=== PATIENT | female | born 1960 | race African-American/Black ===

== ENCOUNTER 2020-03-15 14:02 | Outpatient (REF) | payer OTHER, SELFPAY ==
--- NOTE | 2020-03-17 | PFT_ITS ---
INDICATION: Followup shortness of breath. SPIROMETRY: The FEV1 to FVC 89% with an FEV1 of 2.43 L, which is 76% of predicted, and FVC of 2.74 L which is 66% predicted. No significant response to bronchodilators noted. Maximum voluntary ventilation 103% predicted. LUNG VOLUMES: Total lung capacity 73% of predicted with an expiratory reserve volume of 48% of predicted due to an elevated BMI. DIFFUSION CAPACITY: DLCO 58% of predicted. COMPARISONS: PFTs from 2018. INTERPRETATION: No obstructive ventilatory defect. No significant response to bronchodilators noted. Normal maximum voluntary ventilation. However, the patient does have a mild restrictive ventilatory defect, to some degree maybe due to her elevated BMI, although interstitial lung conditions cannot be ruled out. The patient also has a moderate diffusion impairment. To some extent, it does correct when correcting for the alveolar volume. When compared to pulmonary function studies in 2018, there is a trend increase in the FVC, a trend increase in the FEV1, no significant change in the total lung capacity, and a significant decrease in the diffusion capacity. Clinical correlation is warranted. MD KRYSTIN Bradley/[facility]Tej / [id number]
== END 2020-03-15 14:03 | disposition home or self-care (01) ==
LOC: HO.RESP 14:02
PROVIDERS: Visit Provider Internal Medicine
DX: Z20.828 Contact with and (suspected) exposure to other viral communicable diseases (principal); Z86.19 Personal history of other infectious and parasitic diseases; K59.00 Constipation, unspecified; E66.01 Morbid (severe) obesity due to excess calories
CPT/HCPCS: 94060; 94727; 94729

== ENCOUNTER → 2020-04-03 08:16 | Outpatient (BNVA) | payer OTHER, SELFPAY | PROVIDERS: PCP Physician Assistant; Referring Provider Physician Assistant; Visit Provider Surgery | DX: Z76.89 Persons encountering health services in other specified circumstances (principal) ==

== ENCOUNTER → 2020-04-22 08:58 | Outpatient (BNVA) | payer OTHER, SELFPAY | PROVIDERS: PCP Physician Assistant; Visit Provider Surgery | DX: Z76.89 Persons encountering health services in other specified circumstances (principal) ==

== ENCOUNTER → 2020-05-15 09:19 | Outpatient (BNVA) | payer OTHER, SELFPAY | PROVIDERS: PCP Physician Assistant; Visit Provider Surgery | DX: Z76.89 Persons encountering health services in other specified circumstances (principal) ==

== ENCOUNTER → 2020-06-17 08:45 | Outpatient (BNVA) | payer OTHER, SELFPAY | PROVIDERS: PCP Physician Assistant; Visit Provider Surgery | DX: Z76.89 Persons encountering health services in other specified circumstances (principal) ==

== ENCOUNTER 2020-07-01 15:06 | Outpatient (REF) | payer OTHER, SELFPAY ==
[2020-07-01 16:42] LABS: MANUAL DIFF FLAG NO
[2020-07-01 16:50] LABS: Basophils Percent Auto 0.7 % (0-2); Eosinophils Absolute Auto 0.2 X10*3/uL (0.0-0.4); Eosinophils Percent Auto 4.2 % (0-4); Hematocrit 39.2 % (37-47); Hemoglobin 13.4 g/dl (12.0-16.0); Imm Gran Abs Auto 0.02 X10*3/uL (0.00-0.03); Imm Gran Pct Auto 0.4 % (0.0-0.4); Lymphocytes Absolute Auto 2.1 X10*3/uL (1.2-4.9); Lymphocytes Percent Auto 37.5 % (20-40); Mean Corpuscular HGB Conc 34.2 g/dl (31.0-35.0); Mean Corpuscular Hemoglobin 27.4 pg (27.0-33.0); Mean Corpuscular Volume 80.2 fL (80-98); Mean Platelet Volume 9.9 fL (9.4-12.3); Monocytes Absolute Auto 0.3 X10*3/uL (0.1-1.2); Monocytes Percent Auto 4.8 % (2-11); Neutrophils Percent Auto 52.4 % (45-73); Platelet Count 323 X10*3/uL (160-400); Red Blood Count 4.89 X10*6/uL (4.20-5.50); Red Cell Distribution Width 12.9 % (11.0-16.0); White Blood Count 5.7 X10*3/uL (4.8-10.8)
[2020-07-01 17:18] LABS: Anion Gap 13 (12-20); Blood Urea Nitrogen 17 mg/dL (9-16); Calcium 9.1 mg/dL (8.4-10.2); Carbon Dioxide 25 mmol/L (22-29); Chloride 105 mmol/L (96-108); Estimated Glomerular Filt Rate > 60; Glucose Random 91 mg/dL (60-115); Sodium 139 mmol/L (135-145)
[2020-07-01 17:38] LABS: D Dimer 225 NG/ML
[2020-07-01 17:42] LABS: SARS COV2 IgG Positive (Negative)
[2020-07-01 18:14] LABS: Erythrocyte Sedimentation Rate 17 MM/HR (0-20)
[2020-07-02 10:02] LABS: Immunoglobulin E 313 kU/L (<OR=114)
== END 2020-07-01 15:07 | disposition home or self-care (01) ==
LOC: HO.LAB 15:06
PROVIDERS: PCP Internal Medicine; Visit Provider Hospitalist
DX: R07.9 Chest pain, unspecified (principal); J45.41 Moderate persistent asthma with (acute) exacerbation; K44.9 Diaphragmatic hernia without obstruction or gangrene; Z20.822 Contact with and (suspected) exposure to COVID-19
CPT/HCPCS: 36415; 80048; 82785; 85025; 85379; 85652; 86003; 86769

== ENCOUNTER 2020-07-08 16:23 | Outpatient (REF) | payer OTHER, SELFPAY ==
[2020-07-08 18:09] LABS: Alanine Aminotransferase 9 U/L (0-31); Albumin Level 4.3 g/dL (3.5-5.0); Alkaline Phosphatase 76 U/L (39-117); Aspartate Amino Transferase 13 U/L (5-31); Bilirubin Direct 0.3 mg/dL (0.0-0.5); Bilirubin Total 0.8 mg/dL (0.0-1.0); C Reactive Protein 0.16 mg/dL (< or = 0.50); Rheumatoid Factor < 15.0 IU/mL (<15.0); Total Protein 7.5 g/dL (6.5-8.0)
[2020-07-08 18:31] LABS: Vitamin D 25-OH Total 20.3 ng/mL (>30)
[2020-07-08 18:34] LABS: Vitamin B12 314 pg/mL (200-900)
[2020-07-10 13:33] LABS: Anti Nuclear Antibody Screen NEGATIVE (NEGATIVE)
== END 2020-07-08 16:24 | disposition home or self-care (01) ==
LOC: HO.LAB 16:23
PROVIDERS: PCP Internal Medicine; Visit Provider Internal Medicine
DX: M25.50 Pain in unspecified joint (principal); I10 Essential (primary) hypertension; K21.9 Gastro-esophageal reflux disease without esophagitis; Z86.16 Personal history of COVID-19; Z87.01 Personal history of pneumonia (recurrent)
CPT/HCPCS: 36415; 80076; 82306; 82607; 86038; 86039; 86140; 86431

== ENCOUNTER → 2020-08-14 08:08 | Outpatient (BNVA) | payer OTHER, SELFPAY | PROVIDERS: PCP Internal Medicine; Visit Provider Surgery ==

== ENCOUNTER → 2020-08-14 13:15 | Outpatient (BNVA) | payer OTHER, SELFPAY | PROVIDERS: PCP Internal Medicine; Visit Provider Physician Assistant | DX: S63.616A Unspecified sprain of right little finger, initial encounter (principal); W50.2XXA Accidental twist by another person, initial encounter | CPT/HCPCS: 73140; 99203 ==

== ENCOUNTER → 2020-08-15 14:18 | Outpatient (BNVA) | payer OTHER, SELFPAY | PROVIDERS: PCP Internal Medicine; Visit Provider Hospitalist | DX: R07.9 Chest pain, unspecified (principal) ==

== ENCOUNTER → 2020-09-06 08:14 | Outpatient (BNVA) | payer OTHER, SELFPAY | PROVIDERS: PCP Internal Medicine; Visit Provider Surgery ==

== ENCOUNTER → 2020-09-20 07:32 | Outpatient (BNVA) | payer OTHER, SELFPAY | PROVIDERS: PCP Internal Medicine; Visit Provider Surgery ==

== ENCOUNTER 2020-09-26 06:30 | Inpatient (IN) | payer OTHER, SELFPAY ==
[2020-09-20 08:57] VITALS: BP 154/84; PULSE 82; RESP 20; BMI 33.5
--- NOTE | 2020-09-20 09:27 | P.CONAN_ITS ---
Documented by User: Estefany Beltran 09/24/20 14:23 HPI - Anesthesia Eval Consult details Narrative: 59yo F for Gastric Bypass Revision of Sleeve Gastrectomy PMFSH Active Problems Active Problems: All Active Problems (Updated 09/20/20 @ 09:16 by Elma Conde) Constipation (Acute) BMI 34.0-34.9,adult (Acute) BMI 33.0-33.9,adult (Acute) BMI 33.0-33.9,adult (Acute) GER[place]IA on CPAP (Acute) Post-COVID syndrome (Acute) Hiatal hernia (Acute) Asthma (Acute) Chest pain (Acute) Chest pain (Acute) Hypertension (Acute) Obesity (Acute) Diaphragmatic hernia (Acute) GERD (gastroesophageal reflux disease) (Acute) Morbid obesity (Acute) Past Medical History Medical History Admission for breast reconstruction following mastectomy Arthritis Asthma Diabetes Diaphragmatic hernia GERD (gastroesophageal reflux disease) History of COVID-19 History of MRSA infection Hx of breast cancer Hx of cardiac murmur Hypertension Morbid obesity GER[place]IA on CPAP Pneumonia Post-COVID syndrome Sickle cell trait Family History Family History Father DM (diabetes mellitus) Stroke Mother DM (diabetes mellitus) Brother No problems noted. Sister No problems noted. Son No problems noted. Family history of problems with anesthesia: No Surgical History Surgical History H/O colonoscopy History of arthroscopic knee surgery History of esophagogastroduodenoscopy (EGD) History of sleeve gastrectomy Hx laparoscopic cholecystectomy Hx of hysterectomy Obesity S/P bilateral mastectomy History of Problems with Anesthesia: No Social History Social History Are you a primary attending ambulatory care to a significant other at home: No Do you presently have visiting nurse or other home services: No Alcohol intake: never Smoking Status: Former smoker Smoked in Last 30 Days: No Smoking Quit Date: 1990 Use of substances other than those prescribed or required for medical reasons: No Have you been hit, kicked, punched, or otherwise hurt by someone within the past year? If so, by whom?: No Advance Directives Information Provided: No Recently lost weight without trying: No Narrative Narrative: No recent illness. >4 mets with exercise. No CP/SOB. Meds Allergies Allergy/AdvReac Type Severity Reaction Status Date / Time cat dander Allergy Severe Loss Voice Verified 09/26/20 06:44 environmental Allergy Severe Sneezing Verified 09/26/20 06:44 Home Medications Medication Instructions Recorded Confirmed Last Taken Type cyanocobalamin (vitamin B-12) 1,000 mcg PO DAILY 04/03/20 09/20/20 Unknown History 1,000 mcg tablet vitamin A 10,000 unit capsule 1 cap PO DAILY 04/03/20 09/20/20 Unknown History omeprazole 20 mg capsule,delayed 20 mg PO DAILY 04/22/20 09/20/20 Unknown History release gabapentin 100 mg capsule 100 mg PO BEDTIME PRN 08/15/20 09/20/20 Unknown History albuterol sulfate 1 puff INHALATION Q4H PRN 09/20/20 09/20/20 Unknown History Exam Exam Date and Time: September 20, [id number] Height,Weight and Vital Signs: Height 5 ft 10 in Weight 106 kg Last Vital Signs Pulse 82 09/20/20 08:57 Resp 20 09/20/20 08:57 BP 154/84 H 09/20/20 08:57 Pertinent Lab Results Pertinent Lab Results: Lab Results 09/20/20 09/20/20 09/20/20 Range/Units 10:05 10:05 10:05 WBC 4.4 L (4.8-10.8) X10*3/uL RBC 5.12 (4.20-5.50) X10*6/uL Hgb 13.9 (12.0-16.0) g/dl Hct 41.2 (37-47) % MCV 80.5 (80-98) fL MCH 27.1 (27.0-33.0) pg MCHC 33.7 (31.0-35.0) g/dl RDW 13.2 (11.0-16.0) % Plt Count 327 (160-400) X10*3/uL MPV 10.0 (9.4-12.3) fL Immature Gran % (Auto) 0.2 (0.0-0.4) % Neut % (Auto) 69.7 (45-73) % Lymph % (Auto) 19.1 L (20-40) % [place] % (Auto) 7.1 (2-11) % Eos % (Auto) 3.4 (0-4) % Baso % (Auto) 0.5 (0-2) % Lymph # (Auto) 0.8 L (1.2-4.9) X10*3/uL [place] # (Auto) 0.3 (0.1-1.2) X10*3/uL Eos # (Auto) 0.2 (0.0-0.4) X10*3/uL Baso # (Auto) 0.0 (0.0-0.2) X10*3/uL Abs Immat Gran (auto) 0.01 (0.00-0.03) X10*3/uL Absolute Neuts (auto) 3.1 (2.0-8.3) X10*3/uL Absolute Nucleated RBC 0.000 (0.0-0.012) X10*3/uL Nucleated RBC % (auto) 0.0 (0.0-0.2) /100WBC PT 12.8 (10.8-13.0) SEC INR 1.1 (0.9-1.1) APTT 42.5 H (24.1-38.0) SEC Sodium 140 (135-145) mmol/L Potassium 3.5 (3.3-5.1) mmol/L Chloride 106 (96-108) mmol/L Carbon Dioxide 25 (22-29) mmol/L Anion Gap 13 (12-20) BUN 11 (9-16) mg/dL Creatinine 0.80 (0.5-1.4) mg/dL Estim Creat Clear Calc 99.8 Estimated GFR > 60 Random Glucose 92 (60-115) mg/dL Estimat Average Glucose mg/dL Hemoglobin A1c % % Total Insulin uIU/mL Calcium 9.3 (8.4-10.2) mg/dL Total Bilirubin 0.8 (0.0-1.0) mg/dL AST 15 (5-31) U/L ALT 11 (0-31) U/L Alkaline Phosphatase 86 (39-117) U/L C-Reactive Protein 0.52 H (< or = 0.50) mg/dL Total Protein 7.8 (6.5-8.0) g/dL Albumin 4.6 (3.5-5.0) g/dL Triglycerides 64 mg/dL Cholesterol 178 mg/dL LDL Cholesterol, Calc 106 mg/dl HDL Cholesterol 60 mg/dL TSH 0.33 (0.32-4.0) uIU/mL Blood Type Antibody Screen 09/20/20 09/20/20 09/20/20 Range/Units 10:05 10:05 10:05 WBC (4.8-10.8) X10*3/uL RBC (4.20-5.50) X10*6/uL Hgb (12.0-16.0) g/dl Hct (37-47) % MCV (80-98) fL MCH (27.0-33.0) pg MCHC (31.0-35.0) g/dl RDW (11.0-16.0) % Plt Count (160-400) X10*3/uL MPV (9.4-12.3) fL Immature Gran % (Auto) (0.0-0.4) % Neut % (Auto) (45-73) % Lymph % (Auto) (20-40) % [place] % (Auto) (2-11) % Eos % (Auto) (0-4) % Baso % (Auto) (0-2) % Lymph # (Auto) (1.2-4.9) X10*3/uL [place] # (Auto) (0.1-1.2) X10*3/uL Eos # (Auto) (0.0-0.4) X10*3/uL Baso # (Auto) (0.0-0.2) X10*3/uL Abs Immat Gran (auto) (0.00-0.03) X10*3/uL Absolute Neuts (auto) (2.0-8.3) X10*3/uL Absolute Nucleated RBC (0.0-0.012) X10*3/uL Nucleated RBC % (auto) (0.0-0.2) /100WBC PT (10.8-13.0) SEC INR (0.9-1.1) APTT (24.1-38.0) SEC Sodium (135-145) mmol/L Potassium (3.3-5.1) mmol/L Chloride (96-108) mmol/L Carbon Dioxide (22-29) mmol/L Anion Gap (12-20) BUN (9-16) mg/dL Creatinine (0.5-1.4) mg/dL Estim Creat Clear Calc Estimated GFR Random Glucose (60-115) mg/dL Estimat Average Glucose 103 mg/dL Hemoglobin A1c % 5.2 % Total Insulin 5.5 uIU/mL Calcium (8.4-10.2) mg/dL Total Bilirubin (0.0-1.0) mg/dL AST (5-31) U/L ALT (0-31) U/L Alkaline Phosphatase (39-117) U/L C-Reactive Protein (< or = 0.50) mg/dL Total Protein (6.5-8.0) g/dL Albumin (3.5-5.0) g/dL Triglycerides mg/dL Cholesterol mg/dL LDL Cholesterol, Calc mg/dl HDL Cholesterol mg/dL TSH (0.32-4.0) uIU/mL Blood Type O Positive Antibody Screen NEGATIVE Narrative Narrative: EKG 02/2020 NSR @ 74 Echo 01/2020 Normal LV systolic function with grade 1 DD Normal cardiac valve doppler Normal RV systolic pressure No pericardial effusion PFT 04/2020 INTERPRETATION: No obstructive ventilatory defect. No significant response to bronchodilators noted. Normal maximum voluntary ventilation. However, the patient does have a mild restrictive ventilatory defect, to some degree maybe due to her elevated BMI, although interstitial lung conditions cannot be ruled out. The patient also has a moderate diffusion impairment. To some extent, it does correct when correcting for the alveolar volume. When compared to pulmonary function studies in 2018, there is a trend increase in the FVC, a trend increase in the FEV1, no significant change in the total lung capacity, and a significant decrease in the diffusion capacity. Clinical correlation is warranted. Airway Mallampati Class: II TM Dist: >3cm Neck ROM: Full Denture: Lower Heart: RRR Lungs: CTAB Assessment and Plan Assessment Anesthesia Assessment: Anesthesia Plan Discussed and PAT Visit Documented by User: Kelton Arenas 09/26/20 09:38 PMFSH Past Medical History Medical History Admission for breast reconstruction following mastectomy Arthritis Asthma Diabetes Diaphragmatic hernia GERD (gastroesophageal reflux disease) History of COVID-19 History of MRSA infection Hx of breast cancer Hx of cardiac murmur Hypertension Morbid obesity [place]ER[place] on CPAP Pneumonia Post-COVID syndrome Sickle cell trait Family History Family History Father DM (diabetes mellitus) Stroke Mother DM (diabetes mellitus) Brother No problems noted. Sister No problems noted. Son No problems noted. Surgical History Surgical History H/O colonoscopy History of arthroscopic knee surgery History of esophagogastroduodenoscopy (EGD) History of sleeve gastrectomy Hx laparoscopic cholecystectomy Hx of hysterectomy Obesity S/P bilateral mastectomy Social History Social History Are you a primary attending ambulatory care to a significant other at home: No Do you presently have visiting nurse or other home services: No Alcohol intake: never Smoking Status: Former smoker Smoked in Last 30 Days: No Smoking Quit Date: 1990 Use of substances other than those prescribed or required for medical reasons: No Have you been hit, kicked, punched, or otherwise hurt by someone within the past year? If so, by whom?: No Advance Directives Information Provided: No Recently lost weight without trying: No Meds Allergies Allergy/AdvReac Type Severity Reaction Status Date / Time cat dander Allergy Severe Loss Voice Verified 09/26/20 06:44 environmental Allergy Severe Sneezing Verified 09/26/20 06:44 Home Medications Medication Instructions Recorded Confirmed Last Taken Type cyanocobalamin (vitamin B-12) 1,000 mcg PO DAILY 04/03/20 09/20/20 Unknown History 1,000 mcg tablet vitamin A 10,000 unit capsule 1 cap PO DAILY 04/03/20 09/20/20 Unknown History omeprazole 20 mg capsule,delayed 20 mg PO DAILY 04/22/20 09/20/20 Unknown History release gabapentin 100 mg capsule 100 mg PO BEDTIME PRN 08/15/20 09/20/20 Unknown History albuterol sulfate 1 puff INHALATION Q4H PRN 09/20/20 09/20/20 Unknown History Exam Airway Mallampati Class: II TM Dist: >3cm Neck ROM: Full Heart: [id number] Lungs: cta b/l Assessment and Plan Assessment Anesthesia Assessment: Anesthesia Plan Discussed, PAT Visit and Chart Reviewed Final Anesthetic Review NPO: Yes ASA Class: III Final Preanesthetic Review: No Changes in Pt Med Stat, Consent Obtained/Reviewed and Anes Risks/Benef Reviewed Patient Risk: Intermediate Procedure Risk: Low Assessment/Block/Sedation in SS: Assess/Block/Sedation-SS Anesthetic Plan Anesthetic Plan: GA and Agree w/ Assess. and Plan Disposition: Standard PACU
[2020-09-20 10:22] LABS: MANUAL DIFF FLAG NO
[2020-09-20 10:30] LABS: Basophils Percent Auto 0.5 % (0-2); Eosinophils Absolute Auto 0.2 X10*3/uL (0.0-0.4); Eosinophils Percent Auto 3.4 % (0-4); Hematocrit 41.2 % (37-47); Hemoglobin 13.9 g/dl (12.0-16.0); Imm Gran Abs Auto 0.01 X10*3/uL (0.00-0.03); Imm Gran Pct Auto 0.2 % (0.0-0.4); Lymphocytes Absolute Auto 0.8 X10*3/uL (1.2-4.9); Lymphocytes Percent Auto 19.1 % (20-40); Mean Corpuscular HGB Conc 33.7 g/dl (31.0-35.0); Mean Corpuscular Hemoglobin 27.1 pg (27.0-33.0); Mean Corpuscular Volume 80.5 fL (80-98); Monocytes Absolute Auto 0.3 X10*3/uL (0.1-1.2); Monocytes Percent Auto 7.1 % (2-11); Neutrophils Absolute Auto 3.1 X10*3/uL (2.0-8.3); Neutrophils Percent Auto 69.7 % (45-73); Platelet Count 327 X10*3/uL (160-400); Red Blood Count 5.12 X10*6/uL (4.20-5.50); Red Cell Distribution Width 13.2 % (11.0-16.0); White Blood Count 4.4 X10*3/uL (4.8-10.8)
[2020-09-20 10:31] LABS: INTERNATIONAL NORM RATIO 1.1 (0.9-1.1); Prothrombin Time 12.8 SEC (10.8-13.0)
[2020-09-20 10:48] LABS: Partial Thromboplastin Time 42.5 SEC (24.1-38.0)
[2020-09-20 10:53] LABS: Estimated Average Glucose 103 mg/dL; Hemoglobin A1c % 5.2 %
[2020-09-20 10:54] LABS: Alanine Aminotransferase 11 U/L (0-31); Albumin Level 4.6 g/dL (3.5-5.0); Alkaline Phosphatase 86 U/L (39-117); Anion Gap 13 (12-20); Aspartate Amino Transferase 15 U/L (5-31); Bilirubin Total 0.8 mg/dL (0.0-1.0); Blood Urea Nitrogen 11 mg/dL (9-16); C Reactive Protein 0.52 mg/dL (< or = 0.50); Calcium 9.3 mg/dL (8.4-10.2); Carbon Dioxide 25 mmol/L (22-29); Chloride 106 mmol/L (96-108); Cholesterol 178 mg/dL; Creatinine Clr Calc Pharmacy 99.8; Estimated Glomerular Filt Rate > 60; Glucose Random 92 mg/dL (60-115); HDL Cholesterol 60 mg/dL; LDL Cholesterol Calculated 106 mg/dl; Potassium 3.5 mmol/L (3.3-5.1); Sodium 140 mmol/L (135-145); Total Protein 7.8 g/dL (6.5-8.0); Triglycerides 64 mg/dL
[2020-09-20 11:14] LABS: TSH reflex Free T4 0.33 uIU/mL (0.32-4.0)
[2020-09-21 05:51] LABS: Insulin Level Total 5.5 uIU/mL
[2020-09-26] VITALS (10 sets, daily range): BP systolic 124–168; BP diastolic 68–96; PULSE 63–81; RESP 14–20; TEMP 36.1–36.6; O2SAT 98–100
--- NOTE | ~2020-09-26 | FL_ITS ---
EXAMINATION: FL UPPER GI SERIES WITH SMALL BOWEL CLINICAL INFORMATION: Postoperative day 1, status post gastric bypass surgery. COMPARISON: None TECHNIQUE: 50/50 diluted Gastrografin was administered orally in the upright view under fluoroscopy. FINDINGS: Following oral administration of diluted Gastrografin, there is normal propagation of the bolus from the oral cavity through the pharynx and esophagus into a small stomach with spontaneous emptying into the duodenum. There is contrast visualized in proximal small bowel loops. FLUOROSCOPY TIME: 0.4 minutes DOSE AREA PRODUCT: 16.306 uGy-m2 (microgray-meter squared) FL/FL upper GI small bowel IMPRESSION: Widely patent gastroesophageal junction and gastroduodenal anastomosis following gastric bypass surgery. No extraluminal contrast extravasation seen. Contrast opacified proximal small bowel loops appears unremarkable.
[2020-09-26 06:55] LABS: COVID-19 Test Negative (Negative)
[2020-09-26] MEDS: Lactated Ringers 1,000 ML 100 ML IVCONT (07:15)
[2020-09-26 07:54] LABS: Glucose, Whole Blood 75 mg/dL (60-115)
--- NOTE | 2020-09-26 12:20 | P.HPSUR_ITS ---
Pre-Procedural Eval Section A The patient is an INPATIENT: Yes The History & Physical has been completed within 30 days and I have reviewed it.: Yes Section B Chief Complaint: gastric bypass revision of lsg Details of Present Illness: obesity Relevant Family History (Specify if Yes): No Relevant Social History: None Present Medications: see Short Stay Collaborative assessment Medical History: No relevant PMH History of Previous Operations: Relevant previous surgery/procedure and date(s) (sleeve gastrectomy) Allergies: Allergies Allergy/AdvReac Type Severity Reaction Status Date / Time cat dander Allergy Severe Loss Voice Verified 09/26/20 06:44 environmental Allergy Severe Sneezing Verified 09/26/20 06:44 Review of Systems Sugical H&P ROS: Negative: Constitution, Cardiovascular, Respiratory, Neurological, Psychiatric, Hem-Onc, Allergic/Immunologic, Gastrointestinal, Genitourinary, Musculoskeletal, Integumentary, Endocrine and Eyes/Ears/Nose/Throat Exam Surgical H&P Exam: Normal: HEENT, Normal: Heart, Normal: Lungs, Normal: Ex tremities, Normal: Abdomen, Normal: Skin and Normal: Neurological Plan Diagnosis/Plan: Unchanged I have reviewed the history and physical and performed a pertinent physical examination on my patient. No changes have occurred unless specified.
--- NOTE | 2020-09-26 12:32 | PM.OP ---
Brief Operative Note Date of Service: 09/26/20 Pre-op diagnosis: Severe obesity and comorbidities Post-op diagnosis: same (diaphragmatic hernia and abdominal adhesions) Procedure: PROCEDURE: Upper endoscopy, laparoscopic repair of incarcerated diaphragmatic hernia, laparoscopic lysis of adhesions and laparoscopic Cassi-en-Y gastric bypass with a Cassi limb of 150 cm INDICATIONS: This is a 59 year-old female with a BMI of 38.2 kg/m2 and associated comorbid conditions as described previously. After appropriate workup was performed, the patient was electively scheduled for laparoscopic, possibly open, gastric bypass. The risks and complications of the procedure were discussed with the patient in advance, particularly the possibility of ; pulmonary embolism; anastomotic leak; bleeding; bowel obstruction; cardiac, pulmonary, or renal complications; as well as long-term problems such as insufficient weight loss, vitamin deficiency, anastomotic strictures, or ulcers. The patient understood all the risks, and was in agreement to proceed with surgery. DESCRIPTION OF PROCEDURE: After informed consent was obtained from the patient, the patient was given preoperative antibiotics, and was transferred to the operating room. After successful induction of general anesthesia, a Kumar catheter and pneumatic compressive devices were placed on both lower extremities. An upper endoscopy was performed next. The oropharynx and esophagus appeared to be within normal limits. There was a diaphragmatic hernia present of moderate size consistent with the findings of the preoperative upper GI. The stomach was entered. Then after all fluid and air were suctioned and the stomach was fully decompressed, the scope was withdrawn and secured in the mid esophagus. The patient was then prepped and draped in the usual sterile manner, and abdominal access was established at the right upper quadrant with the Naila technique. A 12 mm blunt port was inserted, and the abdomen was insufflated with CO2 to a pressure of 15 mmHg. Under direct visualization, additional ports were placed, specifically a 5 and a 12 mm Versi-Step port, to the left and right of the umbilicus, two 5 mm ports to the left upper quadrant, and a 5 mm Versi-Step port to the right upper quadrant. All incisions and fascial defects were premptively infiltrated with 1% lidocaine. There were adhesions in the abdomen from previous sleeve gastrectomy involving the omentum and the anterior abdominal wall. Those were lysed completely with the ultrasonic device (Thysabelerbeyunier, Olympus). Following that, the patient was placed in a steep reverse Trendelenburg position. An additional 5 mm port was placed to the right flank for the Mediflex retractor that was used to retract the left lobe of the liver. I began dissecting allong the lateral aspect of the previous sleeve gastrectomy using the Thunderbeat device. All adhesions were lysed and the sleeve was freed. This line of dissection was followed all the way to the angle of His. Adhesiolysis took approximately 60 min to complete. The pars flaccida was opened with the ultrasonic device and the lesser sac was entered. The angle of His was opened with the ultrasonic device the fundus of the stomach from any diaphragmatic and splenic attachments. There was an obvious significant-sized hiatal hernia. Dissection was difficult due to the previous sleeve gastrectomy and fibrotic tissue in the area. I continued dissecting along the hiatus toward the left ashley and the angle of His. We fully mobilized the fat pad that was incarcerated in the hernia. We then continued by dissecting even further into the posterior retro-esophageal space all the way to the angle of His. I continued to mobilize the esophagus into the mediastinum circumferentially. Both vagal nerves were seen and preserved. At that point, we were able to have at least 3 to 5 cm of esophagus into the abdomen. After I completely mobilized the esophagus from both the left and right ashley and I had a good mobilization of the esophagus, I closed the hernia defect with three interrupted #0 Surgidac sutures using the Endo Stitch device, two of which were placed posterior and one anterior to the esophagus. The lesser omentum was divided with an Endo J LUIS-45 articulating verma load using the AEON stapler but with Covidien staple loads. I opened the angle of His with the ultrasonic device, the fundus of the stomach from any diaphragmatic or splenic attachments. After a window was established there, the stomach was divided transversely with an Endo J LUIS-45 articulating purple load. Every effort was made that the gastric pouch had a tubular and not spherical shape by limiting the vertical division of the stomach with the first staple load at the lesser curvature. A second articulating Endo J LUIS-60 purple load was fired next towards the angle of His. The staple line of the gastric remnant was then reinforced with a running 2-0 Surgidac suture using the Endo Stitch device. The retrogastric space was dissected after the first two staple loads were fired. The retrogastric space was opened in the avascular plane medially to the splenic artery and laterally to the left ashley all the way to the angle of His. The gastric pouch was completed with two additional Endo J LUIS- 45 and 60 articulating purple loads. The remaining staple line of the gastric remnant was also reinforced with a running 2-0 Surgidac suture using the Endo Stitch device. The staple line of the gastric pouch was reinforced with Hemoclips. We then opened the gastrocolic ligament between the transverse colon and the greater curvature of the stomach with the ultrasonic device to enter the lesser sac and facilitate delivery of the Cassi limb through the lesser sac at a later step of the procedure. The patient was then placed in supine position, and after I retracted the transverse colon and the omentum cephalad, we identified the ligament of Treitz. I counted 50 cm from the ligament of Treitz, and the small bowel and the mesentery were divided with an Endo J LUIS-60 white load. Using the ultrasonic device, we opened the peritoneum at the root of the mesentery further to gain extra mobility. I then developed the mesocolic window slightly to the left and superior to the ligament of Treitz using the ultrasonic device. The apex of the Cassi limb was identified. Following that, we grasped the apex of the Cassi limb with an articulating bowel grasper, and after I made sure there was no twisting of the mesentery, it was delivered in a retrocolic, retrogastric fashion through the mesocolic window which we had previously made. Following that, I noted there was no tension between the gastric pouch and the Cassi limb. Enterotomies were made at the apex of the pouch and the Cassi limb, and the gastro-jejunostomy was made with an Endo J LUIS-45 osei load measured to be 4.5 cm in diameter. The enterotomy was closed using the Endo Stitch device in one layer of running 2-0 Polysorb suture in a [place] fashion starting from each corner of the enterotomy and tying the two ends together in the center of the enterotomy. The Cassi limb was clamped with a bowel clamp approximately 15 cm from the gastro-jejunostomy, and a leak test was performed by submerging the anastomosis in saline and insufflating air off the scope into the pouch. The hiatal hernia repair was intact, and there was no narrowing of the GE junction. There was no air leak during the test. There was no significant ischemia of the mucosa of the gastric pouch or Cassi limb. There was no bleeding from the suture or staple lines of the anastomosis, as well as the staple line of the gastric pouch which was clearly seen in its entirety. In addition, the anastomosis was patent, and we easily advanced the scope into the proximal Cassi limb. With the scope pulled back at the esophagus, we reinforced the anastomosis circumferentially with multiple interrupted 2-0 Polysorb sutures in a Lembert type fashion using the Endo Stitch device. At that point, I pulled the endoscope back to the esophagus while we were decompressing the Cassi limb and gastric pouch from any remaining air. At that point, the patient was placed in supine position, and after I reduced the Cassi limb back into the abdomen, I counted 150 cm from the gastro-jejunostomy. An enterotomy was made there with the ultrasonic device. After a similar enterotomy was made at the apex of the bilio-pancreatic limb, the jejuno-jejunostomy was made with an Endo J LUIS-60 white load. The enterotomy was closed with another Endo J LUIS-60 white load after appropriate alignment with four interrupted 2-0 Surgidac sutures. Two anti-obstruction sutures were placed next between the staple line of the bilio-pancreatic limb and the mesentery of the Cassi limb distal from the anastomosis to prevent kinking of the anastomosis. I then closed the small bowel mesenteric defect in a running fashion using a running 2-0 Surgidac suture using the Endo Stitch device. I checked the anastomosis at the end. The jejuno-jejunostomy was patent. The Cassi limb was not narrowed. The staple lines were intact, viable, without evidence of any ischemia, bleeding, or any open areas, and the entire anastomosis was sitting nicely without tension, narrowing, or kinking. I then closed the Alvarez's defect with two interrupted 2-0 Surgidac suture in a U-type fashion and then the mesocolic defect with four interrupted 2-0 Sofsilk sutures in a U-type fashion. The Cassi limb was clamped 20 cm inferior to the mesocolic window and another endoscopy was performed. We could easily pass the gastroscope through the gastro-jejunostomy and mesocolic window without any narrowing, kinking, or evidence of bleeding or ischemia. At that point the gastroscope was withdrawn from the patient?s mouth while we were decompressing the bowel and the stomach from any remaining air. I ran back the Cassi limb from the mesocolic window to the jejuno-jejunostomy which appeared to be normal without any twisting or kinking. All blood clots were suctioned. I carefully positioned the transverse colon epiploic appendages to the root of the small bowel mesentery to prevent any adhesions between them and the anastomosis that could lead to an internal hernia. I then placed the patient back in a steep reverse Trendelenburg position. I looked into the lesser sac to see how the Cassi limb was situating and it was situating well. There was no bleeding from the staple lines of the remnant, angle of His, and gastric pouch, as well as from the mesentery of the Cassi limb. At this point I placed a 10 mm HERLINDA drain underneath the gastro-jejunostomy and we secured the skin level with an #0 Sofsilk suture. The Mediflex retractor was removed, and the undersurface of the liver was inspected and there was no bleeding. The patient was placed in supine position. I closed the fascial defect of periumbilical two 12 mm port site laparoscopically with the EndoClose suture passer device using #1 Polysorb suture and the Naila port with a figure of eight #1 Polysorb suture. Then 100 cc 0.25 % Marcaine and 10 mg of Dexamethasone plain were used to infiltrate both fascial closures as well as all skin incisions. At this point, the abdomen was deflated, all ports were removed under direct vision, and no bleeding was noted from any of the port sites. The skin incisions were irrigated with saline and were closed with 4-0 absorbable monofilament sutures. Steri-Strips and OpSites were used to cover all incisions. The patient was extubated and was transferred in stable condition to the recovery room for further care. I was present and performed all salomon parts of the procedure. Deonte Pepe was the nursing assistants teacher. There were no residents to assist with this case. Jluis Thompson MD, PhD, FACS Surgeon: Nathaniel Thompson MD Anesthesia: GETA, local and other (TAP block) [employer] Driver: Maia Pepe Estimated blood loss (mL): 10 IV fluids (mL): 3,000 Urine output (mL): 150 Pathology: other (small bowel) Condition: stable Disposition: PACU
[2020-09-26] MEDS: Famotidine/PF 20 MG/2 ML VIAL IVPUSH ×2 (12:45→20:51)
--- NOTE | 2020-09-26 12:45 | PM.PNGS ---
Subjective Subjective Date of Service: 09/27/20 Interval history: Patient had mild incisional pain but was able to ambulate and use the incentive spiromteter. Physical Exam Vital Signs: Vital Signs: Last Vital Signs Temp 96.9 F 09/26/20 12:30 Pulse 72 09/26/20 12:39 Resp 14 09/26/20 12:39 BP 163/96 H 09/26/20 12:39 Pulse Ox 99 09/26/20 12:39 Body Mass Index 33.5 GI: Inspection: Yes normal to inspection, Yes incision (dry, clean and intact) and Yes other (HERLINDA with serosanguinous fluid) Extrem: Right lower extremity: normal to inspection (no cald tenderness) Left lower extremity: normal to inspection (no calf tenderness) Progress Note: A&P Assessment and plan (1) Obesity: Status: Acute (2) BMI 32.0-32.9,adult: Status: Acute (3) GERMANIA on CPAP: Status: Acute (4) Hiatal hernia: Status: Acute (5) Asthma: Problem details: pt states never diagnosed w/asthma, however has allergy induced wheezing-has prn inhaler Status: Acute (6) Hypertension: Status: Acute (7) Diaphragmatic hernia: Status: Acute (8) GERD (gastroesophageal reflux disease): Status: Acute (9) Steatosis, liver: Status: Acute (10) S/P gastric bypass: Status: Acute Assessment and Plan: 59 year old Female was admitted 09/26/2020 with morbid obesity and comorbidities. Problem 1: s/p laparoscopic gastric bypass, repair of incarcerated diaphragmatic hernia and lysis of adhesions Status: Doing well Plan: Check am labs and UGI, If OK, will begin phase 1 bariatric diet. UGI is normal. D/C Kumar and begin phase 1 (11) Status post repair of paraesophageal diaphragmatic hernia: Status: Acute (12) Intra-abdominal adhesions: Status: Acute Fall Risk Details Current Medications: Current Medications Generic Name Dose Route Start Last Admin Trade Name Freq PRN Reason Stop Dose Admin Acetaminophen 650 mg 09/26/20 09:38 Acetaminophen 325 Mg Tablet PO ONCE PRN Pain, Mild (Pain Scale 1-3) Albuterol Sulfate 2.5 mg 09/26/20 06:20 Albuterol Sulfate (0.083%) 2.5 Mg/3 Ml Vial.Neb INHALE ONCE PRN Shortness of Breath/Wheezing Famotidine 20 mg 09/26/20 12:45 Famotidine/Pf 20 Mg/2 Ml Vial IVPUSH BID CHARLEY Fentanyl 50 mcg 09/26/20 09:38 Fentanyl Citrate/Pf 100 Mcg/2 Ml Vial IVPUSH Q5M PRN Pain, Moderate (Pain Scale 4-6 Hydromorphone HCl 0.5 mg 09/26/20 09:38 Hydromorphone Hcl 0.5 Mg/0.5 Ml Syringe IVPUSH Q5M PRN Pain, Severe (Pain Scale 7-10) Lactated Ringer's 1,000 mls @ 100 mls/hr 09/26/20 06:30 09/26/20 07:15 Lr IVCONT 100 mls/hr .Q10H CHARLEY Administration Promethazine HCl 12.5 mg/ 50.5 mls @ 202 mls/hr 09/26/20 09:38 Sodium Chloride IV ONCE PRN Nausea and Vomiting Ondansetron HCl 4 mg 09/26/20 09:38 Ondansetron Hcl 4 Mg/2 Ml Vial IVPUSH ONCE PRN Nausea and Vomiting Oxycodone HCl 10 mg 09/26/20 09:38 Oxycodone Hcl Immed Release 5 Mg Tablet PO ONCE PRN Pain, Mild (Pain Scale 1-3) Time Spent With Patient Time: Total time spent is greater than 50% in coordination of care (as documented) at patient's floor/unit and/or counseling patient: Time with patient: less than 15 minutes
--- NOTE | 2020-09-26 13:02 | P.DS_ITS ---
DS: Providers Provider Date of Service: 09/27/20 Date of admission: 09/26/20 06:30 Primary care physician: Jorge Enriquez MD DS: Diagnosis Discharge Diagnosis (1) Obesity: Status: Acute (2) BMI 32.0-32.9,adult: Status: Acute (3) GERMANIA on CPAP: Status: Acute (4) Hiatal hernia: Status: Acute (5) Asthma: Status: Acute Problem details: pt states never diagnosed w/asthma, however has allergy induced wheezing-has prn inhaler (6) Hypertension: Status: Acute (7) Diaphragmatic hernia: Status: Acute (8) GERD (gastroesophageal reflux disease): Status: Acute (9) Steatosis, liver: Status: Acute (10) S/P gastric bypass: Status: Acute (11) Status post repair of paraesophageal diaphragmatic hernia: Status: Acute (12) Intra-abdominal adhesions: Status: Acute DS: Medications Discharge Medications Home Medications: Home Medications Medication Instructions Recorded Confirmed cyanocobalamin (vitamin B-12) 1,000 mcg PO DAILY 04/03/20 09/20/20 1,000 mcg tablet vitamin A 10,000 unit capsule 1 cap PO DAILY 04/03/20 09/20/20 omeprazole 20 mg capsule,delayed 20 mg PO DAILY 04/22/20 09/20/20 release gabapentin 100 mg capsule 100 mg PO BEDTIME PRN 08/15/20 09/20/20 albuterol sulfate 1 puff INHALATION Q4H PRN 09/20/20 09/20/20 Previous Rx's Medication Instructions Recorded lisinopril 10 1 tab PO DAILY #90 tab 04/15/20 mg-hydrochlorothiazide 12.5 mg tablet docusate sodium 100 mg capsule 100 mg PO DAILY #30 cap 06/19/20 beclomethasone dipropionate 80 1 inh INHALATION BID 30 Days #10.6 07/01/20 mcg/actuation HFA breath activated g aerosol montelukast 10 mg tablet 10 mg PO BEDTIME 30 Days #30 tab 07/01/20 vitamin A 10,000 unit capsule 1 cap PO DAILY #90 cap 08/20/20 ondansetron HCl 4 mg tablet 4 mg PO Q12H #20 tab 09/20/20 pantoprazole 40 mg tablet,delayed 40 mg PO DAILY #30 tab 09/20/20 release polyethylene glycol 3350 17 gram 17 g PO DAILY #14 ea 09/20/20 oral powder packet sucralfate 100 mg/mL oral 10 ml PO BID #400 ml 09/20/20 suspension DS: Summary Time Spent with Patient Time attestation: ADMITTING DIAGNOSIS: Refractory obesity after sleeve gastrectomy. Paraesophagela hernia, HTN, asthma DISCHARGE DIAGNOSIS: Past surgical history: Laparoscopic sleeve gastrectomy 2013, lap tiff, hysterectomy, bilateral mastopexy PROCEDURE: Nxtitbgy-qpyfua-ebonclmdxtg and laparoscopic conversion of sleeve gastrectomy to Cassi-en-Y gastric bypass, paraesophageal hernia repair DISCHARGE SUMMARY: HISTORY OF PRESENT ILLNESS: The patient is a 59 year-old woman with a BMI of 35.0 kg/m2 and associated co-morbidities as described previously. The patient had extensive preoperative work-up, lost 25.6 lbs preoperatively and was electively scheduled for laparoscopic, possible open conversion of LSG to gastric bypass. Risks and complications of the surgery were discussed with the patient in advance, particularly the possibility of , pulmonary embolism, anastomotic leak, bleeding, bowel injury, GERD, cardiac, renal or pulmonary complications. The patient understood all the risks and was in agreement with the surgical plan. HOSPITAL COURSE: The patient underwent uneventful laparoscopic conversion of sleeve gastrectomy to Cassi-en-Y gastric bypass and repair of paraesophageal hernia on the day of admission. Postoperatively, the patient was transferred to the surgical floor on a monitored bed and hemoglobin during the first 8 hours remained stable at mg/dl. The patient was on IV Acetaminophen and dilaudid for pain control. On postoperative day one, the patient was feeling well without nausea, vomiting, fevers, or tachycardia. The patient had some mild incisional pain. The abdomen was soft. UGI showed no leak or obstruction. The patient was started on 1 ounce of water or ice every half hour. The Kumar was discontinued. During the first day, the patient did fairly well, having some incisional pain, but able to ambulate adequately and to tolerate liquids well. Since the patient is doing well, we decided that the patient was ready to be discharged. The patient was given instructions to follow-up with me next week and to call my office for any fever over 101, persistent abdominal pain, nausea, vomiting, change in the color of the HERLINDA fluid, symptoms of DVT such as calf tenderness, or leg swelling, or pulmonary embolism such as chest pain or shortness of breath. The patient was also instructed to drink 40-60 ounces of liquids per day using the 1-ounce cups. The patient was given prescription for Tylenol for pain, Zofran prn for nausea, pantoprazole and carafate. The patient was encouraged to ambulate and use the incentive spirometry. The patient was allowed to shower, but no baths, and encouraged to stay active at home. All of these instructions were given to the patient personally. All questions were answered and the patient understood all instructions. The instructions were given to the patient in print as well. Total time spent providing and/or coordinating discharge services: 15 Discharge coordination time: Less than 30 minutes Physical Exam Vital Signs: Vital Signs: Last Vital Signs Temp 96.9 F 09/26/20 12:30 Pulse 73 09/26/20 12:45 Resp 15 09/26/20 12:45 BP 156/92 H 09/26/20 12:45 Pulse Ox 99 09/26/20 12:45 Body Mass Index 33.5 DS: Data Data Completed and Pending Pending studies at discharge: Pending at discharge 09/26/20 10:35 Surgical [PTH] Routine Labs on day of discharge: Laboratory Results - last 24 hr 09/26/20 09/26/20 06:27 07:21 POC Glucose 75 COVID-19 (STEVEN) Negative COVID-19 Clin Com See Note Discharge Plan Discharge Anticipated Discharge Date/Time: 09/27/20 12:57 Patient Disposition: Home, Self-Care Discharge Diagnosis: S/p paraesophagela hernia repair and conversion of LSG to GBP Referrals: Jorge Enriquez MD [Primary Care Provider] - 1 Week Discharge Medications: Continued lisinopril-hydrochlorothiazide 10-12.5 mg tablet 1 tab PO DAILY Qty: 90 RF: 1 docusate sodium 100 mg capsule 100 mg PO DAILY Qty: 30 RF: 2 albuterol sulfate 90 mcg/actuation HFA aerosol inhaler 1 puff inhalation Q4H PRN (Reason: Shortness Of Breath) RF: 0 Qvar RediHaler 80 mcg/actuation HFA aerosol breath activated 1 inh inhalation BID 30 Days Qty: 10.6 RF: 10 montelukast [Singulair] 10 mg tablet 10 mg PO BEDTIME 30 Days Qty: 30 RF: 11 gabapentin 100 mg capsule 100 mg PO BEDTIME PRN (Reason: pain) RF: 0 pantoprazole 40 mg tablet,delayed release (DR/EC) 40 mg PO DAILY Qty: 30 RF: 2 sucralfate 100 mg/mL suspension 10 ml PO BID Qty: 400 RF: 2 ondansetron HCl [Zofran] 4 mg tablet 4 mg PO Q12H Qty: 20 RF: 0 Discontinued vitamin A 10,000 unit capsule 1 cap PO DAILY Qty: 90 RF: 2 vitamin A 10,000 unit capsule 1 cap PO DAILY RF: 0 cyanocobalamin (vitamin B-12) 1,000 mcg tablet 1,000 mcg PO DAILY RF: 0 omeprazole 20 mg capsule,delayed release(DR/EC) 20 mg PO DAILY RF: 0 polyethylene glycol 3350 [Miralax] 17 gram powder in packet 17 g PO DAILY Qty: 14 RF: 0 Discharge Orders: Discharge Order (Routine); Ordered 09/27/20 Ordered By: Nathaniel Thompson Diet: other Activity on Discharge: No heavy lifting Stand Alone Forms: Patient Portal Discharge page Activity Restrictions/Additional Instructions: No tub baths, sex or returning to work until discussed at first post op appointment. No exercise, alcohol, tobacco or illegal drug use. Continue to use incentive spirometer hourly while awake. Walk in home for 5- 10 minutes every 2 hours during the first week. Empty drain bulb twice daily and record amounts, call if increasing amounts or i f cloudy or milky fluid. Continue phase 1 diet today and start phase 2 diet tomorrow morning. Follow all instructions in the bariatric handbook and call with any questions. Care Plan Goals: weight loss Health Concerns: obesity Plan of Treatment: see discharge instructions Assessment: POD # 1, stable doing well.
[2020-09-26 14:23] LABS: Anion Gap 20 (12-20); Blood Urea Nitrogen 13 mg/dL (9-16); Calcium 8.5 mg/dL (8.4-10.2); Carbon Dioxide 19 mmol/L (22-29); Chloride 104 mmol/L (96-108); Creatinine Clr Calc Pharmacy 105.1; Estimated Glomerular Filt Rate > 60; Glucose Random 108 mg/dL (60-115); Potassium 4.2 mmol/L (3.3-5.1); Sodium 139 mmol/L (135-145)
[2020-09-26] MEDS: Lactated Ringers 1,000 ML 150 ML IVCONT ×2 (14:45→22:31)
[2020-09-26] MEDS: ceFAZolin Sodium/Dextrose,Iso 2 GM/50 ML PIGGYBACK IV (16:07)
[2020-09-26 16:35] LABS: Hematocrit 39.6 % (37-47); Hemoglobin 13.9 g/dl (12.0-16.0)
[2020-09-26] MEDS: Fluticasone Propionate 100 MCG BLST.W.DEV 1 PUFF INHALE (19:28)
[2020-09-26] MEDS: 0.9 % Sodium Chloride Flush 3 ML SYRINGE IVFLUSH (20:51)
[2020-09-26] MEDS: ondansetron HCL 4 MG/2 ML VIAL IVPUSH (22:30)
[2020-09-27 03:40] VITALS: BP 156/88; PULSE 67; RESP 16; TEMP 36.8; O2SAT 98
[2020-09-27] MEDS: Lactated Ringers 1,000 ML 150 ML IVCONT ×2 (04:26→12:37)
[2020-09-27] MEDS: HYDROmorphone HCl 0.5 MG/0.5 ML SYRINGE 0.25 MG IVPUSH (04:32)
[2020-09-27 05:03] LABS: MANUAL DIFF FLAG NO
[2020-09-27 05:11] LABS: Basophils Percent Auto 0.2 % (0-2); Hematocrit 35.5 % (37-47); Hemoglobin 12.3 g/dl (12.0-16.0); Imm Gran Abs Auto 0.03 X10*3/uL (0.00-0.03); Imm Gran Pct Auto 0.4 % (0.0-0.4); Lymphocytes Absolute Auto 1.3 X10*3/uL (1.2-4.9); Lymphocytes Percent Auto 15.2 % (20-40); Mean Corpuscular HGB Conc 34.6 g/dl (31.0-35.0); Mean Corpuscular Hemoglobin 27.8 pg (27.0-33.0); Mean Corpuscular Volume 80.3 fL (80-98); Mean Platelet Volume 10.3 fL (9.4-12.3); Monocytes Absolute Auto 0.6 X10*3/uL (0.1-1.2); Monocytes Percent Auto 7.2 % (2-11); Neutrophils Absolute Auto 6.4 X10*3/uL (2.0-8.3); Platelet Count 273 X10*3/uL (160-400); Red Blood Count 4.42 X10*6/uL (4.20-5.50); White Blood Count 8.3 X10*3/uL (4.8-10.8)
[2020-09-27 05:24] LABS: Anion Gap 18 (12-20); Blood Urea Nitrogen 12 mg/dL (9-16); Calcium 8.2 mg/dL (8.4-10.2); Carbon Dioxide 17 mmol/L (22-29); Chloride 108 mmol/L (96-108); Creatinine Clr Calc Pharmacy 103.6; Estimated Glomerular Filt Rate > 60; Glucose Random 99 mg/dL (60-115); Potassium 3.9 mmol/L (3.3-5.1); Sodium 139 mmol/L (135-145)
[2020-09-27] MEDS: ondansetron HCL 4 MG/2 ML VIAL IVPUSH (06:30)
[2020-09-27 07:52] VITALS: PULSE 67; O2SAT 94
[2020-09-27] MEDS: Fluticasone Propionate 100 MCG BLST.W.DEV 1 PUFF INHALE (07:52)
[2020-09-27 08:00] VITALS: BP 126/79; PULSE 75; RESP 16; TEMP 36.4; O2SAT 99
[2020-09-27] MEDS: Famotidine/PF 20 MG/2 ML VIAL IVPUSH (08:13)
--- NOTE | 2020-09-27 09:39 | MHC.CM.PN ---
PATIENT IS FULLY INDEPENDENT WITH HER ADLS. NO DME OR [facility] SERVICES, AND DOES NOT ANTICIPATE THE NEED FOR ANY. PLAN IS FOR DC TODAY. SHE HAS TRANSPORT HOME.
[2020-09-27 12:00] VITALS: BP 150/82; PULSE 63; RESP 17; TEMP 36.1; O2SAT 99
== END 2020-09-27 14:45 | disposition home or self-care (01) | DRG 403 ==
LOC: HO.SSSA 13:02 → HO.S3 13:05
PROVIDERS: Physician Assistant; Admitting Provider Surgery; PCP Internal Medicine; Visit Provider Surgery
PROC: 0DQ64ZZ Repair Stomach, Percutaneous Endoscopic Approach (ICD-10-PCS; CPT 43771; principal; 2020-09-26 07:30)
DX: E66.01 Morbid (severe) obesity due to excess calories (principal); K44.0 Diaphragmatic hernia with obstruction, without gangrene; G47.33 Obstructive sleep apnea (adult) (pediatric); K21.9 Gastro-esophageal reflux disease without esophagitis; K76.0 Fatty (change of) liver, not elsewhere classified; K66.0 Peritoneal adhesions (postprocedural) (postinfection); Z20.822 Contact with and (suspected) exposure to COVID-19; Z68.38 Body mass index [BMI] 38.0-38.9, adult; Z79.899 Other long term (current) drug therapy
CPT/HCPCS: 36415; 74240; 74248; 80048; 80053; 80061; 82947; 83036; 83525; 84443; 85014; 85018; 85025; 85610; 85730; 86140; 86850; 86900; 87635; 88307; 99024; C1758; J0131; J0690; J1100; J1170; J2250; J2370; J2405; J3010

== ENCOUNTER → 2020-10-02 07:53 | Outpatient (BNVA) | payer OTHER, SELFPAY | PROVIDERS: PCP Internal Medicine; Visit Provider Surgery ==

== ENCOUNTER 2020-10-30 16:04 | Outpatient (REF) | payer OTHER, SELFPAY ==
[2020-10-30 17:00] LABS: Alanine Aminotransferase 13 U/L (0-31); Albumin Level 4.3 g/dL (3.5-5.0); Alkaline Phosphatase 73 U/L (39-117); Aspartate Amino Transferase 15 U/L (5-31); Blood Urea Nitrogen 11 mg/dL (9-16); Calcium 9.7 mg/dL (8.4-10.2); Cholesterol 174 mg/dL; Estimated Glomerular Filt Rate > 60; Glucose Random 97 mg/dL (60-115); Total Protein 7.4 g/dL (6.5-8.0)
[2020-10-30 17:15] LABS: Anion Gap 15 (12-20); Carbon Dioxide 28 mmol/L (22-29); Chloride 103 mmol/L (96-108); Potassium 2.8 mmol/L (3.3-5.1); Sodium 143 mmol/L (135-145)
[2020-10-30 17:16] LABS: Free T4 (Free Thyroxine) 1.15 ng/dL (0.71-1.85); Thyroid Stimulating Hormone 0.74 uIU/mL (0.32-4.0); Vitamin D 25-OH Total 20.2 ng/mL (>30)
[2020-10-30 17:26] LABS: Vitamin B12 383 pg/mL (200-900)
== END 2020-10-30 16:05 | disposition home or self-care (01) ==
LOC: HO.LAB 16:04
PROVIDERS: PCP Internal Medicine; Visit Provider Internal Medicine
DX: R53.83 Other fatigue (principal); I10 Essential (primary) hypertension
CPT/HCPCS: 36415; 80053; 82306; 82465; 82607; 84439; 84443

== ENCOUNTER → 2020-11-01 07:58 | Outpatient (BNVA) | payer OTHER, SELFPAY | PROVIDERS: PCP Physician Assistant; Visit Provider Surgery ==

== ENCOUNTER 2020-11-08 14:59 | Outpatient (REF) | payer OTHER, SELFPAY ==
[2020-11-08 16:07] LABS: Anion Gap 18 (12-20); Blood Urea Nitrogen 12 mg/dL (9-16); Calcium 9.6 mg/dL (8.4-10.2); Carbon Dioxide 26 mmol/L (22-29); Chloride 101 mmol/L (96-108); Estimated Glomerular Filt Rate > 60; Glucose Random 86 mg/dL (60-115); Potassium 2.8 mmol/L (3.3-5.1); Sodium 142 mmol/L (135-145)
== END 2020-11-08 15:00 | disposition home or self-care (01) ==
LOC: HO.LAB 14:59
PROVIDERS: PCP Internal Medicine; Visit Provider Internal Medicine
DX: Z13.89 Encounter for screening for other disorder (principal)
CPT/HCPCS: 36415; 80048

== ENCOUNTER → 2020-12-19 14:41 | Outpatient (BNVA) | payer OTHER, SELFPAY | PROVIDERS: PCP Internal Medicine; Visit Provider Hospitalist | DX: R07.9 Chest pain, unspecified (principal) ==

== ENCOUNTER 2021-02-13 23:24 | Emergency (ER) | payer OTHER, SELFPAY ==
[2021-02-13 23:33] VITALS: BP 153/85; PULSE 60; RESP 18; TEMP 35.9; O2SAT 100; BMI 28.5
--- NOTE | 2021-02-14 00:30 | ED_ITS ---
HPI - Abdominal Pain General Chief Complaint: Abdominal Pain Stated Complaint: abd pain Time Seen by Provider: 02/14/21 00:30 Source: patient Mode of arrival: ambulatory Limitations: no limitations History of Present Illness HPI narrative: 60-year-old female came in for evaluation of an abdominal pain. Abdominal pressure/fullness in the upper abdomen, started this morning, now is improving, was about 2 to 3/10, worsening when she lay flat, nothing improving, was associated with dry heaving but no vomiting, normal bowel movement. Able to pass gas. Patient status post sleeve gastrectomy done by Dr. Thompson 5 months ago. Related Data Home Medications Medication Instructions Recorded Confirmed gabapentin 100 mg capsule 100 mg PO BEDTIME PRN 08/15/20 12/19/20 albuterol sulfate 90 mcg/actuation 1 puff INHALATION Q4H PRN 09/20/20 12/19/20 aerosol inhaler Previous Rx's Medication Instructions Recorded beclomethasone dipropionate 80 1 inh INHALATION BID 30 Days #10.6 07/01/20 mcg/actuation HFA breath activated g aerosol (Qvar RediHaler) montelukast 10 mg tablet 10 mg PO BEDTIME 30 Days #30 tab 07/01/20 (Singulair) ondansetron HCl 4 mg tablet 4 mg PO Q12H #20 tab 09/20/20 (Zofran) pantoprazole 40 mg tablet,delayed 40 mg PO DAILY #30 tab 09/20/20 release sucralfate 100 mg/mL oral 10 ml PO BID #400 ml 09/20/20 suspension docusate sodium 100 mg capsule 100 mg PO DAILY #30 cap 09/30/20 hydrochlorothiazide 25 mg tablet 25 mg PO DAILY #30 tab 10/03/20 lisinopril 10 1 tab PO DAILY #90 tab 10/22/20 mg-hydrochlorothiazide 12.5 mg tablet omeprazole 20 mg capsule,delayed 20 mg PO QAM #90 cap 10/31/20 release cholecalciferol (vitamin D3) 25 25 mcg PO DAILY 90 Days #90 cap 02/05/21 mcg (1,000 unit) capsule cholecalciferol (vitamin D3) 25 25 mcg PO DAILY #90 cap 02/05/21 mcg (1,000 unit) capsule (Vitamin D3) Allergies Allergy/AdvReac Type Severity Reaction Status Date / Time cat dander Allergy Severe Loss Voice Verified 12/19/20 15:02 environmental Allergy Severe Sneezing Verified 12/19/20 15:02 Review of Systems Review of Systems All other systems are reviewed and are negative Constitutional: Reports as per HPI and Reports no additional constitutional complaints Eyes: Reports as per HPI and Reports no additional eye complaints Reports system reviewed and no additional complaints, except as documented Cardiovascular: Reports as per HPI and Reports no additional cardiovascular complaints Respiratory: Reports as per HPI and Reports no additional respiratory complaints Gastrointestinal: Reports as per HPI and Reports no additional gastrointestinal complaints Genitourinary: Reports no additional female genitourinary complaints Musculoskeletal: Reports no additional musculoskeletal complaints Skin/Breast: Reports system reviewed and no additional complaints, except as docu Psychiatric: Reports no additional psychiatric complaints Endocrine: Reports no additional endocrine complaints Hematologic/Lymphatic: Reports no additional hematologic/lymphatic complaints Allergic/Immunologic: Reports no additional allergic/immunologic complaints Reports system reviewed and no additional complaints, except as documented and Reports Abnormal speech present Physical Exam Vital Signs: Vital Signs: Last Vital Signs Temp 96.7 F L 02/13/21 23:33 Pulse 60 02/13/21 23:33 Resp 18 02/13/21 23:33 BP 153/85 H 02/13/21 23:33 Pulse Ox 100 02/13/21 23:33 Body Mass Index 28.5 Vital signs have been reviewed as appeared to be correct. Blood pressure elevated. Heart rate normal. Respiration rate normal. Temperature normal. Oxygen saturation normal. Appearance: Alert. Oriented X3. No acute distress. Head: Normal external exam. Normocephalic. Atraumatic. No Holland signs noted. No raccoon eyes noted Eyes: PERRLA. EOMI. Conjunctiva and sclera normal. Eyelids normal. ENT: TM's Normal. Pharynx normal. Uvula midline. Moist mucous membranes. No trismus noted. No drooling noted. No muffled voice noted. Neck: Normal inspection. Neck supple. FROM. No adenopathy. Thyroid Normal. No meningeal signs. No neck mass noted. CVS: Normal heart rate and rhythm. Heart sound normal. No murmurs noted. Pulses normal throughout. Respiratory: No respiratory distress. Painless inspiration. Breath sounds normal. No wheezes/rales/rhonchi noted. Chest nontender. No accessory muscle usage noted or decreased air movement noted. Abdomen: Soft, mild epigastric tenderness with no rebound tenderness or guarding. Bowel sounds normal in all 4 quadrants. No distention noted. No organomegaly noted. No visible injury noted. Back: No CVA tenderness. Full range of motion noted. Skin: Skin warm and dry. Normal skin color. Normal skin turgor. No adriano hes/lesions/lacerations noted. Extremities: No lower extremity edema. Extremities exhibit normal range of motion. Extremities nontender. Neuro: Oriented X 3. Cranial nerve exam: II-XII are grossly intact No motor deficit. No sensory deficit. Reflexes normal. Course Course Course Narrative: 60 years old female status post sleeve gastrectomy 4 months ago came in with upper abdominal pain that is improving now, patient had unremarkable labs, serial abdominal exam reveal improvement of abdominal tenderness and pain. [facility] for bariatric surgery service has been contacted to follow-up with the patient as an outpatient. Patient also having hypokalemia that was replaced today by p.o. potassium. MDM - Abdominal Pain Lab Data Attestation: I reviewed the patient's lab results. Result diagrams: 02/14/21 00:42 02/14/21 00:42 Labs: Lab Results 02/14/21 02/14/21 02/14/21 Range/Units 00:42 00:42 00:42 WBC 5.3 (4.8-10.8) X10*3/uL RBC 4.21 (4.20-5.50) X10*6/uL Hgb 11.8 L (12.0-16.0) g/dl Hct 34.4 L (37-47) % MCV 81.7 (80-98) fL MCH 28.0 (27.0-33.0) pg MCHC 34.3 (31.0-35.0) g/dl RDW 13.2 (11.0-16.0) % Plt Count 314 (160-400) X10*3/uL MPV 9.8 (9.4-12.3) fL Immature Gran % (Auto) 0.2 (0.0-0.4) % Neut % (Auto) 50.2 (45-73) % Lymph % (Auto) 36.7 (20-40) % [place] % (Auto) 6.6 (2-11) % Eos % (Auto) 5.5 H (0-4) % Baso % (Auto) 0.8 (0-2) % Lymph # (Auto) 1.9 (1.2-4.9) X10*3/uL [place] # (Auto) 0.4 (0.1-1.2) X10*3/uL Eos # (Auto) 0.3 (0.0-0.4) X10*3/uL Baso # (Auto) 0.0 (0.0-0.2) X10*3/uL Abs Immat Gran (auto) 0.01 (0.00-0.03) X10*3/uL Absolute Neuts (auto) 2.7 (2.0-8.3) X10*3/uL Absolute Nucleated RBC 0.000 (0.0-0.012) X10*3/uL Nucleated RBC % (auto) 0.0 (0.0-0.2) /100WBC Hold Purple Top SEE NOTE Sodium 139 (135-145) mmol/L Potassium 3.1 L (3.3-5.1) mmol/L Chloride 105 (96-108) mmol/L Carbon Dioxide 25 (22-29) mmol/L Anion Gap 12 (12-20) BUN 9 (9-16) mg/dL Creatinine 0.72 (0.5-1.4) mg/dL Estim Creat Clear Calc 101.2 Estimated GFR > 60 Random Glucose 106 (60-115) mg/dL Calcium 9.2 (8.4-10.2) mg/dL Total Bilirubin 0.7 (0.0-1.0) mg/dL Direct Bilirubin 0.3 (0.0-0.5) mg/dL AST 12 (5-31) U/L ALT 8 (0-31) U/L Alkaline Phosphatase 86 (39-117) U/L Total Protein 6.4 L (6.5-8.0) g/dL Albumin 3.8 (3.5-5.0) g/dL Lipase 10 (8-78) U/L Urine Color Urine Appearance Urine pH (5.0-8.0) Ur Specific [place] (1.005-1.025) Urine Protein (NEG-TRACE) MG/DL Urine Glucose (UA) (NEG) MG/DL Urine Ketones (NEG) MG/DL Urine Blood (NEG) Urine Nitrite (NEG) Ur Leukocyte Esterase (NEG) Urine RBC (0) /HPF Urine WBC (0-4) /HPF Ur Squamous Epith Cells /LPF Urine Bacteria /LPF Urine Mucus /LPF 02/14/21 Range/Units 01:42 WBC (4.8-10.8) X10*3/uL RBC (4.20-5.50) X10*6/uL Hgb (12.0-16.0) g/dl Hct (37-47) % MCV (80-98) fL MCH (27.0-33.0) pg MCHC (31.0-35.0) g/dl RDW (11.0-16.0) % Plt Count (160-400) X10*3/uL MPV (9.4-12.3) fL Immature Gran % (Auto) (0.0-0.4) % Neut % (Auto) (45-73) % Lymph % (Auto) (20-40) % [place] % (Auto) (2-11) % Eos % (Auto) (0-4) % Baso % (Auto) (0-2) % Lymph # (Auto) (1.2-4.9) X10*3/uL [place] # (Auto) (0.1-1.2) X10*3/uL Eos # (Auto) (0.0-0.4) X10*3/uL Baso # (Auto) (0.0-0.2) X10*3/uL Abs Immat Gran (auto) (0.00-0.03) X10*3/uL Absolute Neuts (auto) (2.0-8.3) X10*3/uL Absolute Nucleated RBC (0.0-0.012) X10*3/uL Nucleated RBC % (auto) (0.0-0.2) /100WBC Hold Purple Top Sodium (135-145) mmol/L Potassium (3.3-5.1) mmol/L Chloride (96-108) mmol/L Carbon Dioxide (22-29) mmol/L Anion Gap (12-20) BUN (9-16) mg/dL Creatinine (0.5-1.4) mg/dL Estim Creat Clear Calc Estimated GFR Random Glucose (60-115) mg/dL Calcium (8.4-10.2) mg/dL Total Bilirubin (0.0-1.0) mg/dL Direct Bilirubin (0.0-0.5) mg/dL AST (5-31) U/L ALT (0-31) U/L Alkaline Phosphatase (39-117) U/L Total Protein (6.5-8.0) g/dL Albumin (3.5-5.0) g/dL Lipase (8-78) U/L Urine Color YELLOW Urine Appearance CLEAR Urine pH 6.0 (5.0-8.0) Ur Specific [place] 1.020 (1.005-1.025) Urine Protein NEG (NEG-TRACE) MG/DL Urine Glucose (UA) NEG (NEG) MG/DL Urine Ketones NEG (NEG) MG/DL Urine Blood TRACE (NEG) Urine Nitrite NEG (NEG) Ur Leukocyte Esterase NEG (NEG) Urine RBC 1-4 (0) /HPF Urine WBC 1-4 (0-4) /HPF Ur Squamous Epith Cells 1+ /LPF Urine Bacteria 1+ /LPF Urine Mucus 1+ /LPF Discharge Plan Discharge Clinical Impression: Abdominal pain, Hypokalemia Patient Disposition: Home, Self-Care Instructions: Abdominal Pain (ED), Hypokalemia (ED) Prescriptions: No Action docusate sodium 100 mg capsule 100 mg PO DAILY Qty: 30 RF: 2 hydrochlorothiazide 25 mg tablet 25 mg PO DAILY Qty: 30 RF: 2 lisinopril-hydrochlorothiazide 10-12.5 mg tablet 1 tab PO DAILY Qty: 90 RF: 2 omeprazole 20 mg capsule,delayed release(DR/EC) 20 mg PO QAM Qty: 90 RF: 1 cholecalciferol (vitamin D3) 25 mcg (1,000 unit) capsule 25 mcg PO DAILY 90 Days Qty: 90 RF: 2 cholecalciferol (vitamin D3) [Vitamin D3] 25 mcg (1,000 unit) capsule 25 mcg PO DAILY Qty: 90 RF: 3 albuterol sulfate 90 mcg/actuation HFA aerosol inhaler 1 puff inhalation Q4H PRN (Reason: Shortness Of Breath) RF: 0 Qvar RediHaler 80 mcg/actuation HFA aerosol breath activated 1 inh inhalation BID 30 Days Qty: 10.6 RF: 10 montelukast [Singulair] 10 mg tablet 10 mg PO BEDTIME 30 Days Qty: 30 RF: 11 gabapentin 100 mg capsule 100 mg PO BEDTIME PRN (Reason: pain) RF: 0 pantoprazole 40 mg tablet,delayed release (DR/EC) 40 mg PO DAILY Qty: 30 RF: 2 sucralfate 100 mg/mL suspension 10 ml PO BID Qty: 400 RF: 2 ondansetron HCl [Zofran] 4 mg tablet 4 mg PO Q12H Qty: 20 RF: 0 Referrals: Jorge Enriquez MD [Primary Care Provider] - 2 days Nathaniel Thompson MD [Physician] - 2 days [facility] Past Medical History Medical History Admission for breast reconstruction following mastectomy Arthritis Asthma BMI 32.0-32.9,adult BMI 33.0-33.9,adult BMI 33.0-33.9,adult Chest pain Chest pain Constipation Diabetes Diaphragmatic hernia GERD (gastroesophageal reflux disease) History of COVID-19 History of MRSA infection Hx of breast cancer Hx of cardiac murmur Hypertension Morbid obesity [place] on CPAP Pneumonia Post-COVID syndrome Sickle cell trait Steatosis, liver Surgical History H/O colonoscopy History of arthroscopic knee surgery History of esophagogastroduodenoscopy (EGD) History of sleeve gastrectomy Hx laparoscopic cholecystectomy Hx of hysterectomy Obesity S/P bilateral mastectomy Family History Family History Father DM (diabetes mellitus) Stroke Mother DM (diabetes mellitus) Brother No problems noted. Sister No problems noted. Son No problems noted. Social History Social History Are you a primary pediatric care coordinator to a significant other at home: No Do you presently have visiting nurse or other home services: No Alcohol intake: never Patient Tobacco Use Status: Never used Tobacco Advance Directives: No Advance Directives Information Provided: Yes Patient : No service: No Current occupational status: employed
[2021-02-14 00:48] LABS: Basophils Percent Auto 0.8 % (0-2); Eosinophils Absolute Auto 0.3 X10*3/uL (0.0-0.4); Eosinophils Percent Auto 5.5 % (0-4); Hematocrit 34.4 % (37-47); Hemoglobin 11.8 g/dl (12.0-16.0); Imm Gran Abs Auto 0.01 X10*3/uL (0.00-0.03); Imm Gran Pct Auto 0.2 % (0.0-0.4); Lymphocytes Absolute Auto 1.9 X10*3/uL (1.2-4.9); Lymphocytes Percent Auto 36.7 % (20-40); MANUAL DIFF FLAG NO; Mean Corpuscular HGB Conc 34.3 g/dl (31.0-35.0); Mean Corpuscular Volume 81.7 fL (80-98); Mean Platelet Volume 9.8 fL (9.4-12.3); Monocytes Absolute Auto 0.4 X10*3/uL (0.1-1.2); Monocytes Percent Auto 6.6 % (2-11); Neutrophils Absolute Auto 2.7 X10*3/uL (2.0-8.3); Neutrophils Percent Auto 50.2 % (45-73); Platelet Count 314 X10*3/uL (160-400); Red Blood Count 4.21 X10*6/uL (4.20-5.50); Red Cell Distribution Width 13.2 % (11.0-16.0); White Blood Count 5.3 X10*3/uL (4.8-10.8)
[2021-02-14 01:10] LABS: Alanine Aminotransferase 8 U/L (0-31); Albumin Level 3.8 g/dL (3.5-5.0); Alkaline Phosphatase 86 U/L (39-117); Anion Gap 12 (12-20); Aspartate Amino Transferase 12 U/L (5-31); Bilirubin Direct 0.3 mg/dL (0.0-0.5); Bilirubin Total 0.7 mg/dL (0.0-1.0); Blood Urea Nitrogen 9 mg/dL (9-16); Calcium 9.2 mg/dL (8.4-10.2); Carbon Dioxide 25 mmol/L (22-29); Chloride 105 mmol/L (96-108); Creatinine Clr Calc Pharmacy 101.2; Estimated Glomerular Filt Rate > 60; Glucose Random 106 mg/dL (60-115); Lipase 10 U/L (8-78); Potassium 3.1 mmol/L (3.3-5.1); Sodium 139 mmol/L (135-145); Total Protein 6.4 g/dL (6.5-8.0)
[2021-02-14 01:50] LABS: Glucose Urine UA NEG (NEG); Leukocyte Esterase Urine NEG (NEG); Nitrite Urine NEG (NEG); UACC Culture Trigger NO; Urine Blood TRACE (NEG); Urine Ketones NEG (NEG); Urine Protein NEG (NEG-TRACE)
[2021-02-14 01:51] LABS: Appearance Urine CLEAR; Color Urine YELLOW
[2021-02-14 02:01] LABS: Bacteria Urine 1+ /LPF; Mucus Urine 1+ /LPF; Squamous Epithelial Cell Urine 1+ /LPF
[2021-02-14] MEDS: Potassium Chloride Packet 20 MEQ PACKET 40 MEQ PO (02:44)
== END 2021-02-14 02:48 | disposition home or self-care (01) ==
PROVIDERS: Emergency Provider Emergency Medicine; PCP Internal Medicine
DX: R10.9 Unspecified abdominal pain (principal); Z98.84 Bariatric surgery status; Z79.899 Other long term (current) drug therapy
CPT/HCPCS: 36415; 80053; 81001; 82248; 83690; 85025; 99283

== ENCOUNTER → 2021-07-21 12:29 | Outpatient (BNVA) | payer OTHER, SELFPAY | PROVIDERS: PCP Internal Medicine; Visit Provider Physician Assistant Medical | DX: Z13.89 Encounter for screening for other disorder (principal) | CPT/HCPCS: 73110; 73564; 99203 ==

== ENCOUNTER → 2021-08-12 11:10 | Outpatient (BNVA) | payer OTHER, SELFPAY | PROVIDERS: PCP Internal Medicine; Visit Provider Physician Assistant Medical | DX: Z13.89 Encounter for screening for other disorder (principal) | CPT/HCPCS: 99213 ==

== ENCOUNTER → 2021-08-14 14:52 | Outpatient (REF) | payer OTHER, SELFPAY ==
--- NOTE | ~2021-08-14 | XR_ITS ---
EXAMINATION: XR chest 2V CLINICAL INFORMATION: Reason for Exam R00.2 - Palpitations COMPARISON: February 16, 2020 TECHNIQUE: XR chest 2V Lungs and Sandy: Both lungs are clear. Pleura: Normal. Costophrenic angles are sharp. No pneumothorax. Heart: The heart is normal in size. Mediastinum: The mediastinum is within normal limits.. Bones: Skeletal structures included are normal for patient's age. XR/XR chest 2V IMPRESSION: No radiographic evidence of acute cardiopulmonary disease.
--- NOTE | 2021-08-14 15:19 | ECG_ITS ---
Test Reason : J44.9 Blood Pressure : / mmHG Vent. Rate : 066 BPM Atrial Rate : 066 BPM P-R Int : 140 ms QRS Dur : 076 ms QT Int : 396 ms P-R-T Axes : 054 021 019 degrees QTc Int : 415 ms Sinus rhythm with frequent Premature ventricular complexes Otherwise normal ECG When compared with ECG of 16-FEB-2020 08:38, Premature ventricular complexes are now Present Referred By: Mike Foster Electronically Signed By:Pro Garrison
== END ==
LOC: HO.CARD 14:52
PROVIDERS: PCP Internal Medicine; Visit Provider Hospitalist
DX: R07.9 Chest pain, unspecified (principal); R00.2 Palpitations; G47.33 Obstructive sleep apnea (adult) (pediatric); B94.8 Sequelae of other specified infectious and parasitic diseases; J45.41 Moderate persistent asthma with (acute) exacerbation; J44.9 Chronic obstructive pulmonary disease, unspecified
CPT/HCPCS: 71046; 93005

== ENCOUNTER 2021-08-28 14:30 | Outpatient (RCR) | payer OTHER, SELFPAY ==
--- NOTE | 2021-08-20 15:16 | MHC.OT.OEV ---
[address] [phone] F: [phone] Occupational Therapy Evaluation Diagnosis: Right wrist sprain after FOOSH injury Date of Onset: 07/21/21 Attending Provider: Lashonda Carmichael PA-C Prescribed Treatment: Eval and Tx History of Current Condition: Was on a home visit for phlebotomy and slipped and fell on the ice landing on all fours. She was seen in the work connection that day for imaging, 07/21/21 x-ray (-) for acute changes Significant Medical History: Significant medical history. 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 Driving: Difficulty steering the wheel, predominantly using left hand to drive. Pain Assessment Pain Score: 0 Pain Scale Used: Pain Location and Description: Radial wrist, right web-space Resting Pain 0/10 Aggravated Pain 7/10 Aggravating Factors: washing dishes, pinching and pushing, turning the steering wheel, opening jars Alleviating Factors: Ibuprofen for pain management Pt has not trialed heat or ice Skin and Soft Tissue Assessment Skin and Soft Tissue: Swelling Nerve assessment Ulnar Nerve: WNL Median Nerve: WNL Radial Nerve: WNL Sensory Assessment Light Touch: WFL Comments: Tingling over the radial wrist into volar forearm [place] 3.61 right palm and dorsal hand, 2.83 left hand Edema Assessment Upper Extremity: Right Impaired Comments: Wrist crease R 16.7 cm L 16.7 cm MCP circ R 21.0 cm L 20.6 cm Special Tests Comments: (-) Phalen's Test for CTS (-) Finklestein's for De Quervain's (-) Ballotment test for DRUJ instability (-) Piano Butts Test for DRUJ instability (-) Grind test at basal joint Assymptomatic carpal clicking w/ scaphoid shift test AROM(PROM) Strength Cervical Cervical Flexion: Cervical Extension: Cervical Lateral Flexion: Cervical Rotation: Comments: WFL Shoulder Flexion: Extension: Abduction: Internal Rotation: External Rotation: Comments: WFL Flexion: Extension: Abduction: Internal Rotation: External Rotation: Comments: Elbow Flexion: Extension: Pronation: Supination: Comments: WFL, slight discomfort w/ full pronation right ulnar wrist Flexion: Extension: Pronation: Supination: Comments: Wrist Flexion: R 62 L 68 Extension: R 62 L 70 Ulnar Deviation: Radial Deviation: Comments: WFL Flexion: Extension: Ulnar Deviation: Radial Deviation: Comments: Thumb Thumb CMC Flexion: Thumb MCP Flexion: Thumb IP Flexion: Radial Abduction: Palmar Abduction: Wayne (Kapandji 0-10): Comments: WFL Digits Index MCP: PIP: DIP: Long MCP: PIP: DIP: Ring MCP: PIP: DIP: Small MCP: PIP: DIP: Comments: R D4 limited active flexion due to old laceration injury Gross Grasp: R 50lb L 56lb Lateral Pinch: R 11lb L 11lb Two-Point Pinch: R 5lb L 6lb Three-Jaw Jonatan: R 10lb L 10lb Comments: Some discomfort in right thumb and webpsace w/ pinches Patient Education Primary Language: Bulgarian Burn Table Operator Required: No Current Knowledge: Understands information with skills for self-management Teaching Method: Demonstration Handouts Verbal Education Needs Identified on Evaluation: ADL's Disease Information Exercise Safety How did patient/family demonstrate learning? Patient demonstrates Patient verbalizes Barriers to Learning: None Readiness for Learning: Accepting Who was educated? Patient Comments: Plan of Care Assessment: 60 yo female referred to OT services for right wrist sprain from a FOOSH. Pt reports slipping outside of her car and landing on all fours. 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 Currently, pt reports difficulty with washing dishes, pinching and pushing, turning the steering wheel, and opening jars. 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 Pt reports 7/10 right wrist pain when aggravated, and little to no pain at rest. Pt UE AROM WFL, gross grasp slightly decreased and pt reports intermittent tingling over right radial wrist and thumb. She has some pain completing lateral pinch and gross grasp. Pt to cont OT services for pain management with activity in order to promote best ability to function. STG Duration: 2 weeks Short Term Goals: Ind with HEP Ind with heat/ice modality for home pain management Pt to report pain with activity < 4/10 LTG Duration: 4 weeks Penitentiary Goals: Pt to report ease with washing dishes Pt to report ease with turning the steering wheel Pt to report pain with activity < 2/10 QuickDASH <35 Frequency and Duration: The patient will be seen 2/wk for 4 weeks Treatment Plan: Therapeutic Exercise Therapeutic Activity Home Exercise Program Splinting Patient Education Edema Control ADL Training Ultrasound Paraffin Fluidotherapy MHP Cold Packs Joint Mobilization Soft Tissue Mobilization Kinesiotaping Orthosis PRN Electronically Signed By: Christine Thompson OT/s Reviewed/agree with student documentation: Yes Therapist: Adilene Stone, OTR/L CHT Please sign and return to therapist, Thank you for your referral.
--- NOTE | 2021-09-03 15:00 | MHC.OT.DC ---
[address] [phone] F: [phone] Occupational Therapy Discharge Note Provider: Lashonda Carmichael PA-C Diagnosis: Right wrist sprain after FOOSH injury Date of Evaluation: 08/20/21 Date of Discharge: 09/03/21 Treatments to Date: 2 No Shows to Date: 3 Discharge Status: Visit Non-compliance Discharge Summary: Hui was seen for right wrist sprain after a FOOSH injury while on the job. She reports being pain free at rest and has sharp, sudden pain (7-9/10) with gripping/ pulling tasks. She denies pain or radial wrist discomfort with isometric strengthening exercises. Pt has been educated on HEP. She will be d/c'd from OT services at this time due to visit non-compliance and [facility] policy. Electronically Signed By: Christine Thompson OT/s Reviewed/agree with student documentation: Yes Therapist: Adilene Stone OTR/L, CHT Please Sign and return to therapist, thank you for your referral.
== END 2021-09-03 15:01 | disposition home or self-care (01) ==
LOC: HO.OT 14:30
PROVIDERS: PCP Internal Medicine; Visit Provider Physician Assistant Medical
DX: S63.501D Unspecified sprain of right wrist, subsequent encounter (principal); W19.XXXD Unspecified fall, subsequent encounter
CPT/HCPCS: 97110; 97165

== ENCOUNTER 2021-09-04 15:29 | Outpatient (REF) | payer OTHER, SELFPAY ==
[2021-09-04 15:43] LABS: MANUAL DIFF FLAG NO
[2021-09-04 16:20] LABS: Basophils Percent Auto 0.7 % (0-2); Eosinophils Absolute Auto 0.3 X10*3/uL (0.0-0.4); Eosinophils Percent Auto 5.2 % (0-4); Hematocrit 37.1 % (37.0-47.0); Imm Gran Abs Auto 0.02 X10*3/uL (0.00-0.03); Imm Gran Pct Auto 0.4 % (0.0-0.4); Lymphocytes Absolute Auto 2.1 X10*3/uL (1.2-4.9); Lymphocytes Percent Auto 38.7 % (20-40); Mean Corpuscular HGB Conc 32.3 g/dl (31.0-35.0); Mean Corpuscular Hemoglobin 27.1 pg (27.0-33.0); Mean Corpuscular Volume 83.9 fL (80.0-98.0); Mean Platelet Volume 10.1 fL (9.4-12.3); Monocytes Absolute Auto 0.4 X10*3/uL (0.1-1.2); Monocytes Percent Auto 6.9 % (2-11); Neutrophils Absolute Auto 2.7 x10*3/uL (2.0-8.3); Neutrophils Percent Auto 48.1 % (45-73); Platelet Count 333 X10*3/uL (160-400); Red Blood Count 4.42 X10*6/uL (4.20-5.50); Red Cell Distribution Width 13.2 % (11.0-16.0); White Blood Count 5.5 X10*3/uL (4.8-10.8)
[2021-09-04 16:35] LABS: Alanine Aminotransferase 14 U/L (0-31); Alkaline Phosphatase 120 U/L (39-117); Anion Gap 12 (12-20); Aspartate Amino Transferase 16 U/L (5-31); Bilirubin Total 0.8 mg/dL (0.0-1.0); Blood Urea Nitrogen 9 mg/dL (9-16); C Reactive Protein 0.04 mg/dL (< or = 0.50); Calcium 9.3 mg/dL (8.4-10.2); Carbon Dioxide 25 mmol/L (22-29); Chloride 105 mmol/L (96-108); Cholesterol 164 mg/dL; Estimated Glomerular Filt Rate > 60; Glucose Random 84 mg/dL (60-115); Potassium 3.4 mmol/L (3.3-5.1); Sodium 139 mmol/L (135-145); Total Protein 7.2 g/dL (6.5-8.0)
[2021-09-04 16:56] LABS: Free T4 (Free Thyroxine) 0.98 ng/dL (0.71-1.85); Insulin 3 uU/mL (2-29); Thyroid Stimulating Hormone 1.05 uIU/mL (0.32-4.0); Vitamin D 25-OH Total 12.6 ng/mL (>30)
[2021-09-04 17:00] LABS: Vitamin B12 182 pg/mL (200-900)
[2021-09-04 17:07] LABS: Erythrocyte Sedimentation Rate 22 MM/HR (0-20)
== END 2021-09-04 15:30 | disposition home or self-care (01) ==
LOC: HO.LAB 15:29
PROVIDERS: PCP Internal Medicine; Visit Provider Internal Medicine
DX: E55.9 Vitamin D deficiency, unspecified (principal); I10 Essential (primary) hypertension; J45.909 Unspecified asthma, uncomplicated; M25.50 Pain in unspecified joint; E16.2 Hypoglycemia, unspecified
CPT/HCPCS: 36415; 80053; 82306; 82465; 82607; 83525; 84439; 84443; 85025; 85652; 86140

== ENCOUNTER → 2021-09-24 14:46 | Outpatient (REF) | payer OTHER, SELFPAY | LOC: HO.SL 14:46 | PROVIDERS: PCP Internal Medicine; Visit Provider Hospitalist | DX: G47.33 Obstructive sleep apnea (adult) (pediatric) (principal); R06.83 Snoring | CPT/HCPCS: 95806 ==

== ENCOUNTER → 2021-09-25 15:04 | Outpatient (BNVA) | payer OTHER, SELFPAY | PROVIDERS: PCP Internal Medicine; Visit Provider Physician Assistant Medical | DX: Z13.89 Encounter for screening for other disorder (principal) | CPT/HCPCS: 99213 ==

== ENCOUNTER → 2021-10-16 14:57 | Outpatient (BNVA) | payer OTHER, SELFPAY | PROVIDERS: PCP Internal Medicine; Visit Provider Physician Assistant Medical | DX: Z13.89 Encounter for screening for other disorder (principal) | CPT/HCPCS: 99213 ==

== ENCOUNTER 2021-10-23 14:51 | Outpatient (REF) | payer OTHER, SELFPAY ==
--- NOTE | 2021-10-23 16:33 | PFT_ITS ---
Forced vital capacity 104, FEV1 114%, FEF 25-75 167%, MVV 99%, all these values are normal. Post-bronchodilator therapy, there is no change. Total lung capacity 91% and residual volume 84%, normal. Diffusion capacity 63%, slightly decreased. CONCLUSION: Normal pulmonary function test except for slight decrease in diffusion capacity. For that, clinical correlation is recommended. Compared to the pulmonary function test on March 15, 2020, there is no significant change except for slightly more decrease in diffusion capacity. MD GWEN Ortega/MODL / [id number]
== END 2021-10-23 14:52 | disposition home or self-care (01) ==
LOC: HO.RESP 14:51
PROVIDERS: PCP Internal Medicine; Visit Provider Hospitalist
DX: J45.41 Moderate persistent asthma with (acute) exacerbation (principal); Z79.899 Other long term (current) drug therapy
CPT/HCPCS: 94060; 94727; 94729

== ENCOUNTER → 2021-10-30 08:19 | Outpatient (BNVA) | payer OTHER, SELFPAY | PROVIDERS: PCP Internal Medicine; Visit Provider Physician Assistant Medical | DX: Z13.89 Encounter for screening for other disorder (principal) | CPT/HCPCS: 99213 ==

== ENCOUNTER 2021-11-20 14:30 | Outpatient (RCR) | payer OTHER, SELFPAY ==
--- NOTE | 2021-10-09 15:47 | MHC.OT.OEV ---
[address] [phone] F: [phone] Occupational Therapy Evaluation Diagnosis: B/L WRIST PAIN Date of Onset: 07/21/21 Date of Surgery: Attending Provider: Lashonda Carmichael Prescribed Treatment: EVAL AND TREAT MD Follow Up Appointment: History of Current Condition: Pt FELL ON SNOW COVERED GROUND ONTO B/L WRISTS AND KNEES WHILE MAKING A HOME VISIT/ WORKING. FELT R WRIST PAIN IMMEDIATELY AND P/W NEW ONSET OF L WRIST PAIN WITHIN THE LAST WEEK. XRAY (-) FRACTURE. PREVIOUSLY SEEN IN OT FOR TWO SESSIONS, DISCHARGED DUE TO NON-COMPLIANCE/ ATTENDANCE POLICY. 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 OCCASIONAL PAIN WITH WORK RELATED TASKS Sleep: DIFFICULT TO FIND COMFORT POSITION TO SLEEP WITH Driving: PAIN WITH GRIPPING STEERING WHEEL Pain Assessment Pain Score: 0-6/10 Pain Scale Used: Numeric (0 - 10) Pain Location and Description: R WRIST 0/10 AT REST, 5-6/10 WITH USE L WRIST 1-2/10 AT REST, 2/10 WITH USE SHARP PAIN R WRIST ACHY L WRIST Aggravating Factors: LIFTING HEAVY ITEMS Alleviating Factors: RESTING, TAKING TYLENOL, IBUPROFEN; HAS USED HEAT WITH GOOD RESULTS Skin and Soft Tissue Assessment Skin and Soft Tissue: Atrophy Swelling Comments: MILD ATROPHY IN R THENAR EMINENCE, MILD EDEMA TO 1DI OF R HAND Sensory Assessment Temperature: Light Touch: Proprioception: Vibration: Comments: CONT TO ASSESS WITH F/U SESSIONS DUE TO TIME CONSTRAINT Edema Assessment Upper Extremity: Right Impaired Lower Extremity: Comments: CIRCUMFERENCE OF R WRIST, DISTAL TO US: RIGHT 16.4 CM, LEFT 15.8 CM Dexterity Assessment Dexterity: WFL Comments: CONT TO ASSESS IF WARRANTED AT F/U SESSIONS Special Tests Comments: (+) DILLON L, (-) DILLON R; (-) GRIND TEST R AROM(PROM) Strength Wrist Flexion: R 65, L 60 Extension: R 72, L 70 Ulnar Deviation: Radial Deviation: Comments: Flexion: Extension: Ulnar Deviation: Radial Deviation: Comments: Thumb Thumb CMC Flexion: Thumb MCP Flexion: Thumb IP Flexion: R 60, L 64 Radial Abduction: Palmar Abduction: Coyle (Kapandji 0-10): R 10/10, L 10/10 Comments: PAIN WITH OPPOSITION L HAND PAIN WITH IP FLEXION R THUMB Digits Index MCP: PIP: DIP: Long MCP: PIP: DIP: Ring MCP: PIP: DIP: Small MCP: PIP: DIP: Comments: Gross Grasp: R 65, L 65 Lateral Pinch: R 14, L 12 Two-Point Pinch: R 8, L 8 Three-Jaw Jonatan: R 12, L 11 Comments: MILD PAIN REPORTED WITH PINCHING L > R Patient Education Primary Language: Cambodian Bandoleer Packer Required: No Current Knowledge: Understands information with skills for self-management Teaching Method: Demonstration Handouts Verbal Education Needs Identified on Evaluation: ADL's Disease Information Equipment Use Exercise Pain Safety How did patient/family demonstrate learning? Patient demonstrates Patient verbalizes Barriers to Learning: None Readiness for Learning: Accepting Who was educated? Patient Comments: 10 MINUTES LATE FOR EVALUATION Plan of Care Assessment: MS THOMAS RETURNS TO OT FOR R WRIST SPRAIN THAT OCCURED ABOUT 3 MONTHS AGO AND L WRIST PAIN FOR ABOUT 1 WEEK. A (+) DILLON WAS ELICITED ON HER L WRIST. SHE STATES THAT HER R WRIST HAS HAD SL IMPROVEMENT OVER THE LAST FEW MONTHS YET CONTINUES TO EXPERIENCE SUDDEN, SHARP PAIN WITH CERTAIN WRIST MOVEMENTS, PINCHING AND WITH DAILY ACTIVITIES. MODERATE PAIN WAS REPORTED IN HER RIGHT WRIST/THUMB AND LOW PAIN IN HER LEFT WRIST/THUMB. 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 A 41% LIMITATION WAS REPORTED PER THE QUICK DASH ASSESSMENT. ONGOING SKILLED OT IS WARRANTED TO ADDRESS PT EDUCATION, JOINT PROTECTION/ ACTIVITY MODIFICATION, WORK CONDITIONING, ORTHOSIS NEEDS AND PAIN MANAGEMENT. STG Duration: 2 WEEKS Short Term Goals: IND HEP IND JOINT PROTECTION/ ACTIVITY MODIFICATION WITH ADLs AND IADLs IND USE OF HEAT, INCLUDING HOME PARAFFIN UNIT IND ORTHOSIS USE LTG Duration: 4 WEEKS Ecclesiastical Worker Goals: DEMO PROPER PINCHING AND GRIPPING TECH B/L'LY DURING ADLs AND IADLs QUICK DASH <30% REPORT <2/10 PAIN B/L'LY WITH LIFTING >10 POUNDS WITH PROPER BODY TECHNIQUES Frequency and Duration: The patient will be seen 3X/WEEK FOR 4 WEEKS Treatment Plan: Therapeutic Exercise Therapeutic Activity Home Exercise Program Splinting Neuro Re-ed Patient Education Desensitization/Sensory Re-ed Edema Control ADL Training Ultrasound NMES Iontophoresis Paraffin Fluidotherapy MHP Cold Packs Joint Mobilization Soft Tissue Mobilization Kinesiotaping Other (see comments) Electronically Signed By: BUBBA VIVAR/Tej Reviewed/agree with student documentation: N/A Therapist: Please sign and return to therapist, Thank you for your referral.
== END 2022-01-08 16:36 | disposition home or self-care (01) ==
LOC: HO.OT 14:30
PROVIDERS: Visit Provider Physician Assistant Medical
DX: M25.532 Pain in left wrist (principal); S63.501D Unspecified sprain of right wrist, subsequent encounter
CPT/HCPCS: 29130; 97033; 97110; 97166; 97760

== ENCOUNTER → 2021-11-24 14:51 | Outpatient (BNVA) | payer OTHER, SELFPAY | PROVIDERS: PCP Internal Medicine; Visit Provider Physician Assistant Medical | DX: Z13.89 Encounter for screening for other disorder (principal) | CPT/HCPCS: 99213 ==

== ENCOUNTER 2021-12-05 07:24 | Outpatient (REF) | payer OTHER, SELFPAY | END 2021-12-05 07:25 | disposition home or self-care (01) | LOC: HO.HOSX 07:24 | PROVIDERS: Visit Provider Physician Assistant | DX: Z13.89 Encounter for screening for other disorder (principal) ==

== ENCOUNTER 2022-01-13 13:29 | Outpatient (REF) | payer OTHER, SELFPAY ==
[2022-01-13 14:55] LABS: Appearance Urine CLEAR; Color Urine YELLOW; Glucose Urine UA NEG (NEG); Leukocyte Esterase Urine NEG (NEG); Nitrite Urine NEG (NEG); Specific Gravity - Urine 1.015 (1.005-1.025); UACC Culture Trigger NO; Urine Blood 1+ (NEG); Urine Ketones NEG (NEG); Urine Protein NEG (NEG-TRACE)
[2022-01-13 15:19] LABS: Bacteria Urine TRACE /LPF; WBC Urine 0 /HPF (0-4)
== END 2022-01-13 13:30 | disposition home or self-care (01) ==
LOC: HO.LDS 13:29
PROVIDERS: Visit Provider Internal Medicine
DX: R31.9 Hematuria, unspecified (principal)
CPT/HCPCS: 81001; 87086

== ENCOUNTER 2022-01-16 07:24 | Outpatient (REF) | payer OTHER, SELFPAY ==
--- NOTE | ~2022-01-16 | XR_ITS ---
EXAMINATION: XR WRIST, RIGHT CLINICAL INFORMATION: Pain. COMPARISON: Radiographs dated 07/21/2021. TECHNIQUE: PA, lateral, and oblique views of the right wrist. FINDINGS: There is mild bony demineralization. There is an ulnar minus variance. There is osteoarthritic change of the radiounar joint. The proximal and distal carpal rows are intact. There is mild osteoarthritic change of the first metacarpophalangeal joint. There are periarticular calcifications of the interphalangeal joint of the thumb. No fracture or dislocation is seen. There is no abnormal bony erosive change. The soft tissue planes are unremarkable, without foreign body. XR/XR wrist RT min 3V IMPRESSION: 1. No fracture or dislocation is seen. 2. There is mild osteoarthritic change of the first carpometacarpal and interphalangeal joints. 3. There is osteoarthritic change of the radiounar joint. EXAMINATION: XR WRIST, LEFT CLINICAL INFORMATION: Pain. COMPARISON: Radiographs dated 07/24/2010. TECHNIQUE: PA, lateral, and oblique views of the left wrist. FINDINGS: There is mild bony demineralization. There is an ulnar minus variance. The proximal and distal carpal rows are intact. There is marked osteoarthritic change of the first carpometacarpal joint. No fracture or dislocation is seen. No bone erosion is seen. The soft tissue planes are unremarkable, foreign body. IMPRESSION: 1. No fracture or dislocation is seen. 2. There is marked osteoarthritic change of the left first carpometacarpal joint.
--- NOTE | ~2022-01-16 | XR_ITS ---
EXAMINATION: XR WRIST, RIGHT CLINICAL INFORMATION: Pain. COMPARISON: Radiographs dated 07/21/2021. TECHNIQUE: PA, lateral, and oblique views of the right wrist. FINDINGS: There is mild bony demineralization. There is an ulnar minus variance. There is osteoarthritic change of the radiounar joint. The proximal and distal carpal rows are intact. There is mild osteoarthritic change of the first metacarpophalangeal joint. There are periarticular calcifications of the interphalangeal joint of the thumb. No fracture or dislocation is seen. There is no abnormal bony erosive change. The soft tissue planes are unremarkable, without foreign body. XR/XR wrist LT min 3V IMPRESSION: 1. No fracture or dislocation is seen. 2. There is mild osteoarthritic change of the first carpometacarpal and interphalangeal joints. 3. There is osteoarthritic change of the radiounar joint. EXAMINATION: XR WRIST, LEFT CLINICAL INFORMATION: Pain. COMPARISON: Radiographs dated 07/24/2010. TECHNIQUE: PA, lateral, and oblique views of the left wrist. FINDINGS: There is mild bony demineralization. There is an ulnar minus variance. The proximal and distal carpal rows are intact. There is marked osteoarthritic change of the first carpometacarpal joint. No fracture or dislocation is seen. No bone erosion is seen. The soft tissue planes are unremarkable, foreign body. IMPRESSION: 1. No fracture or dislocation is seen. 2. There is marked osteoarthritic change of the left first carpometacarpal joint.
== END 2022-01-16 07:25 | disposition home or self-care (01) ==
LOC: HO.HOSX 07:24
PROVIDERS: Visit Provider Physician Assistant
DX: M25.532 Pain in left wrist (principal); M25.531 Pain in right wrist; G56.03 Carpal tunnel syndrome, bilateral upper limbs
CPT/HCPCS: 73110; 99202

== ENCOUNTER 2022-02-24 09:03 | Outpatient (REF) | payer OTHER, SELFPAY | END 2022-02-24 09:04 | disposition home or self-care (01) | LOC: HO.HOSX 09:03 | PROVIDERS: Visit Provider Orthopaedic Surgery | DX: Z13.89 Encounter for screening for other disorder (principal) ==

== ENCOUNTER 2022-03-03 15:05 | Outpatient (REF) | payer OTHER, SELFPAY ==
[2022-03-03 15:41] LABS: MANUAL DIFF FLAG NO
[2022-03-03 16:20] LABS: Appearance Urine Clear; Color Urine Yellow; Glucose Urine UA Negative (Negative); Leukocyte Esterase Urine Trace (Negative); Nitrite Urine Negative (Negative); PH 7.5 (5.0-9.0); UMIC TRIGGER UA YES; Urine Blood Negative (Negative); Urine Ketones Negative (Negative); Urine Protein Negative (Neg-Trace)
[2022-03-03 16:22] LABS: Basophils Absolute Auto 0.1 X10*3/uL (0.0-0.2); Basophils Percent Auto 0.7 % (0-2); Eosinophils Absolute Auto 0.4 X10*3/uL (0.0-0.4); Hematocrit 34.6 % (37.0-47.0); Hemoglobin 11.3 g/dl (12.0-16.0); Imm Gran Abs Auto 0.05 X10*3/uL (0.00-0.03); Imm Gran Pct Auto 0.7 % (0.0-0.4); Lymphocytes Absolute Auto 2.1 X10*3/uL (1.2-4.9); Lymphocytes Percent Auto 28.5 % (20-40); Mean Corpuscular HGB Conc 32.7 g/dl (31.0-35.0); Mean Corpuscular Hemoglobin 25.9 pg (27.0-33.0); Mean Corpuscular Volume 79.2 fL (80.0-98.0); Mean Platelet Volume 9.9 fL (9.4-12.3); Monocytes Absolute Auto 0.4 X10*3/uL (0.1-1.2); Monocytes Percent Auto 5.7 % (2-11); Neutrophils Absolute Auto 4.3 x10*3/uL (2.0-8.3); Neutrophils Percent Auto 58.4 % (45-73); Platelet Count 477 X10*3/uL (160-400); Red Blood Count 4.37 X10*6/uL (4.20-5.50); Red Cell Distribution Width 13.2 % (11.0-16.0); White Blood Count 7.3 X10*3/uL (4.8-10.8)
[2022-03-03 16:23] LABS: Bacteria Urine None Seen (None Seen); Hyaline Casts Urine 0-2 /LPF (0-2); WBC Urine 0-5 /HPF (0-5)
[2022-03-03 16:34] LABS: Estimated Average Glucose 105 mg/dL; Hemoglobin A1c % 5.3 %
[2022-03-03 16:46] LABS: Alanine Aminotransferase 9 U/L (0-31); Albumin Level 4.2 g/dL (3.5-5.0); Alkaline Phosphatase 133 U/L (39-117); Anion Gap 16 (12-20); Aspartate Amino Transferase 13 U/L (5-31); Bilirubin Total 0.4 mg/dL (0.0-1.0); Blood Urea Nitrogen 9 mg/dL (9-16); C Reactive Protein 2.99 mg/dL (< or = 0.50); Calcium 9.1 mg/dL (8.4-10.2); Carbon Dioxide 26 mmol/L (22-29); Chloride 103 mmol/L (96-108); Estimated Glomerular Filt Rate > 60; Glucose Random 84 mg/dL (60-115); Potassium 3.7 mmol/L (3.3-5.1); Sodium 141 mmol/L (135-145); Total Protein 7.7 g/dL (6.5-8.0)
[2022-03-03 16:50] LABS: Lipase 13 U/L (8-78)
[2022-03-03 18:26] LABS: Vitamin D 25-OH Total 15.8 ng/mL (>30)
[2022-03-03 21:48] LABS: Vitamin B12 182 pg/mL (200-900)
== END 2022-03-03 15:06 | disposition home or self-care (01) ==
LOC: HO.LAB 15:05
PROVIDERS: PCP Internal Medicine; Visit Provider Internal Medicine
DX: E55.9 Vitamin D deficiency, unspecified (principal); E53.8 Deficiency of other specified B group vitamins; R10.9 Unspecified abdominal pain; I10 Essential (primary) hypertension; R73.03 Prediabetes
CPT/HCPCS: 36415; 80053; 81001; 82306; 82607; 83036; 83690; 85025; 86140

== ENCOUNTER → 2022-04-01 09:53 | Outpatient (REF) | payer OTHER, SELFPAY ==
--- NOTE | 2022-04-01 09:57 | CA_ITS ---
Acquisition Time: 2022-04-01 10:13:58 Total Exercise Time: 00:05:17 Test Indications: abn ekg, cp, sob Medications: see chart Protocol: ORTIZ Max HR: 142 BPM 89% of Pred: 159 BPM Max BP: 254/088 mmHG Max Work Load: 7.0 METS Exercise stress test with exercise 5 min 17 sec of Ortiz protocol, achieving 90% MPHR 7 METs, with request to stop due to fatigue and mild to moderate sob, no chest discomfort, with frequent isolated PACs, atrial cuplets, triplets and one 4 beat atrial run, rare PVC, with hypertensive response to exercise with max BP 206/110, without EKG changes meeting criteria for ischemia. In recovery her sob and BP improved to 154/88. Test reviewed with Dr Garrison Note: BP on arrival to stress lab was 190/100, after 20 min of rest BP improved to 144/82 and test was started. Referred By: Angel Lee Overread By: APOLINAR ESPINO
== END ==
LOC: HO.CARD 09:53
PROVIDERS: PCP Internal Medicine; Visit Provider Internal Medicine Cardiovascular Disease
DX: I49.3 Ventricular premature depolarization (principal); R06.02 Shortness of breath
CPT/HCPCS: 93017

== ENCOUNTER → 2022-04-07 09:56 | Outpatient (REF) | payer OTHER, SELFPAY ==
--- NOTE | 2022-04-07 10:00 | HM_ITS ---
Conclusion: 1. Patient was monitored for total period of 3 days and 1 hour 2. Baseline was normal sinus rhythm with average heart rate of 71 beats per minute 3. No significant pauses or bradycardia noted 4. Occasional ectopy noted 5. 5 short episodes of SVT with longest episode of 4 beats at 173 beats per minute 6. Patient reported 1 event correlated with sinus rhythm MTDD
--- NOTE | 2022-04-07 11:04 | CA_ITS ---
Transthoracic Echocardiogram Patient (Last, First, Middle): Elma Nuñez, Gender: Female Date of : 1960 Age: 61 Procedure Date: 04/07/2022 Procedure Type: Transthoracic Echocardiogram Location: OP Height: 177.8 cm Weight: 95.26 kg BSA: 2.13 m2 Heart Rate: 60 bpm BP: 138 / 84 mmHg Surgical Rn: KRYSTIAN Referring MD: Angel Lee MD Production Team Advisor: Angel Lee MD Symptoms: R06.02 - Shortness of breath Study Quality: Technically Difficult/Breast Implant/Contrast ECG Rhythm: Sinus Conclusions: - 1. Normal LV systolic function and normal diastolic filling pattern 2. Mild mitral annular calcification with normal cardiac valvular Doppler 3. Normal RV systolic pressure 4. No gross pericardial effusion Findings Procedure Information Contrast agent, definity, is being given per protocol without apparent complications. Left Ventricle Normal left ventricular size, thickness, and systolic function. The visually estimated ejection fraction is between 65-70%. Spectral Doppler is indicative of a normal filling pattern. Right Ventricle Normal right ventricular cavity size and systolic function. Atria The left atrium is normal in size. Interatrial shunt cannot be excluded. The right atrium was not well visualized. Aortic Valve The aortic valve was not well visualized. There is no aortic valve stenosis. There is no aortic valve regurgitation. Mitral Valve There is mild anterior and posterior mitral leaflet thickening. There is mild mitral annular calcification. There is trace mitral valve regurgitation. There is no mitral valve stenosis. Pulmonic Valve The pulmonic valve was not well visualized. Tricuspid Valve Likely normal tricuspid valve structure and function. There is trace tricuspid valve regurgitation. The right ventricular systolic pressure is normal. The right ventricular systolic pressure is 24 mmHg. Normal right atrial pressure. There is no evidence of pulmonary hypertension. Great Vessels All visible segments of the aorta are normal in size. The pulmonary artery was not well visualized. Venous The inferior vena cava is normal in size and collapses greater than 50% with inspiration. Pericardium/Pleural There is no evidence of pericardial effusion. Prior Study Comparison No significant change compared to prior study dated: 01/30/2020. Measurements 2D Linear Measurements IVSd: 1.40 0.6-0.9/0.6-1.0 cm LVIDd: 4.07 3.9-5.3/4.2-5.9 cm LVIDd Index: 1.91 2.4-3.2/2.2-3.1 cm/m2 LVIDs: 2.40 2.0-3.6 cm LVPWd: 1.13 0.7-1.1 cm LA Diam: 3.80 2.7-3.8/3.0-4.0 cm LAIDs Index: 1.78 1.5-2.3 cm/m2 LV Mass: 228.88 67-162/88-224 g LV Mass Index: 107.46 43-95/49-115 g/m2 LVOT Diam: 2.00 3.0+(-)1.3 cm 2D Systolic Function EF 4C: 71.30 >55% EF 2C: 74.30 >55% EF BiP: 72.20 >55% Mitral Valve MV Pk E: 0.88 MV PK A: 0.65 MV Decel Time: 196.00 E/A: 1.40 E'Lateral: 10.10 E'Medial: 7.83 E/E' Med: 11.20 E/E' Lat: 8.70 PHT: 57.00 MVA PHT: 3.86 Decel [place]'S: 4.48 Aortic Valve AoV Pk Rich: 1.34 AoV Mn Rich: 1.01 AoV VTI: 0.32 AoV Pk Grad: 7.00 Aov Mn Grad: 4.00 ESTEBAN Cont.VTI: 2.09 LVOT LVOT Pk Rich: 1.00 LVOT Mn Rich: 0.65 LVOT VTI: 0.21 LVOT Pk Grad: 4.00 LVOT Mn Grad: 2.00 LVOT Diam: 2.00 LVOT Area: 3.14 Diastolic Function MV Pk E: 0.88 MV Pk A: 0.65 E/A: 1.40 E'Medial: 7.83 E/E' Med: 11.20 E' Laterial: 10.10 E/E' Lat: 8.70 Right Ventricle TAPSE (mm): 28.00 TVS' Rich: 9.57 Tricuspid Valve TR Pk Rich: 2.27 TR Pk Grad: 21.00 RA Press: 3.00 RVSP: 24.00 Great Vessels Aorta Sinus of Valsalva: 2.80 2.0-3.5 cm Ao Asc: 3.00 2.1-3.4 cm Pulmonary Veins Pulm Vein S/D 1.20 Pulmonary Valve PV Pk Rich: 0.75 Peak PV Grad: 2.00 Updated in Other Vendor System with Status of Final Angel Lee MD electronically signed on 04/08/2022 9:18:21 AM with status of Final
== END ==
LOC: HO.CARD 09:56
PROVIDERS: PCP Internal Medicine; Visit Provider Internal Medicine Cardiovascular Disease
DX: I49.3 Ventricular premature depolarization (principal); R06.02 Shortness of breath; I10 Essential (primary) hypertension
CPT/HCPCS: 93242; 93306; 99212; J1100; Q9957

== ENCOUNTER 2022-04-08 08:27 | Outpatient (REF) | payer OTHER, SELFPAY ==
--- NOTE | ~2022-04-08 | FL_ITS ---
EXAMINATION: XR GI SERIES CLINICAL INFORMATION: Abdominal pain. History of gastric bypass COMPARISON: Upper GI series 09/27/2020 TECHNIQUE: Fluoroscopic spot images were obtained in upright and supine position as the patient swallowed thick and thin barium. FINDINGS: The patient initiated swallowing normally. Normal esophageal peristalsis. No fixed esophageal mucosal abnormality to suggest a stricture or mass. Small anterior impression at the gastroesophageal junction consistent with a partial B ring. No significant luminal narrowing or delay of contrast passage. Trace if any hiatal hernia present. There is a small gastric remnant. There are adjacent surgical clips in keeping with a revision of the prior gastric sleeve to a Cassi-en-Y gastric bypass. There is prompt runoff via the gastrojejunostomy into normal-appearing small bowel. FLUOROSCOPY TIME: 2.3 minutes DOSE AREA PRODUCT: 21.871 Gy-cm2 (verma-centimeter squared) FL/FL upper GI series IMPRESSION: Normal-appearing esophagus. Similar appearance of a small gastric pouch. Prompt passage of contrast across the gastroesophageal junction and emptying of the gastric pouch via a patent gastrojejunostomy.
== END 2022-04-08 08:28 | disposition home or self-care (01) ==
LOC: HO.XRAY 08:27
PROVIDERS: PCP Internal Medicine; Visit Provider Internal Medicine
DX: R10.9 Unspecified abdominal pain (principal)
CPT/HCPCS: 74240

== ENCOUNTER 2022-07-16 06:09 | Outpatient (REF) | payer OTHER, SELFPAY ==
[2022-07-16 08:16] LABS: Blood Urea Nitrogen 10 mg/dL (9-16); Estimated Glomerular Filt Rate > 60
== END 2022-07-16 06:10 | disposition home or self-care (01) ==
LOC: HO.HSHHMC 06:09
PROVIDERS: Visit Provider Plastic Surgery
DX: Z85.3 Personal history of malignant neoplasm of breast (principal)
CPT/HCPCS: 36415; 82565; 84520

== ENCOUNTER 2022-08-12 07:16 | Outpatient (REF) | payer OTHER, SELFPAY ==
[2022-08-12 10:43] LABS: Blood Urea Nitrogen 13 mg/dL (9-16); Estimated Glomerular Filt Rate > 60
== END 2022-08-12 07:17 | disposition home or self-care (01) ==
LOC: HO.HSHHMC 07:16
PROVIDERS: Visit Provider Plastic Surgery
DX: Z01.812 Encounter for preprocedural laboratory examination (principal); Z85.3 Personal history of malignant neoplasm of breast
CPT/HCPCS: 36415; 82565; 84520

== ENCOUNTER 2022-09-14 12:44 | Outpatient (REF) | payer OTHER, SELFPAY ==
[2022-09-14 14:05] LABS: MANUAL DIFF FLAG NO
[2022-09-14 14:21] LABS: Basophils Absolute Auto 0.1 X10*3/uL (0.0-0.2); Basophils Percent Auto 1.4 % (0-2); Eosinophils Absolute Auto 0.1 X10*3/uL (0.0-0.4); Eosinophils Percent Auto 2.2 % (0-4); Hematocrit 36.3 % (37.0-47.0); Hemoglobin 11.8 g/dl (12.0-16.0); Imm Gran Abs Auto 0.01 X10*3/uL (0.00-0.03); Imm Gran Pct Auto 0.2 % (0.0-0.4); Lymphocytes Absolute Auto 1.9 X10*3/uL (1.2-4.9); Lymphocytes Percent Auto 39.4 % (20-40); Mean Corpuscular HGB Conc 32.5 g/dl (31.0-35.0); Mean Corpuscular Hemoglobin 24.6 pg (27.0-33.0); Mean Corpuscular Volume 75.6 fL (80.0-98.0); Mean Platelet Volume 10.3 fL (9.4-12.3); Monocytes Absolute Auto 0.3 X10*3/uL (0.1-1.2); Monocytes Percent Auto 5.1 % (2-11); Neutrophils Absolute Auto 2.5 x10*3/uL (2.0-8.3); Neutrophils Percent Auto 51.7 % (45-73); Platelet Count 395 X10*3/uL (160-400); Red Cell Distribution Width 14.1 % (11.0-16.0); White Blood Count 4.9 X10*3/uL (4.8-10.8)
[2022-09-14 14:46] LABS: Estimated Average Glucose 114 mg/dL; Hemoglobin A1c % 5.6 %
[2022-09-14 14:58] LABS: Alanine Aminotransferase 8 U/L (0-31); Albumin Level 4.2 g/dL (3.5-5.0); Alkaline Phosphatase 137 U/L (39-117); Anion Gap 14 (12-20); Aspartate Amino Transferase 15 U/L (5-31); Bilirubin Total 0.9 mg/dL (0.0-1.0); Blood Urea Nitrogen 11 mg/dL (9-16); Calcium 9.3 mg/dL (8.4-10.2); Carbon Dioxide 24 mmol/L (22-29); Chloride 107 mmol/L (96-108); Estimated Glomerular Filt Rate > 60; Glucose Random 82 mg/dL (60-115); Potassium 3.8 mmol/L (3.3-5.1); Sodium 141 mmol/L (135-145); Total Protein 7.4 g/dL (6.5-8.0)
[2022-09-14 15:09] LABS: Vitamin B12 1033 pg/mL (200-900); Vitamin D 25-OH Total 16.6 ng/mL (>30)
== END 2022-09-14 12:45 | disposition home or self-care (01) ==
LOC: HO.10HDL 12:44
PROVIDERS: Visit Provider Internal Medicine
DX: J45.909 Unspecified asthma, uncomplicated (principal); R53.83 Other fatigue; K21.9 Gastro-esophageal reflux disease without esophagitis; R73.03 Prediabetes; E55.9 Vitamin D deficiency, unspecified; E53.8 Deficiency of other specified B group vitamins
CPT/HCPCS: 36415; 80053; 82306; 82607; 83036; 85025

== ENCOUNTER → 2022-11-17 15:30 | Outpatient (BNVA) | payer OTHER, SELFPAY | PROVIDERS: PCP Internal Medicine; Visit Provider Hospitalist ==

== ENCOUNTER → 2022-11-24 15:09 | Outpatient (BNVA) | payer OTHER, SELFPAY | PROVIDERS: PCP Internal Medicine; Visit Provider Nurse Practitioner Family | DX: R00.2 Palpitations (principal) | CPT/HCPCS: 93005 ==

== ENCOUNTER → 2022-12-17 13:07 | Outpatient (REF) | payer OTHER, SELFPAY | LOC: HO.SL 13:07 | PROVIDERS: Visit Provider Hospitalist | DX: G47.33 Obstructive sleep apnea (adult) (pediatric) (principal) | CPT/HCPCS: 95806 ==

== ENCOUNTER → 2022-12-17 13:14 | Outpatient (BNV) | payer OTHER, SELFPAY | PROVIDERS: Visit Provider Internal Medicine | DX: R06.83 Snoring (principal) | CPT/HCPCS: 95806 ==

== ENCOUNTER 2022-12-28 13:42 | Outpatient (REF) | payer OTHER, SELFPAY ==
--- NOTE | ~2022-12-28 | US_ITS ---
EXAMINATION: US VENOUS ULTRASOUND WITH DOPPLER LOWER EXTREMITY, LEFT CLINICAL INFORMATION: Left calf pain. COMPARISON: None available. TECHNIQUE: Ultrasound of the deep veins is performed from the hip to the calf with compression sonography and color and pulse Doppler assessment. Spectral analysis with color-flow imaging is performed. FINDINGS: There is normal venous compression and respiratory variation and augmented flow. The visualized common femoral vein, superficial femoral vein, profunda femoral vein, popliteal vein, and the trifurcation region shows no evidence of deep venous thrombosis. If the patient's symptoms persist, followup ultrasound in 5 days 7 days might be of value to exclude proximal propagation from a non-visualized calf vein. Incidental note is made of left inguinal lymph node measuring 1.3 x 0.4 x 1.1 cm. US/US venous duplex LE LT IMPRESSION: No DVT demonstrated in the left lower extremity.
== END 2022-12-28 13:43 | disposition home or self-care (01) ==
LOC: HO.US 13:42
PROVIDERS: Visit Provider Internal Medicine
DX: M79.662 Pain in left lower leg (principal)
CPT/HCPCS: 93971

== ENCOUNTER 2023-01-09 15:11 | Outpatient (REF) | payer OTHER, SELFPAY ==
--- NOTE | ~2023-01-09 | MR_ITS ---
EXAMINATION: MR KNEE WITHOUT CONTRAST, LEFT CLINICAL INFORMATION: Pain and swelling left knee history of twisting injury. Patient reports 2 prior surgeries. COMPARISON: X-ray the left knee July 2021. MRI of the left knee May 2011( limited as only coronal T2-weighted sequence available). TECHNIQUE: MRI of the knee without contrast was performed using routine sequences on a high-field scanner. FINDINGS: MENISCI: Medial Meniscus: There is a vertical signal with fluid extending through a meniscal gap in the posterior horn measuring up to 4 mm extending from the femoral to the tibial articular surface most likely reflecting meniscal tear rather than postsurgical result. Remaining portions of the meniscus intact. Lateral Meniscus: Intact LIGAMENTS: Cruciate: There is mucoid degeneration of the anterior cruciate ligament. Posterior cruciate ligament intact. Collateral: Intact. EXTENSOR MECHANISM: Intact. ARTICULAR CARTILAGE/BONE: Patellofemoral Compartment: There is cartilage heterogeneity and cartilage thinning with subchondral cystic change throughout central sulcus of the medial trochlea with some associated subchondral cystic change and edema. Patellar cartilage intact. Overall eweo-bu-zboedlzd patellofemoral arthrosis. Medial Compartment: There are marginal osteophytes. There are scattered areas of cartilage heterogeneity and subchondral cystic change more prominent on the tibial side of the joint than on the femoral side. Overall diro-dr-ggcklbuk arthrosis with degenerative changes progressed compared with the MRI in 2011 and probably unchanged compared with the recent x-ray allowing for differences in imaging modality Lateral Compartment: Normal. JOINT FLUID AND BURSAE: Normal. MR/MR knee LT wo con IMPRESSION: 1. Tear of the posterior horn of the medial meniscus. Postsurgical result but thought to be less likely given the morphology of the abnormality. 2. Mucoid degeneration of the anterior cruciate ligament. 3. Czcq-[id number]-[id number] arthrosis of the patellofemoral compartment and medial compartment.
== END 2023-01-09 15:12 | disposition home or self-care (01) ==
LOC: HO.MRI 15:11
PROVIDERS: PCP Internal Medicine; Visit Provider Internal Medicine
DX: M25.562 Pain in left knee (principal)
CPT/HCPCS: 73721

== ENCOUNTER 2023-02-11 08:36 | Outpatient (AMB) | payer OTHER, SELFPAY ==
--- NOTE | 2023-02-11 08:39 | A.OFFVIS_ITS ---
Intake Intake Visit Reasons: New Prob - Left Knee Pain - MRI done @[facility] Intake Note: Elma is a 62 year old female who presents today for a new problem visit with complaints of Left Knee pain. Patient reports that she has been having pain since 2010, after slipping and falling on black ice. After this injury she underwent two arthroscopic surgeries with [facility]. Reports history of injections which were not helpful. She has continued pain since these surgeries but about 2 months ago while walking to her car she felt a sharp pain in the left knee. PCP ordered MRI which has been done at [facility]. Allergies cat dander Allergy (Severe, Verified 11/24/22 15:33) Loss Voice environmental allergies Allergy (Severe, Verified 11/24/22 15:33) Sneezing HPI New Prob - Left Knee Pain - MRI done @[facility] HPI Details Elma is a 62 year old woman who presents with complaints of chronic left knee pain. She is here for an MRI review. 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 She reports pain in her left knee since fall in 2010. She says she felt a sharp pain in her knee while walking ~2 months ago, which was different from her usual pain. She has a hx of steroid injections, which she says were not helpful, and two knee performed at [facility], which she says did not alleviate her pain. She complains of pain with daily activity, and says she has not been without pain since her surgeries. She says she had severe pain in 09/2022 which woke her up at night. She walks using a cane, and has used one intermittently since her surgeries. She says she always feels some discomfort with any walking, and her knee gives way on her occasionally. She reports multiple falls in the past. She wants to be active and return to dancing, but this is too difficult for her given her knee. [facility] Medical History Abnormal EKG Arthritis Asthma Constipation Deflation of breast implant GERD (gastroesophageal reflux disease) History of breast cancer (~2008) History of COVID-19 (~09/2019) History of diabetes mellitus History of MRSA infection Hx of cardiac murmur Hypertension GERMANIA (obstructive sleep apnea) Palpitations Pneumonia (~2019) Post-COVID syndrome (~2019) Sickle cell trait Steatosis, liver Surgical History History of bilateral mastectomy (~2008) History of colonoscopy (~2016) History of esophagogastroduodenoscopy (EGD) (~2017) History of hysterectomy (~2003) History of laparoscopic cholecystectomy (~2002) History of left knee surgery (~2010) History of Cassi-en-Y gastric bypass (~2020) History of sleeve gastrectomy (~2010) Family History Father DM (diabetes mellitus) Stroke Mother DM (diabetes mellitus) Brother No problems noted. Sister No problems noted. Son No problems noted. 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 Review of Systems Const All systems reviewed & are unremarkable except as noted in HPI and below Physical Exam Const General: no acute distress, alert and awake Orientation/consciousness: patient oriented x3 HEENT Head: Yes normocephalic and Yes atraumatic Eyes EOM: EOMs intact bilaterally Resp Effort & Inspection: normal respiratory effort and able to speak in complete sentences Cardio Jugular venous distension: no JVD Skin General skin exam: turgor normal Rashes: no rashes Neuro General: patient oriented x3 Extrem Other: Left Knee: Medial & lateral joint line discomfort - Jim's Trace effusion Mild gait antalgia Psych Appearance: grossly normal Affect: normal affect Attitude: cooperative Results Reviewed Results Reviewed: I personally reviewed relevant MR images 1. Tear of the posterior horn of the medial meniscus. Postsurgical result but thought to be less likely given the morphology of the abnormality. 2. Mucoid degeneration of the anterior cruciate ligament. 3. moderate-severe arthrosis of the medial compartment. Assessment & Plan Assessment & Plan (1) Osteoarthritis of left knee: Code(s): M17.12 - Unilateral primary osteoarthritis, left knee Plan: This is a 62 year old woman with severe left knee OA, primarily of the medial compartment. She has a small MMT present and a hx of two prior knee performed at [facility], after a fall in 2010. She complains of chronic pain since her surgery, worse with activity, and ambulates with a cane. She feels discomfort & pain with ambulation and says her knee has given way causing her to fall multiple times. She feels limited in her ADLs and that her QOL is diminished. She has a hx of steroid injections prior to her surgery without relief. I discussed her shelly gnosis and treatment options. I think she would ultimately benefit from a TKA in the future, but she would like to take time to consider this option, and she declined injections at this time. I recommend she continue activity as tolerated, she can follow up prn. Plan Scribed for Jack Cross MD by Tavares Abarca, medical office asst, on 02/11/23 at 9:00 AM, EST. Coding Level of Care Code New Pt Level 4 (92292) Diagnoses Osteoarthritis of left knee M17.12
== END 2023-02-11 09:22 | disposition home or self-care (01) ==
PROVIDERS: PCP Internal Medicine; Visit Provider Orthopaedic Surgery
DX: M17.12 Unilateral primary osteoarthritis, left knee (principal)
CPT/HCPCS: 99213

== ENCOUNTER → 2023-02-11 08:36 | Outpatient (BNVA) | payer OTHER, SELFPAY | PROVIDERS: PCP Internal Medicine; Visit Provider Orthopaedic Surgery ==

== ENCOUNTER 2023-05-25 12:47 | Outpatient (AMB) | payer OTHER, SELFPAY ==
--- NOTE | 2023-05-25 12:51 | A.OFFVIS_ITS ---
Intake VS Expanded 05/25/23 13:00 BP 187/104 H Blood Pressure Location Rt brachial Blood Pressure Position Sitting Pulse 90 Pulse Source Pulse Oximeter Temp 97.1 F Temperature Source Tympanic Pulse Oximetry 96 Oxygen Delivery Method Room Air Height 5 ft 10 in Weight 198 lb 12.8 oz BMI 28.5 Body Fat % 39.5 Body Fat Mass 78.4 Fat Free Mass 120.2 Visceral Fat Rating 10.0 Body Water % 42.8 Body Water Mass 85.0 Muscle Mass/Score 114.0 Basal Metabolic Rate/Score 1,640 Intake Visit Reasons: (OV) GBP 09/26/20 *Stomach Pains* Allergies cat dander Allergy (Severe, Verified 05/25/23 12:54) Loss Voice environmental allergies Allergy (Severe, Verified 05/25/23 12:54) Sneezing Medication List - Last Reconciled 05/25/23 by CONNIE Ledbetter albuterol sulfate 90 mcg/actuation 1 puff inhalation Q4H PRN beclomethasone dipropionate 80 mcg/actuation (Qvar RediHaler) 1 inh inhalation BID 30 days cholecalciferol (vitamin D3) 25 mcg PO DAILY 90 days cyanocobalamin (vitamin B-12) 1,000 mcg IM QWEEK lisinopril-hydrochlorothiazide 20-12.5 mg 1 tab PO DAILY omeprazole 20 mg PO QAM HPI HPI Comments History of Present Illness Details This?is a?62?yo female who is s/p LSG conversion to RYGB 09/26/2020. Presents for 2 year 8 month post op visit. Has not been seen since 5 weeks postop. Weight at last visit on 11/01/2020 was 208 pounds with a BMI of 29.8, weight today is 198.8 pounds, representing a 9.2 pound weight loss with a BMI today of 28.5.? Pt reports yesterday morning, before eating, had an episode of clear vomiting with some mid abdominal pain and then some dry heaving. No fevers, no sick contacts. No nausea currently, no vomiting today. Did take some ibuprofen when this happened, but does not normally take ibuprofen. Not currently having any p ain. Has a headache, but no dizziness or lightheadedness. Nonsmoker, rare EtOH. Present meal plan includes: no protein shakes or supplements does not hungry, has to remind herself to eat, thinks her protein intake is low Did the patient ever have any of these conditions and are they resolved or still being treated? GERD: omeprazole GERMANIA:? lost CPAP machine DM:? resolved? HTN:? lisinopril/HCTZ Hyperlipidemia:? none Post op complications:? none PFSH Medical History Abnormal EKG Arthritis Asthma Constipation Deflation of breast implant GERD (gastroesophageal reflux disease) History of breast cancer (~2008) History of COVID-19 (~09/2019) History of diabetes mellitus History of MRSA infection Hx of cardiac murmur Hypertension GERMANIA (obstructive sleep apnea) Palpitations Pneumonia (~2019) Post-COVID syndrome (~2019) Sickle cell trait Steatosis, liver Surgical History History of left knee surgery (~2010) History of Cassi-en-Y gastric bypass (~2020) History of bilateral mastectomy (~2008) History of colonoscopy (~2016) History of hysterectomy (~2003) History of laparoscopic cholecystectomy (~2002) History of esophagogastroduodenoscopy (EGD) (~2017) History of sleeve gastrectomy (~2010) Family History Father DM (diabetes mellitus) Stroke Mother DM (diabetes mellitus) Brother No problems noted. Sister No problems noted. Son No problems noted. 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 Physical Exam Const General: cooperative, comfortable and no acute distress Orientation/consciousness: patient oriented x3 GI Other: soft, mild mid abdominal tenderness without guarding or rebound, nondistended, incisions well healed, no hernia, no masses Neuro General: patient oriented x3 Assessment & Plan Assessment & Plan (1) S/P gastric bypass: Onset Date: ~2020 Comment: (s/p sleeve in 2010 and Cassi-en-Y bypass in 2020) Code(s): Z98.84 - Bariatric surgery status (2) Overweight: Code(s): E66.3 - Overweight Plan At this time pt does not have an acute abdomen or any other signs of concerning intraabdominal pathology. Possible viral illness causing nausea. Low suspicion for ulcer or obstruction. Gave pt new plan of 3 shakes per day for now. Advised drinking all shakes over 2 hours. Breakfast- 2 scoops Celebrate 4:1 in 8oz UAM Lunch- same shake Dinner- Celebrate rebuild shake in 8oz UAM Due to pt's complaints of incomplete emptying and sometimes going up to a week between bowel movements will refer to GI. Labs ordered. RTC 1 month but I encouraged pt to reach out sooner if her symptoms change/worsen. Patient is overweight and is not considered stable at this time. I spent a total of 30 minutes reviewing/updating records, examining the patient and counseling the patient on weight management as detailed above. Orders: Orders Hemoglobin A1c Today Z98.84 - Bariatric surgery status Lipid Panel Today Z98.84 - Bariatric surgery status IRON PROFILE Today Z98.84 - Bariatric surgery status Zinc Today Z98.84 - Bariatric surgery status Vitamin B1 Today Z98.84 - Bariatric surgery status Vitamin A Today Z98.84 - Bariatric surgery status TSH reflex Free T4 Today Z98.84 - Bariatric surgery status Vitamin D 25-OH Total Today Z98.84 - Bariatric surgery status Insulin Today Z98.84 - Bariatric surgery status Complete Blood Count Auto Diff Today Z98.84 - Bariatric surgery status Comprehensive Met. Panel Today Z98.84 - Bariatric surgery status Vitamin B12 and Folate Today Z98.84 - Bariatric surgery status C Reactive Protein Today Z98.84 - Bariatric surgery status Ferritin Today Z98.84 - Bariatric surgery status Referrals Gastroenterology Referral K59.01 - Slow transit constipation Coding Level of Care Code Est Pt Level 4 (45887) Diagnoses S/P gastric bypass Z98.84 Overweight E66.3
[2023-05-25 13:00] VITALS: BP 187/104; PULSE 90; TEMP 36.2; O2SAT 96; BMI 28.5
== END 2023-05-25 13:29 | disposition home or self-care (01) ==
LOC: HO.HBS 12:47
PROVIDERS: PCP Internal Medicine; Visit Provider Physician Assistant Surgical
DX: E66.3 Overweight (principal); Z68.28 Body mass index [BMI] 28.0-28.9, adult; Z90.3 Acquired absence of stomach [part of]; Z98.84 Bariatric surgery status
CPT/HCPCS: 99214

== ENCOUNTER 2023-05-25 12:47 | Outpatient (REF) | payer OTHER, SELFPAY ==
[2023-05-25 13:44] LABS: MANUAL DIFF FLAG NO
[2023-05-25 14:04] LABS: Basophils Absolute Auto 0.1 X10*3/uL (0.0-0.2); Basophils Percent Auto 0.7 % (0-2); Eosinophils Absolute Auto 0.2 X10*3/uL (0.0-0.4); Eosinophils Percent Auto 2.5 % (0-4); Hematocrit 35.7 % (37.0-47.0); Hemoglobin 11.3 g/dl (12.0-16.0); Imm Gran Abs Auto 0.02 X10*3/uL (0.00-0.03); Imm Gran Pct Auto 0.2 % (0.0-0.4); Lymphocytes Absolute Auto 1.9 X10*3/uL (1.2-4.9); Lymphocytes Percent Auto 23.9 % (20-40); Mean Corpuscular HGB Conc 31.7 g/dl (31.0-35.0); Mean Corpuscular Hemoglobin 22.9 pg (27.0-33.0); Mean Corpuscular Volume 72.4 fL (80.0-98.0); Mean Platelet Volume 9.3 fL (9.4-12.3); Monocytes Absolute Auto 0.5 X10*3/uL (0.1-1.2); Monocytes Percent Auto 6.4 % (2-11); Neutrophils Absolute Auto 5.4 x10*3/uL (2.0-8.3); Neutrophils Percent Auto 66.3 % (45-73); Platelet Count 441 X10*3/uL (160-400); Red Blood Count 4.93 X10*6/uL (4.20-5.50); Red Cell Distribution Width 15.4 % (11.0-16.0); White Blood Count 8.1 X10*3/uL (4.8-10.8)
[2023-05-25 14:09] LABS: Estimated Average Glucose 114 mg/dL; Hemoglobin A1c % 5.6 % (<6.0)
[2023-05-25 15:01] LABS: Alanine Aminotransferase 7 U/L (0-31); Albumin Level 4.4 g/dL (3.5-5.0); Alkaline Phosphatase 132 U/L (39-117); Anion Gap 16 (12-20); Aspartate Amino Transferase 16 U/L (5-31); Bilirubin Total 0.7 mg/dL (0.0-1.0); Blood Urea Nitrogen 14 mg/dL (9-16); C Reactive Protein 0.57 mg/dL (< or = 0.50); Calcium 9.9 mg/dL (8.4-10.2); Carbon Dioxide 23 mmol/L (22-29); Chloride 108 mmol/L (96-108); Cholesterol 174 mg/dL (<200); Estimated Glomerular Filt Rate 39; Ferritin 14 ng/mL (10-250); Glucose Random 100 mg/dL (60-115); HDL Cholesterol 66 mg/dL (>40); Insulin 3 uU/mL (2-29); Iron 83 mcg/dL (30-160); LDL Cholesterol Calculated 93 mg/dL (<100); Percent Iron Saturation 20 % (15-50); Potassium 3.4 mmol/L (3.3-5.1); Sodium 144 mmol/L (135-145); TSH reflex Free T4 0.51 uIU/mL (0.32-4.0); Total Iron Binding Capacity 413 mcg/dL (228-428); Total Protein 8.5 g/dL (6.5-8.0); Triglycerides 77 mg/dL (<150); Unsaturated Iron Binding 330 ug/dL; Vitamin D 25-OH Total 23.8 ng/mL (>30)
[2023-05-25 15:12] LABS: Folate 4.8 ng/mL (> or = 4.0); Vitamin B12 352 pg/mL (200-900)
[2023-05-27 16:43] LABS: Zinc 66 mcg/dL (60-130)
[2023-05-29 10:47] LABS: Vitamin A 28 mcg/dL (38-98)
[2023-05-30 11:43] LABS: Vitamin B1 <6 nmol/L (8-30)
== END 2023-05-25 12:48 | disposition home or self-care (01) ==
LOC: HO.LAB 12:47
PROVIDERS: PCP Internal Medicine; Visit Provider Physician Assistant Surgical
DX: E66.3 Overweight (principal); K59.01 Slow transit constipation; Z98.84 Bariatric surgery status
CPT/HCPCS: 36415; 80053; 80061; 82306; 82607; 82728; 82746; 83036; 83525; 83540; 84425; 84443; 84590; 84630; 85025; 86140

== ENCOUNTER 2023-05-26 12:50 | Outpatient (REF) | payer OTHER, SELFPAY ==
[2023-05-27 13:06] LABS: Appearance Urine Clear; Color Urine Yellow; Glucose Urine UA Negative (Negative); Leukocyte Esterase Urine Trace (Negative); Nitrite Urine Negative (Negative); Specific Gravity - Urine 1.015 (1.005-1.025); UMIC TRIGGER UACC YES; Urine Blood Moderate (2+) (Negative); Urine Ketones Negative (Negative); Urine Protein Trace mg/dL (Neg-Trace)
[2023-05-27 13:45] LABS: Bacteria Urine None Seen (None Seen); Calcium Oxalate Crystals Urine Present; Hyaline Casts Urine 0-2 /LPF (0-2); Squamous Epithelial Cell Urine 0-2 /HPF (0-2); UACC Culture Trigger YES
== END 2023-05-26 12:51 | disposition home or self-care (01) ==
LOC: HO.LNP 12:50
PROVIDERS: Visit Provider Internal Medicine
DX: R30.0 Dysuria (principal)
CPT/HCPCS: 81001; 81003; 87086

== ENCOUNTER 2023-05-28 15:44 | Outpatient (REF) | payer OTHER, SELFPAY ==
--- NOTE | ~2023-05-28 | XR_ITS ---
EXAMINATION: XR ABDOMEN COMPLETE CLINICAL INDICATION: Abdominal pain. COMPARISON: None available. TECHNIQUE: 3 supine and 2 AP upright views of the abdomen. FINDINGS: Surgical clips scattered over the lower chest and throughout the abdomen. Degenerative changes in the bilateral hips. Nonobstructive bowel gas pattern. Moderate amount of stool in the colon. Surgical sutures project over the left upper quadrant. Rounded pelvic calcifications are likely vascular. XR/XR abdomen min 2V IMPRESSION: Nonobstructive bowel gas pattern. Moderate amount of stool in the colon.
[2023-05-28 21:16] LABS: Anion Gap 19 (12-20); Blood Urea Nitrogen 18 mg/dL (9-16); Calcium 10.1 mg/dL (8.4-10.2); Carbon Dioxide 23 mmol/L (22-29); Chloride 105 mmol/L (96-108); Estimated Glomerular Filt Rate 44; Glucose Random 61 mg/dL (60-115); Potassium 3.6 mmol/L (3.3-5.1); Sodium 143 mmol/L (135-145)
== END 2023-05-28 15:45 | disposition home or self-care (01) ==
LOC: HO.XRAY 15:44
PROVIDERS: PCP Internal Medicine; Visit Provider Internal Medicine
DX: R10.9 Unspecified abdominal pain (principal); R11.2 Nausea with vomiting, unspecified
CPT/HCPCS: 36415; 74019; 80048

== ENCOUNTER 2023-05-28 16:37 | Emergency (ER) | payer OTHER, SELFPAY ==
--- NOTE | ~2023-05-28 | CT_ITS ---
EXAMINATION: CT ABDOMEN AND PELVIS WITH CONTRAST CLINICAL INFORMATION: History of gastric bypass. Nausea. Pain. COMPARISON: Previous CT of the abdomen and pelvis January 2020 and CTA of the abdomen and pelvis August 2022 TECHNIQUE: Multidetector volumetric images were obtained from the superior aspect of the liver through the pubic symphysis following administration 85 mL of Omnipaque 350 intravenous contrast. Sagittal and coronal reformatted images were obtained on the technologist's workstation. Oral contrast: Yes This CT examination was performed using dose optimization techniques as appropriate, variously including the following: *Automated exposure control *Adjustment of mA and/or kV according to patient size (this includes techniques or standardized protocols for targeted exams where dose is matched to indication/reason for exam; i.e. extremities or head) *Use of iterative reconstruction technique DLP: 693 mGy-cm FINDINGS: LUNG BASES: The visualized lung bases are unremarkable. LIVER, GALLBLADDER, AND BILIARY TREE: The liver is normal in size, shape, and attenuation. The gallbladder has been removed. There is mild intra and extrahepatic biliary duct dilatation. This is probably normal postcholecystectomy. PANCREAS: Unremarkable. SPLEEN: Unremarkable. ADRENAL GLANDS: Unremarkable. KIDNEYS AND URETERS: There is mild right hydronephrosis and ureteral dilatation down to the bladder. There is a 3 mm stone in the right UVJ region-bladder. There is fat stranding surrounding the right ureter. There is a delayed nephrogram seen on the right. There are small left renal cysts. BLADDER: Unremarkable. GASTROINTESTINAL TRACT: Postsurgical changes from gastric bypass. There is wall thickening of the proximal stomach and proximal efferent loop. There is stranding of the surrounding fat in this region. There is a small amount of extraluminal air in this region adjacent to the surgical staple line questionable for leak or contained perforation. No extravasated oral contrast or free air air is seen. Surgical staple line goes above the diaphragm questionable for small esophageal hernia. Mild diverticulosis of the colon. No evidence of diverticulitis. Appendix not seen. ABDOMINAL WALL: Postsurgical changes. LYMPH NODES: Normal. VASCULAR: Unremarkable. PELVIC VISCERA: Uterus appears to have been removed. No pelvic mass. OSSEOUS STRUCTURES: There are multiple small sclerotic bone lesions. These are similar to previous CTA August 2022. There are degenerative changes of the thoracic spine and at L4-L5. CT/CT abdomen pelvis w IV con IMPRESSION: Mild right hydronephrosis and ureteral dilatation down to the bladder from a 3 mm stone in the right UVJ-bladder. There is fat stranding surrounding the right ureter. There is a delayed right nephrogram. There is wall thickening of the proximal stomach and proximal efferent loop and stranding of the surrounding fat. There is a small amount of extraluminal air adjacent to the surgical staple line questionable for leak or contained perforation. No extravasated oral contrast or free air is seen. Diverticulosis of the colon. No evidence of diverticulitis. Fleischner guidelines were followed. Findings were communicated to Zain Wills by telephone on 05/28/2023 at 8:03 PM
--- NOTE | 2023-05-28 16:52 | ED_ITS ---
HPI - General Adult General Chief complaint: Abdominal Pain Stated complaint: small bowel extraction pr dr westfall Time Seen by Provider: 05/28/23 16:52 Source: patient Limitations: no limitations History of Present Illness HPI narrative: 6-year-old female who has a history of hypertension, status post gastric sleeve with revision of Cassi-en-Y gastric bypass, 09/26/20, presents to the emergency department from her PCP after a 5 day history of decreased p.o. intake and nausea. The patient states symptoms began rather abruptly on May 24. She began to have waves of nausea but no vomiting. She has also had intermittent, crampy episodes of diffuse abdominal pain. She denies any eructations. She is passing some gas and some stool. She has been having difficulty tolerating liquids. She was able to tolerate some weight loss shakes. She had also tried Colace. She had a history of small-bowel obstructions in the past. Currently she does report diffuse mid abdominal pain. She reports seeing her PCP today who did a plain abdominal x-ray and was concerned about the air-fluid levels the patient was sent to the emergency department for further evaluation. Related Data Home Medications Medication Instructions Recorded Confirmed albuterol sulfate 90 mcg/actuation 1 puff inhalation Q4H PRN 09/20/20 05/25/23 aerosol inhaler Shortness Of Breath cyanocobalamin (vitamin B-12) 1,000 mcg IM QWEEK 04/07/22 05/25/23 1,000 mcg/mL injection solution Previous Rx's Medication Instructions Recorded beclomethasone dipropionate 80 1 inh inhalation BID 30 days #10.6 07/01/20 mcg/actuation HFA breath activated grams aerosol (Qvar RediHaler) omeprazole 20 mg capsule,delayed 20 mg PO QAM #90 caps 10/31/20 release cholecalciferol (vitamin D3) 25 25 mcg PO DAILY 90 days #90 caps 02/05/21 mcg (1,000 unit) capsule lisinopril 20 1 tab PO DAILY #90 tabs 02/08/23 mg-hydrochlorothiazide 12.5 mg tablet ondansetron 4 mg disintegrating 4 mg PO Q8H PRN nausea and 05/28/23 tablet vomiting #12 tabs tamsulosin 0.4 mg capsule (Flomax) 0.4 mg PO DAILY #14 caps 05/28/23 Allergies Allergy/AdvReac Type Severity Reaction Status Date / Time cat dander Allergy Severe Loss Voice Verified 05/25/23 12:54 environmental allergies Allergy Severe Sneezing Verified 05/25/23 12:54 Review of Systems 2 Constitutional: Constitutional: Denies chills, Denies fever(s) and Denies headache(s) Eyes: Eyes: Denies change in vision and Denies other (No redness.) ENT: Denies headache(s), Denies nasal congestion, Denies nasal discharge, Denies neck pain and Denies sore throat Cardiovascular: Cardiovascular: Denies chest pain, Denies palpitations, Denies dyspnea, Denies dyspnea on exertion and Denies orthopnea Respiratory: Respiratory: Denies cough, Denies dyspnea and Denies dyspnea on exertion Gastrointestinal: Gastrointestinal: Reports abdominal pain, Denies melena, Denies hematochezia, Denies diarrhea, Reports nausea and Denies vomiting Genitourinary: Genitourinary: Denies dysuria and Denies urinary urgency Musculoskeletal: Musculoskeletal: Denies back pain, Denies muscle weakness, Denies neck pain and Denies numbness Integumentary/Breasts: Skin/Breast: Denies rash Neurologic: Denies headache(s), Denies focal weakness and Denies numbness Psychiatric: Psychiatric: Denies depression Endocrine: Endocrine: Denies palpitations PMFSH Past Medical History Attestation statement: The following information was validated with the patient. Medical History Deflation of breast implant Abnormal EKG History of breast cancer (~2008) History of diabetes mellitus GERMANIA (obstructive sleep apnea) Palpitations Steatosis, liver History of MRSA infection Arthritis Sickle cell trait History of COVID-19 (~09/2019) Hx of cardiac murmur Post-COVID syndrome (~2019) Pneumonia (~2019) Asthma Hypertension GERD (gastroesophageal reflux disease) Constipation Surgical History History of left knee surgery (~2010) History of Cassi-en-Y gastric bypass (~2020) History of bilateral mastectomy (~2008) History of colonoscopy (~2016) History of hysterectomy (~2003) History of laparoscopic cholecystectomy (~2002) History of esophagogastroduodenoscopy (EGD) (~2017) History of sleeve gastrectomy (~2010) Family History Family History Father DM (diabetes mellitus) Stroke Mother DM (diabetes mellitus) Brother No problems noted. Sister No problems noted. Son No problems noted. 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 Exam ED Vital Signs: Vital Signs - 24 hr 05/28/23 16:55 05/28/23 19:48 Temperature 98 F 98.2 F Pulse Rate 82 64 Respiratory Rate 16 17 Blood Pressure 150/93 H 152/78 H Pulse Oximetry 100 98 Oxygen Delivery Method Room Air Room Air BMI result Body Mass Index 33.3 Const Other: Well-appearing and nontoxic, pleasant General: alert, awake and Physically active Orientation/consciousness: patient oriented x3 Resp Effort & Inspection: normal respiratory effort Auscultation: clear to auscultation bilaterally Cardio Rate: regular rate Rhythm: regular rhythm GI Other: Hyperactive bowel sounds in the mid abdomen. Decreased on the flanks bilaterally. Abdomen is soft without any peritoneal signs. Mild diffuse tenderness in the mid to upper abdomen. No CVAT. No guarding or rebound. Neuro General: patient oriented x3 Course Course Course Narrative: 8:03 pm received a telephone call from [facility]. The patient's bypass appears abnormal with wall thickening and possible small perforation that has been a walled-off. Discussed with Dr. Inman. Reevaluation(s) Reevaluation #1: Spoke with CONNIE Cesar from bariatric surgery. We official report. Add lactic acid. Time: 20:15 Reevaluation #2: Lactic acid returned and is normal. The patient reports good improvement after IV Toradol. She is not currently having any nausea. Imaging reviewed by the bariatric surgery team. Concern for inflammation of the stomach however low suspicion for perforation, especially since the patient does not have any leukocytosis and normal lactic acid, hemodynamically stable and reassuring abdominal exam. Given that the patient has a known kidney stone which appears to be working its way into the bladder, suspect this could be etiology for the patient's pain as well. This was also reviewed with the patient, who also confirms history of kidney stones. Patient able to pass urine. Urinalysis is without any nitrites or bacteria present. Hold on any urine culture before treating. Will start Flomax. Patient also provided with urology referral since she does not have one. Zofran for nausea. Confirmed with bariatric surgery that the patient will follow up this week for further evaluation of CT findings. Patient expresses understanding of all discharge instructions and has no further questions at this time Time: 22:25 Medications Administered Discontinued Medications Generic Name Dose Route Start Last Admin Trade Name Freq PRN Reason Stop Dose Admin Acetaminophen 650 mg 05/28/23 18:31 05/28/23 18:40 Acetaminophen 325 Mg Tablet PO 05/28/23 18:32 Not Given ONCE ONE Sodium Chloride 1,000 mls @ 999 mls/hr 05/28/23 17:15 05/28/23 19:00 Ns IV 05/28/23 18:15 Infused .Q1H1M CHARLEY Infusion Iohexol 85 ml 05/28/23 18:22 05/28/23 18:25 Iohexol 350 Mg/Ml 100 Ml Infus..Btl IV 05/28/23 18:23 85 ml ONCE ONE Administration Ketorolac Tromethamine 15 mg 05/28/23 18:36 05/28/23 18:41 Ketorolac Tromethamine 15 Mg/Ml Vial IVPUSH 05/28/23 18:37 15 mg ONCE ONE Administration Medical Decision Making Medical Decision Making [facility] Narrative: 6-year-old female history of Cassi-en-Y gastric bypass with a 5 day history of abdominal pain and decreased p.o. intake. Concern for possible bowel obstruction. Possible perforation, colitis. Check labs, IV fluids and CT. Differential Diagnosis Differential Diagnoses: The differential diagnosis associated with the presentation includes Bowel obstruction Constipation Intussusception Perforation Admission/Observation Consideration of admission/observation: Escalation of care including admission/observation considered Consideration for possible admission given the patient's symptoms. Consult Healthcare Provider Management of the patient was discussed with: Asian Studies Professor Bariatric surgery team Lab Data [facility] Lab Attestation statement: I reviewed the patient's lab results. 05/28/23 17:35 05/28/23 17:35 Labs: Lab Results 05/28/23 05/28/23 Range/Units 17:35 20:50 WBC 7.1 (4.8-10.8) X10*3/uL RBC 4.31 (4.20-5.50) X10*6/uL Hgb 10.3 L (12.0-16.0) g/dl Hct 31.5 L (37.0-47.0) % MCV 73.1 L (80.0-98.0) fL MCH 23.9 L (27.0-33.0) pg MCHC 32.7 (31.0-35.0) g/dl RDW 15.5 (11.0-16.0) % Plt Count 380 (160-400) X10*3/uL MPV 9.5 (9.4-12.3) fL Immature Gran % (Auto) 0.3 (0.0-0.4) % Neut % (Auto) 71.6 (45-73) % Lymph % (Auto) 19.4 L (20-40) % [place] % (Auto) 5.7 (2-11) % Eos % (Auto) 2.1 (0-4) % Baso % (Auto) 0.9 (0-2) % Lymph # (Auto) 1.4 (1.2-4.9) X10*3/uL [place] # (Auto) 0.4 (0.1-1.2) X10*3/uL Eos # (Auto) 0.2 (0.0-0.4) X10*3/uL Baso # (Auto) 0.1 (0.0-0.2) X10*3/uL Abs Immat Gran (auto) 0.02 (0.00-0.03) X10*3/uL Absolute Neuts (auto) 5.1 (2.0-8.3) x10*3/uL Absolute Nucleated RBC 0.000 (0.0-0.012) X10*3/uL Nucleated RBC % (auto) 0.0 (0.0-0.2) /100WBC Sodium 140 (135-145) mmol/L Potassium 3.8 (3.3-5.1) mmol/L Chloride 106 (96-108) mmol/L Carbon Dioxide 26 (22-29) mmol/L Anion Gap 12 (12-20) BUN 20 H (9-16) mg/dL Creatinine 1.35 (0.5-1.4) mg/dL Estim Creat Clear Calc 48.0 Estimated GFR 40 Random Glucose 96 (60-115) mg/dL Lactic Acid 0.7 (0.5-2.0) mmol/L Calcium 9.7 (8.4-10.2) mg/dL Total Bilirubin 0.4 (0.0-1.0) mg/dL AST 16 (5-31) U/L ALT 7 (0-31) U/L Alkaline Phosphatase 115 (39-117) U/L Total Protein 7.9 (6.5-8.0) g/dL Albumin 4.1 (3.5-5.0) g/dL Lipase 6 L (8-78) U/L Radiology Impression Discussion of test interpretation with radiology: I discussed test interpretation with the radiologist and I have reviewed the radiologist's reading. Radiologist Impression: [place] [id number] CT Scan Report Signed Patient: Elma Nuñez MR#: [id number] : 1960 Acct:[id number] Age/Sex: 62 / F ADM Date: 05/28/23 Loc: .ED Attending Dr: Ordering Physician: Zain Wills Date of Service: 05/28/23 Procedure(s): CT abdomen pelvis w IV con Accession Number(s): [id number] cc: Jorge Westfall MD; Zain Wills~ EXAMINATION: CT ABDOMEN AND PELVIS WITH CONTRAST CLINICAL INFORMATION: History of gastric bypass. Nausea. Pain. COMPARISON: Previous CT of the abdomen and pelvis January 2020 and CTA of the abdomen and pelvis August 2022 TECHNIQUE: Multidetector volumetric images were obtained from the superior aspect of the liver through the pubic symphysis following administration 85 mL of Omnipaque 350 intravenous contrast. Sagittal and coronal reformatted images were obtained on the technologist's workstation. Oral contrast: Yes This CT examination was performed using dose optimization techniques as appropriate, variously including the following: *Automated exposure control *Adjustment of mA and/or kV according to patient size (this includes techniques or standardized protocols for targeted exams where dose is matched to indication/reason for exam; i.e. extremities or head) *Use of iterative reconstruction technique DLP: 693 mGy-cm FINDINGS: LUNG BASES: The visualized lung bases are unremarkable. LIVER, GALLBLADDER, AND BILIARY TREE: The liver is normal in size, shape, and attenuation. The gallbladder has been removed. There is mild intra and extrahepatic biliary duct dilatation. This is probably normal postcholecystectomy. PANCREAS: Unremarkable. SPLEEN: Unremarkable. ADRENAL GLANDS: Unremarkable. KIDNEYS AND URETERS: There is mild right hydronephrosis and ureteral dilatation down to the bladder. There is a 3 mm stone in the right UVJ region-bladder. There is fat stranding surrounding the right ureter. There is a delayed nephrogram seen on the right. There are small left renal cysts. BLADDER: Unremarkable. GASTROINTESTINAL TRACT: Postsurgical changes from gastric bypass. There is wall thickening of the proximal stomach and proximal efferent loop. There is stranding of the surrounding fat in this region. There is a small amount of extraluminal air in this region adjacent to the surgical staple line questionable for leak or contained perforation. No extravasated oral contrast or free air air is seen. Surgical staple line goes above the diaphragm questionable for small esophageal hernia. Mild diverticulosis of the colon. No evidence of diverticulitis. Appendix not seen. ABDOMINAL WALL: Postsurgical changes. LYMPH NODES: Normal. VASCULAR: Unremarkable. PELVIC VISCERA: Uterus appears to have been removed. No pelvic mass. OSSEOUS STRUCTURES: There are multiple small sclerotic bone lesions. These are similar to previous CTA August 2022. There are degenerative changes of the thoracic spine and at L4-L5. CT/CT abdomen pelvis w IV con IMPRESSION: Mild right hydronephrosis and ureteral dilatation down to the bladder from a 3 mm stone in the right UVJ-bladder. There is fat stranding surrounding the right ureter. There is a delayed right nephrogram. There is wall thickening of the proximal stomach and proximal efferent loop and stranding of the surrounding fat. There is a small amount of extraluminal air adjacent to the surgical staple line questionable for leak or contained perforation. No extravasated oral contrast or free air is seen. Diverticulosis of the colon. No evidence of diverticulitis. Fleischner guidelines were followed. Findings were communicated to Zain Wills by telephone on 05/28/2023 at 8:03 PM Independent Historian Clinical information obtained from an independent historian. History obtained from or confirmed by: Parent External Record Review External record reviewed: Inpatient record Prescription Management I considered prescription management with: Pain Medication Discharge Plan Discharge Clinical Impression: Ureterolithiasis Abdominal pain Qualifiers: Abdominal location: generalized Qualified Code(s): R10.84 - Generalized abdominal pain Patient Disposition: Home, Self-Care Instructions: Abdominal Pain (ED), Ureteral Stones (ED) Additional Instructions: Clear liquids. Continue your shakes as directed by the bariatric team. Zofran as directed for nausea. You have a 3 mm stone on the right side that is working its way into the bladder. Flomax as directed. Strain all urine. Follow up with Urology referral, Dr. Chung. Follow-up with Dr. Thompson, bariatric surgery Follow-up with your primary care provider. Call this week to schedule a follow- up appointment. Return to the emergency department if you have any worsening of symptoms, or any concerns. Get well soon! Prescriptions: New ondansetron 4 mg tablet,disintegrating 4 mg PO Q8H PRN (Reason: nausea and vomiting) Qty: 12 0RF tamsulosin [Flomax] 0.4 mg capsule 0.4 mg PO DAILY Qty: 14 0RF No Action omeprazole 20 mg capsule,delayed release(DR/EC) 20 mg PO QAM Qty: 90 1RF cholecalciferol (vitamin D3) 25 mcg (1,000 unit) capsule 25 mcg PO DAILY 90 Days Qty: 90 2RF lisinopril-hydrochlorothiazide 20-12.5 mg tablet 1 tab PO DAILY Qty: 90 3RF albuterol sulfate 90 mcg/actuation HFA aerosol inhaler 1 puff inhalation Q4H PRN (Reason: Shortness Of Breath) Qvar RediHaler 80 mcg/actuation HFA aerosol breath activated 1 inh inhalation BID 30 Days Qty: 10.6 10RF cyanocobalamin (vitamin B-12) 1,000 mcg/mL solution 1,000 mcg IM QWEEK Referrals: Enrico Chung MD [Physician] - (Kidney stone) Nathaniel Thompson MD [Physician] - 3 days Stand Alone Forms: Work/School Release
[2023-05-28 16:55] VITALS: BP 150/93; PULSE 82; RESP 16; TEMP 36.6; O2SAT 100; BMI 33.3
[2023-05-28] MEDS: 0.9 % Sodium Chloride 1,000 ML 999 ML IV (17:37)
[2023-05-28 17:38] LABS: MANUAL DIFF FLAG NO
[2023-05-28 17:43] LABS: Basophils Absolute Auto 0.1 X10*3/uL (0.0-0.2); Basophils Percent Auto 0.9 % (0-2); Eosinophils Absolute Auto 0.2 X10*3/uL (0.0-0.4); Eosinophils Percent Auto 2.1 % (0-4); Hematocrit 31.5 % (37.0-47.0); Hemoglobin 10.3 g/dl (12.0-16.0); Imm Gran Abs Auto 0.02 X10*3/uL (0.00-0.03); Imm Gran Pct Auto 0.3 % (0.0-0.4); Lymphocytes Absolute Auto 1.4 X10*3/uL (1.2-4.9); Lymphocytes Percent Auto 19.4 % (20-40); Mean Corpuscular HGB Conc 32.7 g/dl (31.0-35.0); Mean Corpuscular Hemoglobin 23.9 pg (27.0-33.0); Mean Corpuscular Volume 73.1 fL (80.0-98.0); Mean Platelet Volume 9.5 fL (9.4-12.3); Monocytes Absolute Auto 0.4 X10*3/uL (0.1-1.2); Monocytes Percent Auto 5.7 % (2-11); Neutrophils Absolute Auto 5.1 x10*3/uL (2.0-8.3); Neutrophils Percent Auto 71.6 % (45-73); Platelet Count 380 X10*3/uL (160-400); Red Blood Count 4.31 X10*6/uL (4.20-5.50); Red Cell Distribution Width 15.5 % (11.0-16.0); White Blood Count 7.1 X10*3/uL (4.8-10.8)
[2023-05-28 17:55] LABS: Alanine Aminotransferase 7 U/L (0-31); Albumin Level 4.1 g/dL (3.5-5.0); Alkaline Phosphatase 115 U/L (39-117); Anion Gap 12 (12-20); Aspartate Amino Transferase 16 U/L (5-31); Bilirubin Total 0.4 mg/dL (0.0-1.0); Blood Urea Nitrogen 20 mg/dL (9-16); Calcium 9.7 mg/dL (8.4-10.2); Carbon Dioxide 26 mmol/L (22-29); Chloride 106 mmol/L (96-108); Estimated Glomerular Filt Rate 40; Glucose Random 96 mg/dL (60-115); Lipase 6 U/L (8-78); Potassium 3.8 mmol/L (3.3-5.1); Sodium 140 mmol/L (135-145); Total Protein 7.9 g/dL (6.5-8.0)
[2023-05-28] MEDS: iohexoL 350 MG/ML 100 ML INFUS..BTL 85 ML IV (18:25)
[2023-05-28] MEDS: Ketorolac Tromethamine 15 MG/ML VIAL IVPUSH (18:41)
--- NOTE | 2023-05-28 19:28 | PC.NURSE ---
This RN took over pt assignment at 1900 Pt ca&ox4, no signs of distress. Pt resting comfortably in bed watching tv. Pt denies pain at this time. Plan of care ongoing.
[2023-05-28 19:48] VITALS: BP 152/78; PULSE 64; RESP 17; TEMP 36.8; O2SAT 98
[2023-05-28 21:06] LABS: Lactic Acid 0.7 mmol/L (0.5-2.0)
== END 2023-05-28 22:59 | disposition home or self-care (01) ==
PROVIDERS: Physician Assistant; Emergency Provider Emergency Medicine; PCP Internal Medicine
DX: N20.1 Calculus of ureter (principal); R10.84 Generalized abdominal pain; R11.2 Nausea with vomiting, unspecified; Z79.899 Other long term (current) drug therapy
CPT/HCPCS: 36415; 74177; 80053; 83605; 83690; 85025; 96361; 96374; 99284; 99285; J1885; Q9967

== ENCOUNTER 2023-05-31 13:57 | Outpatient (AMB) | payer OTHER, SELFPAY ==
[2023-05-31 14:12] VITALS: BP 120/82; PULSE 69; BMI 34.3
--- NOTE | 2023-05-31 14:12 | A.OFFVIS_ITS ---
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 Allergies cat dander Allergy (Severe, Verified 05/31/23 14:14) Loss Voice environmental allergies Allergy (Severe, Verified 05/31/23 14:14) Sneezing Medication List - Last Reconciled 05/31/23 by Elke Menon, METAL SPRAY OPERATOR-C albuterol sulfate 90 mcg/actuation 1 puff inhalation Q4H PRN beclomethasone dipropionate 80 mcg/actuation (Qvar RediHaler) 1 inh inhalation BID 30 days cholecalciferol (vitamin D3) 25 mcg PO DAILY 90 days cyanocobalamin (vitamin B-12) 1,000 mcg IM QWEEK lisinopril-hydrochlorothiazide 20-12.5 mg 1 tab PO DAILY omeprazole 20 mg PO QAM HPI f/u HPI Details Elma is a 62-year-old female with past medical history of hypertension, obstructive sleep apnea, obesity, palpitations, PACs who presents for follow-up. Today she reports she has been feeling generally well. She is not bothered as much by heart palpitations. She has had no presyncope, syncope, falls. She denies concerning chest discomfort at rest or with activity, no shortness of breath, PND, orthopnea or edema. She does report high stress at work. Taking meds as directed. [facility] Medical History Deflation of breast implant Abnormal EKG History of breast cancer (~2008) History of diabetes mellitus GERMANIA (obstructive sleep apnea) Palpitations Steatosis, liver History of MRSA infection Arthritis Sickle cell trait History of COVID-19 (~09/2019) Hx of cardiac murmur Post-COVID syndrome (~2019) Pneumonia (~2019) Asthma Hypertension GERD (gastroesophageal reflux disease) Constipation Surgical History History of left knee surgery (~2010) History of Cassi-en-Y gastric bypass (~2020) History of bilateral mastectomy (~2008) History of colonoscopy (~2016) History of hysterectomy (~2003) History of laparoscopic cholecystectomy (~2002) History of esophagogastroduodenoscopy (EGD) (~2017) History of sleeve gastrectomy (~2010) Family History Father DM (diabetes mellitus) Stroke Mother DM (diabetes mellitus) Brother No problems noted. Sister No problems noted. Son No problems noted. 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 Review of Systems ENT Denies dizziness Card Details: brief palpitations at times Denies chest pain, Denies chest pain at rest, Denies chest pain with activity, Denies rapid heart rate, Denies pedal edema, Denies edema, Denies leg edema, Denies lightheadedness, Denies palpitations, Denies dyspnea, Denies dyspnea on exertion and Denies orthopnea Resp Denies cough, Denies dyspnea and Denies dyspnea on exertion GI Denies hematochezia and Denies change in stool character Musc Denies abnormal gait, Denies limited range of motion, Denies muscle cramps, Denies muscle weakness, Denies numbness, Denies radiating pain into limb, Denies stiffness and Denies tingling Neuro Denies abnormal gait, Denies dizziness, Denies numbness and Denies tingling Endo Denies palpitations Physical Exam Vital Signs: Last Vital Signs Pulse 69 05/31/23 14:12 BP 120/82 05/31/23 14:12 BMI result Body Mass Index 34.3 Const General: cooperative, healthy appearing, comfortable and no acute distress Orientation/consciousness: patient oriented x3 Resp Effort & Inspection: normal respiratory effort Auscultation: clear to auscultation bilaterally, no crackles, no rales, no rhonchi and no wheezes Cardio Jugular venous distension: no JVD Rate: regular rate Rhythm: regular rhythm Heart sounds: S1 normal heart sound present, S2 normal heart sound present, no murmurs and no rubs Neuro General: patient oriented x3 Extrem General: Yes normal to inspection, No no pedal edema and No calf tenderness Psych Appearance: grossly normal Mental Status: mental status grossly normal Speech and movement: Normal speech and movement present Assessment & Plan Assessment & Plan (1) Palpitations: Comment: with ectopy on EKG Code(s): R00.2 - Palpitations Plan: Reports of brief heart palpitations. Prior EKG had shown PVC. Echocardiogram done 04/07/2022 showed normal LV, EF 65-70%, normal RV and normal valves. Holter monitor done 04/07/2022 for 3 days showed sinus rhythm with average heart rate 71, 5 short bursts of SVT, longest 4 beats. An exercise stress test was done on 04/01/2022 with exercise just over 5 minutes with shortness of breath, atrial ectopy noted, no ischemic changes. On last visit she reported ongoing intermittent heart palpitations. It was suspected she may have ongoing issues with PACs or short runs of SVT. Conservative measures reviewed. Today she reports she is less bothered by her PVCs. She feels palpitations lasting a few seconds. No sustained rapid or irregular rates. Further discussed avoidance of stimulants, maintain good hydration, rest and exercise as tolerated. No indication for med management at this time. Cardiology follow-up as needed. (2) PAC (premature atrial contraction): Code(s): I49.1 - Atrial premature depolarization Plan: As above (3) GERMANIA (obstructive sleep apnea): Comment: (mild GERMANIA in general but moderate to severe when supine - using cpap. Repeat sleep study WNL Code(s): G47.33 - Obstructive sleep apnea (adult) (pediatric) Plan: History of obstructive sleep apnea, compliant with CPAP mask. Plan Time spent with chart review, documentation, interview assessment Coding Level of Care Code Est Pt Level 3 (35416) Diagnoses Palpitations R00.2 PAC (premature atrial contraction) I49.1 GERMANIA (obstructive sleep apnea) G47.33 Time Spent (min) 24
== END 2023-05-31 14:39 | disposition home or self-care (01) ==
PROVIDERS: PCP Internal Medicine; Visit Provider Nurse Practitioner Family
DX: R00.2 Palpitations (principal); I49.1 Atrial premature depolarization; G47.33 Obstructive sleep apnea (adult) (pediatric)
CPT/HCPCS: 99213

== ENCOUNTER → 2023-05-31 13:57 | Outpatient (BNVA) | payer OTHER, SELFPAY | PROVIDERS: PCP Internal Medicine; Visit Provider Nurse Practitioner Family ==

== ENCOUNTER 2023-06-02 06:42 | Day surgery (SDC) | payer OTHER, SELFPAY ==
--- NOTE | 2023-06-01 09:26 | HO.ANESPROP2 ---
Documented by User: Estefany Beltran NP 06/01/23 09:30 HPI - Anesthesia Eval Consult details Narrative: 62yo F for Upper Endoscopy Follows [facility] cardiology for palps. Last office visit 05/2023, stable. [facility] Active Problems Active Problems: All Active Problems (Updated 05/29/23 @ 00:02 by Background Daemon) Osteoarthritis of left knee (Acute) PAC (premature atrial contraction) (Acute) Bilateral hand numbness (Acute) De Quervain's tenosynovitis, right (Acute) PVCs (premature ventricular contractions) (Acute) Bilateral carpal tunnel syndrome (Acute) Post-COVID syndrome (Acute ~2019) Abnormal EKG (Acute) S/P gastric bypass (Acute ~2020) Overweight (Acute) GERMANIA (obstructive sleep apnea) (Acute) Asthma (Acute) Hypertension (Acute) Palpitations (Acute) Steatosis, liver (Acute) GERD (gastroesophageal reflux disease) (Acute) Past Medical History Medical History Deflation of breast implant Abnormal EKG History of breast cancer (~2008) History of diabetes mellitus GERMANIA (obstructive sleep apnea) Palpitations Steatosis, liver History of MRSA infection Arthritis Sickle cell trait History of COVID-19 (~09/2019) Hx of cardiac murmur Post-COVID syndrome (~2019) Pneumonia (~2019) Asthma Hypertension GERD (gastroesophageal reflux disease) Constipation Family History Family History Father DM (diabetes mellitus) Stroke Mother DM (diabetes mellitus) Brother No problems noted. Sister No problems noted. Son No problems noted. Family history of problems with anesthesia: No Surgical History Surgical History History of left knee surgery (~2010) History of Cassi-en-Y gastric bypass (~2020) History of bilateral mastectomy (~2008) History of colonoscopy (~2016) History of hysterectomy (~2003) History of laparoscopic cholecystectomy (~2002) History of esophagogastroduodenoscopy (EGD) (~2017) History of sleeve gastrectomy (~2010) History of Problems with Anesthesia: No Social History Social History Household Members: None Housing: House Are you a primary animal caretaker supervisor to a significant other at home: No Do you presently have visiting nurse or other home services: No Alcohol intake: never Patient Tobacco Use Status: Former Tobacco user Quit Date: 1979 Tobacco use type: Cigarette Smoked in Last 30 Days: No Use of substances other than those prescribed or required for medical reasons: No Are you DNR?: No Advance Directives: No Advance Directives Information Provided: Yes service: No Current occupational status: employed 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 Allergies Allergy/AdvReac Type Severity Reaction Status Date / Time cat dander Allergy Severe Loss Voice Verified 05/31/23 14:14 environmental allergies Allergy Severe Sneezing Verified 05/31/23 14:14 Home Medications Medication Instructions Recorded Confirmed Last Taken Type albuterol sulfate 90 mcg/actuation 1 puff inhalation Q4H PRN 09/20/20 05/31/23 Unknown History aerosol inhaler Shortness Of Breath cyanocobalamin (vitamin B-12) 1,000 mcg IM QWEEK 04/07/22 05/31/23 Unknown History 1,000 mcg/mL injection solution Exam Pertinent Lab Results Pertinent Lab Results: Laboratory Tests 05/28/23 17:35 WBC 7.1 Hgb 10.3 L Hct 31.5 L Plt Count 380 Sodium 140 Potassium 3.8 Chloride 106 Carbon Dioxide 26 BUN 20 H Creatinine 1.35 Narrative Narrative: Prior EKG had shown PVC. Echocardiogram done 04/07/2022 showed normal LV, EF 65-70%, normal RV and normal valves. Holter monitor done 04/07/2022 for 3 days showed sinus rhythm with average heart rate 71, 5 short bursts of SVT, longest 4 beats. An exercise stress test was done on 04/01/2022 with exercise just over 5 minutes with shortness of breath, atrial ectopy noted, no ischemic changes. Assessment and Plan Assessment Anesthesia Assessment: Chart Reviewed Final Anesthetic Review Family History of Problems with Anesthesia: No History of Problems with Anesthesia: No Documented by User: Luz Marina Alcantara MD 06/02/23 07:37 PMFSH Past Medical History Medical History Deflation of breast implant Abnormal EKG History of breast cancer (~2008) History of diabetes mellitus GERMANIA (obstructive sleep apnea) Palpitations Steatosis, liver History of MRSA infection Arthritis Sickle cell trait History of COVID-19 (~09/2019) Hx of cardiac murmur Post-COVID syndrome (~2019) Pneumonia (~2019) Asthma Hypertension GERD (gastroesophageal reflux disease) Constipation Family History Family History Father DM (diabetes mellitus) Stroke Mother DM (diabetes mellitus) Brother No problems noted. Sister No problems noted. Son No problems noted. Surgical History Surgical History History of left knee surgery (~2010) History of Cassi-en-Y gastric bypass (~2020) History of bilateral mastectomy (~2008) History of colonoscopy (~2016) History of hysterectomy (~2003) History of laparoscopic cholecystectomy (~2002) History of esophagogastroduodenoscopy (EGD) (~2017) History of sleeve gastrectomy (~2010) Social History Social History Household Members: None Housing: House Are you a primary animal caretaker supervisor to a significant other at home: No Do you presently have visiting nurse or other home services: No Alcohol intake: never Patient Tobacco Use Status: Former Tobacco user Quit Date: 1979 Tobacco use type: Cigarette Smoked in Last 30 Days: No Use of substances other than those prescribed or required for medical reasons: No Are you DNR?: No Advance Directives: No Advance Directives Information Provided: Yes service: No Current occupational status: employed 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 Allergies Allergy/AdvReac Type Severity Reaction Status Date / Time cat dander Allergy Severe Loss Voice Verified 05/31/23 14:14 environmental allergies Allergy Severe Sneezing Verified 12/18/23 14:14 Home Medications Medication Instructions Recorded Confirmed Last Taken Type albuterol sulfate 90 mcg/actuation 1 puff inhalation Q4H PRN 09/20/20 05/31/23 Unknown History aerosol inhaler Shortness Of Breath cyanocobalamin (vitamin B-12) 1,000 mcg IM QWEEK 04/07/22 05/31/23 Unknown History 1,000 mcg/mL injection solution Exam Airway Mallampati Class: II TM Dist: >3cm Neck ROM: Full Heart: rrr Assessment and Plan Final Anesthetic Review ASA Class: III Final Preanesthetic Review: No Changes in Pt Med Stat, Meds/Allgs Chart Reviewed, Consent Obtained/Reviewed and Anes Risks/Benef Reviewed Patient Risk: Intermediate Procedure Risk: Low Anesthetic Plan Anesthetic Plan: MAC: Disposition: Standard PACU
[2023-06-02 07:14] VITALS: BP 169/94; PULSE 64; RESP 16; TEMP 36.3; O2SAT 100; BMI 29.8
[2023-06-02 07:22] LABS: Glucose, Whole Blood 105 mg/dL (60-115)
[2023-06-02] MEDS: Lactated Ringers 1,000 ML 100 ML IVCONT (07:47)
--- NOTE | 2023-06-02 08:12 | MHC.SHP ---
Pre-Procedural Eval Section A Date of Service: 06/02/23 The patient is an INPATIENT: No The History & Physical has been completed within 30 days and I have reviewed it.: No Section B Chief Complaint: Bariatric surgery status Details of Present Illness: abdominal pain Relevant Family History (Specify if Yes): No Relevant Social History: None Present Medications: None Medical History: No relevant PMH History of Previous Operations: Relevant previous surgery/procedure and date(s) (lap gastric bypass revision) Allergies: Allergies Allergy/AdvReac Type Severity Reaction Status Date / Time cat dander Allergy Severe Loss Voice Verified 05/31/23 14:14 environmental allergies Allergy Severe Sneezing Verified 05/31/23 14:14 Review of Systems Sugical H&P ROS: Negative: Constitution, Cardiovascular, Respiratory, Neurological, Psychiatric, Hem-Onc, Allergic/Immunologic, Genitourinary, Musculoskeletal, Integumentary, Endocrine and Eyes/Ears/Nose/Throat and Yes, Specify: Gastrointestinal (epigastric pain) Exam Surgical H&P Exam: Normal: HEENT, Normal: Heart, Normal: Lungs, Normal: Extremities, Normal: Skin and Normal: Neurological and Significant Findings: Abdomen (epigastric tenderness) Plan Diagnosis/Plan: Unchanged (EGD to assess the patient's symptoms and rule out an anastomotic ulcer) I have reviewed the history and physical and performed a pertinent physical examination on my patient. No changes have occurred unless specified. Time Spent With Patient Time: Total time managing care of this patient today ____ minutes.
[2023-06-02 08:36] VITALS: BP 129/72; PULSE 56; RESP 18; TEMP 36.2; O2SAT 100
--- NOTE | 2023-06-02 08:40 | PM.OP ---
Brief Operative Note Date of Service: 06/02/23 Pre-op diagnosis: Epigastric pain, s/p gastric bypass revision Post-op diagnosis: same (Large anastomotic ulcer) Procedure: PROCEDURE DATE: ?06/02/2023 PREOPERATIVE DIAGNOSIS: GERD, s/p gastric bypass POSTOPERATIVE DIAGNOSIS: ?Same as above. 1) large anastomotic ulcer PROCEDURE: [id number] with biopsies Surgeon: ?Jluis Thompson M.D.. Ph.D. Television Station Manager: ?None ? Anesthesia: IV sedation Estimated blood loss: ?Minimal FINDINGS AND PROCEDURE: ? OPERATIVE INDICATIONS: ?The patient is a 62 year old female known to me who underwent a laparoscopic revision of sleeve gastrectomy to gastric bypass elsewhere. The patient has been complaining of epigastric pain for a while.? Based on this information I recommended an upper endoscopy to evaluate the patient's symptoms.? Risks and complications of the surgery were discussed with the patient in advance particularly the possibility of perforation or bleeding that may require surgical intervention. The patient understood the risks and was in agreement with the plan. ? PROCEDURE: After informed consent was obtained by the patient, the patient was ?transferred to the Operating Room and was placed in the supine position.? After successful induction of IV sedation, a mouth block was placed and the patient was placed in the left lateral decubitus position. An upper endoscopy was performed next, the oropharynx and esophagus appeared within the normal limits. There was no hiatal hernia.? The z-line was smooth. The small pouch was entered, appeared to be of normal size. There was no gastritis and the gastrojejunostomy was patent but with a mild stricture. A biopsy was obtained from the gastric pouch. No significant bleeding was noted from any of the biopsy sites. There was a large and deep anastomotic ulcer just distal from the GJ anastomosis.? At that point the scope was advanced into the proximal small intestine (proximal Cassi limb) which appeared to be normal as well. The Cassi limb and the pouch were decompressed and the scope was withdrawn from the patient's mouth. The patient was awaken and was transferred in stable condition to the Recovery Room for further care. I was present and performed all steps of the procedure. There were no residents to assist with this case. Jluis Thompson M.D., Ph.D. Surgeon: Nathaniel Thompson MD Anesthesia: MAC Was an Television Station Manager used for this Procedure?: No Estimated blood loss (mL): 0 IV fluids (mL): 400 Urine output (mL): 0 Pathology: other (gastric pouch x1) Condition: stable Disposition: PACU
[2023-06-02 09:00] VITALS: BP 139/81; PULSE 72; RESP 18; TEMP 36.2; O2SAT 99
== END 2023-06-02 09:25 | disposition home or self-care (01) ==
PROVIDERS: PCP Internal Medicine; Visit Provider Surgery
PROC: 0DJ08ZZ Inspection of Upper Intestinal Tract, Via Natural or Artificial Opening Endoscopic (ICD-10-PCS; CPT 43235; principal; 2023-06-02 08:20)
DX: K91.89 Other postprocedural complications and disorders of digestive system (principal); K28.9 Gastrojejunal ulcer, unspecified as acute or chronic, without hemorrhage or perforation; Z98.84 Bariatric surgery status; K76.0 Fatty (change of) liver, not elsewhere classified; K21.9 Gastro-esophageal reflux disease without esophagitis; K59.00 Constipation, unspecified; I10 Essential (primary) hypertension; R00.2 Palpitations; J45.909 Unspecified asthma, uncomplicated; D57.3 Sickle-cell trait; G47.33 Obstructive sleep apnea (adult) (pediatric); Z85.3 Personal history of malignant neoplasm of breast; Z90.13 Acquired absence of bilateral breasts and nipples; Z79.51 Long term (current) use of inhaled steroids; Z79.899 Other long term (current) drug therapy; Z90.49 Acquired absence of other specified parts of digestive tract; Z86.14 Personal history of Methicillin resistant Staphylococcus aureus infection; Z86.16 Personal history of COVID-19; Z87.01 Personal history of pneumonia (recurrent); Z87.891 Personal history of nicotine dependence
CPT/HCPCS: 43239; 82947; 88305; 88342; J2704

== ENCOUNTER → 2023-06-02 06:42 | Outpatient (BNV) | payer OTHER, SELFPAY | PROVIDERS: PCP Internal Medicine; Visit Provider Surgery | DX: K21.9 Gastro-esophageal reflux disease without esophagitis (principal); K28.9 Gastrojejunal ulcer, unspecified as acute or chronic, without hemorrhage or perforation | CPT/HCPCS: 43239 ==

== ENCOUNTER 2023-06-18 12:51 | Outpatient (AMB) | payer OTHER, SELFPAY ==
--- NOTE | 2023-06-18 10:51 | MHC.OFFVISWM ---
Intake Intake Visit Reasons: TV GBP 09/26/20 Allergies cat dander Allergy (Severe, Verified 05/31/23 14:14) Loss Voice environmental allergies Allergy (Severe, Verified 05/31/23 14:14) Sneezing HPI HPI Comments History of Present Illness Details Pt is s/p GBP in 2017 and was diagnosed with deep anastomotic ulcer by EGD on 06/02/23. Since then she has been using pantoprazole bid, carafate liquid qid, and liquid meal plan only of 3 shakes per day. She continues to improve and is scheduled for repeat EGD on 07/01/23. No further pain, having three 4:1 shakes and 1 Rebuild shakes per day, and no other food. [facility] Medical History Deflation of breast implant Abnormal EKG History of breast cancer (~2008) History of diabetes mellitus GERMANIA (obstructive sleep apnea) Palpitations Steatosis, liver History of MRSA infection Arthritis Sickle cell trait History of COVID-19 (~09/2019) Hx of cardiac murmur Post-COVID syndrome (~2019) Pneumonia (~2019) Asthma Hypertension GERD (gastroesophageal reflux disease) Constipation Surgical History History of left knee surgery (~2010) History of Cassi-en-Y gastric bypass (~2020) History of bilateral mastectomy (~2008) History of colonoscopy (~2016) History of hysterectomy (~2003) History of laparoscopic cholecystectomy (~2002) History of esophagogastroduodenoscopy (EGD) (~2017) History of sleeve gastrectomy (~2010) Family History Father DM (diabetes mellitus) Stroke Mother DM (diabetes mellitus) Brother No problems noted. Sister No problems noted. Son No problems noted. 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 She misunderstood the directions for the shakes and will now change to Two 4:1 shakes and Two Rebuild shakes per day. repeat EGD on 07/01 and TV appt with me on 07/02 to review results. Patient is not considered stable at this time. I spent 15 minutes in total speaking with the patient via video conference counseling , reviewing records and charting in patients chart. . (2) S/P gastric bypass: Onset Date: ~2020 Comment: (s/p sleeve in 2010 and Cassi-en-Y bypass in 2020) Code(s): Z98.84 - Bariatric surgery status Plan: see above Telehealth Telehealth Location of provider rendering services: practice address Location of patient: address on file Patient Identification confirmed using: Name, : Yes Telehealth method: voice only Patient verbally consented to treatment: Yes Patient verbally consented to billing insurance company: Yes Patient informed of any privacy concerns related to visit: Yes Coding Level of Care Code Tele [facility] Pt Level 3 (29197) Diagnoses Gastric ulcer K25.9 S/P gastric bypass Z98.84
== END 2023-06-18 12:55 | disposition home or self-care (01) ==
LOC: HO.HBS 12:51
PROVIDERS: PCP Internal Medicine; Visit Provider Physician Assistant
DX: K25.9 Gastric ulcer, unspecified as acute or chronic, without hemorrhage or perforation (principal); Z98.84 Bariatric surgery status
CPT/HCPCS: 99442

== ENCOUNTER → 2023-06-18 12:51 | Outpatient (BNVA) | payer OTHER, SELFPAY | PROVIDERS: PCP Internal Medicine; Visit Provider Physician Assistant | DX: K25.9 Gastric ulcer, unspecified as acute or chronic, without hemorrhage or perforation (principal); Z98.84 Bariatric surgery status ==

== ENCOUNTER 2023-06-23 14:23 | Outpatient (AMB) | payer OTHER, SELFPAY ==
--- NOTE | 2023-06-23 14:25 | MHC.OFFVIS ---
Intake Vital Signs 06/23/23 14:26 Height 5 ft 10 in Weight 200 lb BMI 28.7 BP 156/76 H Blood Pressure Location Lt brachial Position Sitting Pulse 70 Intake Visit Reasons: Slow transit constipation Intake Note: New consult for Constipation. Patient cc: Constipation and diarrhea, abdominal pin with bloating on and off, deniesa ny other GI issues. [employer] Officer Required: No Accompanied by: Self / Same As Patient Allergies cat dander Allergy (Severe, Verified 06/23/23 14:25) Loss Voice environmental allergies Allergy (Severe, Verified 06/23/23 14:25) Sneezing Medication List - Last Reconciled 06/23/23 by Dagmar Haley PA-C albuterol sulfate 90 mcg/actuation 1 puff inhalation Q4H PRN beclomethasone dipropionate 80 mcg/actuation (Qvar RediHaler) 1 inh inhalation BID 30 days cholecalciferol (vitamin D3) 50 mcg PO DAILY cyanocobalamin (vitamin B-12) 1,000 mcg IM QWEEK iron,carbonyl-vitamin C 65 mg iron- 125 mg (Vitron-C) 1 tab PO BEDTIME lisinopril-hydrochlorothiazide 20-12.5 mg 1 tab PO DAILY pantoprazole 40 mg PO BID sucralfate (Carafate) 10 mL PO QIDACHS thiamine HCl (vitamin B1) 100 mg PO DAILY vitamin A palmitate 10,000 units PO DAILY HPI HPI Comments History of Present Illness Details 62-year-old female referred with chronic constipation- many years-has tried many [id number] preparation Smooth move tea, benefiber, citrucel, mag citrate- she does not take anything every day-she waits until she is constipated to take anything Sleeve @ [facility]- plateaued was not losing weight joint [place] [facility] [place] Then revision- by Dr. Valdez- bypass-2020- 05/15/23-Recent EGD - Dr. Valdez- having repeat 07/01/22- following clear liquid diet Colonoscopy 2016- Dr. Cervantes- diverticulosis-no polyps She otherwise has no GI or general complaints [facility] Medical History Deflation of breast implant Abnormal EKG History of breast cancer (~2008) History of diabetes mellitus GERMANIA (obstructive sleep apnea) Palpitations Steatosis, liver History of MRSA infection Arthritis Sickle cell trait History of COVID-19 (~09/2019) Hx of cardiac murmur Post-COVID syndrome (~2019) Pneumonia (~2019) Asthma Hypertension GERD (gastroesophageal reflux disease) Constipation Surgical History History of left knee surgery (~2010) History of Cassi-en-Y gastric bypass (~2020) History of bilateral mastectomy (~2008) History of colonoscopy (~2016) History of hysterectomy (~2003) History of laparoscopic cholecystectomy (~2002) History of esophagogastroduodenoscopy (EGD) (~2017) History of sleeve gastrectomy (~2010) Family History Father DM (diabetes mellitus) Stroke Mother DM (diabetes mellitus) Brother No problems noted. Sister No problems noted. Son No problems noted. 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 Review of Systems Const All systems reviewed & are unremarkable except as noted in HPI and below Card Denies chest pain and Denies dyspnea Resp Denies dyspnea GI Denies abdominal pain, Denies hematochezia, Reports constipation and Reports heartburn (Daily PPI) Physical Exam Vital Signs: Last Vital Signs Pulse 70 06/23/23 14:26 BP 156/76 H 06/23/23 14:26 BMI result Body Mass Index 28.7 Const General: cooperative, healthy appearing and comfortable Eyes Sclerae: sclerae normal Resp Effort & Inspection: normal respiratory effort and able to speak in complete sentences Auscultation: clear to auscultation bilaterally, no rales, no rhonchi and no wheezes Cardio Rate: regular rate Rhythm: regular rhythm Heart sounds: S1 normal heart sound present and S2 normal heart sound present GI Palpation (GI): Soft to palpation and nontender Auscultation: bowels sounds not normal Skin General skin exam: no rashes or lesions noted Extrem General: Yes full ROM Psych Appearance: grossly normal and well kempt Mental Status: mental status grossly normal Speech and movement: Normal speech and movement present and Clear speech present Affect: normal affect Attitude: cooperative Thought process: Normal thought process present Thought content: Normal thought content present Insight: Good insight present (Psych) Judgement: Good judgement present (Psych) Results Reviewed Results Reviewed: Pt is s/p GBP in 2017 and was diagnosed with deep anastomotic ulcer by EGD on 06/02/23. Since then she has been using pantoprazole bid, carafate liquid qid, and liquid meal plan only of 3 shakes per day. She continues to improve and is scheduled for repeat EGD on 07/01/23. Assessment & Plan Assessment & Plan (1) Gastric ulcer: Code(s): K25.9 - Gastric ulcer, unspecified as acute or chronic, without hemorrhage or perforation Plan: Continue to follow-up with Dr. Thompson (2) GERD (gastroesophageal reflux disease): Code(s): K21.9 - Gastro-esophageal reflux disease without esophagitis Plan: Continue PPI (3) Chronic constipation: Comment: Following weight management diet protocol She may take Colace as q.h.s. Stay well hydrated Code(s): K59.09 - Other constipation Plan: Colace q.h.s. Fiber as allowed weight management protocol diet Medications: New docusate sodium (Colace) 200 mg (2 x 100 mg) PO BEDTIME 60 caps 5RF Patient Instructions: A very pleasant 62-year-old female chronic constipation s/p gastric bypass following with weight management currently She continue to her plan and please however recommend Colace daily Be consistent with bowel regimen She re-evaluate after EGD next week-and diet is increased. Encouraged to call with questions or concerns Appreciate the opportunity assist in the care this pleasant patient Last colonoscopy 2016-will follow-up colonoscopy when appropriate however want to be sure she is able to have an adequate prep Coding Level of Care Code New Pt Level 3 (85928) Diagnoses Gastric ulcer K25.9 GERD (gastroesophageal reflux disease) K21.9 Chronic constipation K59.09 Time Spent (min) 30
[2023-06-23 14:26] VITALS: BP 156/76; PULSE 70; BMI 28.7
== END 2023-06-23 15:54 | disposition home or self-care (01) ==
PROVIDERS: PCP Internal Medicine; Visit Provider Physician Assistant
DX: K25.9 Gastric ulcer, unspecified as acute or chronic, without hemorrhage or perforation (principal); K21.9 Gastro-esophageal reflux disease without esophagitis; K59.09 Other constipation
CPT/HCPCS: 99203

== ENCOUNTER → 2023-06-23 14:23 | Outpatient (BNVA) | payer OTHER, SELFPAY | PROVIDERS: PCP Internal Medicine; Visit Provider Physician Assistant ==

== ENCOUNTER 2023-07-01 13:22 | Day surgery (SDC) | payer OTHER, SELFPAY ==
--- NOTE | 2023-06-26 00:08 | MHC.SHP ---
Pre-Procedural Eval Section A Date of Service: 06/26/23 The patient is an INPATIENT: No The History & Physical has been completed within 30 days and I have reviewed it.: Yes Section B Chief Complaint: Bariatric surgery status Details of Present Illness: anastomotic ulcer Relevant Family History (Specify if Yes): No Relevant Social History: None Present Medications: None Medical History: No relevant PMH History of Previous Operations: Relevant previous surgery/procedure and date(s) (laparoscopic gastric bypass revision) Allergies: Allergies Allergy/AdvReac Type Severity Reaction Status Date / Time cat dander Allergy Severe Loss Voice Verified 06/23/23 14:25 environmental allergies Allergy Severe Sneezing Verified 06/23/23 14:25 Review of Systems Sugical H&P ROS: Negative: Constitution, Cardiovascular, Respiratory, Neurological, Psychiatric, Hem-Onc, Allergic/Immunologic, Gastrointestinal, Genitourinary, Musculoskeletal, Integumentary, Endocrine and Eyes/Ears/Nose/Throat Exam Surgical H&P Exam: Normal: HEENT, Normal: Heart, Normal: Lungs, Normal: Extremities, Normal: Abdomen, Normal: Skin and Normal: Neurological Plan Diagnosis/Plan: Unchanged (EGD to assess for anastomotic ulcer. Risks for perforation and bleeding were discussed with patient. She is in agreement with the plan) I have reviewed the history and physical and performed a pertinent physical examination on my patient. No changes have occurred unless specified. Time Spent With Patient Time: Total time managing care of this patient today ____ minutes.
--- NOTE | 2023-06-29 14:02 | P.CONAN_ITS ---
Documented by User: Estefany Beltran NP 06/29/23 14:05 HPI - Anesthesia Eval Consult details Narrative: 62yo F for Upper Endoscopy [facility] Active Problems Active Problems: All Active Problems (Updated 06/23/23 @ 15:09 by Dagmar Haley PA-C) Chronic constipation (Acute) Gastric ulcer (Acute) Osteoarthritis of left knee (Acute) PAC (premature atrial contraction) (Acute) Bilateral hand numbness (Acute) De Quervain's tenosynovitis, right (Acute) PVCs (premature ventricular contractions) (Acute) Bilateral carpal tunnel syndrome (Acute) Post-COVID syndrome (Acute ~2019) Abnormal EKG (Acute) S/P gastric bypass (Acute ~2020) Overweight (Acute) GERMANIA (obstructive sleep apnea) (Acute) Asthma (Acute) Hypertension (Acute) Palpitations (Acute) Steatosis, liver (Acute) GERD (gastroesophageal reflux disease) (Acute) Past Medical History Medical History Deflation of breast implant Abnormal EKG History of breast cancer (~2008) History of diabetes mellitus GERMANIA (obstructive sleep apnea) Palpitations Steatosis, liver History of MRSA infection Arthritis Sickle cell trait History of COVID-19 (~09/2019) Hx of cardiac murmur Post-COVID syndrome (~2019) Pneumonia (~2019) Asthma Hypertension GERD (gastroesophageal reflux disease) Constipation Family History Family History Father DM (diabetes mellitus) Stroke Mother DM (diabetes mellitus) Brother No problems noted. Sister No problems noted. Son No problems noted. Family history of problems with anesthesia: No Surgical History Surgical History History of left knee surgery (~2010) History of Cassi-en-Y gastric bypass (~2020) History of bilateral mastectomy (~2008) History of colonoscopy (~2016) History of hysterectomy (~2003) History of laparoscopic cholecystectomy (~2002) History of esophagogastroduodenoscopy (EGD) (~2017) History of sleeve gastrectomy (~2010) History of Problems with Anesthesia: No Social History Social History Household Members: None Housing: House Are you a primary physician primary care sports medicine to a significant other at home: No Do you presently have visiting nurse or other home services: No Alcohol intake: never Patient Tobacco Use Status: Former Tobacco user Quit Date: 1979 Tobacco use type: Cigarette Are you DNR?: No Advance Directives: No Advance Directives Information Provided: Yes Nutrition Risks: No Nutritional Risk service: No Current occupational status: employed 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 Allergies Allergy/AdvReac Type Severity Reaction Status Date / Time cat dander Allergy Severe Loss Voice Verified 07/01/23 14:26 environmental allergies Allergy Severe Sneezing Verified 07/01/23 14:26 Home Medications Medication Instructions Recorded Confirmed Last Taken Type albuterol sulfate 90 mcg/actuation 1 puff inhalation Q4H PRN 09/20/20 07/01/23 Unknown History aerosol inhaler Shortness Of Breath cyanocobalamin (vitamin B-12) 1,000 mcg IM QWEEK 04/07/22 07/01/23 Unknown History 1,000 mcg/mL injection solution Exam Pertinent Lab Results Pertinent Lab Results: Laboratory Tests 05/28/23 17:35 WBC 7.1 Hgb 10.3 L Hct 31.5 L Plt Count 380 Sodium 140 Potassium 3.8 Chloride 106 Carbon Dioxide 26 BUN 20 H Creatinine 1.35 Assessment and Plan Assessment Anesthesia Assessment: Chart Reviewed Final Anesthetic Review Family History of Problems with Anesthesia: No History of Problems with Anesthesia: No Documented by User: Luz Marina Alcantara MD 07/01/23 15:27 [facility] Past Medical History Medical History Deflation of breast implant Abnormal EKG History of breast cancer (~2008) History of diabetes mellitus GERMANIA (obstructive sleep apnea) Palpitations Steatosis, liver History of MRSA infection Arthritis Sickle cell trait History of COVID-19 (~09/2019) Hx of cardiac murmur Post-COVID syndrome (~2019) Pneumonia (~2019) Asthma Hypertension GERD (gastroesophageal reflux disease) Constipation Family History Family History Father DM (diabetes mellitus) Stroke Mother DM (diabetes mellitus) Brother No problems noted. Sister No problems noted. Son No problems noted. Surgical History Surgical History History of left knee surgery (~2010) History of Cassi-en-Y gastric bypass (~2020) History of bilateral mastectomy (~2008) History of colonoscopy (~2016) History of hysterectomy (~2003) History of laparoscopic cholecystectomy (~2002) History of esophagogastroduodenoscopy (EGD) (~2017) History of sleeve gastrectomy (~2010) Social History Social History Household Members: None Housing: House Are you a primary physician primary care sports medicine to a significant other at home: No Do you presently have visiting nurse or other home services: No Alcohol intake: never Patient Tobacco Use Status: Former Tobacco user Quit Date: 1979 Tobacco use type: Cigarette Are you DNR?: No Advance Directives: No Advance Directives Information Provided: Yes Nutrition Risks: No Nutritional Risk service: No Current occupational status: employed 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 Allergies Allergy/AdvReac Type Severity Reaction Status Date / Time cat dander Allergy Severe Loss Voice Verified 07/01/23 14:26 environmental allergies Allergy Severe Sneezing Verified 07/01/23 14:26 Home Medications Medication Instructions Recorded Confirmed Last Taken Type albuterol sulfate 90 mcg/actuation 1 puff inhalation Q4H PRN 09/20/20 07/01/23 Unknown History aerosol inhaler Shortness Of Breath cyanocobalamin (vitamin B-12) 1,000 mcg IM QWEEK 04/07/22 07/01/23 Unknown History 1,000 mcg/mL injection solution Exam Airway Mallampati Class: II TM Dist: >3cm Neck ROM: Full Heart: rrr Lungs: cta Assessment and Plan Assessment Anesthesia Assessment: Anesthesia Plan Discussed Final Anesthetic Review NPO: Yes ASA Class: III Final Preanesthetic Review: No Changes in Pt Med Stat, Meds/Allgs Chart Reviewed, Consent Obtained/Reviewed and Anes Risks/Benef Reviewed Patient Risk: Intermediate Procedure Risk: Low Anesthetic Plan Anesthetic Plan: MAC: Disposition: Standard PACU
[2023-06-29 14:56] VITALS: BMI 34.3
[2023-07-01] MEDS: Lactated Ringers 1,000 ML 80 ML IVCONT (13:45)
[2023-07-01 13:46] VITALS: BP 137/76; PULSE 60; RESP 18; TEMP 36.7; O2SAT 99; BMI 34.1
--- NOTE | 2023-07-01 15:17 | P.BOP_ITS ---
Brief Operative Note Date of Service: 07/01/23 Pre-op diagnosis: Anastomotic ulcer Post-op diagnosis: same (healed anastomotic ulcer) Procedure: PROCEDURE DATE: ?07/01/2023 PREOPERATIVE DIAGNOSIS: Anastomotic ulcer, s/p gastric bypass POSTOPERATIVE DIAGNOSIS: ?1) Healed anastomotic ulcer, 2) mild anastomotic ulcer PROCEDURE: [id number]-[id number] with biopsies Surgeon: ?Jluis Thompson M.D.. Ph.D. Warehouse Logistics Coordinator: ?None ? Anesthesia: IV sedation Estimated blood loss: ?Minimal FINDINGS AND PROCEDURE: ? OPERATIVE INDICATIONS: ?The patient is a 62 year old female known to me who underwent a laparoscopic revision of sleeve gastrectomy to gastric bypass elsewhere. The patient has been complaining of epigastric pain for a while.?An endoscopy was performed in May that revealed a deep anastomotic ulcer. The patient was placed on a liquid protein diet and Pantroprazole and Sucralfate. She returns for a follow up endoscopy to assess the status of the ulcer. Based on this information I recommended an upper endoscopy to evaluate the patient's symptoms.? Risks and complications of the surgery were discussed with the patient in advance particularly the possibility of perforation or bleeding that may require surgical intervention. The patient understood the risks and was in agreement with the plan. ? PROCEDURE: After informed consent was obtained by the patient, the patient was ?transferred to the Operating Room and was placed in the supine position.? After successful induction of IV sedation, a mouth block was placed and the patient was placed in the left lateral decubitus position. An upper endoscopy was performed next, the oropharynx and esophagus appeared within the normal limits. There was no hiatal hernia.? The z-line was smooth. The small pouch was entered, appeared to be of normal size. There was no gastritis and the gastrojejunostomy was patent but with a mild stricture. The previously seen large and deep anastomotic ulcer just distal from the GJ anastomosis has healed.? At that point the scope was advanced into the proximal small intestine (proximal Cassi limb) which appeared to be normal as well. The Cassi limb and the pouch were decompressed and the scope was withdrawn from the patient's mouth. The patient was awaken and was transferred in stable condition to the Recovery Room for further care. I was present and performed all steps of the procedure. There were no residents to assist with this case. Jluis Thompson M.D., Ph.D. Surgeon: Nathaniel Thompson MD Anesthesia: MAC Was an Warehouse Logistics Coordinator used for this Procedure?: No Estimated blood loss (mL): 0 IV fluids (mL): 400 Urine output (mL): 0 (No Kumar to record output) Pathology: none sent Condition: stable Disposition: PACU
[2023-07-01 16:05] VITALS: BP 122/60; PULSE 65; RESP 14; TEMP 36.4; O2SAT 97
[2023-07-01 16:20] VITALS: BP 153/81; PULSE 63; RESP 16; TEMP 36.7; O2SAT 98
== END 2023-07-01 16:31 | disposition home or self-care (01) ==
PROVIDERS: PCP Internal Medicine; Visit Provider Surgery
PROC: 0DJ08ZZ Inspection of Upper Intestinal Tract, Via Natural or Artificial Opening Endoscopic (ICD-10-PCS; CPT 43235; principal; 2023-07-01 15:20)
DX: K28.9 Gastrojejunal ulcer, unspecified as acute or chronic, without hemorrhage or perforation (principal); Z98.84 Bariatric surgery status; Z90.3 Acquired absence of stomach [part of]; K21.9 Gastro-esophageal reflux disease without esophagitis; E66.9 Obesity, unspecified; Z68.34 Body mass index [BMI] 34.0-34.9, adult; G47.33 Obstructive sleep apnea (adult) (pediatric); Z99.89 Dependence on other enabling machines and devices; J45.909 Unspecified asthma, uncomplicated; I10 Essential (primary) hypertension; D57.3 Sickle-cell trait; I49.1 Atrial premature depolarization; R00.2 Palpitations; Z85.3 Personal history of malignant neoplasm of breast; Z79.899 Other long term (current) drug therapy; Z98.890 Other specified postprocedural states; Z87.891 Personal history of nicotine dependence
CPT/HCPCS: 43239; J2704; J3010

== ENCOUNTER → 2023-07-01 13:22 | Outpatient (BNV) | payer OTHER, SELFPAY | PROVIDERS: PCP Internal Medicine; Visit Provider Surgery | DX: K28.9 Gastrojejunal ulcer, unspecified as acute or chronic, without hemorrhage or perforation (principal); Z90.3 Acquired absence of stomach [part of]; Z98.84 Bariatric surgery status | CPT/HCPCS: 43239 ==

== ENCOUNTER 2023-07-02 13:00 | Outpatient (AMB) | payer OTHER, SELFPAY ==
--- NOTE | 2023-07-02 13:09 | A.OFFVIS_ITS ---
Intake VS Expanded 07/02/23 13:13 Height 5 ft 5 in Weight 198 lb BMI 32.9 Intake Visit Reasons: TV GBP 09/26/20 Allergies cat dander Allergy (Severe, Verified 07/01/23 14:26) Loss Voice environmental allergies Allergy (Severe, Verified 07/01/23 14:26) Sneezing HPI HPI Comments History of Present Illness Details Pt diagnosed with deep anastamotic ulcer after GBP and was placed on high protein liquid diet, pantoprazole and carafate. She had repeat EGD done yesterday by Dr Hunter with the following results: An upper endoscopy was performed next, the oropharynx and esophagus appeared within the normal limits. There was no hiatal hernia.? The z-line was smooth. The small pouch was entered, appeared to be of normal size. There was no gastritis and the gastrojejunostomy was patent but with a mild stricture. The previously seen large and deep anastomotic ulcer just distal from the GJ anastomosis has healed.? At that point the scope was advanced into the proximal small intestine (proximal Cassi limb) which appeared to be normal as well. The Cassi limb and the pouch were decompressed and the scope was withdrawn from the patient's mouth. Patient has been having 2 Rebuild shakes and 2 Celebrate 4:1 shakes per day. Wakes up at 4 am, bed at 8 pm - 12 [place]. 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 No pain or reflux presetnly. Would like to loose more weight. [facility] Medical History Deflation of breast implant Abnormal EKG History of breast cancer (~2008) History of diabetes mellitus GERMANIA (obstructive sleep apnea) Palpitations Steatosis, liver History of MRSA infection Arthritis Sickle cell trait History of COVID-19 (~09/2019) Hx of cardiac murmur Post-COVID syndrome (~2019) Pneumonia (~2019) Asthma Hypertension GERD (gastroesophageal reflux disease) Constipation Surgical History History of left knee surgery (~2010) History of Cassi-en-Y gastric bypass (~2020) History of bilateral mastectomy (~2008) History of colonoscopy (~2016) History of hysterectomy (~2003) History of laparoscopic cholecystectomy (~2002) History of esophagogastroduodenoscopy (EGD) (~2017) History of sleeve gastrectomy (~2010) Family History Father DM (diabetes mellitus) Stroke Mother DM (diabetes mellitus) Brother No problems noted. Sister No problems noted. Son No problems noted. 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 6am - Celebrate 4:1 shake 10 am - Celebrate 4:1 shake 2pm - Rebuild shake 6pm - dinner - 8 forks of protein and 8 forks vegetable Days works second job 7am - shake 12pm - shake 5 pm - dinner 10 pm - shake Exercise - states she never did. Has pilates machine and glider at home. Glider 4d/ week - 300 calories, start with [address] on Pilates 3d/ week - beginner class Continue pantoprazole, stop carafate Follow up with me in 6 weeks, encouraged patient to text me if any symptoms of pain, dysphagia or reflux return. I spent 20 minutes in total speaking with the patient via telephone conference counseling , reviewing records and charting in patients chart. . Telehealth Telehealth Location of provider rendering services: practice address Location of patient: address on file Patient Identification confirmed using: Name, : Yes Telehealth method: voice only Patient verbally consented to treatment: Yes Patient verbally consented to billing insurance company: Yes Patient informed of any privacy concerns related to visit: Yes Coding Level of Care Code Tele Est Pt Level 3 (64607) Diagnoses S/P gastric bypass Z98.84
[2023-07-02 13:13] VITALS: BMI 32.9
== END 2023-07-02 13:28 | disposition home or self-care (01) ==
LOC: HO.HBS 13:27
PROVIDERS: PCP Internal Medicine; Visit Provider Physician Assistant
DX: E66.09 Other obesity due to excess calories (principal); Z68.32 Body mass index [BMI] 32.0-32.9, adult; Z98.84 Bariatric surgery status
CPT/HCPCS: 99442

== ENCOUNTER → 2023-07-02 13:00 | Outpatient (BNVA) | payer OTHER, SELFPAY | PROVIDERS: PCP Internal Medicine; Visit Provider Physician Assistant | DX: Z98.84 Bariatric surgery status (principal); K59.01 Slow transit constipation ==

== ENCOUNTER 2023-08-12 13:38 | Outpatient (AMB) | payer OTHER, SELFPAY ==
--- NOTE | 2023-08-12 12:12 | MHC.OFFVISWM ---
Intake VS Expanded 08/12/23 13:11 Height 5 ft 5 in Weight 197 lb BMI 32.8 Intake Visit Reasons: TV GBP 09/26/20 Allergies cat dander Allergy (Severe, Verified 07/01/23 14:26) Loss Voice environmental allergies Allergy (Severe, Verified 07/01/23 14:26) Sneezing Medication List - Last Reconciled 08/12/23 by Maia Pepe PA-C albuterol sulfate 90 mcg/actuation 1 puff inhalation Q4H PRN beclomethasone dipropionate 80 mcg/actuation (Qvar RediHaler) 1 inh inhalation BID 30 days cholecalciferol (vitamin D3) 50 mcg PO DAILY cyanocobalamin (vitamin B-12) 1,000 mcg IM QWEEK docusate sodium (Colace) 200 mg (2 x 100 mg) PO BEDTIME iron,carbonyl-vitamin C 65 mg iron- 125 mg (Vitron-C) 1 tab PO BEDTIME lisinopril-hydrochlorothiazide 20-12.5 mg 1 tab PO DAILY pantoprazole 40 mg PO BID sucralfate (Carafate) 10 mL PO QIDACHS thiamine HCl (vitamin B1) 100 mg PO DAILY vitamin A palmitate 10,000 units PO DAILY HPI HPI Comments History of Present Illness Details 62 yo woman who is now almost 3 years s/p GBP, had anastomotic ulcer diagnosed by EGD on 06/02/23, she was treated with liquid diet, pantoprazole and carafate and EGD on 07/01/23 revealed completely healed ulcer. 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 She was interested in further weight loss and was placed on the following routines: 6am - Celebrate 4:1 shake 10 am - Celebrate 4:1 shake 2pm - Rebuild shake 6pm - dinner - 8 forks of protein and 8 forks vegetable She states that food was bothering her so she changed her plan 8am - 1pm - Rebuild shake 6 pm - 7pm 4:1 2 scoops-with 8 oz 9 pm- 8 forks of protein and vegetable -->stopped this week and added 4:1 2 scoops. Days works second job 7am - shake 12pm - shake 5 pm - dinner 10 pm - shake Exercise - none, never started [facility] Medical History Deflation of breast implant Abnormal EKG History of breast cancer (~2008) History of diabetes mellitus GERMANIA (obstructive sleep apnea) Palpitations Steatosis, liver History of MRSA infection Arthritis Sickle cell trait History of COVID-19 (~09/2019) Hx of cardiac murmur Post-COVID syndrome (~2019) Pneumonia (~2019) Asthma Hypertension GERD (gastroesophageal reflux disease) Constipation Surgical History History of left knee surgery (~2010) History of Cassi-en-Y gastric bypass (~2020) History of bilateral mastectomy (~2008) History of colonoscopy (~2016) History of hysterectomy (~2003) History of laparoscopic cholecystectomy (~2002) History of esophagogastroduodenoscopy (EGD) (~2017) History of sleeve gastrectomy (~2010) Family History Father DM (diabetes mellitus) Stroke Mother DM (diabetes mellitus) Brother No problems noted. Sister No problems noted. Son No problems noted. 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 I am concerned about the potential for ulcer reformation again. We discussed that she MUST have TWO 4:1 shakes per day and one Rebuild shake per day for adequate nutrition. She will continue the pantoprazole and sucralfate liquid and follow up in 3 weeks. I encouraged her again to notify our office if she has any abd discomfort or dysphagia. I will ask Abiel Weldon RN to follow up with her next week. Appt with me in 3 weeks. I reviewed with her again the necessity for exercise if she wants to lose weight and maintain. it. Patient is still obese and is not considered stable at this time. I spent 25minutes in total speaking with the patient via video conference counseling , reviewing records and charting in patients chart. . (2) Obesity: Code(s): E66.9 - Obesity, unspecified Plan see above Telehealth Telehealth Location of provider rendering services: practice address Location of patient: address on file Patient Identification confirmed using: Name, : Yes Telehealth method: voice only (patient could not connect to video for this appointment) Patient verbally consented to treatment: Yes Patient verbally consented to billing insurance company: Yes Patient informed of any privacy concerns related to visit: Yes Coding Level of Care Code Est Pt Level 4 (71556) Diagnoses S/P gastric bypass Z98.84 Obesity E66.9
[2023-08-12 13:11] VITALS: BMI 32.8
== END 2023-08-12 13:42 | disposition home or self-care (01) ==
LOC: HO.HBS 13:39
PROVIDERS: PCP Internal Medicine; Visit Provider Physician Assistant
DX: E66.9 Obesity, unspecified (principal); Z68.32 Body mass index [BMI] 32.0-32.9, adult; Z98.84 Bariatric surgery status
CPT/HCPCS: 99443

== ENCOUNTER → 2023-08-12 13:38 | Outpatient (BNVA) | payer OTHER, SELFPAY | PROVIDERS: PCP Internal Medicine; Visit Provider Physician Assistant | DX: Z98.84 Bariatric surgery status (principal); K59.01 Slow transit constipation; E66.9 Obesity, unspecified ==

== ENCOUNTER 2023-08-12 13:56 | Outpatient (AMB) | payer OTHER, SELFPAY ==
--- NOTE | 2023-08-12 13:58 | A.OFFVIS_ITS ---
Intake Intake Visit Reasons: OV - Left Knee OA Intake Note: Elma is a 62 year old female who presents today for a follow up of her left knee osteoarthritis. Patient reports that the knee continues to be painful. Pain is felt all the time and occasionally gives out on her. She took a fall with the recent snow fall. History of left knee done in 2012 by price. Allergies cat dander Allergy (Severe, Verified 08/12/23 13:58) Loss Voice environmental allergies Allergy (Severe, Verified 08/12/23 13:58) Sneezing HPI OV - Left Knee OA HPI Details Elma is a 62 year old woman who preturns to discuss her left knee OA pain. 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 She complains of pain with daily activity, and says she has not been without pain since her surgeries. She says she now has pain constantly, with no relieving factors. She walks using a cane, and has used one intermittently since her surgeries. She says she always feels some discomfort with any walking, and her knee gives way on her occasionally. She reports multiple falls in the past, including recently in the snow. She reports pain in her left knee since fall in 2010. She has a hx of steroid injections, which she says were not helpful, and two knee performed at [facility], which she says did not alleviate her pain. [facility] Medical History Deflation of breast implant Abnormal EKG History of breast cancer (~2008) History of diabetes mellitus GERMANIA (obstructive sleep apnea) Palpitations Steatosis, liver History of MRSA infection Arthritis Sickle cell trait History of COVID-19 (~09/2019) Hx of cardiac murmur Post-COVID syndrome (~2019) Pneumonia (~2019) Asthma Hypertension GERD (gastroesophageal reflux disease) Constipation Surgical History History of left knee surgery (~2010) History of Cassi-en-Y gastric bypass (~2020) History of bilateral mastectomy (~2008) History of colonoscopy (~2016) History of hysterectomy (~2003) History of laparoscopic cholecystectomy (~2002) History of esophagogastroduodenoscopy (EGD) (~2017) History of sleeve gastrectomy (~2010) Family History Father DM (diabetes mellitus) Stroke Mother DM (diabetes mellitus) Brother No problems noted. Sister No problems noted. Son No problems noted. 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 Resp Other: No audible wheezing Effort & Inspection: normal respiratory effort and able to speak in complete sentences Cardio Other: Radial pulse palpable with no rythmic abnormalities Jugular venous distension: no JVD Back/Spine/Pelvis Cervical Spine: normal cervical lordosis Skin General skin exam: turgor normal Rashes: no rashes Neuro General: patient oriented x3 Extrem Other: mild medial compartment ttp with neg Steinmen's and no effusion Psych Appearance: grossly normal Mental Status: mental status grossly normal Speech and movement: Normal speech and movement present Affect: normal affect Attitude: cooperative Results Reviewed Results Reviewed: I personally reviewed the MR images. MRI from 01/03: PRESSION: 1. Tear of the posterior horn of the medial meniscus. Postsurgical result but thought to be less likely given the morphology of the abnormality. 2. Mucoid degeneration of the anterior cruciate ligament. 3. [id number] arthrosis of the patellofemoral compartment and medial compartment. Assessment & Plan Assessment & Plan (1) Osteoarthritis of left knee: Code(s): M17.12 - Unilateral primary osteoarthritis, left knee Plan: Left knee OA with associated degenerative tearing in setting of prior surgeries with minimal symptoms. If pain worsens can return to see me but no intervention warranted at this time. Plan Prepared for Jack Cross MD by Tavares Abarca, pesticide use medical coordinator, on 08/12/23 at 2:08 PM, EST. Coding Level of Care Code Est Pt Level 3 (92972) Diagnoses Osteoarthritis of left knee M17.12
== END 2023-08-12 14:46 | disposition home or self-care (01) ==
PROVIDERS: PCP Internal Medicine; Visit Provider Orthopaedic Surgery
DX: M17.12 Unilateral primary osteoarthritis, left knee (principal)
CPT/HCPCS: 99213

== ENCOUNTER → 2023-10-01 11:13 | Outpatient (AMB) | payer OTHER, SELFPAY ==
--- NOTE | 2023-10-01 11:30 | AM.OFFWIN_ITS ---
Intake Vital Signs 10/01/23 11:33 Height 5 ft 5 in BP 126/74 Blood Pressure Location Lt brachial Position Sitting Pulse 86 Temp 97.7 F Temp Source Temporal Artery Scan Intake Visit Reasons: congestion Patient Tobacco Use Status: Former Tobacco user Quit Date: 1979 Allergies cat dander Allergy (Severe, Verified 10/01/23 11:31) Loss Voice environmental allergies Allergy (Severe, Verified 10/01/23 11:31) Sneezing Medication List - Last Reconciled 10/01/23 by Umm Cates, [facility]- albuterol sulfate 90 mcg/actuation 1 puff inhalation Q4H PRN beclomethasone dipropionate 80 mcg/actuation (Qvar RediHaler) 1 inh inhalation BID 30 days cholecalciferol (vitamin D3) 50 mcg PO DAILY cyanocobalamin (vitamin B-12) 1,000 mcg IM QWEEK docusate sodium (Colace) 200 mg (2 x 100 mg) PO BEDTIME iron,carbonyl-vitamin C 65 mg iron- 125 mg (Vitron-C) 1 tab PO BEDTIME lisinopril-hydrochlorothiazide 20-12.5 mg 1 tab PO DAILY pantoprazole 40 mg PO BID sucralfate 10 mL PO QID thiamine HCl (vitamin B1) 100 mg PO DAILY vitamin A palmitate 10,000 units PO DAILY HPI HPI Comments History of Present Illness Details Here today with allergy like sx that started on Wednesday Blood sugars low in the 40s around the same time; admits did not eat when this happened Developed swollen glands in neck Since then, she developed nasal congestion, sneezing, runny eyes and nose. Home COVID test negative. Denies fever. Has chronic chill.s Took allergra w/o relief Has sick exposure at work [facility] Medical History Deflation of breast implant Abnormal EKG History of breast cancer (~2008) History of diabetes mellitus GERMANIA (obstructive sleep apnea) Palpitations Steatosis, liver History of MRSA infection Arthritis Sickle cell trait History of COVID-19 (~09/2019) Hx of cardiac murmur Post-COVID syndrome (~2019) Pneumonia (~2019) Asthma Hypertension GERD (gastroesophageal reflux disease) Constipation Surgical History History of left knee surgery (~2010) History of Cassi-en-Y gastric bypass (~2020) History of bilateral mastectomy (~2008) History of colonoscopy (~2016) History of hysterectomy (~2003) History of laparoscopic cholecystectomy (~2002) History of esophagogastroduodenoscopy (EGD) (~2017) History of sleeve gastrectomy (~2010) Family History Father DM (diabetes mellitus) Stroke Mother DM (diabetes mellitus) Brother No problems noted. Sister No problems noted. Son No problems noted. 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 Review of Systems Const All systems reviewed & are unremarkable except as noted in HPI and below Physical Exam Vital Signs: Last Vital Signs Temp 97.7 F 10/01/23 11:33 Pulse 86 10/01/23 11:33 BP 126/74 10/01/23 11:33 Const Other: AWAKE ALERT NAD SCLERA AND CONJUNCTIVA CLEAR BILAT TM INTACT AND CLEAR BILAT NARES WITH MILD CONGESTION, TURBINATES WNL, NO SINUS TENDERNESS W/ PALP MMM, PHARYNX WNL RRR, + MURMUR LS CTAB Assessment & Plan Assessment & Plan (1) Rhinitis: Comment: VIRAL SWAB OBTAINED TODAY AND NEGATIVE LIKELY ALLERGIC CONT ANTIHISTAMINES RTO IF NO IMPROVEMENT OR WORSENING OF SX Code(s): J31.0 - Chronic rhinitis Qualifiers: Rhinitis type: allergic Allergic rhinitis trigger: pollen Allergic rhinitis seasonality: seasonal Qualified Code(s): J30.1 - Allergic rhinitis due to pollen Plan: . Orders: Orders SARS-CoV2/FLU/RSV Today R09.89 - Other specified symptoms and signs involving the circulatory and respiratory systems Patient Instructions: SHE WAS CALLED W RESULTS BY MYSELF AT 1548. Coding Level of Care Code Est Pt Level 4 (92048) Diagnoses Seasonal allergic rhinitis due to pollen J30.1 Rhinitis type: allergic Allergic rhinitis trigger: pollen Allergic rhinitis seasonality: seasonal
[2023-10-01 11:33] VITALS: BP 126/74; PULSE 86; TEMP 36.5
== END ==
PROVIDERS: PCP Internal Medicine; Visit Provider Nurse Practitioner Family
DX: J30.1 Allergic rhinitis due to pollen (principal)
CPT/HCPCS: 99214

== ENCOUNTER 2023-10-01 14:53 | Outpatient (REF) | payer OTHER, SELFPAY ==
[2023-10-01 15:44] LABS: Influenza A PCR NEGATIVE (Negative); Influenza B PCR NEGATIVE (Negative); Resp Syncy Virus RNA Qual PCR NEGATIVE (Negative); SARS COV2 PCR INHOUSE NEGATIVE (Negative)
== END 2023-10-01 14:54 | disposition home or self-care (01) ==
LOC: HO.LNP 14:53
PROVIDERS: Visit Provider Nurse Practitioner Family
DX: R09.89 Other specified symptoms and signs involving the circulatory and respiratory systems (principal); J06.9 Acute upper respiratory infection, unspecified
CPT/HCPCS: 0241U

== ENCOUNTER 2023-11-29 16:32 | Outpatient (REF) | payer OTHER, SELFPAY ==
--- NOTE | ~2023-11-29 | XR_ITS ---
EXAMINATION: XR LUMBOSACRAL SPINE CLINICAL INFORMATION: Low back pain. COMPARISON: 05/28/2023 and 02/08/2015 TECHNIQUE: Three views of the lumbosacral spine. FINDINGS: Multiple surgical clips project over the abdomen and pelvis. There is suture material in the left upper quadrant. There are 5 nonrib-bearing lumbar vertebral bodies. Relative straightening of the lumbar lordosis. 3 mm retrolisthesis of L5 on S1. Vertebral body heights are maintained. Mild intervertebral disc space narrowing at L4-L5 and L5-S1. Sacroiliac joints are intact. XR/XR lumbar spine 2-3V IMPRESSION: Mild degenerative disc disease at L4-L5 and L5-S1.
== END 2023-11-29 16:33 | disposition home or self-care (01) ==
LOC: HO.XRAY 16:32
PROVIDERS: PCP Internal Medicine; Visit Provider Internal Medicine
DX: M21.372 Foot drop, left foot (principal)
CPT/HCPCS: 72100

== ENCOUNTER 2023-12-23 07:19 | Outpatient (REF) | payer OTHER, SELFPAY ==
[2023-12-24 18:14] LABS: Lyme Abs Screen <0.90 index
== END 2023-12-23 07:20 | disposition home or self-care (01) ==
LOC: HO.WFDLDS 07:19
PROVIDERS: Visit Provider Internal Medicine
DX: R53.83 Other fatigue (principal)
CPT/HCPCS: 36415; 86617; 86618

== ENCOUNTER 2024-02-01 16:24 | Outpatient (REF) | payer OTHER, SELFPAY ==
--- NOTE | ~2024-02-01 | XR_ITS ---
EXAMINATION: XR CERVICAL SPINE CLINICAL INFORMATION: Neck pain. COMPARISON: None available. TECHNIQUE: AP, lateral, open-mouth, and bilateral oblique views of the cervical spine. FINDINGS: Straightening of the normal cervical lordosis which may be positional or related to muscular spasm. No acute fracture or subluxation. Normal intra-axial alignment. No loss of vertebral body height. Loss of intervertebral disc height with anterior endplate osteophytes at C3 through C7. Multilevel bilateral facet arthropathy. No concerning lytic or blastic osseous lesion. Unremarkable prevertebral soft tissues. XR/XR cervical spine 5V IMPRESSION: 1. Straightening of the normal cervical lordosis which may be positional or related to muscular spasm. 2. Multilevel degenerative disc disease and bilateral facet arthropathy. Electronically signed by: Frankie August MD 02/21/2024 01:08 PM EDT
== END 2024-02-01 16:25 | disposition home or self-care (01) ==
LOC: HO.XRAY 16:24
PROVIDERS: PCP Internal Medicine; Visit Provider Internal Medicine
DX: M54.2 Cervicalgia (principal)
CPT/HCPCS: 72050

== ENCOUNTER 2024-03-02 08:40 | Day surgery (SDC) | payer OTHER, SELFPAY ==
--- NOTE | 2024-02-29 13:45 | HO.ANESPROP2 ---
Documented by User: Estefany Beltran NP 02/29/24 13:47 HPI - Anesthesia Eval Consult details Narrative: 63yo F for Upper Endoscopy PMFSH Active Problems Active Problems: All Active Problems Rhinitis (Acute) Chronic constipation (Acute) Gastric ulcer (Acute) Osteoarthritis of left knee (Acute) PAC (premature atrial contraction) (Acute) Bilateral hand numbness (Acute) De Quervain's tenosynovitis, right (Acute) PVCs (premature ventricular contractions) (Acute) Bilateral carpal tunnel syndrome (Acute) Post-COVID syndrome (Acute ~2019) Abnormal EKG (Acute) S/P gastric bypass (Acute ~2020) Overweight (Acute) GERMANIA (obstructive sleep apnea) (Acute) Asthma (Acute) Hypertension (Acute) Palpitations (Acute) Steatosis, liver (Acute) GERD (gastroesophageal reflux disease) (Acute) Past Medical History Medical History Deflation of breast implant Abnormal EKG History of breast cancer (~2008) History of diabetes mellitus GERMANIA (obstructive sleep apnea) Palpitations Steatosis, liver History of MRSA infection Arthritis Sickle cell trait History of COVID-19 (~09/2019) Hx of cardiac murmur Post-COVID syndrome (~2019) Pneumonia (~2019) Asthma Hypertension GERD (gastroesophageal reflux disease) Constipation Family History Family History Father DM (diabetes mellitus) Stroke Mother DM (diabetes mellitus) Brother No problems noted. Sister No problems noted. Son No problems noted. Family history of problems with anesthesia: No Surgical History Surgical History History of left knee surgery (~2010) History of Cassi-en-Y gastric bypass (~2020) History of bilateral mastectomy (~2008) History of colonoscopy (~2016) History of hysterectomy (~2003) History of laparoscopic cholecystectomy (~2002) History of esophagogastroduodenoscopy (EGD) (~2017) History of sleeve gastrectomy (~2010) History of Problems with Anesthesia: No Social History Social History Household Members: None Housing: House Are you a primary laboratory animal care veterinarian to a significant other at home: No Do you presently have visiting nurse or other home services: No Alcohol intake: never Patient Tobacco Use Status: Former Tobacco user Tobacco use type: Cigarette Use of substances other than those prescribed or required for medical reasons: No Have you been hit, kicked, punched, or otherwise hurt by someone within the past year? 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 Allergies Allergy/AdvReac Type Severity Reaction Status Date / Time cat dander Allergy Severe Loss Voice Verified 03/02/24 08:59 environmental allergies Allergy Severe Sneezing Verified 03/02/24 08:59 Home Medications ?Medication ?Instructions ?Recorded ?Confirmed ?Last Taken ?Type albuterol sulfate 90 mcg/actuation 1 puff inhalation Q4H PRN 09/20/20 10/01/23 Unknown History aerosol inhaler Shortness Of Breath cyanocobalamin (vitamin B-12) 1,000 mcg IM QWEEK 04/07/22 03/02/24 02/10/24 History 1,000 mcg/mL injection solution Exam Height,Weight and Vital Signs: Height 5 ft 5 in Assessment and Plan Assessment Anesthesia Assessment: Chart Reviewed Final Anesthetic Review Family History of Problems with Anesthesia: No History of Problems with Anesthesia: No Documented by User: Luiza Powers MD 03/02/24 10:52 [facility] Past Medical History Medical History Deflation of breast implant Abnormal EKG History of breast cancer (~2008) History of diabetes mellitus GERMANIA (obstructive sleep apnea) Palpitations Steatosis, liver History of MRSA infection Arthritis Sickle cell trait History of COVID-19 (~09/2019) Hx of cardiac murmur Post-COVID syndrome (~2019) Pneumonia (~2019) Asthma Hypertension GERD (gastroesophageal reflux disease) Constipation Family History Family History Father DM (diabetes mellitus) Stroke Mother DM (diabetes mellitus) Brother No problems noted. Sister No problems noted. Son No problems noted. Surgical History Surgical History History of left knee surgery (~2010) History of Cassi-en-Y gastric bypass (~2020) History of bilateral mastectomy (~2008) History of colonoscopy (~2016) History of hysterectomy (~2003) History of laparoscopic cholecystectomy (~2002) History of esophagogastroduodenoscopy (EGD) (~2017) History of sleeve gastrectomy (~2010) Social History Social History Household Members: None Housing: House Are you a primary laboratory animal care veterinarian to a significant other at home: No Do you presently have visiting nurse or other home services: No Alcohol intake: never Patient Tobacco Use Status: Former Tobacco user Tobacco use type: Cigarette Use of substances other than those prescribed or required for medical reasons: No Have you been hit, kicked, punched, or otherwise hurt by someone within the past year? 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 Allergies Allergy/AdvReac Type Severity Reaction Status Date / Time cat dander Allergy Severe Loss Voice Verified 03/02/24 08:59 environmental allergies Allergy Severe Sneezing Verified 03/02/24 08:59 Home Medications ?Medication ?Instructions ?Recorded ?Confirmed ?Last Taken ?Type albuterol sulfate 90 mcg/actuation 1 puff inhalation Q4H PRN 09/20/20 10/01/23 Unknown History aerosol inhaler Shortness Of Breath cyanocobalamin (vitamin B-12) 1,000 mcg IM QWEEK 04/07/22 03/02/24 02/10/24 History 1,000 mcg/mL injection solution Exam Airway Mallampati Class: II TM Dist: >3cm Neck ROM: Full Loose/Missing/Broken Teeth: No Heart: RRR Lungs: CTA Assessment and Plan Assessment Anesthesia Assessment: Anesthesia Plan Discussed Final Anesthetic Review NPO: Yes ASA Class: II Final Preanesthetic Review: Meds/Allgs Chart Reviewed, Consent Obtained/Reviewed and Anes Risks/Benef Reviewed Patient Risk: Low Procedure Risk: Intermediate Anesthetic Plan Anesthetic Plan: MAC: Disposition: Standard PACU
[2024-03-02 08:51] VITALS: BMI 33.8
[2024-03-02 09:14] VITALS: BP 157/83; PULSE 66; RESP 16; TEMP 36.1; O2SAT 98
[2024-03-02] MEDS: Lactated Ringers 1,000 ML 80 ML IVCONT (09:15)
--- NOTE | 2024-03-02 10:46 | MHC.SHP ---
Pre-Procedural Eval Section A - 24 Hr Update-Section A only Date of Service: 03/02/24 The patient is an INPATIENT: No The patient has been examined within 24 hours of the surgical procedure. The History & Physical has been completed within 30 days and I have reviewed it.: Yes Section B - Complete if H&P > 30 days Chief Complaint: Postgastric surgery syndromes Details of Present Illness: Anastomotic ulcer Relevant Family History (Specify if Yes): No Relevant Social History: None Present Medications: None Medical History: No relevant PMH History of Previous Operations: Relevant previous surgery/procedure and date(s) (lap gastric bypass) Allergies: Allergies Allergy/AdvReac Type Severity Reaction Status Date / Time cat dander Allergy Severe Loss Voice Verified 03/02/24 08:59 environmental allergies Allergy Severe Sneezing Verified 03/02/24 08:59 Review of Systems Sugical H&P ROS: Negative: Constitution, Cardiovascular, Respiratory, Neurological, Psychiatric, Hem-Onc, Allergic/Immunologic, Gastrointestinal, Genitourinary, Musculoskeletal, Integumentary, Endocrine and Eyes/Ears/Nose/Throat Exam Surgical H&P Exam: Normal: HEENT, Normal: Heart, Normal: Lungs, Normal: Extremities, Normal: Abdomen, Normal: Skin and Normal: Neurological Plan Diagnosis/Plan: Unchanged (EGD to assess if there is an anastomotic ulcer. Risks of bleeding and perforation were discussed with the patient in detail and she is in agreement.) I have reviewed the history and physical and performed a pertinent physical examination on my patient. No changes have occurred unless specified. Time Spent With Patient Time: Total time managing care of this patient today ____ minutes.
[2024-03-02 10:48] LABS: Glucose, Whole Blood 92 mg/dL (60-115)
--- NOTE | 2024-03-02 10:57 | P.BOP_ITS ---
Brief Operative Note Date of Service: 03/02/24 Pre-op diagnosis: Anastomotic ulcer Post-op diagnosis: same Procedure: PROCEDURE DATE: ?03/02/2024 PREOPERATIVE DIAGNOSIS: Anastomotic ulcer, s/p gastric bypass POSTOPERATIVE DIAGNOSIS: ?1) Small hiatal hernia PROCEDURE: [id number] with biopsies Surgeon: ?Jluis Thompson M.D.. Ph.D. Clinical Care Manager: ?None ? Anesthesia: IV sedation Estimated blood loss: ?Minimal FINDINGS AND PROCEDURE: ? OPERATIVE INDICATIONS: ?The patient is a 62 year old female known to me who underwent a laparoscopic revision of sleeve gastrectomy to gastric bypass else where. The patient has been complaining of epigastric pain for a while.?An endoscopy was performed in May that revealed a deep anastomotic ulcer. The patient was placed on a liquid protein diet and Pantroprazole and Sucralfate. A subsequent endoscopy showed that the ulcer healed. Since then, she did not continue the Pantoprazole and Sucralfate. She now returns for a follow up endoscopy to assess the status of the ulcer as she has been experiencing abdominal pain. Based on this information I recommended an upper endoscopy to evaluate the patient's symptoms.? Risks and complications of the surgery were discussed with the patient in advance particularly the possibility of perforation or bleeding that may require surgical intervention. The patient understood the risks and was in agreement with the plan. ? PROCEDURE: After informed consent was obtained by the patient, the patient was ?transferred to the Operating Room and was placed in the supine position.? After successful induction of IV sedation, a mouth block was placed and the patient was placed in the left lateral decubitus position. An upper endoscopy was performed next, the oropharynx and esophagus appeared within the normal limits. There was a 2cm hiatal hernia.? The z-line was smooth. The small pouch was entered, appeared to be of normal size. There was no gastritis and the gastrojejunostomy was patent but with a mild stricture. There was no anastomotic ulcer.? At that point the scope was advanced into the proximal small intestine (proximal Cassi limb) which appeared to be normal as well. A biopsy was obtained from the gastric pouch. No significant bleeding was noted. The Cassi limb and the pouch were decompressed and the scope was withdrawn from the patient's mouth. The patient was awaken and was transferred in stable condition to the Recovery Room for further care. I was present and performed all steps of the procedure. There were no residents to assist with this case. Jluis Thompson M.D., Ph.D. Surgeon: Nathaniel Thompson MD Anesthesia: MAC Was an Clinical Care Manager used for this Procedure?: No Estimated blood loss (mL): 0 IV fluids (mL): 400 Urine output (mL): 0 (No Kumar to record output) Pathology: other (Gastric pouch x1) Condition: stable Disposition: PACU
[2024-03-02 11:17] VITALS: BP 117/70; PULSE 55; RESP 18; TEMP 36.4; O2SAT 100
[2024-03-02 11:22] VITALS: BP 120/72; PULSE 65; RESP 16; O2SAT 100
[2024-03-02 11:27] VITALS: BP 123/70; PULSE 62; RESP 16; O2SAT 99
[2024-03-02 11:32] VITALS: BP 140/84; PULSE 65; RESP 15; TEMP 36.4; O2SAT 100
== END 2024-03-02 11:47 | disposition home or self-care (01) ==
PROVIDERS: PCP Internal Medicine; Visit Provider Surgery
PROC: 0DJ08ZZ Inspection of Upper Intestinal Tract, Via Natural or Artificial Opening Endoscopic (ICD-10-PCS; CPT 43235; principal; 2024-03-02 11:00)
DX: K91.1 Postgastric surgery syndromes (principal); Z87.11 Personal history of peptic ulcer disease; Z98.84 Bariatric surgery status; E66.9 Obesity, unspecified; Z68.32 Body mass index [BMI] 32.0-32.9, adult; K21.9 Gastro-esophageal reflux disease without esophagitis; K44.9 Diaphragmatic hernia without obstruction or gangrene; I10 Essential (primary) hypertension; J45.909 Unspecified asthma, uncomplicated; K76.0 Fatty (change of) liver, not elsewhere classified; D57.3 Sickle-cell trait; G47.33 Obstructive sleep apnea (adult) (pediatric); Z79.899 Other long term (current) drug therapy; Z99.89 Dependence on other enabling machines and devices; Z85.3 Personal history of malignant neoplasm of breast; Z86.14 Personal history of Methicillin resistant Staphylococcus aureus infection; Z98.890 Other specified postprocedural states; Z87.891 Personal history of nicotine dependence
CPT/HCPCS: 43239; 82947; 88305; 88313; 88342; J2704

== ENCOUNTER → 2024-03-02 08:40 | Outpatient (BNV) | payer OTHER, SELFPAY | PROVIDERS: PCP Internal Medicine; Visit Provider Surgery | DX: K91.1 Postgastric surgery syndromes (principal); K44.9 Diaphragmatic hernia without obstruction or gangrene | CPT/HCPCS: 43239 ==

== ENCOUNTER 2024-04-05 16:41 | Outpatient (REF) | payer OTHER, SELFPAY ==
--- NOTE | ~2024-04-05 | MR_ITS ---
EXAMINATION: MR CERVICAL SPINE WITHOUT CONTRAST CLINICAL INFORMATION: Neck pain. Left-sided upper extremity weakness and numbness. COMPARISON: None available. TECHNIQUE: MRI of the cervical spine was obtained using routine sequences without contrast. FINDINGS: Craniocervical junction is intact. There is bone marrow STIR signal abnormality involving the left posterior elements of C2-3, specifically, left facet/pars interarticularis and lamina. Marginal osteophyte formation and disc desiccation, C3-4 and C4-5 levels. Grade 1 anterolisthesis C4-5 and to a lesser extent C3-4. Reverse curvature apex C4-5. The cervical spinal cord signal is normal. C2-3: No disc herniation. No compression upon neural elements. C3-4: Broad-based disc osteophyte complex formation abutting the spinal cord. Facet joint hypertrophy. Left neuroforamina narrowing. C4-5: Broad-based disc osteophyte complex formation resulting in ventral deformity of the thecal sac. No cord compression. No cord signal abnormality. No neuroforamina narrowing. C5-6: Broad-based disc osteophyte complex formation resulting in ventral deformity of the spinal cord. No cord signal abnormality. No neural foramina stenosis. C6-7: Broad-based disc osteophyte complex formation. No cord compression. No cord signal abnormality. No neuroforamina narrowing. Bilateral perineural cysts, right greater than the left side. C7-T1: No disc herniation. No cord compression. No cord signal abnormality. No prevertebral compartment hematoma, mass or fluid collection. Flow-void signal within the mean vessels is normal. Codominant vertebral arteries. 9 mm hyperintense T2 lesion in the posterior aspect of the right parotid gland. MR/MR cervical spine wo con IMPRESSION: Multilevel cervical spondylosis C3 C6 more conspicuous at C3-4 resulting in left neural foramen narrowing and grade 1 anterolisthesis C3-4 and C4-5 with bone contusions left posterior elements of C3-4. No cord edema and or myelopathy. Electronically signed by: Tan Toledo MD 04/10/2024 09:02 AM EDT
== END 2024-04-05 16:42 | disposition home or self-care (01) ==
LOC: HO.MRI 16:41
PROVIDERS: PCP Internal Medicine; Visit Provider Internal Medicine
DX: M54.50 Low back pain, unspecified (principal)
CPT/HCPCS: 72141

== ENCOUNTER → 2024-04-05 17:02 | Outpatient (BNV) | payer OTHER, SELFPAY | PROVIDERS: PCP Internal Medicine; Visit Provider Radiology Diagnostic Radiology | DX: M54.2 Cervicalgia (principal); R53.1 Weakness | CPT/HCPCS: 72141 ==

== ENCOUNTER 2024-04-12 13:25 | Outpatient (AMB) | payer OTHER, SELFPAY ==
[2024-04-12 13:29] VITALS: BP 130/72; PULSE 76; O2SAT 98; BMI 30.7
--- NOTE | 2024-04-12 13:29 | A.OFFVIS_ITS ---
Vital Signs 04/12/24 13:29 Height 5 ft 10 in Weight 214 lb BMI 30.7 BP 130/72 Blood Pressure Location Lt brachial Position Sitting Pulse 76 Pulse Source Pulse Oximeter Pulse Oximetry (%) 98 Oxygen Delivery Method Room Air Intake Visit Reasons: H/O covid, pneumonia, some pulm scarring Manager Trade Required: No Elementary School Tutor: Elementary School Tutor offered & declined Accompanied by: Self / Same As Patient Allergies cat dander Allergy (Severe, Verified 04/12/24 13:32) Loss Voice environmental allergies Allergy (Severe, Verified 04/12/24 13:32) Sneezing Medication List - Last Reconciled 04/12/24 by Flavia Neri LPN albuterol sulfate 90 mcg/actuation 1 puff inhalation Q4H PRN cholecalciferol (vitamin D3) 50 mcg PO DAILY cyanocobalamin (vitamin B-12) 1,000 mcg IM QWEEK docusate sodium (Colace) 200 mg (2 x 100 mg) PO BEDTIME pantoprazole 40 mg PO QAM HPI HPI H/O covid, pneumonia, some pulm scarring: Details: Elma is a pleasant 63 year old female, former minimal smoker, quit 40 years ago with underlying asthma, environmental allergies, Sickle cell trait, DMII, h/o breast cancer s/p chemo/mastectomy, HTN, GERMANIA not on CPAP, and GERD. She previously was under the care of Dr. Foster and presents today to reestablish care. She reports increased allergic symptoms occasionally triggering asthma. She was previously prescribed QVAR and albuterol PRN, however has been without for quite some time. She notes intermittent dry cough, wheezing and shortness of breath. She had prior allergy testing which revealed multiple allergens an elevated IgG. She uses [facility] Medical History Deflation of breast implant Abnormal EKG History of breast cancer (~2008) History of diabetes mellitus GERMANIA (obstructive sleep apnea) Palpitations Steatosis, liver History of MRSA infection Arthritis Sickle cell trait History of COVID-19 (~09/2019) Hx of cardiac murmur Post-COVID syndrome (~2019) Pneumonia (~2019) Asthma Hypertension GERD (gastroesophageal reflux disease) Constipation Surgical History History of left knee surgery (~2010) History of Cassi-en-Y gastric bypass (~2020) History of bilateral mastectomy (~2008) History of colonoscopy (~2016) History of hysterectomy (~2003) History of laparoscopic cholecystectomy (~2002) History of esophagogastroduodenoscopy (EGD) (~2017) History of sleeve gastrectomy (~2010) Family History Father DM (diabetes mellitus) Stroke Mother DM (diabetes mellitus) Brother No problems noted. Sister No problems noted. Son No problems noted. 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 Review of Systems Const Denies chills, Denies excessive sweating, Denies fever(s), Denies headache(s) and Denies night sweats Eyes Denies dry eyes and Denies irritation ENT Reports Normal hearing present, Denies headache(s) and Denies sore throat Card Denies chest pain, Denies chest pain at rest, Denies chest pain with activity, Denies claudication, Denies leg edema, Denies orthopnea and Denies paroxysmal nocturnal dyspnea Resp Denies chest congestion, Denies excessive phlegm production, Denies pain on inspiration, Denies pain with cough and Denies stridor Musc Denies myalgias Neuro Reports Normal hearing present and Denies headache(s) Endo Denies excessive sweating Roberto/Lymph Denies lymphadenopathy Physical Exam Vital Signs: Last Vital Signs Pulse 76 04/12/24 13:29 BP 130/72 04/12/24 13:29 Pulse Ox 98 04/12/24 13:29 Oxygen Delivery Method Room Air 04/12/24 13:29 BMI result Body Mass Index 30.7 Const General: cooperative, healthy appearing, comfortable, no acute distress, well developed and alert Orientation/consciousness: patient oriented x3 Limitations: no limitations HEENT Head: Yes normal to inspection, Yes normocephalic and Yes atraumatic Ears: hearing grossly normal bilaterally and external ears normal Eyes General: appearance normal, both eyes and all related structures Eyelids: Yes eyelids normal Sclerae: sclerae normal EOM: EOMs intact bilaterally Neck Neck: Yes normal visual inspection and Yes no lymphadenopathy Lymphatic: no lymphadenopathy noted Chest Chest palpation & inspection: normal inspection of the chest Resp Effort & Inspection: normal respiratory effort, able to speak in complete sentences, no audible wheezes, no cough, no stridor, not tachypneic, no tripod positioning and no use of accessory muscles Auscultation: clear to auscultation bilaterally Cardio Jugular venous distension: no JVD Rate: regular rate Rhythm: regular rhythm Skin Other: warm, dry General skin exam: no rashes or lesions noted Neuro General: patient oriented x3 Cranial nerves: Yes Normal hearing present Cognition (Neuro): normal cognition Gait exam (Neuro): Normal gait present Extrem General: Yes normal to inspection, Yes capillary refill normal, Yes no clubbing, cyanosis or edema and Yes no pedal edema Psych Appearance: grossly normal and well kempt Speech and movement: Normal speech and movement present and Clear speech present Affect: normal affect Attitude: cooperative Thought process: Normal thought process present Thought content: Normal thought content present Insight: Good insight present (Psych) Judgement: Good judgement present (Psych) Assessment & Plan Assessment & Plan (1) Asthma: Code(s): J45.909 - Unspecified asthma, uncomplicated Category: Medical Qualifiers: Asthma severity: moderate Asthma persistence: persistent Asthma complication type: with acute exacerbation Qualified Code(s): J45.41 - Moderate persistent asthma with (acute) exacerbation (2) Environmental allergies: Code(s): Z91.09 - Other allergy status, other than to drugs and biological substances Category: Medical Plan Patient's symptoms are likely related to underlying asthma with allergic component. Will send for updated PFT with levalbuterol as she had adverse reaction to albuterol and RAST. Discussed ways to minimize allergen exposure as well as trialing daily antihistamines. Will restart ICS. Discussed importance of good oral hygiene. Will consider adding Singulair in the future. All questions were answered and patient is in agreement of plan. Will follow-up to review results and response to inhaler or sooner if needed. Orders: Orders Immunoglobulin E Today Z91.09 - Other allergy status, other than to drugs and biological substances PFT pulmonary function test Today J45.41 - Moderate persistent asthma with (acute) exacerbation Resp Allergy Profile Region I Today Z91.09 - Other allergy status, other than to drugs and biological substances Complete Blood Count Auto Diff Today Z91. - Other allergy status, other than to drugs and biological substances Medications: New fluticasone furoate 100 mcg/actuation (Arnuity Ellipta) 1 inh inhalation DAILY 30 ea 6RF Coding Level of Care Code Est Pt Level 4 (38360) Diagnoses Moderate persistent asthma with acute exacerbation J45.41 Asthma severity: moderate Asthma persistence: persistent Asthma complication type: with acute exacerbation Environmental allergies Z91.09
== END 2024-04-12 14:08 | disposition home or self-care (01) ==
LOC: HO.HPSW 13:26
PROVIDERS: PCP Internal Medicine; Referring Provider Internal Medicine; Visit Provider Nurse Practitioner Family
DX: J45.41 Moderate persistent asthma with (acute) exacerbation (principal); Z91.09 Other allergy status, other than to drugs and biological substances
CPT/HCPCS: 99214

== ENCOUNTER → 2024-04-12 13:25 | Outpatient (BNVA) | payer OTHER, SELFPAY | PROVIDERS: PCP Internal Medicine; Referring Provider Internal Medicine; Visit Provider Nurse Practitioner Family ==

== ENCOUNTER 2024-04-12 14:09 | Outpatient (REF) | payer OTHER, SELFPAY ==
[2024-04-12 18:15] LABS: Hemoglobin 8.4 g/dl (12.0-16.0); Imm Gran Abs Auto 0.02 X10*3/uL (0.00-0.03); Imm Gran Pct Auto 0.4 % (0.0-0.4); MANUAL DIFF FLAG SCAN; Mean Platelet Volume 10.4 fL (9.4-12.3); Neutrophils Absolute Auto 3.1 x10*3/uL (2.0-8.3); PLT CLUMP 1; SCAN SMEAR FLAG 1
[2024-04-12 18:17] LABS: Basophils Absolute Auto 0.1 X10*3/uL (0.0-0.2); Basophils Percent Auto 1.6 % (0-2); Eosinophils Absolute Auto 0.3 X10*3/uL (0.0-0.4); Eosinophils Percent Auto 5.4 % (0-4); Hematocrit 27.8 % (37.0-47.0); Lymphocytes Absolute Auto 1.9 X10*3/uL (1.2-4.9); Lymphocytes Percent Auto 33.3 % (20-40); Mean Corpuscular HGB Conc 30.2 g/dl (31.0-35.0); Mean Corpuscular Hemoglobin 19.7 pg (27.0-33.0); Mean Corpuscular Volume 65.3 fL (80.0-98.0); Monocytes Absolute Auto 0.3 X10*3/uL (0.1-1.2); Monocytes Percent Auto 5.3 % (2-11); Red Blood Count 4.26 X10*6/uL (4.20-5.50); Red Cell Distribution Width 18.4 % (11.0-16.0)
[2024-04-12 18:41] LABS: Platelet Count 371 X10*3/uL (160-400); White Blood Count 5.7 X10*3/uL (4.8-10.8)
[2024-04-12 18:42] LABS: SLIDE REVIEW VERIFIED
[2024-04-13 22:53] LABS: Immunoglobulin E 185 kU/L (<OR=114)
[2024-04-20 10:12] LABS: Class Derm. pterony 2; Class Dermatophagoides farinae 3; D001 IgE D pteronyssinus 2.82 (H); D002 - IgE D farinae 5.51 (H); Immunoglobulin E 133 (H)
[2024-04-20 10:13] LABS: Class Alternaria alternata 2; Class Cat Dander 0/1; Class Cockroach 0; Class Dog Dander 0; Class Mouse Urine Protein 0; E001 - IgE Cat Dander 0.10 (H); E005 - IgE Dog Dander <0.10; E072-IgE Mouse Urine <0.10; G006 - IgE Timothy Grass <0.10; I006-IgE Cockroach, German <0.10; M006 - IgE Alternaria alternat 1.44 (H)
[2024-04-20 10:14] LABS: Class Aspergillus fumigatus 0; Class Bermuda Grass 0; Class Birch 0; Class Cladosporium herbarum 0; Class Common Ragweed 0; Class Cottonwood 0; Class Elm 0; Class Maple Box Elder 0; Class Mountain Cedar 0; Class Mugwort 0; Class Oak 0; Class Penicillium crysogenum 0; Class Sycamore 0; Class Timothy Grass 0; Class Walnut Tree 0; Class White Ash 0; Class White Mulberry 0; G002 IgE Bermuda Grass <0.10; M001 IgE Penicillium chrysogen <0.10; M002 - IgE Cladosporium herbar <0.10; M003 - IgE Aspergillus fumigat <0.10; T001 IgE Maple/Box Elder <0.10; T003 IgE Common Silver Birch <0.10; T006 - IgE Cedar, Mountain <0.10; T007 - IgE Oak, White <0.10; T008 IgE Elm, American <0.10; T010 - IgE Walnut <0.10; T011 - IgE Maple Leaf Sycamore <0.10; T014 - IgE Cottonwood <0.10; T015 - IgE Ash, White <0.10; T070 - IgE White Mulberry <0.10; W001 - IgE Ragweed, Short <0.10; W006 - IgE Mugwort <0.10
[2024-04-20 10:15] LABS: Class Rough Pigweed 0; Class Sheep Sorrel 0; W014 IgE Pigweed, Common <0.10; W018 IgE Sheep Sorrel <0.10
== END 2024-04-12 14:10 | disposition home or self-care (01) ==
LOC: HO.WFDLDS 14:09
PROVIDERS: Visit Provider Nurse Practitioner Family
DX: Z91.09 Other allergy status, other than to drugs and biological substances (principal)
CPT/HCPCS: 36415; 82785; 85025; 86003

== ENCOUNTER 2024-04-28 13:36 | Outpatient (REF) | payer OTHER, SELFPAY ==
[2024-04-28 17:59] LABS: Basophils Absolute Auto 0.1 X10*3/uL (0.0-0.2); Basophils Percent Auto 1.1 % (0-2); Eosinophils Absolute Auto 0.2 X10*3/uL (0.0-0.4); Eosinophils Percent Auto 3.4 % (0-4); Hematocrit 27.6 % (37.0-47.0); Hemoglobin 8.4 g/dl (12.0-16.0); Imm Gran Abs Auto 0.01 X10*3/uL (0.00-0.03); Imm Gran Pct Auto 0.2 % (0.0-0.4); Immature Retic Fraction 27.3 % (3.0-15.9); Lymphocytes Absolute Auto 1.8 X10*3/uL (1.2-4.9); Lymphocytes Percent Auto 33.9 % (20-40); Mean Corpuscular HGB Conc 30.4 g/dl (31.0-35.0); Mean Corpuscular Hemoglobin 19.7 pg (27.0-33.0); Mean Platelet Volume 9.5 fL (9.4-12.3); Monocytes Absolute Auto 0.4 X10*3/uL (0.1-1.2); Monocytes Percent Auto 7.6 % (2-11); Neutrophils Absolute Auto 2.8 x10*3/uL (2.0-8.3); Neutrophils Percent Auto 53.8 % (45-73); Platelet Count 449 X10*3/uL (160-400); Red Blood Count 4.27 X10*6/uL (4.20-5.50); Red Cell Distribution Width 18.7 % (11.0-16.0); Retic HGB Equivalent 19.8 pg (30.0-35.0); Reticulocytes Absolute 0.041 X10*6/uL (0.026-0.095); White Blood Count 5.3 X10*3/uL (4.8-10.8)
[2024-04-28 18:02] LABS: Mean Corpuscular Volume 64.6 fL (80.0-98.0)
[2024-04-28 18:16] LABS: Alanine Aminotransferase 15 U/L (0-31); Albumin Level 4.2 g/dL (3.5-5.0); Alkaline Phosphatase 125 U/L (39-117); Anion Gap 10 (12-20); Aspartate Amino Transferase 19 U/L (5-31); Bilirubin Total 0.3 mg/dL (0.0-1.0); Blood Urea Nitrogen 14 mg/dL (9-16); Calcium 9.2 mg/dL (8.4-10.2); Carbon Dioxide 24 mmol/L (22-29); Chloride 110 mmol/L (96-108); Estimated Glomerular Filt Rate > 60; Glucose Random 82 mg/dL (60-115); Iron 14 mcg/dL (30-160); Percent Iron Saturation 3 % (15-50); Potassium 3.7 mmol/L (3.3-5.1); Sodium 140 mmol/L (135-145); Total Iron Binding Capacity 434 mcg/dL (228-428); Total Protein 7.7 g/dL (6.5-8.0); Unsaturated Iron Binding 420 ug/dL
[2024-04-28 18:43] LABS: MANUAL DIFF FLAG SCAN; SLIDE REVIEW VERIFIED
[2024-04-28 18:48] LABS: Vitamin B12 837 pg/mL (200-900)
== END 2024-04-28 13:37 | disposition home or self-care (01) ==
LOC: HO.WFDLDS 13:36
PROVIDERS: Visit Provider Internal Medicine
DX: D64.9 Anemia, unspecified (principal)
CPT/HCPCS: 36415; 80053; 82607; 83540; 85025; 85045

== ENCOUNTER 2024-05-04 12:00 | Outpatient (AMB) | payer OTHER, SELFPAY ==
--- NOTE | 2024-05-04 09:51 | A.OFFVIS_ITS ---
VS Expanded 05/04/24 12:10 Height 5 ft 10 in Weight 203 lb BMI 29.1 Intake Visit Reasons: (OV) GBP 09/26/20 Alumni Coordinator Required: No Allergies cat dander Allergy (Severe, Verified 04/12/24 13:32) Loss Voice environmental allergies Allergy (Severe, Verified 04/12/24 13:32) Sneezing Medication List - Last Reconciled 05/04/24 by CONNIE Thompson albuterol sulfate 90 mcg/actuation 1 puff inhalation Q4H PRN cholecalciferol (vitamin D3) 50 mcg PO DAILY cyanocobalamin (vitamin B-12) 1,000 mcg IM QWEEK docusate sodium (Colace) 200 mg (2 x 100 mg) PO BEDTIME fluticasone furoate 100 mcg/actuation (Arnuity Ellipta) 1 inh inhalation DAILY pantoprazole 40 mg PO QAM HPI Comments Details: 63 yo woman who is now almost 3 years s/p GBP, had anastomotic ulcer diagnosed by EGD on 06/02/23, she was treated with liquid diet, pantoprazole and carafate and EGD on 07/01/23 revealed completely healed ulcer. Repeat EGD in 03/03/2024 showed continued resolution of anastomotic ulcer although a small hiatal hernia was identified. She additionally has been found to have iron-deficiency anemia as evidenced by 2 blood tests in March and then again in April. This was done by her primary care physician.Weight today is 203 pounds with a BMI of 29.1. c/o fatigue over the last year. work 730-4 M-F, second job 11 pm-7 am 3 x per week. States goal is to lose weight and feel stronger. Goal is 175-180 pounds. Meal plan: Celebrate 4 in 1 2 scoops in 8 oz unsweetened almond milk x 2 meal: pre made: chicken, salad, likes irish yogurt drinking 32 oz water daily Exercise plan: nothing. Has pilates, glider at home. [facility]LY [facility] Medical History Deflation of breast implant Abnormal EKG History of breast cancer (~2008) History of diabetes mellitus GERMANIA (obstructive sleep apnea) Palpitations Steatosis, liver History of MRSA infection Arthritis Sickle cell trait History of COVID-19 (~09/2019) Hx of cardiac murmur Post-COVID syndrome (~2019) Pneumonia (~2019) Asthma Hypertension GERD (gastroesophageal reflux disease) Constipation Surgical History History of left knee surgery (~2010) History of Cassi-en-Y gastric bypass (~2020) History of bilateral mastectomy (~2008) History of colonoscopy (~2016) History of hysterectomy (~2003) History of laparoscopic cholecystectomy (~2002) History of esophagogastroduodenoscopy (EGD) (~2017) History of sleeve gastrectomy (~2010) Family History Father DM (diabetes mellitus) Stroke Mother DM (diabetes mellitus) Brother No problems noted. Sister No problems noted. Son No problems noted. 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 Telehealth Telehealth Telehealth Platform: Telephone Location of provider rendering services: practice address Location of patient: other Patient Identification confirmed using: Name, : Yes Telehealth method: voice only Patient verbally consented to treatment: Yes Patient verbally consented to billing insurance company: Yes Patient informed of any privacy concerns related to visit: Yes Minutes spent on Phone/Video with Pt.: 25 Assessment & Plan Assessment & Plan (1) S/P gastric bypass: Onset Date: ~2020 Comment: (s/p sleeve in 2010 and Cassi-en-Y bypass in 2020) Code(s): Z98.84 - Bariatric surgery status Category: Surgical Plan: Discussed the importance of following a meal plan consistently. She does have 2 jobs and we will adjust accordingly One job day Celebrate 4 in 1, 2 scoops per shake, x2 Mauritian yogurt Meal with 4 forks of protein and 4 forks of green leafy vegetables To job days Celebrate 4 in 1, 1 scoop per shake, x4 Mauritian yogurt Meal with 4 forks of protein and 4 forks of green leafy vegetables. Discussed increasing exercise activity. She will at least just start moving more and we will discuss specific exercise at her next visit. (2) Iron deficiency anemia: Code(s): D50.9 - Iron deficiency anemia, unspecified Category: Medical Plan: Discussed options including referral to hematology, iron infusion, oral iron supplement. She wishes to use oral iron supplement. We have prescribed this additionally, she will have ground beef once per week. She will have green leafy vegetables. She will have Colace 2 tablets nightly, encouraged to text with any questions or concerns especially regarding constipation. Medications: New iron,carbonyl-vitamin C 65 mg iron- 125 mg (Vitron-C) swallow whole; do not chew/break/dissolve/open 1 tab PO DAILY 90 days 90 tabs 2RF
[2024-05-04 12:10] VITALS: BMI 29.1
== END 2024-05-04 13:04 | disposition home or self-care (01) ==
LOC: HO.HBS 12:11
PROVIDERS: PCP Internal Medicine; Visit Provider Physician Assistant Surgical
DX: D50.9 Iron deficiency anemia, unspecified (principal); Z98.84 Bariatric surgery status
CPT/HCPCS: 98968

== ENCOUNTER 2024-05-23 12:43 | Outpatient (REF) | payer OTHER, SELFPAY ==
--- NOTE | ~2024-05-23 | XR_ITS ---
EXAMINATION: XR CHEST CLINICAL INFORMATION: R07.81 - Pleurodynia. COMPARISON: August 14, 2021 TECHNIQUE: 2 views of the chest were obtained. FINDINGS: There is no gross pneumothorax. Lung volumes are low. Evaluation of cardiomediastinal silhouette limited due to low lung volumes. Postsurgical changes with mediastinal clips. Surgical clips in the upper abdomen. Moderate degenerative changes in the thoracic spine. No significant pleural effusion. Low lung volumes. Prominence of the central perihilar vasculature and markings. Mild left basilar streaky opacities greater than right. XR/XR chest 2V IMPRESSION: Evaluation is limited due to low lung volumes. Prominence of the central perihilar vasculature and markings. Mild left basilar streaky opacities greater than right. This study was presented today to May 24, 2024 for interpretation. Stat results provided at this time as requested by referring provider. Electronically signed by: Steff Olmos MD 05/24/2024 08:25 AM ROSCOE
== END 2024-05-23 12:44 | disposition home or self-care (01) ==
LOC: HO.XRAY 12:43
PROVIDERS: PCP Internal Medicine; Visit Provider Nurse Practitioner Family
DX: R07.81 Pleurodynia (principal)
CPT/HCPCS: 71046

== ENCOUNTER 2024-05-23 12:43 | Outpatient (AMB) | payer OTHER, SELFPAY ==
[2024-05-23 12:58] VITALS: BP 120/76; PULSE 62; O2SAT 100; BMI 30.5
--- NOTE | 2024-05-23 12:58 | A.OFFVIS_ITS ---
Vital Signs 05/23/24 12:58 Height 5 ft 10 in Weight 212 lb 6 oz BMI 30.5 BP 120/76 Blood Pressure Location Lt brachial Position Sitting Pulse 62 Pulse Source Pulse Oximeter Pulse Oximetry (%) 100 Oxygen Delivery Method Room Air Intake Visit Reasons: H/O covid, pneumonia, some pulm scarring Allergies cat dander Allergy (Severe, Verified 05/23/24 13:04) Loss Voice environmental allergies Allergy (Severe, Verified 05/23/24 13:04) Sneezing HPI HPI H/O covid, pneumonia, some pulm scarring: Details: Elma is a pleasant 63 year old female, former minimal smoker, quit 40 years ago with underlying asthma, environmental allergies, Sickle cell trait, DMII, s/p gastric surgery 2020, h/o breast cancer s/p chemo/mastectomy, HTN, GERMANIA not on CPAP, and GERD. At the last visit, she was restarted on ICS and albuterol MDI however continues dyspnea, patient with IVANIA and started on oral iron supp lements. She also has a consultation with hematology, She denies cough, chest tightness and wheezing. Today she presents to review RAST. She does have PFT scheduled this month will push back until on iron x 3 months. She denies any visits to urgent care or hospitalizations related to respiratory distress. COUNT INCLUDES [facility] Medical History Deflation of breast implant Abnormal EKG History of breast cancer (~2008) History of diabetes mellitus GERMANIA (obstructive sleep apnea) Palpitations Steatosis, liver History of MRSA infection Arthritis Sickle cell trait History of COVID-19 (~09/2019) Hx of cardiac murmur Post-COVID syndrome (~2019) Pneumonia (~2019) Asthma Hypertension GERD (gastroesophageal reflux disease) Constipation Surgical History History of left knee surgery (~2010) History of Cassi-en-Y gastric bypass (~2020) History of bilateral mastectomy (~2008) History of colonoscopy (~2016) History of hysterectomy (~2003) History of laparoscopic cholecystectomy (~2002) History of esophagogastroduodenoscopy (EGD) (~2017) History of sleeve gastrectomy (~2010) Family History Father DM (diabetes mellitus) Stroke Mother DM (diabetes mellitus) Brother No problems noted. Sister No problems noted. Son No problems noted. 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 Review of Systems Const Denies chills, Denies excessive sweating, Denies fever(s), Denies headache(s) and Denies night sweats Eyes Denies dry eyes and Denies irritation ENT Reports Normal hearing present, Denies headache(s) and Denies sore throat Card Denies chest pain, Denies chest pain at rest, Denies chest pain with activity, Denies claudication, Denies leg edema, Denies orthopnea and Denies paroxysmal nocturnal dyspnea Resp Denies chest congestion, Denies excessive phlegm production, Denies pain on inspiration, Denies pain with cough and Denies stridor Musc Denies myalgias Neuro Reports Normal hearing present and Denies headache(s) Endo Denies excessive sweating Roberto/Lymph Denies lymphadenopathy Physical Exam Vital Signs: BMI result Body Mass Index 30.5 Const General: cooperative, healthy appearing, comfortable, no acute distress, well developed and alert Orientation/consciousness: patient oriented x3 Limitations: no limitations HEENT Head: Yes normal to inspection, Yes normocephalic and Yes atraumatic Ears: hearing grossly normal bilaterally and external ears normal Eyes General: appearance normal, both eyes and all related structures Eyelids: Yes eyelids normal Sclerae: sclerae normal EOM: EOMs intact bilaterally Neck Neck: Yes normal visual inspection and Yes no lymphadenopathy Lymphatic: no lymphadenopathy noted Chest Chest palpation & inspection: normal inspection of the chest Resp Effort & Inspection: normal respiratory effort, able to speak in complete sentences, no audible wheezes, no cough, no stridor, not tachypneic, no tripod positioning and no use of accessory muscles Auscultation: clear to auscultation bilaterally Cardio Jugular venous distension: no JVD Rate: regular rate Rhythm: regular rhythm Skin Other: warm, dry General skin exam: no rashes or lesions noted Neuro General: patient oriented x3 Cranial nerves: Yes Normal hearing present Cognition (Neuro): normal cognition Gait exam (Neuro): Normal gait present Extrem General: Yes normal to inspection, Yes capillary refill normal, Yes no clubbing, cyanosis or edema and Yes no pedal edema Psych Appearance: grossly normal and well kempt Speech and movement: Normal speech and movement present and Clear speech present Affect: normal affect Attitude: cooperative Thought process: Normal thought process present Thought content: Normal thought content present Insight: Good insight present (Psych) Judgement: Good judgement present (Psych) Assessment & Plan Assessment & Plan (1) Asthma: Code(s): J45.909 - Unspecified asthma, uncomplicated Category: Medical Qualifiers: Asthma complication type: with acute exacerbation Asthma persistence: persistent Asthma severity: moderate Qualified Code(s): J45.41 - Moderate persistent asthma with (acute) exacerbation (2) Environmental allergies: Code(s): Z91.09 - Other allergy status, other than to drugs and biological substances Category: Medical (3) Pleuritic pain: Code(s): R07.81 - Pleurodynia Category: Medical (4) Iron deficiency anemia: Code(s): D50.9 - Iron deficiency anemia, unspecified Category: Medical Plan RAST + for multiple environmental allergies, IgE 185. She reports persistent allergic rhinitis in addition to asthma, will trial Singulair. Patient on many years ago and tolerated well. Reviewed side effects. Patient also noted ongoing pleuritic discomfort, will send for CXR. Will push back PFT until established on iron supplements x 3 months. All questions were answered and patient is in agreement of plan. Will follow-up in 3 months inhaler or sooner if needed. Orders: Orders XR chest 2V Today R07.81 - Pleurodynia Medications: New montelukast (Singulair) 10 mg PO BEDTIME 30 tabs 3RF Coding Level of Care Code Est Pt Level 4 (94453) Diagnoses Moderate persistent asthma with acute exacerbation J45.41 Asthma complication type: with acute exacerbation Asthma persistence: persistent Asthma severity: moderate Environmental allergies Z91.09 Pleuritic pain R07.81 Iron deficiency anemia D50.9
--- OUTSIDE RECORDS SUMMARY | 2024-05-24 21:14 | XMS_ITS ---
[facility] Name [facility] Organization Unknown History of Medication Use Medication Directions Dispensed Refills Start Date End Date Status cholecalciferol (CHOLECALCIFEROL) 125 MCG (5000 UT) capsule 2 active cyanocobalamin (VITAMIN B-12) 1000 MCG/ML injection INJECT 1 ML INTRAMUSCULARLY ONCE A WEEK 2 active enoxaparin (LOVENOX) 40 MG/0.4ML injection Inject 0.4 mL (40 mg total) under the skin daily. 3 aborted saccharomyces boulardii (FLORASTOR) 250 MG capsule Take 1 capsule (250 mg total) by mouth 2 (two) times a day. 3 aborted silver sulfADIAZINE (SILVADENE) 1 % cream Apply topically 2 (two) times a day. Apply to breast skin and belly button twice daily 3 aborted diazepam (VALIUM) 5 MG tablet Take 1 tablet (5 mg total) by mouth 3 times daily (every 8 hours) as needed for muscle spasms. Do not start before February 10, 2023. 3 aborted diazepam (VALIUM) 5 MG tablet Take 1 tablet (5 mg total) by mouth 3 times daily (every 8 hours) as needed for muscle spasms. Do not start before February 10, 2023. 3 aborted sulfamethoxazole-tri methoprim (BACTRIM DS,SEPTRA DS) 800-160 MG per tablet Take 1 tablet by mouth 2 (two) times a day. 3 aborted cefadroxil (DURICEF) 500 mg capsule Take 1 capsule (500 mg total) by mouth 2 (two) times a day. Do not start before February 10, 2023. 3 aborted OMEprazole (PriLOSEC) 40 MG capsule 2 active acetaminophen (TYLENOL) 325 MG tablet Take 2 tablets (650 mg total) by mouth 4 times daily (every 6 hours) as needed for mild pain, headaches or fever. 3 active traMADol (ULTRAM) 50 MG tablet Take 1 tablet (50 mg total) by mouth 3 times daily (every 8 hours) as needed for severe pain. Do not start before February 10, 2023. 3 aborted Blood Glucose Monitoring Suppl (ONE TOUCH ULTRA 2 DEVICE KIT) w/Device Kit 2 active Paxlovid, 150/100, renal therapy pack Take 2 tablets by mouth 2 (two) times a day. 2 aborted celeCOXIB (CeleBREX) 200 MG capsule Take 1 capsule (200 mg total) by mouth 2 (two) times a day. Do not start before February 10, 2023. 3 aborted lisinopril-hydroCHLO ROthiazide (PRINZIDE,ZESTORETIC ) 20-12.5 MG per tablet Take 1 tablet by mouth daily. 3 active iohexol (OMNIPAQUE) 350 mg/mL injection 80 mL 80 mL, Intravenous, Once in imaging, contrast, Starting on 08/31/22 at 0857, For 1 dose, Radiology Appointment 3 completed lisinopril (PRINIVIL,ZeSTRIL) 10 MG tablet 2 aborted Problems Problem Status Onset Date Problem Type Date of Resoluti on Source Hypertension active ProblemAct [facility] Personal history of malignant neoplasm of breast active 2022-09-28 [facility] Diabetes mellitus active [facility]
== END 2024-05-23 13:21 | disposition home or self-care (01) ==
PROVIDERS: PCP Internal Medicine; Visit Provider Nurse Practitioner Family
DX: J45.41 Moderate persistent asthma with (acute) exacerbation (principal); Z91.09 Other allergy status, other than to drugs and biological substances; R07.81 Pleurodynia; D50.9 Iron deficiency anemia, unspecified
CPT/HCPCS: 99214

== ENCOUNTER → 2024-06-12 12:59 | Outpatient (BNV) | payer OTHER, SELFPAY | PROVIDERS: PCP Internal Medicine; Referring Provider Physician Assistant Surgical; Visit Provider Internal Medicine | DX: D50.9 Iron deficiency anemia, unspecified (principal) | CPT/HCPCS: 99204 ==

== ENCOUNTER 2024-06-29 07:00 | Outpatient (RCR) | payer OTHER, SELFPAY ==
[2024-06-16 10:03] VITALS: BP 138/68; PULSE 67; O2SAT 99
== END 2025-03-08 15:02 | disposition home or self-care (01) ==
LOC: HO.PTWFD 07:00
PROVIDERS: PCP Internal Medicine; Visit Provider Neurological Surgery
DX: M54.2 Cervicalgia (principal)
CPT/HCPCS: 97110; 97140; 97162

== ENCOUNTER → 2024-07-03 09:19 | Outpatient (BNVA) | payer OTHER, SELFPAY | PROVIDERS: PCP Internal Medicine | DX: M54.2 Cervicalgia (principal); M25.562 Pain in left knee; M25.571 Pain in right ankle and joints of right foot; M25.551 Pain in right hip; M25.552 Pain in left hip; Z02.6 Encounter for examination for insurance purposes; Z91.81 History of falling | CPT/HCPCS: 99212 ==

== ENCOUNTER → 2024-07-03 09:19 | Outpatient (AMB) | payer OTHER, SELFPAY ==
--- NOTE | 2024-07-03 09:23 | MHC.OFFWIV ---
Intake Vital Signs 07/03/24 09:27 Height 5 ft 10 in Weight 210 lb BMI 30.1 BP 140/78 H Blood Pressure Location Rt brachial Position Sitting Respiration 13 Pulse 75 Pulse Source Pulse Oximeter Pulse Oximetry (%) 98 Oxygen Delivery Method Room Air Intake Visit Reasons: Fall Intake Note: Patient had a fall cleaning her car out this morning Patient Tobacco Use Status: Former Tobacco user Allergies cat dander Allergy (Severe, Verified 07/03/24 09:30) Loss Voice environmental allergies Allergy (Severe, Verified 07/03/24 09:30) Sneezing Medication List - Last Reconciled 07/03/24 by Umm Cates, DIESEL [employer]UCK 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-BC albuterol sulfate 90 mcg/actuation 1 puff inhalation Q4H PRN cholecalciferol (vitamin D3) 50 mcg PO DAILY cyanocobalamin (vitamin B-12) 1,000 mcg IM QWEEK docusate sodium (Colace) 200 mg (2 x 100 mg) PO BEDTIME fluticasone furoate 100 mcg/actuation (Arnuity Ellipta) 1 inh inhalation DAILY iron,carbonyl-vitamin C 65 mg iron- 125 mg (Vitron-C) 1 tab PO DAILY 90 days montelukast (Singulair) 10 mg PO BEDTIME pantoprazole 40 mg PO QAM Do you need a note to return to daycare/school/sports/work: No HPI HPI Comments History of Present Illness Details The patient is a 63-year-old female presenting with injuries sustained from a mechanical fall earlier today at work. The fall occurred when the patient was attempting to move around her car; she slipped and landed on her buttocks. She reports no loss of consciousness, although she did hit her head. Initially, she required assistance from the car to stand up due to the awkward positioning of her legs. Since the fall, she has experienced pain in her right ankle and left knee. The right ankle pain is localized to the lateral aspect, and there is no recollection of a specific twisting injury during the fall. The left knee pain has been exacerbated by the fall and is noted primarily with walking. The patient has a history of left knee problems, including past torn ligaments - though states no pain until after this fall. Additionally, she reports chronic neck pain for which she is undergoing therapy, although it has worsened following the incident. The patient notes she has taken no medication for these symptoms since the fall occurred this morning. She rates her ankle and knee pain at a 6 out of 10 on a pain scale. Physical Exam General: Awake, alert. No apparent distress Eyes: Sclera and conjunctiva clear bilaterally, PERRLa Neck: FROM, pain over base of scalp w/ palpation No spinal tenderness MSK: No acute deformity of R ankle or L hip. Able to bear wt, favors L knee and R ankle, c/o pain w/ wt bearing. c/o pain w palp of R SI joint and over lateral hips bilat, L knee with chronic OA changes, + crepitus, pain w/ palp over anterior knee, neurovasc intact; R ankle FROM, + pain w/ flexion and extension. Patient was informed and verbally consented to the use of an ambient scribe for clinic note documentation during this visit. Discussion Notes I addressed the likely diagnosis of a mechanical fall with resultant soft tissue injury to the right ankle and potential exacerbation of left knee arthritis. I explained that while an X-ray is not required at this time. I reinforced the importance of following up with orthopedics to evaluate the knee condition further. Risks and benefits regarding the use of topical lidocaine were discussed, and the patient agreed to initiate its use for pain relief. Patient Instructions - Wear supportive boots for ankle support and to reduce pain. - Use the prescribed topical lidocaine patch on painful areas except the face or chest. - Follow up with Orthopedics as referred for left knee evaluation. - Continue with physical therapy sessions for neck pain management. - Only use Tylenol for pain management due to anemia, avoiding NSAIDs like ibuprofen. - Report any significant increase in symptoms or new concerns for re-evaluation. - FU with PCP for any add'l concerns. - Workers comp form completed & returned at the time of the visit. Total time spent caring for the patient today was 45 minutes. This includes time spent before the visit reviewing the chart, time spent during the visit, and time spent after the visit on documentation, reviewing laboratory results, diagnostic imaging, medications, performing a medically necessary evaluation, counseling on diagnoses, care coordination, ordering appropriate tests, ordering appropriate medications, review of tests performed by other providers, reporting test results with the patient, communication with other healthcare providers. FORMERLY [facility], [facility] Medical History Deflation of breast implant Abnormal EKG History of breast cancer (~2008) History of diabetes mellitus GER[place]IA (obstructive sleep apnea) Palpitations Steatosis, liver History of MRSA infection Arthritis Sickle cell trait History of COVID-19 (~09/2019) Hx of cardiac murmur Post-COVID syndrome (~2019) Pneumonia (~2019) Asthma Hypertension GERD (gastroesophageal reflux disease) Constipation Surgical History History of left knee surgery (~2010) History of Cassi-en-Y gastric bypass (~2020) History of bilateral mastectomy (~2008) History of colonoscopy (~2016) History of hysterectomy (~2003) History of laparoscopic cholecystectomy (~2002) History of esophagogastroduodenoscopy (EGD) (~2017) History of sleeve gastrectomy (~2010) Family History Father DM (diabetes mellitus) Stroke Mother DM (diabetes mellitus) Brother No problems noted. Sister No problems noted. Son No problems noted. 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 Gender identity: Female Physical Exam Vital Signs: Last Vital Signs Pulse 75 07/03/24 09:27 Resp 13 07/03/24 09:27 BP 140/78 H 07/03/24 09:27 Pulse Ox 98 07/03/24 09:27 Oxygen Delivery Method Room Air 07/03/24 09:27 BMI result Body Mass Index 30.1 Assessment & Plan Assessment & Plan (1) Fall: Code(s): W19.XXXA - Unspecified fall, initial encounter Qualifiers: Encounter type: initial encounter Qualified Code(s): W19.XXXA - Unspecified fall, initial encounter (2) Left knee pain: Code(s): M25.562 - Pain in left knee Qualifiers: Chronicity: acute Qualified Code(s): M25.562 - Pain in left knee (3) Right ankle pain: Code(s): M25.571 - Pain in right ankle and joints of right foot Qualifiers: Chronicity: acute Qualified Code(s): M25.571 - Pain in right ankle and joints of right foot (4) Neck pain: Code(s): M54.2 - Cervicalgia (5) Bilateral hip pain: Code(s): M25.551 - Pain in right hip; M25.552 - Pain in left hip (6) Encounter related to worker's compensation claim: Code(s): Z02.6 - Encounter for examination for insurance purposes Plan . Orders: Referrals Orthopedics Referral M25.562 - Pain in left knee Medications: New lidocaine 4% (AsperFlex (lidocaine)) 1 patch topical DAILY PRN 60 ea 0RF pain Coding Level of Care Code Est Pt Level 5 (09499) Diagnoses Fall, initial encounter W19.XXXA Encounter type: initial encounter Acute pain of left knee M25.562 Chronicity: acute Acute right ankle pain M25.571 Chronicity: acute Neck pain M54.2 Bilateral hip pain M25.551; M25.552 Encounter related to worker's compensation claim Z02.6
[2024-07-03 09:27] VITALS: BP 140/78; PULSE 75; RESP 13; O2SAT 98; BMI 30.1
--- OUTSIDE RECORDS SUMMARY | 2024-07-03 09:36 | XMS_ITS | Continuity of Care Document ---
Author Organization [facility] Address [address] [place] [address], [address] [place] [address]- Care Team Providers Care Claims Counsel Name Role Phone Fer Nazario DO Primary Care Physician Encounter [facility] R [id number] Date(s): 06/13/24 - 06/20/24 [facility] [address] [place] [address] Drive [address] [place], [place] [address] Attending Physician: Martha Pineda MD Referring Physician: Fer Nazario DO Encounter Type: Office Visit Allergies, Adverse Reactions, Alerts Substance Criticality Severity Reaction Reaction Severity Status Cats Allergic rhinit is due to tree pollens Mold Active Grass Allergic rhinitis Ac tive Mold Allergic rhinitis Ac tive Medications Arnuity Ellipta 100 mcg inhalation powder 0 Refills, Maintenance, 06/13/24 2:16:00 PM EST, Partial fill upon patient request if the prescription is for a schedule II opioid drug. Start Date: 06/13/24 Status: Ordered Repeat number: 1 Ibuprofen Refills 0, Maintenance, 08/18/16 3:39:43 PM EST Start Date: 08/18/16 Status: Ordered Repeat number: 1 Mastectomy Bra See Instructions, # 3 units, Refills 0, Tot. Refills 0, Maintenance, dx: breast cancer, 09/29/16 4:35:19 PM EDT, Compound Start Date: 09/29/16 Status: Ordered Quantity: 3.0 Unit: Units Repeat number: 1 Mastectomy Bra Mastectomy Bra, See Instructions, # 1 units, Refills 0, Tot. Refills 0, Maintenance, Dx: Breast Cancer, 10/26/16 2:11:13 PM EDT, Compound Start Date: 04/08/16 Status: Ordered Quantity: 1.0 Unit: Units Repeat number: 1 Mastectomy prosthesis Mastectomy prosthesis, See Instructions, # 1 units, Refills 0, Tot. Refills 0, Soft Stop, Dx: Breast Cancer, 04/06/16 9:02:49 AM EDT, Compound Start Date: 04/06/16 Status: Ordered Quantity: 1.0 Unit: Units Repeat number: 1 Mastectomy Prosthesis See Instructions, # 3 units, Maintenance, dx: breast cancer, 09/29/16 4:35:30 PM EDT, Compound Start Date: 09/29/16 Status: Ordered Quantity: 3.0 Unit: Units Repeat number: 1 metFORMIN 500 mg oral tablet, extended release 1 tablet = 500 mg, By Mouth, Daily, 0 Refills, Maintenance, 06/09/16 3:19:31 PM EST Start Date: 06/09/16 Status: Ordered Repeat number: 1 montelukast 10 mg oral tablet Refills 0, Maintenance, 06/13/24 2:16:00 PM EST, Partial fill upon patient request if the prescription is for a schedule II opioid drug. Start Date: 06/13/24 Status: Ordered Repeat number: 1 Vitamin D3 = 50,000 International_Units, By Mouth, Every 28 days, 0 Refills, Maintenance, 07/14/13 10:00:34 AM EST Start Date: 07/14/13 Status: Ordered Repeat number: 1 Problem List Condition Confirmation Course Effective Dates Status Health St atus Informant Breast cancer, right breast 1 Confirmed Active Morbid obesity Confirmed Active Obese class I Confirmed Active DM (diabetes mellitus), secondary Confirmed Active Sickle cell trait Confirmed Active Former smoker, stopped smoking many years ago Confirmed Active 1Bilateral simple mastectomy and right axillary node dissection/reconstruction Vital Signs Most recent to oldest [Reference Range]: 1 Height 177.8 cm (06/13/24 2:16 PM) Weight 97 kg (06/13/24 2:16 PM) Body Mass Index [18.5-24.99 kg/m2] 30.68 kg/m2 *>HHI* (06/13/24 2:16 PM) Social History Social History Type Response Smoking Status Never smoker entered on: 08/18/16 Sex Sex Representation Female (finding) Patient Care team information Care Team Personnel Name: Christelle Andrade RN Position: S RN Member Role: Primary Care Nurse Name: Fer Nazario DO Position: Reference Physician Member Role: PCP Address: [address] [place] [address] [address] [place] [address] [place] [address]- Telecom: Name: Lena Bloom RN Position: S RN Member Role: Primary Care Nurse Care Team Related Persons Name: JAVED THOMAS Name: ERA THOMAS Insurance Providers Guarantor name: JEFF Health Plan Information #: 2 Payer: BLUE [employer] ELECT Member Number: [id number] Policy Number: Group Number: [id number] Health Plan Information #: 1 Payer: BLUE BENEFIT BBA PPO Member Number: [id number] Policy Number: Group Number: [id number]
--- OUTSIDE RECORDS SUMMARY | 2024-07-03 09:36 | XMS_ITS | Continuity of Care Document ---
Author Organization [facility] Address [address] [place] [address], [address] [place] [address]- Care Team Providers Care Director Semiconductor Name Role Phone Fer Nazario DO Primary Care Physician Encounter [facility] Date(s): 05/19/24 - 06/18/24 [facility] [address] [place] [address] Drive [address] [place], [place] [address] Encounter Type: Triage Allergies, Adverse Reactions, Alerts Substance Criticality Severity [...] Tot. Refills 0, Maintenance, Dx: Breast Cancer, 04/08/16 2:11:13 PM EDT, Compound Start Date: 04/08/16 [...] simple mastectomy and right axillary node dissection/reconstruction Social History Social History Type Response Smoking Status Never smoker entered on: 08/18/16 Sex Sex Representation Female (finding) Patient Care team information Care Team Personnel Name: Christelle Andrade RN Position: S RN Member Role: Primary Care Nurse Name: Fer Nazario DO Position: Reference Physician Member Role: PCP Address: [address] [place] [address] [place] [address] [facility] [place], [place] [address] Telecom: Name: Lena Bloom RN Position: S RN Member Role: Primary Care Nurse Care Team Related Persons Name: JAVED THOMAS Name: ERA THOMAS Insurance Providers Guarantor name: JEFF Health Plan Information #: 1 Payer: BLUE BENEFIT BBA PPO Member Number: [id number] Policy Number: JEFF Group Number: [id number]
== END ==
PROVIDERS: PCP Internal Medicine; Visit Provider Nurse Practitioner Family
DX: M25.562 Pain in left knee (principal); W19.XXXA Unspecified fall, initial encounter; M25.571 Pain in right ankle and joints of right foot; M54.2 Cervicalgia; M25.551 Pain in right hip; M25.552 Pain in left hip; Z02.6 Encounter for examination for insurance purposes

== ENCOUNTER → 2024-07-10 16:40 | Outpatient (BNV) | payer OTHER, SELFPAY | PROVIDERS: PCP Nurse Practitioner Family; Visit Provider Radiology Diagnostic Radiology | DX: M54.2 Cervicalgia (principal) | CPT/HCPCS: 72052 ==

== ENCOUNTER 2024-07-19 07:47 | Outpatient (REF) | payer OTHER, SELFPAY ==
--- OUTSIDE RECORDS SUMMARY | 2024-07-19 07:49 | XMS_ITS | Encounter Summary ---
Author Organization [facility] Address [address] [place] [address] Care Team Providers Care Account Executive Healthcare Name Role Phone Jorge Enriquez MD Primary Care Provider [phone] Encounter Details Date Type Department Care Team ([facility] st Contact Info) Description 08/31/2022 Scanned Document [facility] [address] [place] [id number] Provider, Generic Social History Tobacco Use Types Packs/Day Years Used Date Smoking Tobacco: Never Smokeless Tobacco: Never Alcohol Use Standard Drinks/Week Comments Never 0 (1 standard drink = 0.6 oz pur e alcohol) Sex and Gender Information Value Date Recorded Sex Assigned at Female 09/28/2022 5:09 AM EDT Gender Identity Female 09/28/2022 5:09 AM EDT Sexual Orientation Heterosexual (straight) 09/28 5:09 AM EDT COVID-19 Exposure Response Date Recorded In the last 10 days, have yo u been in contact with someone who was confirmed or suspected to have Coronavirus/COVID-19? No / Unsure 08/31/2022 7:57 AM EDT documented as of this encounter Plan of Treatment Not on file documented as of this encounter Procedures Procedure Name Priority Date/Time Associated Diagnosis Comments HX OUTSIDE ORDER 08/31/2022 documented in this encounter Results * HX OUTSIDE ORDER (08/31/2022) Narrative 08/31/2022 Ordered by an unspecified provider. Generic Provider HX AMB PROCEDURES documented in this encounter Visit Diagnoses Not on filedocumented in this encounter Care Teams Account Executive Healthcare Relationship Specialty Start Date End Date Joreg Enriquez MD [address] [place] [address] Dr Moura, JORGE L [address] PCP - General 08/31/22 documented as of this encounter
--- OUTSIDE RECORDS SUMMARY | 2024-07-19 07:49 | XMS_ITS | Encounter Summary ---
Author Organization [facility] Address [address] [place] [address] Care Team Providers Care Ice Cream Freezer Helper Name Role Phone Jorge Enriquez MD Primary Care Provider [phone] Encounter Details Date Type Department Care Team ([facility] st Contact Info) Description 09/15/2022 Scanned Document [facility] [address] [place] [address] Rosina Mckinney MD [address] [place] [address] Social History Tobacco Use Types Packs/Day Years Used Date Smoking Tobacco: Never Smokeless Tobacco: Never Alcohol Use Standard Drinks/Week Comments Not Currently 0 (1 standard drink = 0.6 oz [...] suspected to have Coronavirus/COVID-19? No / Unsure 09/07/2022 11:00 AM EDT documented as of this encounter Plan of Treatment Not on file documented as of this encounter Visit Diagnoses Not on filedocumented in this encounter Care Teams Ice Cream Freezer Helper Relationship Specialty Start Date End Date Jorge Enriquez MD [address] [place] [address] Dr Pop Wilson, JORGE L [id number] PCP - General 08/31/22 documented as of this encounter
--- OUTSIDE RECORDS SUMMARY | 2024-07-19 07:49 | XMS_ITS | Encounter Summary ---
Author Organization [facility] Address [address] [place] [address] Care Team Providers Care Unloading Checker Name Role Phone Jorge Enriquez MD Primary Care Provider [phone] Encounter Details Date Type Department Care Team ([facility] st Contact Info) Description 10/30/2022 Scanned Document [facility] Surgery [address] [place] [address] Rosina Mckinney MD [address] [place] [id number] Social History Tobacco Use Types Packs/Day Years Used Date Smoking Tobacco: Never Smokeless Tobacco: Never Alcohol Use Standard Drinks/Week Comments Not Currently 0 (1 standard drink = 0.6 oz pur e alcohol) AUDIT-C Answer Date Recorded Q1: How often do you have a drink containing alcohol? Never 09/28/2022 Q2: How many drinks containi ng alcohol do you have on a typical day when you are drinking? Patient does not drink Q3: How often do you have si x or more drinks on one occasion? Never 09/28/2022 Overall Financial Resource Strain (CARDIA) Answe r Date Recorded How hard is it for you to pa y for the very basics like food, housing, medical care, and heating? Not hard at all 09/29/2022 Hunger Vital Sign Answer Date Recorded Within the past 12 months, y ou worried that your food would run out before you got the money to buy more. Never true 09/30/19 23 Within the past 12 months, t he food you bought just didn't last and you didn't have money to get more. Never true 09/29/2022 PRAPARE - Transportation Answer Date Re corded In the past 12 months, has l ack of transportation kept you from medical appointments or from getting medications? No 09/12 In the past 12 months, has l ack of transportation kept you from meetings, work, or from getting things needed for daily living? No 09/29/2022 Housing Stability Vital Sign Answer Dilan e Recorded In the last 12 months, was t here a time when you were not able to pay the mortgage or rent on time? No 09/29/2022 In the last 12 months, how many places have you lived? 1 09/29/2022 In the last 12 months, was t here a time when you did not have a steady place to sleep or slept in a long-term (including now)? No 09/29/2022 Sex and Gender Information Value Date Recorded Sex Assigned at Female 09/28/2022 5:09 AM EDT Gender Identity Female 09/28/2022 5:09 AM EDT Sexual Orientation Heterosexual (straight) 09/28 5:09 AM EDT COVID-19 Exposure Response Date Recorded In the last 10 days, have yo u been in contact with someone who was confirmed or suspected to have Coronavirus/COVID-19? No / Unsure 10/30/2022 11:15 AM EDT documented as of this encounter Plan of Treatment Not on file documented as of this encounter Visit Diagnoses Not on filedocumented in this encounter Care Teams Unloading Checker Relationship Specialty Start Date End Date Jorge Enriquez MD [address] [place] [address] [place] [address] PCP - General 08/31/22 documented as of this encounter
--- OUTSIDE RECORDS SUMMARY | 2024-07-19 07:49 | XMS_ITS | Encounter Summary ---
Author Organization [facility] Address [address] [place] [address] Care Team Providers Care Clinical Nursing Coordinator Name Role Phone Jorge Enriquez MD Primary Care Provider [phone] Encounter Details Date Type Department Care Team ([facility] st Contact Info) Description 10/30/2022 Scanned Document [facility] Plastic & Reconstructive Surgery [address] [place] [address] Rosina Mckinney MD [address] [place] [address] Social History Tobacco Use Types Packs/Day Years [...] place to sleep or slept in a fpc (including now)? No 09/29/2022 Sex and Gender [...] on filedocumented in this encounter Care Teams Clinical Nursing Coordinator Relationship Specialty Start Date End Date Jorge Enriquez MD [address] [place] [address] [place] [address] PCP - General 08/31/22 documented as of this encounter
--- OUTSIDE RECORDS SUMMARY | 2024-07-19 07:49 | XMS_ITS | Encounter Summary ---
Author Organization [facility] Address [address] [place] [address] Care Team Providers Care Cook Station Name Role Phone Jorge Enriquez MD Primary Care Provider [phone] Encounter Details Date Type Department Care Team ([facility] st Contact Info) Description 10/22/[address] [facility] Plastic & Reconstructive Surgery [place] [address] [place] [address] Rosina Mckinney MD [address] [place] [address] Social History Tobacco Use Types Packs/Day Years [...] place to sleep or slept in a intermediate (including now)? No 09/29/2022 Sex and Gender Information Value Date Recorded Sex Assigned at Female 09/28/2022 5:09 AM EDT Gender Identity Female 09/28/2022 5:09 AM EDT Sexual Orientation Heterosexual (straight) 09/28 5:09 AM EDT COVID-19 Exposure Response Date Recorded In the last 10 days, have yo u been in contact with someone who was confirmed or suspected to have Coronavirus/COVID-19? No / Unsure 10/19/2022 9:18 AM EDT documented as of this encounter Plan of Treatment Not on file documented as of this encounter Visit Diagnoses Not on filedocumented in this encounter Care Teams Cook Station Relationship Specialty Start Date End Date Jorge Enriquez MD [address] [place] [address] [place] [address] PCP - General 08/31/22 documented as of this encounter
--- OUTSIDE RECORDS SUMMARY | 2024-07-19 07:49 | XMS_ITS | Encounter Summary ---
Author Organization [facility] Address [address] [place] [address] Care Team Providers Care Gas Appliance Servicer Helper Name Role Phone Jorge Enriquez MD Primary Care Provider [phone] Encounter Details Date Type Department Care Team ([facility] st Contact Info) Description 11/19/2022 Telephone [facility] Plastic & Reconstructive Surgery [address] [place] [address] Rosina Mckinney MD [address] [place] [address] Social History Tobacco Use Types Packs/Day Years [...] place to sleep or slept in a snf (including now)? No 09/29/2022 Sex and Gender [...] AM EDT documented as of this encounter Miscellaneous Notes * Telephone Encounter - Sally Kimberly - 11/19/2022 2:31 PM EDT Following up on the fax she sent for [employer] paper work please confirm you received it and follow up on return date best contact number for pt is [phone] documented in this encounter Plan of Treatment Not on file documented as of this encounter Visit Diagnoses Not on filedocumented in this encounter Care Teams Gas Appliance Servicer Helper Relationship Specialty Start Date End Date Jorge Enriquez MD [address] [place] [address] [place] [address] PCP - General 08/31/22 documented as of this encounter
--- OUTSIDE RECORDS SUMMARY | 2024-07-19 07:49 | XMS_ITS | Clinical Summary ---
Author Organization [facility] Address [address] [place] [address] Care Team Providers Care Sap Data Analyst Name Role Phone Jorge Enriquez MD Primary Care Provider [phone] Allergies No known active allergies Medications Medication Sig Dispensed Refills Start Date End Date Status Blood Glucose Monitoring Suppl (ONE TOUCH ULTRA 2 DEVICE KIT) w/Device Kit 03/27/2022 Active cholecalciferol (CHOLECALCIFEROL ) 125 MCG (5000 UT) capsule 03/26/2022 Active cyanocobalamin (VITAMIN B-12) 1000 MCG/ML injection INJECT 1 ML INTRAMUSCULARLY ONCE A WEEK 03/09/2022 Active OneTouch Ultra test strip USE TO TEST DAILY 03/20/2022 Active Lancets (onetouch ultrasoft) lancets 03/26/2022 Active OMEprazole (PriLOSEC) 40 MG capsule 03/26/2022 Active lisinopril-hydro CHLOROthiazide (PRINZIDE,ZESTOR ETIC) 20-12.5 MG per tablet Take 1 tablet by mouth daily. 08/05/2022 Active acetaminophen (TYLENOL) 325 MG tabletIndication s:History of cancer of left breast Take 2 tablets (650 mg total) by mouth 4 times daily (every 6 hours) as needed for mild pain, headaches or fever. 240 tablet 10/02/2022 Active Active Problems Problem Noted Date Diagnosed Date Personal history of malignant neoplasm of breast 09/28/2022 Assessment & Plan (01/27/2023 11:11 AM EDT): Surgery as scheduled. -Advised to be n.p.o. after midnight night before surgery. Avoid NSAIDs (ibuprofen, Motrin, Aleve, Naprosyn, aspirin) for 7 days preoperatively. In addition advised to avoid herbal supplements, green tea, vitamin E for 7 days preoperatively. Diabetes mellitus Assessment & Plan (01/27/2023 10:57 AM EDT): Diet controlled. Continue lifestyle management. Hypertension Assessment & Plan (01/27/2023 11:10 AM EDT): Above goal on arrival but notes that she did not take her antihypertensives today. Asymptomatic and follows her blood pressure at home. Will continue to monitor and verbalized understanding of need to take antihypertensives. Family History Medical History Relation Name Comments Diabetes Father Hypertension Father Diabetes Mother Hypertension Mother Relation Name Status Comments Father Alive Mother Social History Tobacco Use Types Packs/Day Years Used Date Smoking Tobacco: Former Cigarettes Q uit: 1982 Smokeless Tobacco: Never Tobacco Cessation:Counseling Given: Not Answered Alcohol Use Standard Drinks/Week Comments Not Currently [...] place to sleep or slept in a usp (including now)? No 09/29/2022 Sex and Gender Information Value Date Recorded Sex Assigned at Female 09/28/2022 5:09 AM EDT Gender Identity Female 09/28/2022 5:09 AM EDT Sexual Orientation Heterosexual (straight) 09/28 5:09 AM EDT Last Filed Vital Signs Vital Sign Reading Time Taken Comments Blood Pressure 164/102 03/12/2023 1:35 PM EDT Pulse 68 03/12/2023 1:35 PM EDT Temperature 36.2 ??C (97.2 ??F) 02/10/2023 10:30 AM E DT Respiratory Rate 18 02/10/2023 10:30 AM EDT Oxygen Saturation 97% 03/12/2023 1:35 PM EDT Inhaled Oxygen Concentration - - Weight 93.9 kg (207 lb) 03/12/2023 1:35 PM EDT Height 177.8 cm (5' 10 ) 03/12/2023 1:35 PM EDT Body Mass Index 29.7 03/12/2023 1:35 PM EDT Plan of Treatment Health Maintenance Due Date Last Done Comments Hepatitis C Virus Screening 1960 Pneumococcal Vaccine: Pediatric (0-5 Years) and At-Risk Patients (6 to 49 Years) (1 of 2 - PCV) 1966 Foot Exam 1970 Hemoglobin A1C 1970 Lipid Panel 1970 Ophthalmology Exam 1970 HIV Screening 1973 Microalbumin/Creatinine Ratio Urine 1978 DTaP/Tdap/Td Vaccines (1 - Tdap) 12/16/1979 Pneumococcal Vaccines 50+ (1 of 2 - PCV) 12/16/1979 Pap Smear (Ages 21-65) 1981 Mammogram 2000 Colonoscopy 2005 Zoster (Shingles) Vaccine (1 of 2) 2010 Creatinine with GFR 10/01/2023 09/30/2022, 09/29/2022, 09/07/2022, Additional history exists Influenza Vaccine 01/13/2024 COVID-19 Vaccine ( season) 2024 RSV Vaccine 60 years and older and Patients (1 - 1-dose 75+ series) 12/16/2035 Hepatitis B Vaccines Aged Out No long er eligible based on patient's age to complete this topic Medical Devices Implanted Type Area Mobile Service Rv Technician Device Identifier Shelf Expiration Date Model / Serial / Lot [id number] Resource Forester Anastomosis [place] [employer] Titanium 20mhz Od3 M - [id number] Implanted:Qty: 1 on 09/28/2022 by Jose Rafael Barroso MD at [facility] Graft Right: Breast [employer] [facility] 03/16/2027 [id number] / [id number] / [id number] Resource Forester Anastomosis [place] [employer] Titanium 20mhz Od3 M - [id number] Implanted:Qty: 1 on 09/28/2022 by Rosina Mckinney MD at [facility] Graft Left: Breast [employer] [facility] 03/16/2027 [id number] / [id number] / [id number] Procedures Procedure Name Priority Date/Time Associated Diagnosis Comments BASIC METABOLIC PANEL Routine 09/30/2022 8:04 AM EDT from Last 3 Months or Most Recently Relevant to Health Maintenance Results * (ABNORMAL) Basic Metabolic Panel (Early AM) (09/30/2022 8:04 AM EDT) Glucose 91 74 - 106 mg/dL 09/30/2022 8:41 AM EDT [facility] Comment:Fasting: <100 mg/dL, Non-Fasting: <200 mg/dL (ADA 2005) Blood Urea Nitrogen (BUN) 15 9 - 23 mg/dL 09/30/2022 8:41 AM EDT [facility] Creatinine 0.8 0.6 - 1.0 mg/dL 09/30/2022 8:41 AM EDT [facility] eGFR 84 >59 09/30/2022 8:41 AM EDT [facility] Comment: CKD-EPI (2020) in mL/min/1.73 sq meters. Reported eGFR is based on the CKD-EPI equation that does not use a race coefficient as of 08/18/2022 Sodium 145 136 - 145 mmol/L 09/30/2022 8:41 AM EDT [facility] Potassium 3.8 3.4 - 4.5 mmol/L 09/30/2022 8:41 AM EDT [facility] Chloride 112(H) 98 - 107 mmol/L 09/30/2022 8:41 AM EDT [facility] CO2 28 20 - 31 mmol/L 09/30/2022 8:41 AM EDT [facility] Anion Gap 5 5 - 15 09/30/2022 8:41 AM EDT [facility] Calcium 8.3(L) 8.7 - 10.5 mg/dL 09/30/2022 8:41 AM EDT [facility] BUN/Creatinine Ratio 19 10.0 - 25.0 Ratio 09/30/2022 8:41 AM EDT [facility] Blood specimen (specimen) (Plasma/Serum) 09/30/2022 8:04 AM EDT 09/30/2022 8:21 AM EDT Althea Palacio PA-C LAB BLOOD [facility]L [facility] See Below [facility] [address] [place] [address] from Last 3 Months or Most Recently Relevant to Health Maintenance Advance Directives * Full Code (Latest Code Status on File) Date Activated Date Inactivated Comments 09/28/2022 6:38 PM 02/10/2023 5:34 AM * Full Code Date Activated Date Inactivated Comments 09/28/2022 5:34 AM 09/28/2022 6:38 PM Care Teams Sap Data Analyst Relationship Specialty Start Date End Date Jorge Enriquez MD [address] [place] [address] [place] [address] PCP - General 08/31/22
--- OUTSIDE RECORDS SUMMARY | 2024-07-19 07:49 | XMS_ITS | Continuity of Care Document ---
Author Organization [facility] Address [address] [place] [address], [address] [place] [address]- Care Team Providers Care Mending Carrier Name Role Phone Fer Nazario DO Primary Care Physician [phone] Encounter [facility] Date(s): 06/13/24 - 07/13/24 [facility] [address] [place] [address] Drive [address] [place], [place] [address] Attending Physician: Admtr [id number] Admitting Physician: AdmtrJamar Referring Physician: Admtr, Ar8 Encounter Type: Triage Allergies, Adverse Reactions, Alerts [...] List Condition Confirmation Course Effective Dates Status [facility] Informant Breast cancer, right breast [...] Team Personnel Name: Christelle Andrade RN Position: Kristal RN Member Role: Primary Care Nurse Name: Fer Nazario DO Position: Reference Physician Member Role: PCP Address: [address] [place] [address] [address] [place] [address] [facility] [address] Telecom: Name: Lena Bloom RN Position: S RN Member Role: Primary Care Nurse Care Team Related Persons Name: JAVED THOMAS Name: ERA THOMAS Insurance Providers Guarantor name: JEFF Health Plan Information #: 1 Payer: BLUE BENEFIT BBA PPO Member Number: NA Policy Number: NA Group Number: [id number]
--- OUTSIDE RECORDS SUMMARY | 2024-07-19 07:49 | XMS_ITS | Encounter Summary ---
Author Organization [facility] Address [address] [place] [address] Care Team Providers Care Gas Operations Analyst Name Role Phone Jorge Enriquez MD Primary Care Provider [phone] Encounter Details Date Type Department Care Team ([facility] st Contact Info) Description 11/23/2022 Scanned Document [facility] Plastic & Reconstructive Surgery [address] [place] [address] Rosina Mckinney MD [address] [place] [address] Social History Tobacco Use Types Packs/Day Years [...] filedocumented in this encounter Care Teams Gas Operations Analyst Relationship Specialty Start Date End Date Jorge Enriquez MD [address] [place] [address] [place] [address] PCP - General 08/31/22 documented as of this encounter
--- OUTSIDE RECORDS SUMMARY | 2024-07-19 07:49 | XMS_ITS | Encounter Summary ---
Author Organization [facility] Address [address] [place] [address] Care Team Providers Care Carburetor Rebuilder Name Role Phone Jorge Enriquez MD Primary Care Provider [phone] Encounter Details Date Type Department Care Team ([facility] st Contact Info) Description 10/22/2022 Telephone [facility] Plastic & Reconstructive Surgery [address] [place] [address] Rosina Mckinney MD [address] [place] [address] Social History Tobacco Use Types Packs/Day Years [...] place to sleep or slept in a correction (including now)? No 09/29/2022 Sex and Gender [...] encounter Miscellaneous Notes * Telephone Encounter - Pooja Mast MA - 10/22/2022 3:56 PM EDT Form was completed, faxed and scanned into the chart. Patient should be all set, thank you! * Telephone Encounter - Sally Harris - 10/22/2022 10:00 AM EDT Elma wanted to let you know she or Sergey from [facility] will be faxing over forms needed documented in this encounter Plan of Treatment Not on file documented as of this encounter Visit Diagnoses Not on filedocumented in this encounter Care Teams Carburetor Rebuilder Relationship Specialty Start Date End Date Jorge Enriquez MD [address] [place] [address] Dr Moura, JORGE L [address] PCP - General 08/31/22 documented as of this encounter
--- NOTE | 2024-07-19 07:50 | PFT_ITS ---
Flows: FEV1: 92 % of predicted at 2.31 L FVC: 85 % of predicted at 2.71 L FEV1/FVC: 85 % Bronchodilator response: Present Volumes: Total lung capacity: 69 % of predicted at 4.29 L Residual volume: 73 % of predicted at 1.63 L Slow vital capacity: 67 % of predicted at 2.66 L Expiratory reserve volume: 76 % of predicted at 0.78 L Diffusion capacity: Mildly decreased, corrects to normal after adjustment for alveolar ventilation. Impression: Mild restrictive ventilatory defect with positive bronchodilator response. Combination of decreased diffusion capacity and restrictive ventilatory defect suggests underlying pulmonary parenchymal disease. Clinical correlation is advised. MTDD
== END 2024-07-19 07:48 | disposition home or self-care (01) ==
LOC: HO.RESP 07:47
PROVIDERS: PCP Nurse Practitioner Family; Visit Provider Nurse Practitioner Family
DX: J45.41 Moderate persistent asthma with (acute) exacerbation (principal); J98.4 Other disorders of lung
CPT/HCPCS: 94010; 94640; 94727; 94729

== ENCOUNTER → 2024-07-19 07:50 | Outpatient (BNV) | payer OTHER, SELFPAY | PROVIDERS: PCP Nurse Practitioner Family; Visit Provider Internal Medicine Pulmonary Disease | DX: J45.41 Moderate persistent asthma with (acute) exacerbation (principal) | CPT/HCPCS: 94060; 94727; 94729 ==

== ENCOUNTER 2024-07-28 07:30 | Outpatient (RCR) | payer OTHER, SELFPAY ==
[2024-06-22 07:44] VITALS: BP 196/94; PULSE 75; RESP 18; TEMP 36.3
[2024-06-22] MEDS: Iron Sucrose Complex 200 MG/10 ML VIAL IVPUSH (07:47)
[2024-06-28 07:24] VITALS: BP 174/99; PULSE 82; RESP 14; TEMP 36.4; O2SAT 100
[2024-06-28] MEDS: Iron Sucrose Complex 200 MG/10 ML VIAL IVPUSH (07:36)
[2024-07-05 07:29] VITALS: BP 173/98; PULSE 88; RESP 14; TEMP 36.1; O2SAT 100
[2024-07-05] MEDS: Iron Sucrose Complex 200 MG/10 ML VIAL IVPUSH (07:45)
[2024-07-05] MEDS: 0.9 % Sodium Chloride Flush 10 ML SYRINGE 5 ML IVFLUSH (07:56)
[2024-07-14 07:24] VITALS: BP 156/88; PULSE 70; RESP 18; TEMP 36.8
[2024-07-14] MEDS: Iron Sucrose Complex 200 MG in 0.9 % Sodium Chloride 100 ML 440 MG IV (07:42)
[2024-07-14 07:48] LABS: Hematocrit 34.3 % (37.0-47.0); Hemoglobin 10.4 g/dl (12.0-16.0); Mean Corpuscular HGB Conc 30.3 g/dl (31.0-35.0); Mean Corpuscular Hemoglobin 20.6 pg (27.0-33.0); Mean Corpuscular Volume 68.1 fL (80.0-98.0); Mean Platelet Volume 9.6 fL (9.4-12.3); Platelet Count 384 X10*3/uL (160-400); Red Blood Count 5.04 X10*6/uL (4.20-5.50); Red Cell Distribution Width 25.3 % (11.0-16.0)
[2024-07-14 08:28] LABS: Ferritin 85 ng/mL (10-250)
[2024-07-21 07:24] VITALS: BP 179/84; PULSE 75; RESP 18; TEMP 36.1; O2SAT 100
[2024-07-21] MEDS: Iron Sucrose Complex 200 MG in 0.9 % Sodium Chloride 100 ML 440 MG IV (07:32)
[2024-07-28 07:33] VITALS: BP 145/86; PULSE 57; RESP 18; TEMP 36.3
[2024-07-28] MEDS: Iron Sucrose Complex 200 MG in 0.9 % Sodium Chloride 100 ML 440 MG IV (07:46)
== END 2024-07-28 08:00 | disposition home or self-care (01) ==
LOC: HO.INF 07:30
PROVIDERS: Visit Provider Internal Medicine
DX: D50.9 Iron deficiency anemia, unspecified (principal)
CPT/HCPCS: 36415; 82728; 85027; 96365; 96374; J1756

== ENCOUNTER 2024-07-28 15:06 | Outpatient (AMB) | payer OTHER, SELFPAY ==
--- OUTSIDE RECORDS SUMMARY | 2024-07-28 15:08 | XMS_ITS | Encounter Summary ---
Author Organization [facility] Address [address] [place] [address] Care Team Providers Care Pot Liner Name Role Phone Jorge Enriquez MD Primary Care Provider [phone] Encounter Details Date Type Department Care Team ([facility] st Contact Info) Description 10/22/2022 Scanned Document [facility] Plastic & Reconstructive Surgery [place] [address] [place] [address] Rosina Mckinney MD [address] [place] [address] Social History Tobacco Use Types [...] on filedocumented in this encounter Care Teams Pot Liner Relationship Specialty Start Date End Date Jorge Enriquez MD [address] [place] [address] [place] [address] PCP - General 08/31/22 documented as of this encounter
--- OUTSIDE RECORDS SUMMARY | 2024-07-28 15:08 | XMS_ITS | Encounter Summary ---
Author Organization [facility] Address [address] [place] [address] Care Team Providers Care Oil And Gas Field Technician Name Role Phone Jorge Enriquez MD Primary Care Provider [phone] Encounter Details Date Type Department Care Team ([facility] st Contact Info) Description 11/19/2022 Telephone [facility] Plastic & Reconstructive Surgery [address] [place] [address] Rosina Mckinney MD [address] [place] [address] Social History Tobacco Use Types Packs/Day Years [...] place to sleep or slept in a long term (including now)? No 09/29/2022 Sex and Gender [...] date best contact number for pt is [phone] documented in this encounter Plan of Treatment Not on file documented as of this encounter Visit Diagnoses Not on filedocumented in this encounter Care Teams Oil And Gas Field Technician Relationship Specialty Start Date End Date Jorge Enriquez MD [address] [place] [address] [place] [address] PCP - General 08/31/22 documented as of this encounter
--- OUTSIDE RECORDS SUMMARY | 2024-07-28 15:08 | XMS_ITS | Encounter Summary ---
Author Organization [facility] Address [address] [place] [address] Care Team Providers Care Icebox Worker Name Role Phone Jorge Enriquez MD Primary Care Provider [phone] Encounter Details Date Type Department Care Team ([facility] st Contact Info) Description 10/30/2022 Scanned Document [facility] Plastic & Reconstructive Surgery [address] [place] [address] Rosina Mckinney MD [address] [place] [address] Social History Tobacco Use Types Packs/Day Years [...] place to sleep or slept in a senior care (including now)? No 09/29/2022 Sex and Gender [...] on filedocumented in this encounter Care Teams Icebox Worker Relationship Specialty Start Date End Date Jorge Enriquez MD [address] [place] [address] [place] [address] PCP - General 08/31/22 documented as of this encounter
--- OUTSIDE RECORDS SUMMARY | 2024-07-28 15:08 | XMS_ITS | Encounter Summary ---
Author Organization [facility] Address [address] [place] [address] Care Team Providers Care Edger Runner Name Role Phone Jorge Enriquez MD Primary Care Provider [phone] Encounter Details Date Type Department Care Team ([facility] st Contact Info) Description 11/23/2022 Scanned Document [facility] Plastic & Reconstructive Surgery [address] [place] [address] oRsina Mckinney MD [address] [place] [address] Social History Tobacco Use Types Packs/Day Years [...] on filedocumented in this encounter Care Teams Edger Runner Relationship Specialty Start Date End Date Jorge Enriquez MD [address] [place] [address] [place] [address] PCP - General 08/31/22 documented as of this encounter
--- OUTSIDE RECORDS SUMMARY | 2024-07-28 15:08 | XMS_ITS | Encounter Summary ---
Author Organization [facility] Address [address] [place] [address] Care Team Providers Care Books Salesperson Name Role Phone Jorge Enriquez MD Primary Care Provider [phone] Encounter Details Date Type Department Care Team ([facility] st Contact Info) Description 08/31/2022 Scanned Document [facility] [address] [facility] [address] [place] [id number] Provider, Generic Social History Tobacco Use [...] on filedocumented in this encounter Care Teams Books Salesperson Relationship Specialty Start Date End Date Jorge Enriquez MD [address] [place] [address] Dr Moura, JORGE L [address] PCP - General 08/31/22 documented as of this encounter
--- OUTSIDE RECORDS SUMMARY | 2024-07-28 15:08 | XMS_ITS | Encounter Summary ---
Author Organization [facility] Address [address] [place] [address] Care Team Providers Care Felt Hanger Name Role Phone Jorge Enriquez MD Primary Care Provider [phone] Encounter Details Date Type Department Care Team ([facility] st Contact Info) Description 10/22/2022 Telephone [facility] Plastic & Reconstructive Surgery [address] [place] [address] Rosina Mckinney MD [address] [place] [address] Social History Tobacco Use Types Packs/Day Years [...] place to sleep or slept in a skilled nursing (including now)? No 09/29/2022 Sex and Gender [...] you know she or Sergey from [facility] will be faxing over forms needed documented in this encounter Plan of Treatment Not on file documented as of this encounter Visit Diagnoses Not on filedocumented in this encounter Care Teams Felt Hanger Relationship Specialty Start Date End Date Jorge Enriquez MD [address] [place] [address] Dr Moura, JORGE L [address] PCP - General 08/31/22 documented as of this encounter
--- OUTSIDE RECORDS SUMMARY | 2024-07-28 15:08 | XMS_ITS | Encounter Summary ---
Author Organization [facility] Address [address] [place] [address] Care Team Providers Care High School Principal Name Role Phone Jorge Enriquez MD Primary Care Provider [phone] Encounter Details Date Type Department Care Team ([facility] st Contact Info) Description 09/15/2022 Scanned Document [facility] Plastic & Reconstructive Surgery [address] [place] [address] Rosina Mckinney MD [address] [place] [address] Social History Tobacco Use Types Packs/Day Years [...] on filedocumented in this encounter Care Teams High School Principal Relationship Specialty Start Date End Date Jorge Enriquez MD [address] [place] [address] Dr Pop [place], JORGE L [id number] PCP - General 08/31/22 documented as of this encounter
--- OUTSIDE RECORDS SUMMARY | 2024-07-28 15:08 | XMS_ITS | Clinical Summary ---
Author Organization [facility] Address [address] [place] [id number] Care Team Providers Care Prop And Effects Designer Name Role Phone Jorge Enriquez MD Primary Care Provider [phone] Allergies No known active allergies Medications Medication [...] place to sleep or slept in a [place] [facility] facility (including now)? No 09/29/2022 Sex and Gender [...] this topic Medical Devices Implanted Type Area Bung Dropper Device Identifier Shelf Expiration Date Model / Serial / Lot [id number] Roaster Operator Anastomosis [employer] Titanium 20mhz Od3 M - [id number] Implanted:Qty: 1 on 09/28/2022 by Jose Rafael Barroso MD at [facility] Graft Right: Breast [employer] [facility] 03/16/2027 [id number] / [id number] / [id number] Roaster Operator Anastomosis [employer] Titanium 20mhz Od3 M - [id number] Implanted:Qty: 1 on 09/28/2022 by Rosina Mckinney MD at [facility] Graft Left: Breast [email or web address] [facility] 03/16/2027 [id number] / [id number] / [id number] Procedures Procedure Name Priority Date/Time Associated Diagnosis Comments BASIC METABOLIC PANEL Routine 09/30/2022 8:04 AM EDT from Last 3 Months or Most Recently Relevant to Health Maintenance Results * (ABNORMAL) Basic Metabolic Panel (Early AM) (09/30/2022 8:04 AM EDT) Glucose 91 74 - 106 mg/dL 09/30/2022 8:41 AM EDT [facility] Comment:Fasting: <100 mg/dL, Non-Fasting: <200 mg/dL (ADA 2005) Blood Urea Nitrogen (BUN) 15 9 - 23 mg/dL 09/30/2022 8:41 AM EDT [facility] Creatinine 0.8 0.6 - 1.0 mg/dL 09/30/2022 8:41 AM EDT [facility] eGFR 84 >59 09/30/2022 8:41 AM EDT [facility] Comment: CKD-EPI (2020) in mL/min/1.73 sq meters. Reported eGFR is based on the CKD-EPI equation that does not use a race coefficient as of 08/18/2022 Sodium 145 136 - 145 mmol/L 09/30/2022 8:41 AM EDT [facility] Potassium 3.8 3.4 - 4.5 mmol/L 09/30/2022 8:41 AM EDT [facility] Chloride 112(H) 98 - 107 mmol/L 09/30/2022 8:41 AM EDT [facility] CO2 28 20 - 31 mmol/L 09/30/2022 8:41 AM EDT [facility] Anion Gap 5 5 - 15 09/30/2022 8:41 AM EDT [facility] Calcium 8.3(L) 8.7 - 10.5 mg/dL 09/30/2022 8:41 AM EDT [facility] BUN/Creatinine Ratio 19 10.0 - 25.0 Ratio 09/30/2022 8:41 AM EDT [facility] Blood specimen (specimen) (Plasma/Serum) 09/30/2022 8:04 AM EDT 09/30/2022 8:21 AM EDT Althea Palacio PA-C [facility] See Below [facility] [address] [place] [address] from Last 3 Months or Most Recently Relevant to Health Maintenance Advance Directives * Full Code (Latest Code Status on File) Date Activated Date Inactivated Comments 09/28/2022 6:38 PM 02/10/2023 5:34 AM * Full Code Date Activated Date Inactivated Comments 09/28/2022 5:34 AM 09/28/2022 6:38 PM Care Teams Prop And Effects Designer Relationship Specialty Start Date End Date Jorge Enriquez MD [address] [place] [address] [place] [address] PCP - General 08/31/22
--- OUTSIDE RECORDS SUMMARY | 2024-07-28 15:08 | XMS_ITS | Encounter Summary ---
Author Organization [facility] Address [address] [place] [address] Care Team Providers Care Diesel Automotive Technician Name Role Phone Jorge Enriquez MD Primary Care Provider [phone] Encounter Details Date Type Department Care Team ([facility] st Contact Info) Description 10/30/2022 Scanned Document [facility] [address] [place] [address] Rosina Mckinney MD [address] [place] [id number] Social History Tobacco Use Types Packs/Day Years [...] on filedocumented in this encounter Care Teams Diesel Automotive Technician Relationship Specialty Start Date End Date Jorge Enriquez MD [address] [place] [address] [place] [id number] PCP - General 08/31/22 documented as of this encounter
--- NOTE | 2024-07-28 15:16 | A.OFFPC_ITS ---
Vital Signs 07/28/24 15:38 07/28/24 16:19 Height 5 ft 10 in Weight 210 lb BMI 30.1 BP 158/90 H 160/100 H Blood Pressure Location Rt brachial Rt brachial Position Sitting Respiration 14 Pulse 66 Pulse Source Pulse Oximeter Temp 97.1 F Temp Source Oral Pulse Oximetry (%) 99 Oxygen Delivery Method Room Air Intake Visit Reasons: BREANNA / Dr. Enriquez Intake Note: BREANNA to establish care Rooming House Operator Required: No Allergies cat dander Allergy (Severe, Verified 07/28/24 15:50) Loss Voice environmental allergies Allergy (Severe, Verified 07/28/24 15:50) Sneezing Medication List - Last Reconciled 07/28/24 by Umm Cates, [employer] SUPERVIS[employer]- albuterol sulfate 90 mcg/actuation 1 puff inhalation Q4H PRN cholecalciferol (vitamin D3) 50 mcg PO DAILY cyanocobalamin (vitamin B-12) 1,000 mcg IM QWEEK docusate sodium (Colace) 200 mg (2 x 100 mg) PO BEDTIME fluticasone furoate 100 mcg/actuation (Arnuity Ellipta) 1 inh inhalation DAILY iron,carbonyl-vitamin C 65 mg iron- 125 mg (Vitron-C) 1 tab PO DAILY 90 days lidocaine 5% 1 patch topical DAILY montelukast (Singulair) 10 mg PO BEDTIME pantoprazole 40 mg PO QAM Tobacco use date assessed: 07/28/24 Dental Screening Dental Screen Date: 07/28/24 Did you have a dental visit in the last 12 months?: Yes Did you have a dental problem in the last 6 months where you did not have access to dental care?: No Was dental information given to patient?: Patient has dentist HPI HPI Comments History of Present Illness Details 63 y/o F with atrial tachycardia, GERD, hx of DM, HTN, GREMANIA, sickle cell trait, fatty liver, hx of breast ca, Health Maintenance Tdap 2017, Declined flu, recommend Shingles and PVC @ pharmacy Mammo s/p bilat mastectomy colon pending reports done need records DEXA ordered today Specialists Pulm Heme last infusion today Mammo s/p bilat mastectomy colon pending The patient is a 63-year-old female presenting to establish care due to her complex medical history requiring diligent management. - Notably involved with pulmonology for asthma management; active w/ Pulm - Chronic multiple joint arthralgias are present; thought to be related to long covid - Gastric ulcers with GERD are noted, on PPI,managed by GI - Iron deficiency anemia intervention co nfirmed, with last iron infusion received the same day and ongoing measures to monitor hemoglobin levels. Active w heme. denies overt bleeding. Labs 07/14/24. Also gets b12 injections - Obstructive sleep apnea symptoms have re-emerged, falling asleep driving, new in the last 1 year; sleep study 2022. Rec: in lab sleep study. - Premature atrial contractions with pal pitations are addressed, active w cards. - Historical gastric sleeve procedure - Record confirms history of breast canc er successful intervention through mastectomy without subsequent tissue to monitor via mammogram. - Diabetes Mellitus resolved s/p gastric bypass. - Sickle Cell Trait HTN - was on ACEI in past; BP elevated today, even on recheck. C/o chronic headache. c/o twitching of body parts occurs randomly. New. Denies sz hx. Physical Exam General: Well developed, well nourished, in no acute distress. Appears stated age. Head: Normocephalic, atraumatic. Eyes: Scleras nonicteric bilat Thyroid nontender Lungs: Clear to auscultation bilaterally dim throughout Heart: Regular rate and rhythm. Cardiac murmur noted since childhood. Pulses: Peripheral pulses are equal and palpable bilaterally. Extremities: No clubbing, cyanosis nor edema is noted. Psych: Mood and affect appropriate. Neuro : nonfocal Discussion Notes In dialogue with the patient, I addressed the multitude of health conditions requiring ongoing and appropriate specialty care. Discussed the importance of follow-up with pulmonology, cardiology, gastroenterology, hematology, and orthopedics, as these specialties manage her substantial comorbidities. We reviewed the need for continuous iron monitoring given her recent infusion. Emphasized the seriousness of obstructive sleep apnea, including the potential for contributing to cardiovascular risks, and suggested a new sleep study to assess current status. Discussed the patient's adjustment to her current medications and lack of adverse reactions, ensuring gradual and regular review of effectiveness and possible side effects. The patient consented to having necessary labs drawn to evaluate her current health status more comprehensively and consented to ordering a sleep study, acknowledging the elevated importance of sleep management moving forward. Assessment and Plan 63-year-old female with history of asthm a, chronic joint arthralgias, gastric ulcers with GERD, hypertension, iron deficiency anemia, obstructive sleep apnea, PACs with palpitations, among other complex diagnoses, presenting to establish primary care management. Primary concerns focus on current anemia and fatigue possibly linked to untreated sleep apnea needing reevaluation. Ordered sleep study and relevant lab work to assist in treatment adjustments and management of care moving forward. Aim to maintain chronic condition stability through multidisciplinary coordination. 1. Obstructive Sleep Apnea Arrange comprehensive sleep study to reassess symptoms and determine appropriate CPAP therapy modifications going forward. 2. Iron Deficiency Anemia Monitor hemoglobin and iron levels post-infusion, with repeat laboratory work advised to confirm therapeutic response and adjust treatment as needed. 3. Gastric Ulcers With Gerd Follow recommended dietary and pharmaceutical management; consult gastroenterology if symptoms persist or escalate. 4. Chronic Joint Arthralgias Continued pain management advised, with orthopedic consultations as clinically necessary to evaluate any emergent joint complications. 5. Diabetes Mellitus Monitor glycemic control 6. Asthma Ongoing management under pulmonology, with focus on maintaining medical regimen and addressing exacerbations through appropriate interventions. 7. Premature Atrial Contractions Pacs Wi th Palpitations Regular cardiology follow-up and cardiac monitoring to evaluate current interventions and manage arrhythmic episodes effectively. 8. History Of Breast Cancer Maintain awareness of potential oncologic symptoms post-mastectomy, with no mammogram needed given absence of breast tissue. 9. Hypertension Ensure consistent blood pressure monitoring and medication compliance, with follow-up adjustments as needed with care team collaboration. Patient Instructions - Continue routine medications and atten d follow-up appointments with specialists as scheduled. - Monitor blood pressure regularly and r eport any significant changes. - Follow dietary recommendations for man aging GERD and diabetes. - Complete upcoming sleep study to evalu ate obstructive sleep apnea. - Report significant or persistent sympt oms affecting joint health or cardiac function. - Monitor BP at home for 1 week. - RTO 1 week to eval labs and for BP rec heck. Consent Consent received for conducting a new sleep study to evaluate current sleep apnea symptoms, confirming understanding of the importance of sleep management in preventing cardiovascular morbidity and mortality. Patient consented verbally, agreeing to receive results and further recommendations following the study. Patient was informed and verbally consented to the use of an ambient scribe for clinic note documentation during this visit. Total time spent caring for the patient today was 60 minutes. This includes time spent before the visit reviewing the chart, time spent during the visit, and time spent after the visit on documentation, reviewing laboratory results, diagnostic imaging, medications, performing a medically necessary evaluation, counseling on diagnoses, care coordination, ordering appropriate tests, ordering appropriate medications, review of tests performed by other providers, reporting test results with the patient, communication with other healthcare providers. [facility] Medical History Deflation of breast implant Abnormal EKG History of breast cancer (~2008) History of diabetes mellitus GERMANIA (obstructive sleep apnea) Palpitations Steatosis, liver History of MRSA infection Arthritis Sickle cell trait History of COVID-19 (~09/2019) Hx of cardiac murmur Post-COVID syndrome (~2019) Pneumonia (~2019) Asthma Hypertension GERD (gastroesophageal reflux disease) Constipation Surgical History History of left knee surgery (~2010) History of Cassi-en-Y gastric bypass (~2020) History of bilateral mastectomy (~2008) History of colonoscopy (~2016) History of hysterectomy (~2003) History of laparoscopic cholecystectomy (~2002) History of esophagogastroduodenoscopy (EGD) (~2017) History of sleeve gastrectomy (~2010) Family History (Updated 07/28/24 @ 15:25 by Cindy Beth MA) Father DM (diabetes mellitus) Stroke Mother DM (diabetes mellitus) Brother No problems noted. Sister No problems noted. Son No problems noted. 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 1. Little interest or pleasure in doing things: not at all 2. Feeling down, depressed, or hopeless: not at all 3. Trouble falling or staying asleep, or sleeping too much: more than half the days 4. Feeling tired or having little energy: nearly every day 5. Poor appetite or overeating: several days 6. Feeling bad about yourself - or that you are a failure or have let yourself or your family down: not at all 7. Trouble concentrating on things, such as reading the newspaper or watching television: several days 8. Moving or speaking so slowly that other people could have noticed. Or the opposite - being so fidgety or restless that you have been moving around a lot more than usual: several days 9. Thoughts that you would be better off or of hurting yourself in some way: not at all Total score: 8 Depression Screening Interpretation: Negative Depression Screening Done: Yes 02319 - PHQ-9 Billing: Yes Source: Developed by Drs. Leopoldo Carreon, Kari Preciado, Juve Wyatt and colleagues, with an educational tiara from [employer]. Thrive Questionnaire Date Thrive assessed: 07/28/24 I am a: Patient What is your living situation today?: I have a steady place to live Within the past 12 months, did the food you bought not last and you didn't have the money to get more?: Never true Within the past 12 months, did you worry whether your food would run out before you got money to buy more?: Never true Do you have trouble paying for medicines?: No Do you have trouble getting transportation to medical appointments?: No Do you have trouble paying your heating and electricity bill?: No Do you have trouble taking care of your child, family member or friend?: No Do you have trouble with day-to-day activities such as bathing, preparing meals, shopping, managing finances, etc.?: No Are you currently unemployed and looking for a job?: No Are you interested in more education?: No Currently or been in a relationship where the following occur: No concerns reported THRIVE Score: 0 AUDIT C Alcohol Use Questionnaire (AUDIT-C) 1. How often do you have a drink containing alcohol?: Never 3. How often do you have six or more drinks on one occasion?: Never Total Score: 0 Score Reviewed/Action Taken: Yes STEVEN-7 AMB Questionnaire STEVEN-7 Date STEVEN - 7 assessed: 07/28/24 Feeling nervous, anxious, or on edge: 0 = Not at all Not being able to stop or control worryin = Not at all Worrying too much about different things: 0 = Not at all Trouble relaxin = Not at all Being so restless that it is hard to sit still: 0 = Not at all Becoming easily annoyed or irritable: 0 = Not at all Feeling afraid as if something awful might happen: 0 = Not at all Total STEVEN-7 score (0-4 normal; 5-9 mild; 10-14 moderate; 15-21 severe): 0 Source: Developed by Drs. Leopoldo Carreon, Kari Preciado, Juve Wyatt and colleagues, with an educational tiara from [employer]. STEVEN-7 Assessment Billing STEVEN-7 Assessment Tool: STEVEN-7 Assessment 37554 Physical exam (Primary Care) Vital Signs: Last Vital Signs Temp 97.1 F 07/28/24 15:38 Pulse 66 07/28/24 15:38 Resp 14 07/28/24 15:38 BP 160/100 H 07/28/24 16:19 Pulse Ox 99 07/28/24 15:38 Oxygen Delivery Method Room Air 07/28/24 15:38 BMI result Body Mass Index 30.1 BMI Assessment/Plan discussion: High BMI High, discussed plan: lifestyle Tobacco/Smoking Status: Tobacco use Status Tobacco use date assessed 07/28/24 07/28/24 15:20 Patient Tobacco Use Status Former Tobacco user 07/28/24 15:20 Tobacco use type Cigarette 07/28/24 15:20 e-Cigarette/Vaping Use Never Used 07/28/24 15:20 PHQ-9: PHQ-9 Score PHQ-9: Total score 8 08/07/24 17:31 Depression Screening Interpretation: Negative Thrive Assessment: Date of Thrive Assessment Date Thrive assessed 07/28/24 07/28/24 15:36 Currently or been in a relationship where the following occur: No concerns reported Results Reviewed Results Reviewed: RUN: 08/07/24 6287 PAGE 1 [facility] [address] [place] [phone] Assembler Movement: Hira Galvan M.D. Specimen Inquiry Name: Elma Nuñez Age/Sex: 63/F : 1960 [id number] Unit#: [id number] Attend Dr: Umm Cates [facility] Re07/28/24 Status: DEP REF Location: [facility] Disch: SPEC : [id number] TUCKER: 07/28/24 STATUS: COMP REQ : [id number] RECD: 07/28/[address]: Umm Cates [facility] COMP: 07/28/24 ENTERED: 07/28/[address]: ORDERED: Phos, MG, Lipid Panel, Vitamin D 25-OH, TSH Rflx Test Result Flag Reference Phosphorus 3.7 2.7-4.5 mg/dL Magnesium 2.0 1.6-2.6 mg/dL Triglyceride 50 <150 mg/dL Desirable Triglyceride: less than 150 mg/dL Borderline High Triglyceride 150-199 mg/dL High Triglyceride: 200-499 mg/dL Very High Triglyceride: greater than or equal to 5OO mg/dL Cholesterol 181 <200 mg/dL Desirable Cholesterol: less than 200 mg/dL Borderline High Cholesterol: 200-239 mg/dL High Cholesterol: greater than 239 mg/dL LDL Calculated 99 <100 mg/dL Desirable LDL: less than 100 mg/dL Near Optimal/Above Optimal LDL: 110-129 mg/dL Borderline High LDL: 130-159 mg/dL High LDL: 160-189 mg/dL Very High LDL: greater than or equal to 190 mg/dL HDL 72 >40 mg/dL Desirable HDL: greater than 40 mg/dL Note: This HDL assay may give artificially low results in patients with liver disease. Vit D 25-OH Tot 11.0 L >30 ng/mL Health Based Reference Values* < 20 ng/mL Deficient 20-30 ng/mL Insufficient > 30 ng/mL Sufficient *Isela TOLEDO. N Engl J Med. 2007;357:266-280 Care must be taken in interpreting Vitamin D results from different laboratories and methodologies. Published data demonstrated that results from patients undergoing hemodialysis may show a negative bias when tested with various automated 25-OH vitamin D assays when compared to LC-MS/MS. When testing samples from patients whose predominant form of Vitamin D is Vitamin D2, such as patients receiving Vitamin D2 supplementation, results that are subtherapeutic should be confirmed with another method such as LC-MS/MS. TSH 0.96 0.32-4.0 uIU/mL RUN: 08/07/241730 PAGE 1 [facility] [address] [place] [phone] Assembler Movement: Hira Galvan M.D. Specimen Inquiry Name: Elma Nuñez Age/Sex: 63/F : 1960 Unit#: [id number] Attend Dr: Umm Cates Re07/28/24 Status: DEP REF Location: [facility] Disch: SPEC : [id number] TUCKER: 07/28/24 STATUS: COMP REQ : [id number] RECD: 07/28/[address] [facility] [address]: Umm Cates [employer]PERVIS[employer]L COMP: 07/28/24 ENTERED: 07/28/24-1623 [facility]: ORDERED: YOLIERU Test Result Flag Reference Creat, Ur 116.16 mg/dL Microalbumin Ur 51.0 mg/L Alb/Creat Ratio 43.9 H <30 ug/mg cr Albumin/Creatinine Ratio Reference Ranges: Normal: < 30 ug/mg creatinine Microalbuminuria: 30 - 300 ug/mg creatinine Clinical Albuminuria: > 300 ug/mg creatinine RUN: 08/07/241730 PAGE 1 [facility] [address] [place] [phone] Assembler Movement: Hira Galvan M.D. Specimen Inquiry Name: Elma Nuñez Age/Sex: 63/F : 1960 Unit#: [id number] Attend Dr: Umm Cates Re07/28/24 Status: [facility]P [facility] Disch: SPEC : [id number] TUCKER: 07/28/24 STATUS: COMP REQ : [id number] RECD: 07/28/[address] [facility] [address]: Umm Cates [facility] COMP: 08/01/24 ENTERED: 07/28/24 [facility]: ORDERED: Lyme Abs rflxWB Test Result Flag Reference Lyme Abs Scrn <0.90 index Index Interpretation ----- < 0.90 Negative 0.90-1.09 Equivocal > 1.09 Positive As recommended by the Food and Drug Administration (FDA), all samples with positive or equivocal results in a Borrelia burgdorferi antibody screen will be tested using a blot method. Positive or equivocal screening test results should not be interpreted as truly positive until verified as such using a supplemental assay (e.g., B. burgdorferi blot). The screening test and/or blot for B. burgdorferi antibodies may be falsely negative in early stages of Lyme disease, including the period when erythema migrans is apparent. THIS TEST WAS PERFORMED AT: [facility] [address] [place] [phone] MARIAA SALDAÑA MD Lyme Scrn/Blot Test not performed END OF REPORT Coding Level of Care Code Est Pt Level 5 (82781) Complex EM visit Add On G2211 Diagnoses Encounter to establish care Z76.89 Hypersomnolence G47.10 GERMANIA (obstructive sleep apnea) G47.33 Nocturnal hypoxemia G47.34 Primary hypertension I10 Hypertension type: primary hypertension BMI 30.0-30.9,adult Z68.30 Obesity (BMI 30.0-34.9) E66.811 Vitamin D deficiency E55.9 S/P gastric bypass Z98.84 PVCs (premature ventricular contractions) I49.3 PAC (premature atrial contraction) I49.1 Additional Codes STEVEN-7 Assessment Billing - STEVEN-7 Assessment Tool: STEVEN-7 Assessment 39309 ([id number]) PHQ-9 - 28959 - PHQ-9 Billing: Yes ([id number]) Assessment & Plan Assessment & Plan (1) Encounter to establish care: Code(s): Z76.89 - Persons encountering health services in other specified circumstances (2) Hypersomnolence: Code(s): G47.10 - Hypersomnia, unspecified Category: Medical (3) GERMANIA (obstructive sleep apnea): Comment: (mild GERMANIA in general but moderate to severe when supine - using cpap. Repeat sleep study WNL Code(s): G47.33 - Obstructive sleep apnea (adult) (pediatric) Category: Medical (4) Nocturnal hypoxemia: Code(s): G47.34 - Idiopathic sleep related nonobstructive alveolar hypoventilation Category: Medical (5) Hypertension: Code(s): I10 - Essential (primary) hypertension Category: Medical Qualifiers: Hypertension type: primary hypertension Qualified Code(s): I10 - Essential (primary) hypertension (6) BMI 30.0-30.9,adult: Code(s): Z68.30 - Body mass index [BMI] 30.0-30.9, adult Category: Medical (7) Obesity (BMI 30.0-34.9): Code(s): E66.811 - Obesity, class 1 Category: Medical (8) Vitamin D deficiency: Code(s): E55.9 - Vitamin D deficiency, unspecified Category: Medical (9) S/P gastric bypass: Onset Date: ~2020 Comment: (s/p sleeve in 2010 and Cassi-en-Y bypass in 2020) Code(s): Z98.84 - Bariatric surgery status Category: Medical (10) PVCs (premature ventricular contractions): Code(s): I49.3 - Ventricular premature depolarization Category: Medical (11) PAC (premature atrial contraction): Code(s): I49.1 - Atrial premature depolarization Category: Medical Plan . Orders: Orders TSH reflex Free T4 07/28/24 W57.XXXA - Bitten or stung by nonvenomous insect and other nonvenomous arthropods, initial encounter, I10 - Essential (primary) hypertension, G47.10 - Hypersomnia, unspecified Vitamin D 25-OH Total 07/28/24 W57.XXXA - Bitten or stung by nonvenomous insect and other nonvenomous arthropods, initial encounter, I10 - Essential (primary) hypertension, G47.10 - Hypersomnia, unspecified Microalbumin, Random (w Creat) 07/28/24 W57.XXXA - Bitten or stung by nonvenomous insect and other nonvenomous arthropods, initial encounter, I10 - Essential (primary) hypertension, G47.10 - Hypersomnia, unspecified Magnesium 07/28/24 W57.XXXA - Bitten or stung by nonvenomous insect and other nonvenomous arthropods, initial encounter, I10 - Essential (primary) hypertension, G47.10 - Hypersomnia, unspecified XR DEXA axial skeleton 07/28/24 Z13.820 - Encounter for screening for osteoporosis RT PSG in-lab sleep study 07/28/24 G47.10 - Hypersomnia, unspecified, G47.34 - Idiopathic sleep related nonobstructive alveolar hypoventilation, G47.33 - Obstructive sleep apnea (adult) (pediatric) Lipid Panel 07/28/24 W57.XXXA - Bitten or stung by nonvenomous insect and other nonvenomous arthropods, initial encounter, I10 - Essential (primary) hy pertension, G47.10 - Hypersomnia, unspecified Phosphorus 07/28/24 W57.XXXA - Bitten or stung by nonvenomous insect and other nonvenomous arthropods, initial encounter, I10 - Essential (primary) hypertension, G47.10 - Hypersomnia, unspecified Lyme IgG/IgM w/reflex to WB 07/28/24 W57.XXXA - Bitten or stung by nonvenomous insect and other nonvenomous arthropods, initial encounter, I10 - Essential (primary) hypertension, G47.10 - Hypersomnia, unspecified
[2024-07-28 15:38] VITALS: BP 158/90; PULSE 66; RESP 14; TEMP 36.2; O2SAT 99; BMI 30.1
[2024-07-28 16:19] VITALS: BP 160/100
== END 2024-07-28 17:05 | disposition home or self-care (01) ==
LOC: HO.HMCFM 15:06
PROVIDERS: PCP Nurse Practitioner Family; Visit Provider Nurse Practitioner Family
DX: Z76.89 Persons encountering health services in other specified circumstances (principal); G47.10 Hypersomnia, unspecified; G47.33 Obstructive sleep apnea (adult) (pediatric); G47.34 Idiopathic sleep related nonobstructive alveolar hypoventilation; I10 Essential (primary) hypertension; Z68.30 Body mass index [BMI] 30.0-30.9, adult; E66.811 Obesity, class 1; E55.9 Vitamin D deficiency, unspecified; Z98.84 Bariatric surgery status; I49.3 Ventricular premature depolarization; I49.1 Atrial premature depolarization

== ENCOUNTER 2024-07-28 16:23 | Outpatient (REF) | payer OTHER, SELFPAY ==
--- OUTSIDE RECORDS SUMMARY | 2024-07-28 16:26 | XMS_ITS | Encounter Summary ---
Author Organization [facility] Address [address] [place] [address] Care Team Providers Care Track Walker Name Role Phone Jorge Enriquez MD Primary Care Provider [phone] Encounter Details Date Type Department Care Team ([facility] st Contact Info) Description 11/23/2022 Scanned Document [facility] Plastic & Reconstructive Surgery [address] [place] [address] Rosina Mckinney MD [address] [place] [address] Social History Tobacco Use Types Packs/Day Years [...] place to sleep or slept in a fci (including now)? No 09/29/2022 Sex and Gender [...] on filedocumented in this encounter Care Teams Track Walker Relationship Specialty Start Date End Date Jorge Enriquez MD [address] [place] [address] [place] [address] PCP - General 08/31/22 documented as of this encounter
--- OUTSIDE RECORDS SUMMARY | 2024-07-28 16:26 | XMS_ITS | Encounter Summary ---
Author Organization [facility] Address [address] [place] [address] Care Team Providers Care Legend Maker Name Role Phone Jorge Enriquez MD Primary Care Provider [phone] Encounter Details Date Type Department Care Team ([facility] st Contact Info) Description 08/31/2022 Scanned Document [facility] [address] [facility] [address] [place] [phone] Provider, Generic Social History Tobacco Use [...] on filedocumented in this encounter Care Teams Legend Maker Relationship Specialty Start Date End Date Jorge Enriquez MD [address] [place] [address] Dr M[place]ra, JORGE L [address] PCP - General 08/31/22 documented as of this encounter
--- OUTSIDE RECORDS SUMMARY | 2024-07-28 16:26 | XMS_ITS | Encounter Summary ---
Author Organization [facility] Address [address] [place] [address] Care Team Providers Care Hardboard Coating Machine Operator Name Role Phone Jorge Enriquez MD Primary Care Provider [phone] Encounter Details Date Type Department Care Team ([facility] st Contact Info) Description 09/15/2022 Scanned Document [facility] Plastic & Reconstructive Surgery [address] [place] [address] Rosina Mckinney MD [address] [place] [address] Social History Tobacco Use Types Packs/Day Years [...] on filedocumented in this encounter Care Teams Hardboard Coating Machine Operator Relationship Specialty Start Date End Date Jorge Enriquez MD [address] [place] [address] Dr Pop [place], JORGE L [phone] PCP - General 08/31/22 documented as of this encounter
--- OUTSIDE RECORDS SUMMARY | 2024-07-28 16:26 | XMS_ITS | Encounter Summary ---
Author Organization [facility] Address [address] [place] [address] Care Team Providers Care Metallurgical Analyst Name Role Phone Jorge Enriquez MD Primary Care Provider [phone] Encounter Details Date Type Department Care Team ([facility] st Contact Info) Description 10/22/2022 Telephone [facility] Plastic & Reconstructive Surgery [address] [place] [address] Rosina Mckinney MD [address] [place] [address] Social History Tobacco Use Types Packs/Day Years [...] let you know she or Sergey from [facility] will be faxing over forms needed documented in this encounter Plan of Treatment Not on file documented as of this encounter Visit Diagnoses Not on filedocumented in this encounter Care Teams Metallurgical Analyst Relationship Specialty Start Date End Date Jorge Enriquez MD [address] [place] [address] Dr Moura, JORGE L [address] PCP - General 08/31/22 documented as of this encounter
--- OUTSIDE RECORDS SUMMARY | 2024-07-28 16:26 | XMS_ITS | Encounter Summary ---
Author Organization [facility] Address [address] [place] [address] Care Team Providers Care Plum Packer Name Role Phone Jorge Enriquez MD Primary Care Provider [phone] Encounter Details Date Type Department Care Team ([facility] st Contact Info) Description 11/19/2022 Telephone [facility] Plastic & Reconstructive Surgery [address] [place] [address] Rosina Mckinney MD [address] [place] [address] Social History Tobacco Use Types Packs/Day Years [...] date best contact number for pt is [phone] documented in this encounter Plan of Treatment Not on file documented as of this encounter Visit Diagnoses Not on filedocumented in this encounter Care Teams Plum Packer Relationship Specialty Start Date End Date Jorge Enriquez MD [address] [place] [address] [place] [address] PCP - General 08/31/22 documented as of this encounter
--- OUTSIDE RECORDS SUMMARY | 2024-07-28 16:26 | XMS_ITS | Encounter Summary ---
Author Organization [facility] Address [address] [place] [address] Care Team Providers Care Boiler House Mechanic Name Role Phone Jorge Enriquez MD Primary Care Provider [phone] Encounter Details Date Type Department Care Team ([facility] st Contact Info) Description 10/30/2022 Scanned Document [facility] Plastic & Reconstructive Surgery [address] [place] [address] Rosina Mckinney MD [address] [place] [address] Social History Tobacco Use Types Packs/Day Years [...] on filedocumented in this encounter Care Teams Boiler House Mechanic Relationship Specialty Start Date End Date Jorge Enriquez MD [address] [place] [address] [place] [address] PCP - General 08/31/22 documented as of this encounter
--- OUTSIDE RECORDS SUMMARY | 2024-07-28 16:26 | XMS_ITS | Encounter Summary ---
Author Organization [facility] Address [address] [place] [address] Care Team Providers Care Mission Coordinator Name Role Phone Jorge Enriquez MD Primary Care Provider [phone] Encounter Details Date Type Department Care Team ([facility] st Contact Info) Description 10/30/2022 Scanned Document [facility] Plastic & Reconstructive Surgery [address] [place] [address] Rosina Mckinney MD [address] [place] [address] Social History Tobacco Use Types Packs/Day Years [...] place to sleep or slept in a assisted (including now)? No 09/29/2022 Sex and Gender [...] on filedocumented in this encounter Care Teams Mission Coordinator Relationship Specialty Start Date End Date Jorge Enriquez MD [address] [place] [address] [place] [address] PCP - General 08/31/22 documented as of this encounter
--- OUTSIDE RECORDS SUMMARY | 2024-07-28 16:26 | XMS_ITS | Encounter Summary ---
Author Organization [facility] Address [address] [place] [address] Care Team Providers Care Cell Technician Name Role Phone Jorge Enriquez MD Primary Care Provider [phone] Encounter Details Date Type Department Care Team ([facility] st Contact Info) Description 10/22/2022 Scanned Document [facility] Plastic & Reconstructive Surgery [place] [address] [place] [address] Rosina Mckinney MD [address] [place] [address] Social History Tobacco Use Types [...] on filedocumented in this encounter Care Teams Cell Technician Relationship Specialty Start Date End Date Jorge Enriquez MD [address] [place] [address] [place] [address] PCP - General 08/31/22 documented as of this encounter
--- OUTSIDE RECORDS SUMMARY | 2024-07-28 16:26 | XMS_ITS | Clinical Summary ---
Author Organization [facility] Address [address] [place] [address] Care Team Providers Care Vp Name Role Phone Jorge Enriquez MD Primary Care Provider [phone] Allergies No known active allergies Medications Medication [...] to sleep or slept in a senior living (including now)? No 09/29/2022 Sex and Gender [...] this topic Medical Devices Implanted Type Area Bessemer Bottom Maker Device Identifier Shelf Expiration Date Model / Serial / Lot [id number] Machine Setter Automatic Anastomosis [place] [employer]ainless [employer] Titanium 20mhz Od3 M - [id number] Implanted:Qty: 1 on 09/28/2022 by Jose Rafael Barroso MD at [facility] Graft Right: Breast SYNOVIS MICRO [employer] [facility] 03/16/2027 [id number] / [id number] / [id number] Machine Setter Automatic Anastomosis [place] Stainless Steel Titanium 20mhz Od3 M - [id number] Implanted:Qty: 1 on 09/28/2022 by Rosina Mckinney MD at [facility] Graft Left: Breast SYNOVIS Taulia [facility] 03/16/2027 [id number] / [id number] / [id number] Procedures Procedure Name Priority Date/Time Associated Diagnosis [...] [facility] [address] [place] [address] from Last 3 Months or Most Recently Relevant to Health Maintenance Advance Directives * Full Code (Latest Code Status on File) Date Activated Date Inactivated Comments 09/28/2022 6:38 PM 02/10/2023 5:34 AM * Full Code Date Activated Date Inactivated Comments 09/28/2022 5:34 AM 09/28/2022 6:38 PM Care Teams Vp Relationship Specialty Start Date End Date Jorge Enriquez MD [address] [place] [address] [place] [address] PCP - General 08/31/22
[2024-07-28 18:20] LABS: Creatinine Urine 116.16 mg/dL; Microalbum/Creatinine Ratio Ur 43.9 ug/mg cr (<30)
[2024-07-28 18:22] LABS: Cholesterol 181 mg/dL (<200); HDL Cholesterol 72 mg/dL (>40); LDL Cholesterol Calculated 99 mg/dL (<100); Phosphorus 3.7 mg/dL (2.7-4.5); Triglycerides 50 mg/dL (<150)
[2024-07-28 18:34] LABS: TSH reflex Free T4 0.96 uIU/mL (0.32-4.0)
[2024-07-31 18:44] LABS: Lyme Abs Screen <0.90 index
== END 2024-07-28 16:24 | disposition home or self-care (01) ==
LOC: HO.WFDLDS 16:23
PROVIDERS: Visit Provider Nurse Practitioner Family
DX: T14.8XXA Other injury of unspecified body region, initial encounter (principal); W57.XXXA Bitten or stung by nonvenomous insect and other nonvenomous arthropods, initial encounter; I10 Essential (primary) hypertension; G47.10 Hypersomnia, unspecified; Z76.89 Persons encountering health services in other specified circumstances; G47.33 Obstructive sleep apnea (adult) (pediatric); E66.811 Obesity, class 1; Z68.30 Body mass index [BMI] 30.0-30.9, adult; Z71.3 Dietary counseling and surveillance
CPT/HCPCS: 36415; 80061; 82043; 82306; 82570; 83735; 84100; 84443; 86617; 86618; 96127

== ENCOUNTER 2024-08-08 11:41 | Outpatient (REF) | payer OTHER, SELFPAY ==
[2024-08-08 14:13] LABS: MANUAL DIFF FLAG NO
[2024-08-08 14:18] LABS: Basophils Percent Auto 0.7 % (0-2); Eosinophils Absolute Auto 0.1 X10*3/uL (0.0-0.4); Eosinophils Percent Auto 2.4 % (0-4); Hematocrit 39.8 % (37.0-47.0); Hemoglobin 12.4 g/dl (12.0-16.0); Imm Gran Abs Auto 0.01 X10*3/uL (0.00-0.03); Imm Gran Pct Auto 0.2 % (0.0-0.4); Lymphocytes Absolute Auto 1.8 X10*3/uL (1.2-4.9); Lymphocytes Percent Auto 41.5 % (20-40); Mean Corpuscular HGB Conc 31.2 g/dl (31.0-35.0); Mean Corpuscular Hemoglobin 22.9 pg (27.0-33.0); Mean Corpuscular Volume 73.4 fL (80.0-98.0); Mean Platelet Volume 9.6 fL (9.4-12.3); Monocytes Absolute Auto 0.1 X10*3/uL (0.1-1.2); Monocytes Percent Auto 3.1 % (2-11); Neutrophils Absolute Auto 2.2 x10*3/uL (2.0-8.3); Neutrophils Percent Auto 52.1 % (45-73); Platelet Count 329 X10*3/uL (160-400); Red Blood Count 5.42 X10*6/uL (4.20-5.50); White Blood Count 4.2 X10*3/uL (4.8-10.8)
--- OUTSIDE RECORDS SUMMARY | 2024-08-08 14:20 | XMS_ITS | Encounter Summary ---
Author Organization [facility] Address [address] [place] [address] Care Team Providers Care Angular Developer Name Role Phone Jorge Enriquez MD Primary Care Provider Encounter Details Date Type Department Care Team ([facility] st Contact Info) Description 11/19/2022 Telephone [facility] Plastic & Reconstructive Surgery [address] [place] [address] Rosina Mckinney MD [address] [place] [address] Social History Tobacco Use Types Packs/Day Years [...] place to sleep or slept in a fdc (including now)? No 09/29/2022 Sex and Gender [...] date best contact number for pt is [phone] documented in this encounter Plan of Treatment Not on file documented as of this encounter Visit Diagnoses Not on filedocumented in this encounter Care Teams Angular Developer Relationship Specialty Start Date End Date Jogre Enriquez MD [address] [place] [address] [place] [address] PCP - General 08/31/22 documented as of this encounter
--- OUTSIDE RECORDS SUMMARY | 2024-08-08 14:20 | XMS_ITS | Encounter Summary ---
Author Organization [facility] Address [address] [place] [address] Care Team Providers Care Reverberatory Furnace Supervisor Name Role Phone Jorge Enriquez MD Primary Care Provider Encounter Details Date Type Department Care Team ([facility] st Contact Info) Description 10/22/2022 Scanned Document [facility] Plastic & Reconstructive Surgery [place] [address] [place] [address] Rosina Mckinney MD [address] [place] [address] Social History Tobacco Use Types [...] place to sleep or slept in a chcf (including now)? No 09/29/2022 Sex and Gender [...] on filedocumented in this encounter Care Teams Reverberatory Furnace Supervisor Relationship Specialty Start Date End Date Jorge Enriquez MD [address] [place] [address] [place] [address] PCP - General 08/31/22 documented as of this encounter
--- OUTSIDE RECORDS SUMMARY | 2024-08-08 14:20 | XMS_ITS | Encounter Summary ---
Author Organization [facility] Address [address] [place] [address] Care Team Providers Care Cardiac Cath Technologist Name Role Phone Jorge Enriquez MD Primary Care Provider [phone] Encounter Details Date Type Department Care Team ([facility] st Contact Info) Description 10/22/2022 Telephone [facility] Plastic & Reconstructive Surgery [address] [place] [address] Rosina Mckinney MD [address] [place] [address] Social History Tobacco Use Types Packs/Day Years [...] let you know she or Sergey from [facility] will be faxing over forms needed documented in this encounter Plan of Treatment Not on file documented as of this encounter Visit Diagnoses Not on filedocumented in this encounter Care Teams Cardiac Cath Technologist Relationship Specialty Start Date End Date Jorge Enriquez MD [address] [place] [address] Dr Moura, JORGE L [address] PCP - General 08/31/22 documented as of this encounter
--- OUTSIDE RECORDS SUMMARY | 2024-08-08 14:20 | XMS_ITS | Encounter Summary ---
Author Organization [facility] Address [address] [place] [address] Care Team Providers Care Wool Brusher Name Role Phone Jorge Enriquez MD Primary Care Provider Encounter Details Date Type Department Care Team ([facility] st Contact Info) Description 10/30/2022 Scanned Document [facility] Plastic & Reconstructive Surgery [address] [place] [address] Rosina Mckinney MD [address] [place] [address] Social History Tobacco Use Types Packs/Day Years [...] place to sleep or slept in a longterm (including now)? No 09/29/2022 Sex and Gender [...] on filedocumented in this encounter Care Teams Wool Brusher Relationship Specialty Start Date End Date Jorge Enriquez MD [address] [place] [address] [place] [address] PCP - General 08/31/22 documented as of this encounter
--- OUTSIDE RECORDS SUMMARY | 2024-08-08 14:20 | XMS_ITS | Clinical Summary ---
Author Organization [facility] Address [address] [place] [address] Care Team Providers Care Clam Treader Name Role Phone Jorge Enriquez MD Primary Care Provider [phone] Allergies No known active allergies Medications Medication [...] place to sleep or slept in a group home (including now)? No 09/29/2022 Sex and Gender [...] this topic Medical Devices Implanted Type Area Data Conversion Developer Device Identifier Shelf Expiration Date Model / Serial / Lot [id number] Vibration Engineer Anastomosis [place] Stainless Steel Titanium 20mhz Od3 M - [id number] Implanted:Qty: 1 on 09/28/2022 by Jose Rafael Barroso MD at [facility] Graft Right: Breast SYNOVIS MICRO [employer] [facility] 03/16/2027 [id number] / [id number] / [id number] Vibration Engineer Anastomosis [place] Stainless Steel Titanium 20mhz Od3 M - [id number] Implanted:Qty: 1 on 09/28/2022 by Rosina Mckinney MD at [facility] Graft Left: Breast SYNOVIS [employer] [facility] 03/16/2027 [id number] / [id number] / [id number] Procedures Procedure Name Priority Date/Time Associated Diagnosis Comments BASIC METABOLIC PANEL Routine 09/30/2022 8:04 AM EDT from Last 3 Months or Most Recently Relevant to Health Maintenance Results * (ABNORMAL) Basic Metabolic Panel (Early AM) (09/30/2022 8:04 AM EDT) Glucose 91 74 - 106 mg/dL 09/30/2022 8:41 AM EDT [facility] Comment:Fasting: <100 mg/dL, Non-Fasting: <200 mg/dL (ADA 2005) Blood Urea Nitrogen (BUN) 15 9 - 23 mg/dL 09/30/2022 8:41 AM EDT [facility] Creatinine 0.8 0.6 - 1.0 mg/dL 09/30/2022 8:41 AM EDT [facility] eGFR 84 >59 09/30/2022 8:41 AM EDT [facility] Comment: CKD-EPI (2020) in mL/min/1.73 sq meters. Reported eGFR is based on the CKD-EPI equation that does not use a race coefficient as of 08/18/2022 Sodium 145 136 - 145 mmol/L 09/30/2022 8:41 AM EDT [facility] Potassium 3.8 3.4 - 4.5 mmol/L 09/30/2022 8:41 AM EDT [facility] Chloride 112(H) 98 - 107 mmol/L 09/30/2022 8:41 AM EDT [facility] CO2 28 20 - 31 mmol/L 09/30/2022 8:41 AM EDT [facility] Anion Gap 5 5 - 15 09/30/2022 8:41 AM EDT [facility] Calcium 8.3(L) 8.7 - 10.5 mg/dL 09/30/2022 8:41 AM EDT [facility] BUN/Creatinine Ratio 19 10.0 - 25.0 Ratio 09/30/2022 8:41 AM EDT [facility] Blood specimen (specimen) (Plasma/Serum) 09/30/2022 8:04 AM EDT 09/30/2022 8:21 AM EDT Althea Palacio PA-C [facility] See Below [facility] [address] [place] [address] from Last 3 Months or Most Recently Relevant to Health Maintenance Advance Directives * Full Code (Latest Code Status on File) Date Activated Date Inactivated Comments 09/28/2022 6:38 PM 02/10/2023 5:34 AM * Full Code Date Activated Date Inactivated Comments 09/28/2022 5:34 AM 09/28/2022 6:38 PM Care Teams Clam Treader Relationship Specialty Start Date End Date Jorge Enriquez MD [address] [place] [address] [place] [address] PCP - General 08/31/22
--- OUTSIDE RECORDS SUMMARY | 2024-08-08 14:20 | XMS_ITS | Encounter Summary ---
Author Organization [facility] Address [address] [place] [address] Care Team Providers Care County Library Director Name Role Phone Jorge Enriquez MD Primary Care Provider [phone] Encounter Details Date Type Department Care Team ([facility] st Contact Info) Description 09/15/2022 Scanned Document [facility] Plastic & Reconstructive Surgery [address] [place] [address] Rosina Mckinney MD [address] [place] [address] Social History Tobacco Use Types Packs/Day Years [...] on filedocumented in this encounter Care Teams County Library Director Relationship Specialty Start Date End Date Jorge Enriquez MD [address] [place] [address] Dr Pop [place], JORGE L [id number] PCP - General 08/31/22 documented as of this encounter
--- OUTSIDE RECORDS SUMMARY | 2024-08-08 14:20 | XMS_ITS | Encounter Summary ---
Author Organization [facility] Address [address] [place] [address] Care Team Providers Care Data Input Clerk Name Role Phone Jorge Enriquez MD Primary Care Provider [phone] Encounter Details Date Type Department Care Team ([facility] st Contact Info) Description 08/31/2022 Scanned Document [facility] [address] [facility] [address] [place] [address] Provider, Generic Social History Tobacco Use [...] on filedocumented in this encounter Care Teams Data Input Clerk Relationship Specialty Start Date End Date Jorge Enriquez MD [address] [place] [address] Dr Moura, JORGE L [address] PCP - General 08/31/22 documented as of this encounter
--- OUTSIDE RECORDS SUMMARY | 2024-08-08 14:20 | XMS_ITS | Encounter Summary ---
Author Organization [facility] Address [address] [place] [address] Care Team Providers Care Pipe Fitter Soft Copper Name Role Phone Jorge Enriquez MD Primary Care Provider [phone] Encounter Details Date Type Department Care Team ([facility] st Contact Info) Description 11/23/2022 Scanned Document [facility] Plastic & Reconstructive Surgery [address] [place] [address] Rosina Mckinney MD [address] [place] [address] Social History Tobacco Use Types Packs/Day Years [...] on filedocumented in this encounter Care Teams Pipe Fitter Soft Copper Relationship Specialty Start Date End Date Jorge Enriquez MD [address] [place] [address] [place] [address] PCP - General 08/31/22 documented as of this encounter
--- OUTSIDE RECORDS SUMMARY | 2024-08-08 14:20 | XMS_ITS | Encounter Summary ---
Author Organization [facility] Address [address] [place] [address] Care Team Providers Care School Bus Driver/Teacher Assistant Name Role Phone Jorge Enriquez MD Primary Care Provider [phone] Encounter Details Date Type Department Care Team ([facility] st Contact Info) Description 10/30/2022 Scanned Document [facility] Plastic & Reconstructive Surgery [address] [place] [address] Rosina Mckinney MD [address] [place] [address] Social History Tobacco Use Types Packs/Day Years [...] on filedocumented in this encounter Care Teams School Bus Driver/Teacher Assistant Relationship Specialty Start Date End Date Jorge Enriquez MD [address] [place] [address] [place] [address] PCP - General 08/31/22 documented as of this encounter
== END 2024-08-08 11:42 | disposition home or self-care (01) ==
LOC: HO.WFDLDS 11:41
PROVIDERS: Visit Provider Internal Medicine
DX: E50.9 Vitamin A deficiency, unspecified (principal)
CPT/HCPCS: 36415; 85025

== ENCOUNTER → 2024-08-09 08:31 | Outpatient (BNVA) | payer OTHER, SELFPAY | PROVIDERS: PCP Nurse Practitioner Family; Visit Provider Internal Medicine | DX: M23.8X2 Other internal derangements of left knee (principal); S93.402D Sprain of unspecified ligament of left ankle, subsequent encounter; W01.0XXD Fall on same level from slipping, tripping and stumbling without subsequent striking against object, subsequent encounter | CPT/HCPCS: 99213 ==

== ENCOUNTER → 2024-08-18 12:41 | Outpatient (BNVA) | payer OTHER, SELFPAY | PROVIDERS: PCP Nurse Practitioner Family; Visit Provider Orthopaedic Surgery ==

== ENCOUNTER 2024-08-23 12:40 | Outpatient (AMB) | payer OTHER, SELFPAY ==
--- NOTE | 2024-08-23 12:57 | A.OFFPC_ITS ---
Vital Signs 08/23/24 12:59 08/23/24 13:38 Height 5 ft 10 in BMI Reason not done Patient refused/unable BP 148/80 H 150/80 H Blood Pressure Location Lt brachial Lt brachial Position Sitting Sitting Respiration 13 Pulse 71 Pulse Source Pulse Oximeter Temp 96.9 F Temp Source Oral Pulse Oximetry (%) 98 Oxygen Delivery Method Room Air Intake Visit Reasons: 1 week fu labs/HTN 30 min Intake Note: follow up on htn and review labs Contact Lens Assistant Required: No Allergies cat dander Allergy (Severe, Verified 08/23/24 13:33) Loss Voice environmental allergies Allergy (Severe, Verified 08/23/24 13:33) Sneezing Medication List - Last Reconciled 08/23/24 by Umm Cates, MAINTENANCE REPAIRMAN- albuterol sulfate 90 mcg/actuation 1 puff inhalation Q4H PRN cholecalciferol (vitamin D3) 50 mcg PO DAILY cyanocobalamin (vitamin B-12) 1,000 mcg IM QWEEK docusate sodium (Colace) 200 mg (2 x 100 mg) PO BEDTIME fluticasone furoate 100 mcg/actuation (Arnuity Ellipta) 1 inh inhalation DAILY iron,carbonyl-vitamin C 65 mg iron- 125 mg (Vitron-C) 1 tab PO DAILY 90 days lidocaine 5% 1 patch topical DAILY montelukast (Singulair) 10 mg PO BEDTIME olmesartan 5 mg PO DAILY pantoprazole 40 mg PO QAM Tobacco use date assessed: 08/23/24 Dental Screening Dental Screen Date: 08/23/24 Did you have a dental visit in the last 12 months?: Yes Did you have a dental problem in the last 6 months where you did not have access to dental care?: No Was dental information given to patient?: Patient has dentist HPI HPI Comments History of Present Illness Details 63 y/o F with atrial tachycardia, GERD, hx of DM, HTN, GERMANIA, sickle cell trait, fatty liver, hx of breast ca, Health Maintenance Tdap 2017, Declined flu, recommend Shingles and PVC @ pharmacy Mammo s/p bilat mastectomy colon pending reports done need records DEXA ordered today [facility]ists Pulm Heme last infusion today Mammo s/p bilat mastectomy colon pending History of Present Illness - The patient is a 63-year-old female pr esenting with essential hypertension. - Her blood pressure has been partially controlled since starting Olmesartan 5mg, with a home reading of > 144 mmHg but improved from baseline w/o meds - She has noted increased urination as a side effect of her medication. - There is no report of new leg swelling , shortness of breath, or chest pain. - The treatment has not notably affected sleep quality. - Long COVID is prompting FMLA documenta tion. - She requires approximately two days of f, three times per month due to fatigue associated with long COVID. Review of Systems - Cardiovascular: Reports increase in ur ination related to medication. - General: Denies significant sleep disr uption from medication. - Musculoskeletal: Denies new swelling i n legs. - Respiratory: Denies new shortness of b reath. - Cardiovascular: Denies new chest pain. Physical Exam General: Well developed, well nourished, in no acute distress. Appears stated age. Head: Normocephalic, atraumatic. Lungs: Clear to auscultation bilaterally dim throughout Heart: Regular rate and rhythm. Cardiac murmur noted Pulses: Peripheral pulses are equal and palpable bilaterally. Extremities: No clubbing, cyanosis noted. Trace edema ble Psych: Mood and affect appropriate. Neuro : nonfocal Discussion Notes I discussed with the patient the current status of her hypertension and the associated management with Olmesartan. We reviewed the possible side effects, including increased urination and its minimal impact on her sleep. I advised potentially adjusting the timing of the medication to morning dosages. Additionally, we discussed the necessary completion of FMLA documentation to accommodate her intermittent leave due to long COVID symptoms. I emphasized the importance of monitoring her blood pressure and noted the possibility of increasing the dosage of Olmesartan to improve blood pressure control. We also talked about lifestyle adjustments, such as dietary habits and physical activity to complement medication effectiveness. Assessment and Plan 1. Essential Hypertension: The patient's hypertension is partially controlled with Olmesartan, with home readings indicating a need for adjustment. Discussed increasing the medication dosage for better management while minimizing side effects such as increased urination. Morning dosing was advised. 2. Long COVID: Condition leading to inte rmittent FMLA leave due to fatigue and the need for rest, with episodes lasting two to three days per occurrence. Supported FMLA paperwork completion and advised lifestyle balance. Patient Instructions - Increase Olmesartan from 5 to 10mg QD, monitor blood pressure regularly. - Take blood pressure medication in the morning to possibly reduce nighttime urination. - Maintain a balanced diet with healthy snacks and stay hydrated. - Be aware of long COVID symptoms and ma nage work schedules accordingly. - Submit [facility] paperwork as completed for intermittent leave needs. Returned to patient at time of visit, copies scanned into chart and faxed to [facility]. RTO 4 weeks for BP recheck Consent Patient was informed and verbally consented to the use of an ambient scribe for clinic note documentation during this visit. Total time spent caring for the patient today was 30 minutes. This includes time spent before the visit reviewing the chart, time spent during the visit, and time spent after the visit on documentation, reviewing laboratory results, diagnostic imaging, medications, performing a medically necessary evaluation, counseling on diagnoses, care coordination, ordering appropriate tests, ordering appropriate medications, review of tests performed by other providers, reporting test results with the patient, communication with other healthcare providers. [facility] Medical History Deflation of breast implant Abnormal EKG History of breast cancer (~2008) History of diabetes mellitus GERMANIA (obstructive sleep apnea) Palpitations Steatosis, liver History of MRSA infection Arthritis Sickle cell trait History of COVID-19 (~09/2019) Hx of cardiac murmur Post-COVID syndrome (~2019) Pneumonia (~2019) Asthma Hypertension GERD (gastroesophageal reflux disease) Constipation Surgical History History of left knee surgery (~2010) History of Cassi-en-Y gastric bypass (~2020) History of bilateral mastectomy (~2008) History of colonoscopy (~2016) History of hysterectomy (~2003) History of laparoscopic cholecystectomy (~2002) History of esophagogastroduodenoscopy (EGD) (~2017) History of sleeve gastrectomy (~2010) Family History (Updated 07/28/24 @ 15:25 by Cindy Beth MA) Father DM (diabetes mellitus) Stroke Mother DM (diabetes mellitus) Brother No problems noted. Sister No problems noted. Son No problems noted. 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 54028 - PHQ-9 Billing: Patient declined-do not bill Source: Developed by Drs. Leopoldo Carreon, Kari Preciado, Juve varela nd colleagues, with an educational tiara from [employer]. Thrive Questionnaire Date Thrive assessed: 08/23/24 I am a: Patient What is your living situation today?: I have a steady place to live Within the past 12 months, did the food you bought not last and you didn't have the money to get more?: Never true Within the past 12 months, did you worry whether your food would run out before you got money to buy more?: Never true Do you have trouble paying for medicines?: No Do you have trouble getting transportation to medical appointments?: No Do you have trouble paying your heating and electricity bill?: No Do you have trouble taking care of your child, family member or friend?: No Do you have trouble with day-to-day activities such as bathing, preparing meals, shopping, managing finances, etc.?: No Are you currently unemployed and looking for a job?: No Are you interested in more education?: No THRIVE Score: 0 STEVEN-7 AMB Questionnaire STEVEN-7 Date STEVEN - 7 assessed: 07/28/24 Source: Developed by Drs. Leopoldo Carreon, Kari Preciado, Juve Wyatt and colleagues, with an educational tiara from [employer]. Physical exam (Primary Care) Vital Signs: Last Vital Signs Temp 96.9 F 08/23/24 12:59 Pulse 71 08/23/24 12:59 Resp 13 08/23/24 12:59 BP 148/80 H 08/23/24 12:59 Pulse Ox 98 08/23/24 12:59 Oxygen Delivery Method Room Air 08/23/24 12:59 Tobacco/Smoking Status: Tobacco use Status Tobacco use date assessed 08/23/24 08/23/24 13:04 Patient Tobacco Use Status Former Tobacco user 08/23/24 13:04 Tobacco use type Cigarette 08/23/24 13:04 e-Cigarette/Vaping Use Never Used 08/23/24 13:04 Thrive Assessment: Date of Thrive Assessment Date Thrive assessed 08/23/24 08/23/24 13:04 Coding Level of Care Code Est Pt Level 4 (59581) Complex EM visit Add On G2211 Diagnoses Encounters for administrative purpose Z02.9 Primary hypertension I10 Hypertension type: primary hypertension Assessment & Plan Assessment & Plan (1) Encounters for administrative purpose: Comment: Intermittent FMLA 06/14/24-06/13/25 3x months 2days per episode Code(s): Z02.9 - Encounter for administrative examinations, unspecified Category: Medical (2) Hypertension: Code(s): I10 - Essential (primary) hypertension Category: Medical Qualifiers: Hypertension type: primary hypertension Qualified Code(s): I10 - Essential (primary) hypertension Plan . Medications: Changed From olmesartan 5 mg PO DAILY 90 tabs 0RF To olmesartan 10 mg (2 x 5 mg) PO DAILY 90 tabs 0RF
[2024-08-23 12:59] VITALS: BP 148/80; PULSE 71; RESP 13; TEMP 36.1; O2SAT 98
[2024-08-23 13:38] VITALS: BP 150/80
--- OUTSIDE RECORDS SUMMARY | 2024-08-23 14:43 | XMS_ITS | Encounter Summary ---
Author Organization [facility] Address [address] [place] [address] Care Team Providers Care Belt And Link Assembly Supervisor Name Role Phone Jorge Enriquez MD Primary Care Provider [phone] Encounter Details Date Type Department Care Team ([facility] st Contact Info) Description 10/22/2022 Scanned Document [facility]astic [facility] Re[facility] [address] [place] [address] Rosina Mckinney MD [address] [place] [address] Social History Tobacco Use Types [...] place to sleep or slept in a jail (including now)? No 09/29/2022 Sex and Gender [...] on filedocumented in this encounter Care Teams Belt And Link Assembly Supervisor Relationship Specialty Start Date End Date Jorge Enriquez MD [address] [place] [address] [place] [address] PCP - General 08/31/22 documented as of this encounter
--- OUTSIDE RECORDS SUMMARY | 2024-08-23 14:43 | XMS_ITS | Encounter Summary ---
Author Organization [facility] Address [address] [place] [address] Care Team Providers Care Shading Painter Name Role Phone Jorge Enriquez MD Primary Care Provider [phone] Encounter Details Date Type Department Care Team ([facility] st Contact Info) Description 10/30/[address] [facility] Plastic & Reconstructive Surgery [address] [place] [address] Rosina Mckinney MD [address] [place] [id number] Social History Tobacco Use Types Packs/Day Years [...] place to sleep or slept in a care home (including now)? No 09/29/2022 Sex and [...] on filedocumented in this encounter Care Teams Shading Painter Relationship Specialty Start Date End Date Jorge Enriquez MD [address] [place] [address] [place] [address] PCP - General 08/31/22 documented as of this encounter
--- OUTSIDE RECORDS SUMMARY | 2024-08-23 14:43 | XMS_ITS | Encounter Summary ---
Author Organization [facility] Address [address] [place] [address] Care Team Providers Care Technical Testing Engineer Name Role Phone Jorge Enriquez MD Primary Care Provider [phone] Encounter Details Date Type Department Care Team ([facility] st Contact Info) Description 11/19/2022 Telephone [facility] Plastic & Reconstructive Surgery [address] [place] [address] Rosina Mckinney MD [address] [place] [address] Social History Tobacco Use Types Packs/Day Years [...] date best contact number for pt is [phone] documented in this encounter Plan of Treatment Not on file documented as of this encounter Visit Diagnoses Not on filedocumented in this encounter Care Teams Technical Testing Engineer Relationship Specialty Start Date End Date Jorge Enriquez MD [address] [place] [address] [place] [address] PCP - General 08/31/22 documented as of this encounter
--- OUTSIDE RECORDS SUMMARY | 2024-08-23 14:43 | XMS_ITS | Encounter Summary ---
Author Organization [facility] Address [address] [place] [address] Care Team Providers Care Senior Physician Name Role Phone Jorge Enriquez MD Primary Care Provider [phone] Encounter Details Date Type Department Care Team ([facility] st Contact Info) Description 10/22/2022 Telephone [facility] Plastic & Reconstructive Surgery [address] [place] [address] Rosina Mckinney MD [address] [place] [address] Social History Tobacco Use Types Packs/Day Years [...] let you know she or Sergey from [facility] will be faxing over forms needed documented in this encounter Plan of Treatment Not on file documented as of this encounter Visit Diagnoses Not on filedocumented in this encounter Care Teams Senior Physician Relationship Specialty Start Date End Date Jorge Enriquez MD [address] [place] [address] Dr Moura, JORGE L [address] PCP - General 08/31/22 documented as of this encounter
--- OUTSIDE RECORDS SUMMARY | 2024-08-23 14:43 | XMS_ITS | Encounter Summary ---
Author Organization [facility] Address [address] [place] [address] Care Team Providers Care Heavy Lift Rigger Name Role Phone Jorge Enriquez MD Primary Care Provider Encounter Details Date Type Department Care Team ([facility] st Contact Info) Description 11/23/2022 Scanned Document [facility] Plastic & Reconstructive Surgery [address] [place] [address] Rosina Mckinney MD [address] [place] [address] Social History Tobacco Use Types Packs/Day Years [...] on filedocumented in this encounter Care Teams Heavy Lift Rigger Relationship Specialty Start Date End Date Jorge Enriquez MD [address] [place] [address] [place] [address] PCP - General 08/31/22 documented as of this encounter
--- OUTSIDE RECORDS SUMMARY | 2024-08-23 14:43 | XMS_ITS | Encounter Summary ---
Author Organization [facility] Address [address] [place] [address] Care Team Providers Care Monogram Operator Name Role Phone Jorge Enriquez MD Primary Care Provider [phone] Encounter Details Date Type Department Care Team ([facility] st Contact Info) Description 09/15/2022 Scanned Document [facility] Plastic & Reconstructive Surgery [address] [place] [address] Rosina Mckinney MD [address] [place] [address] Social History Tobacco Use Types Packs/Day Years [...] on filedocumented in this encounter Care Teams Monogram Operator Relationship Specialty Start Date End Date Jorge Enriquez MD [address] [place] [address] Dr Pop Denair, JORGE L [id number] PCP - General 08/31/22 documented as of this encounter
--- OUTSIDE RECORDS SUMMARY | 2024-08-23 14:43 | XMS_ITS | Clinical Summary ---
Author Organization [facility] Address [address] [place] [address] Care Team Providers Care Vice President Payer Name Role Phone Jorge Enriquez MD Primary Care Provider Allergies No known active allergies Medications Medication [...] place to sleep or slept in a retirement (including now)? No 09/29/2022 Sex and Gender [...] this topic Medical Devices Implanted Type Area Pediatric Licensed Practical Nurse Device Identifier Shelf Expiration Date Model / Serial / Lot [id number] Operator Engineer Anastomosis [employer] Titanium 20mhz Od3 M - [id number] Implanted:Qty: 1 on 09/28/2022 by Jose Rafael Barroso MD at [facility] Graft Right: Breast SYNOVIS MICRO IOCS [facility] 03/16/2027 [id number] / [id number] / [id number] Operator Engineer Anastomosis [employer] Titanium 20mhz Od3 M - [id number] Implanted:Qty: 1 on 09/28/2022 by Rosina Mckinney MD at [facility] Graft Left: Breast SYNOVIS Dealo [facility] 03/16/2027 [id number] / [id number] / [id number] Procedures Procedure Name Priority Date/Time Associated Diagnosis Comments BASIC METABOLIC PANEL Routine 09/30/2022 8:04 AM EDT from Last 3 Months or Most Recently Relevant to Health Maintenance Results * (ABNORMAL) Basic Metabolic Panel (Early AM) (09/30/2022 8:04 AM EDT) Glucose 91 74 - 106 mg/dL 09/30/2022 8:41 AM EDT [facility] Comment:Fasting: <100 mg/dL, Non-Fasting: <200 mg/dL (ADA 2005) Blood Urea Nitrogen (BUN) 15 9 - 23 mg/dL 09/30/2022 8:41 AM EDT [facility] Creatinine 0.8 0.6 - 1.0 mg/dL 09/30/2022 8:41 AM EDT [facility] eGFR 84 >59 09/30/2022 8:41 AM EDT [facility] Comment: CKD-EPI (2020) in mL/min/1.73 sq meters. Reported eGFR is based on the CKD-EPI equation that does not use a race coefficient as of 08/18/2022 Sodium 145 136 - 145 mmol/L 09/30/2022 8:41 AM EDT [facility] Potassium 3.8 3.4 - 4.5 mmol/L 09/30/2022 8:41 AM EDT [facility] Chloride 112(H) 98 - 107 mmol/L 09/30/2022 8:41 AM EDT [facility] CO2 28 20 - 31 mmol/L 09/30/2022 8:41 AM EDT [facility] Anion Gap 5 5 - 15 09/30/2022 8:41 AM EDT [facility] Calcium 8.3(L) 8.7 - 10.5 mg/dL 09/30/2022 8:41 AM EDT [facility] BUN/Creatinine Ratio 19 10.0 - 25.0 Ratio 09/30/2022 8:41 AM EDT [facility] Blood specimen (specimen) (Plasma/Serum) 09/30/2022 8:04 AM EDT 09/30/2022 8:21 AM EDT Althea Palacio PA-C [facility]LOOD [facility] See Below [facility] [address] [place] [address] from Last 3 Months or Most Recently Relevant to Health Maintenance Advance Directives * Full Code (Latest Code Status on File) Date Activated Date Inactivated Comments 09/28/2022 6:38 PM 02/10/2023 5:34 AM * Full Code Date Activated Date Inactivated Comments 09/28/2022 5:34 AM 09/28/2022 6:38 PM Care Teams Vice President Payer Relationship Specialty Start Date End Date Jorge Enriquez MD [address] [place] [address] [place] [address] PCP - General 08/31/22
--- OUTSIDE RECORDS SUMMARY | 2024-08-23 14:43 | XMS_ITS | Encounter Summary ---
Author Organization [facility] Address [address] [place] [address] Care Team Providers Care Solar Thermal Technician Name Role Phone Jorge Enriquez MD Primary Care Provider [phone] Encounter Details Date Type Department Care Team ([facility] st Contact Info) Description 10/30/2022 Scanned Document [facility] Plastic & Reconstructive Surgery [address] [place] [address] Rosina Mckinney MD [address] [place] [phone] Social History Tobacco Use Types Packs/Day Years [...] place to sleep or slept in a alf (including now)? No 09/29/2022 Sex and Gender [...] on filedocumented in this encounter Care Teams Solar Thermal Technician Relationship Specialty Start Date End Date Jorge Enriquez MD [address] [place] [address] [place] [address] PCP - General 08/31/22 documented as of this encounter
--- OUTSIDE RECORDS SUMMARY | 2024-08-23 14:43 | XMS_ITS | Encounter Summary ---
Author Organization [facility] Address [address] [place] [address] Care Team Providers Care Studio Coordinator Name Role Phone Jorge Enriquez MD Primary Care Provider [phone] Encounter Details Date Type Department Care Team ([facility] st Contact Info) Description 08/31/2022 Scanned Document [facility] [address] [facility] [address] [place] [address] Provider, Generic Social History Tobacco Use [...] on filedocumented in this encounter Care Teams Studio Coordinator Relationship Specialty Start Date End Date Jorge Enriquez MD [address] [place] [address] Dr Moura, JORGE L [address] PCP - General 08/31/22 documented as of this encounter
== END 2024-08-23 17:06 | disposition home or self-care (01) ==
LOC: HO.HMCFM 12:40
PROVIDERS: PCP Nurse Practitioner Family; Visit Provider Nurse Practitioner Family
DX: I10 Essential (primary) hypertension (principal)

== ENCOUNTER 2024-08-23 16:54 | Outpatient (REF) | payer OTHER, SELFPAY ==
--- NOTE | ~2024-08-23 | MR_ITS ---
EXAMINATION: MRI LEFT KNEE WITHOUT CONTRAST HISTORY: SWELLING LEFT KNEE COMPARISON: Comparison is made with the prior examination dated 01/09/2023. TECHNIQUE: Coronal T1 and fat-suppressed proton density, sagittal proton density and fat-suppressed proton density, and axial fat suppressed T2 weighted MR images of the left knee were obtained. FINDINGS: Bone marrow: There is subchondral edema and cystic change medial tibial plateau which is slightly more prominent than on the prior study. Bone marrow signal intensity is otherwise normal. Joint effusion: There is no joint effusion. Arnett's cyst: There is no Arnett's cyst. Articular cartilage: There is moderate to severe osteoarthritis of the medial compartment with cartilage loss and osteophyte formation. There is fissuring of the patellar cartilage of the lateral facet Muscles/soft tissues: The visualized muscles demonstrate normal signal intensity. Anterior cruciate ligament: Intact Posterior cruciate ligament: Intact Medial collateral ligament: Intact Lateral collateral ligament: Intact Medial meniscus: The body of the medial meniscus is diminutive in size. The previously seen vertically oriented tear of the posterior horn appears smaller. However, there is a new small focus of increased T2 signal intensity within the posterior horn which contacts the superior joint surface (series 10, image 11), consistent with a tear. These may be degenerative in nature. Lateral meniscus: Intact Flexor mechanism: The popliteus, gastrocnemius, and hamstring tendons are intact. Quadriceps tendon: Intact Patellar tendon: Intact Patellar retinacula: Intact MR/MR knee LT wo con IMPRESSION: 1. Moderate to severe osteoarthritis of the medial compartment. 2. Mild fissuring of the lateral patellar cartilage. 3. There is a posterior horn of the medial meniscus which are likely degenerative in nature. Electronically signed by: Leopoldo Poe MD 08/24/2024 07:58 AM EDT
--- OUTSIDE RECORDS SUMMARY | 2024-08-23 18:41 | XMS_ITS | Encounter Summary ---
Author Organization [facility] Address [address] [place] [address] Care Team Providers Care Team Leader/Research Psychologist Name Role Phone Jorge Enriquez MD Primary Care Provider [phone] Encounter Details Date Type Department Care Team ([facility] st Contact Info) Description 10/22/2022 Telephone [facility] Plastic & Reconstructive Surgery [address] [place] [address] Rosina Mckinney MD [address] [place] [address] Social History Tobacco Use Types Packs/Day Years [...] let you know she or Sergey from [facility] will be faxing over forms needed documented in this encounter Plan of Treatment Not on file documented as of this encounter Visit Diagnoses Not on filedocumented in this encounter Care Teams Team Leader/Research Psychologist Relationship Specialty Start Date End Date Jorge Enriquez MD [address] [place] [address] Dr Moura, JORGE L [address] PCP - General 08/31/22 documented as of this encounter
--- OUTSIDE RECORDS SUMMARY | 2024-08-23 18:41 | XMS_ITS | Encounter Summary ---
Author Organization [facility] Address [address] [place] [address] Care Team Providers Care Retirement Sales Consultant Name Role Phone Jorge Enriquez MD Primary Care Provider [phone] Encounter Details Date Type Department Care Team ([facility] st Contact Info) Description 10/22/2022 Scanned Document [facility] Plastic & Reconstructive Surgery [place] [address] [place] [address] Rosina Mckinney MD [address] [place] [address] Social History Tobacco Use Types [...] on filedocumented in this encounter Care Teams Retirement Sales Consultant Relationship Specialty Start Date End Date Jorge Enriquez MD [address] [place] [address] [place] [address] PCP - General 08/31/22 documented as of this encounter
--- OUTSIDE RECORDS SUMMARY | 2024-08-23 18:42 | XMS_ITS | Encounter Summary ---
Author Organization [facility] Address [address] [place] [address] Care Team Providers Care Mold Yard Supervisor Name Role Phone Jorge Enriquez MD Primary Care Provider [phone] Encounter Details Date Type Department Care Team ([facility] st Contact Info) Description 11/19/2022 Telephone [facility] Plastic & Reconstructive Surgery [address] [place] [address] Rosina Mckinney MD [address] [place] [address] Social History Tobacco Use Types Packs/Day Years [...] date best contact number for pt is [phone] documented in this encounter Plan of Treatment Not on file documented as of this encounter Visit Diagnoses Not on filedocumented in this encounter Care Teams Mold Yard Supervisor Relationship Specialty Start Date End Date Jorge Enriquez MD [address] [place] [address] [place] [address] PCP - General 08/31/22 documented as of this encounter
--- OUTSIDE RECORDS SUMMARY | 2024-08-23 18:42 | XMS_ITS | Encounter Summary ---
Author Organization [facility] Address [address] [place] [address] Care Team Providers Care Air Traffic Controller Center Name Role Phone Jorge Enriquez MD Primary Care Provider [phone] Encounter Details Date Type Department Care Team ([facility] st Contact Info) Description 10/30/2022 Scanned Document [facility] Plastic & Reconstructive Surgery [address] [place] [address] Rosina Mckinney MD [address] [place] [address] Social History Tobacco Use Types Packs/Day Years [...] on filedocumented in this encounter Care Teams Air Traffic Controller Center Relationship Specialty Start Date End Date Jorge Enriquez MD [address] [place] [address] [place] [address] PCP - General 08/31/22 documented as of this encounter
--- OUTSIDE RECORDS SUMMARY | 2024-08-23 18:42 | XMS_ITS | Clinical Summary ---
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 Press Mixer Operator Anastomosis Maury [employer]ain[employer] Titanium 20mhz Od3 M - [id number] Implanted:Qty: 1 on 09/28/2022 by Jose Rafael Barroso MD at [facility] Graft Right: Breast SYNOVIS [employer] [facility] 03/16/2027 [id number] / [id number] / [id number] Clay Dry Press Mixer Operator Anastomosis Maury Stainless [employer] Titanium 20mhz Od3 M - [id number] Implanted:Qty: 1 on 09/28/2022 by Rosina Mckinney MD at [facility] Graft Left: Breast SYNOVIS Prestodiag [facility] 03/16/2027 [id number] / [id number] / [id number] Procedures Procedure Name Priority Date/Time Associated Diagnosis Comments BASIC METABOLIC PANEL Routine 09/30/2022 8:04 AM EDT from Last 3 Months or Most Recently Relevant to Health Maintenance Results * (ABNORMAL) Basic Metabolic Panel (Early AM) (09/30/2022 8:04 AM EDT) Glucose 91 74 - 106 mg/dL 09/30/2022 8:41 AM EDT [facility] Comment:Fasting: <100 mg/dL, Non-Fasting: <200 mg/dL (ADA 2005) Blood Urea Nitrogen (BUN) 15 9 - 23 mg/dL 09/30/2022 8:41 AM EDT [facility] Creatinine 0.8 0.6 - 1.0 mg/dL 09/30/2022 8:41 AM EDT [facility] eGFR 84 >59 09/30/2022 8:41 AM EDT [facility] Comment: CKD-EPI (2020) in mL/min/1.73 sq meters. Reported eGFR is based on the CKD-EPI equation that does not use a race coefficient as of 08/18/2022 Sodium 145 136 - 145 mmol/L 09/30/2022 8:41 AM EDT [facility] Potassium 3.8 3.4 - 4.5 mmol/L 09/30/2022 8:41 AM EDT [facility] Chloride 112(H) 98 - 107 mmol/L 09/30/2022 8:41 AM EDT [facility] CO2 28 20 - 31 mmol/L 09/30/2022 8:41 AM EDT [facility] Anion Gap 5 5 - 15 09/30/2022 8:41 AM EDT [facility] Calcium 8.3(L) 8.7 - 10.5 mg/dL 09/30/2022 8:41 AM EDT [facility] BUN/Creatinine Ratio 19 10.0 - 25.0 Ratio 09/30/2022 8:41 AM EDT [facility] Blood specimen (specimen) (Plasma/Serum) 09/30/2022 8:04 AM EDT 09/30/2022 8:21 AM EDT Althea Palacio PA-C LAB BLOOD ORDER[facility]L [facility] See Below [facility] [address] [place] [address] from Last 3 Months or Most Recently Relevant to Health Maintenance Advance Directives * Full Code (Latest Code Status on File) Date Activated Date Inactivated Comments 09/28/2022 6:38 PM 02/10/2023 5:34 AM * Full Code Date Activated Date Inactivated Comments 09/28/2022 5:34 AM 09/28/2022 6:38 PM Care Teams Expanded Function Dental Assistant Relationship Specialty Start Date End Date Jorge Enriquez MD [address] [place] [address] [place] [address] PCP - General 08/31/22
--- OUTSIDE RECORDS SUMMARY | 2024-08-23 18:42 | XMS_ITS | Encounter Summary ---
Author Organization [facility] Address [address] [place] [address] Care Team Providers Care Prop Setter Name Role Phone Jorge Enriquez MD Primary Care Provider [phone] Encounter Details Date Type Department Care Team ([facility] st Contact Info) Description 11/23/2022 Scanned Document [facility] Plastic & Reconstructive Surgery [address] [place] [address] Rosina Mckinney MD [address] [place] [address] Social History Tobacco Use Types Packs/Day Years [...] place to sleep or slept in a mcfp (including now)? No 09/29/2022 Sex and Gender [...] on filedocumented in this encounter Care Teams Prop Setter Relationship Specialty Start Date End Date Jorge Enriquez MD [address] [place] [address] [place] [address] PCP - General 08/31/22 documented as of this encounter
--- OUTSIDE RECORDS SUMMARY | 2024-08-23 18:42 | XMS_ITS | Encounter Summary ---
Author Organization [facility] Address [address] [place] [address] Care Team Providers Care Matrix Repairer Name Role Phone Jorge Enriquez MD Primary Care Provider [phone] Encounter Details Date Type Department Care Team ([facility] st Contact Info) Description 09/15/2022 Scanned Document [facility] Plastic & Reconstructive Surgery [address] [place] [address] Rosina Mckinney MD [address] [place] [address] Social History Tobacco Use Types Packs/Day Years [...] on filedocumented in this encounter Care Teams Matrix Repairer Relationship Specialty Start Date End Date Jorge Enriquez MD [address] [place] [address] Dr Pop [place], JORGE L [id number] PCP - General 08/31/22 documented as of this encounter
--- OUTSIDE RECORDS SUMMARY | 2024-08-23 18:42 | XMS_ITS | Encounter Summary ---
Author Organization [facility] Address [address] [place] [address] Care Team Providers Care Pharmacist Aide Name Role Phone Jorge Enriquez MD Primary Care Provider [phone] Encounter Details Date Type Department Care Team ([facility] st Contact Info) Description 08/31/2022 Scanned Document [facility] [address] [facility] [address] [place] [phone] Provider, Generic Social History Tobacco Use [...] on filedocumented in this encounter Care Teams Pharmacist Aide Relationship Specialty Start Date End Date Jorge Enriquez MD [address] [place] [address] Dr Moura, JORGE L [address] PCP - General 08/31/22 documented as of this encounter
--- OUTSIDE RECORDS SUMMARY | 2024-08-23 18:42 | XMS_ITS | Encounter Summary ---
Author Organization [facility] Address [address] [place] [address] Care Team Providers Care Passenger Interline Clerk Name Role Phone Jorge Enriquez MD Primary Care Provider [phone] Encounter Details Date Type Department Care Team ([facility] st Contact Info) Description 10/30/2022 Scanned Document [facility] Plastic & Reconstructive Surgery [address] [place] [address] Rosina Mckinney MD [address] [place] [address] Social History Tobacco Use Types Packs/Day Years [...] place to sleep or slept in a custodial (including now)? No 09/29/2022 Sex and Gender [...] on filedocumented in this encounter Care Teams Passenger Interline Clerk Relationship Specialty Start Date End Date Jorge Enriquez MD [address] [place] [address] [place] [address] PCP - General 08/31/22 documented as of this encounter
== END 2024-08-23 16:55 | disposition home or self-care (01) ==
LOC: HO.MRI 16:54
PROVIDERS: PCP Nurse Practitioner Family; Visit Provider Internal Medicine
DX: M25.562 Pain in left knee (principal)
CPT/HCPCS: 73721

== ENCOUNTER → 2024-08-23 17:15 | Outpatient (BNV) | payer OTHER, SELFPAY | PROVIDERS: PCP Nurse Practitioner Family; Visit Provider Radiology Diagnostic Radiology | DX: M17.12 Unilateral primary osteoarthritis, left knee (principal) | CPT/HCPCS: 73721 ==

== ENCOUNTER → 2024-08-28 08:19 | Outpatient (BNVA) | payer OTHER, SELFPAY | PROVIDERS: PCP Nurse Practitioner Family; Visit Provider Internal Medicine | DX: S83.92XD Sprain of unspecified site of left knee, subsequent encounter (principal); W01.0XXD Fall on same level from slipping, tripping and stumbling without subsequent striking against object, subsequent encounter; Z02.79 Encounter for issue of other medical certificate | CPT/HCPCS: 99213 ==

== ENCOUNTER 2024-08-28 09:45 | Outpatient (REF) | payer OTHER, SELFPAY ==
--- NOTE | ~2024-08-28 | XR_ITS ---
CLINICAL HISTORY: Z98.890 - Other specified postprocedural states AP standing view bilateral knees Two-view left knee Comparison: MR/SD - MR KNEE LT WO CON - 08/23/24 17:14 EDT Findings: No fractures or dislocations. Moderate narrowing and osteophyte formation within the left medial knee compartment. Very mild narrowing of the right medial knee compartment and left patellofemoral joint. No joint effusion. No radiopaque foreign body. IMPRESSION: Osteoarthritis of the bilateral knees, most advanced within the left medial knee compartment. This document has been electronically signed by: Elisa Pierce MD on 08/30/2024 14:09:18
== END 2024-08-28 09:46 | disposition home or self-care (01) ==
LOC: HO.HOSX 09:45
PROVIDERS: Visit Provider Orthopaedic Surgery
DX: M17.12 Unilateral primary osteoarthritis, left knee (principal); Z98.890 Other specified postprocedural states; M25.569 Pain in unspecified knee
CPT/HCPCS: 20610; 73562; J0665; J1100; J2003

== ENCOUNTER 2024-08-28 11:17 | Outpatient (AMB) | payer OTHER, SELFPAY ==
--- NOTE | 2024-08-28 11:20 | MHC.OFFVIS ---
Intake Visit Reasons: OV-MRI review LT knee Intake Note: Elma is a 63 year old female who presents today for an MRI review of her Left Knee. Took a fall on 07/03/24, causing her to slide under the car, injuring bilateral knees. IMPRESSION: 1. Moderate to severe osteoarthritis of the medial compartment. 2. Mild fissuring of the lateral patellar cartilage. 3. There is a posterior horn of the medial meniscus which are likely degenerative in nature. Allergies cat dander Allergy (Severe, Verified 08/23/24 13:33) Loss Voice environmental allergies Allergy (Severe, Verified 08/23/24 13:33) Sneezing HPI HPI OV-MRI review LT knee: Details: Ernie comes in today now about 6 weeks after a work injury. She has continued left knee pain. An MRI was obtained in it shows severe medial compartment osteoarthritis. She continues to have left-sided knee pain. She has had injections in the remote past but not recently. [facility] Medical History Deflation of breast implant Abnormal EKG History of breast cancer (~2008) History of diabetes mellitus GERMANIA (obstructive sleep apnea) Palpitations Steatosis, liver History of MRSA infection Arthritis Sickle cell trait History of COVID-19 (~09/2019) Hx of cardiac murmur Post-COVID syndrome (~2019) Pneumonia (~2019) Asthma Hypertension GERD (gastroesophageal reflux disease) Constipation Surgical History History of left knee surgery (~2010) History of Cassi-en-Y gastric bypass (~2020) History of bilateral mastectomy (~2008) History of colonoscopy (~2016) History of hysterectomy (~2003) History of laparoscopic cholecystectomy (~2002) History of esophagogastroduodenoscopy (EGD) (~2017) History of sleeve gastrectomy (~2010) Family History (Updated 07/28/24 @ 15:25 by Cindy Beth MA) Father DM (diabetes mellitus) Stroke Mother DM (diabetes mellitus) Brother No problems noted. Sister No problems noted. Son No problems noted. 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 Office Procedures Joint Inj/Aspir; Non-Pain Clin Joint Injection/Drain Details: Injected 1 mL of Decadron and 3 mL 1% lidocaine and 3 mL of 0.25% Marcaine. Site was prepped using aseptic technique. Patient tolerated the procedure well. Shoulders, Hips, Knees, Knee Large Joint Injection : Left Knee Coding Procedure code (CPT) selection complete Results Reviewed Results Reviewed: I personally reviewed the MR images. Severe osteoarthritis medial compartment left knee Assessment & Plan Assessment & Plan (1) Osteoarthritis of left knee: Code(s): M17.12 - Unilateral primary osteoarthritis, left knee Category: Medical Plan: This is a 63-year-old with osteoarthritis of the left knee. She sustained a workplace injury and wished this exacerbated this pre-existing osteoarthritis. I injected her left knee today. I would see her back in 6 weeks. As for work she may have occasional flare-ups which will require rest but otherwise she can continue working as tolerated. Orders: Orders XR knee RT 1V Today M25.569 - Pain in unspecified knee Coding Level of Care Code Est Pt Level 3 (76387) Diagnoses Osteoarthritis of left knee M17.12 CPT Codes Shoulders, Hips, Knees, - Knee Large Joint Injection 37714: Left Knee ([id number])
--- OUTSIDE RECORDS SUMMARY | 2024-08-28 13:27 | XMS_ITS | Encounter Summary ---
Author Organization [facility] Address [address] [place] [address] Care Team Providers Care Yarn Dyer Name Role Phone Jorge Enriquez MD Primary Care Provider [phone] Encounter Details Date Type Department Care Team ([facility] st Contact Info) Description 11/23/2022 Scanned Document [facility] Plastic & Reconstructive Surgery [address] [place] [address] Rosina Mckinney MD [address] [place] [address] Social History Tobacco Use Types Packs/Day Years [...] place to sleep or slept in a detention (including now)? No 09/29/2022 Sex and Gender [...] on filedocumented in this encounter Care Teams Yarn Dyer Relationship Specialty Start Date End Date Jorge Enriquez MD [address] [place] [address] [place] [address] PCP - General 08/31/22 documented as of this encounter
--- OUTSIDE RECORDS SUMMARY | 2024-08-28 13:27 | XMS_ITS | Encounter Summary ---
Author Organization [facility] Address [address] [place] [address] Care Team Providers Care Mold Cooler Name Role Phone Jorge Enriquez MD Primary Care Provider [phone] Encounter Details Date Type Department Care Team ([facility] st Contact Info) Description 10/22/2022 Scanned Document [facility] Plastic & Reconstructive Surgery [place] [address] [place] [address] Rosina Mckinney MD [address] [place] [address] Social History Tobacco Use Types [...] filedocumented in this encounter Care Teams Mold Cooler Relationship Specialty Start Date End Date Jorge Enriquez MD [address] [place] [address] [place] [address] PCP - General 08/31/22 documented as of this encounter
--- OUTSIDE RECORDS SUMMARY | 2024-08-28 13:27 | XMS_ITS | Encounter Summary ---
Author Organization [facility] Address [address] [place] [address] Care Team Providers Care Broadcast Operations Technician Name Role Phone Jorge Enriquez MD Primary Care Provider [phone] Encounter Details Date Type Department Care Team ([facility] st Contact Info) Description 11/19/2022 Telephone [facility] Plastic & Reconstructive Surgery [address] [place] [address] Rosina Mckinney MD [address] [place] [address] Social History Tobacco Use Types Packs/Day Years [...] date best contact number for pt is [phone] documented in this encounter Plan of Treatment Not on file documented as of this encounter Visit Diagnoses Not on filedocumented in this encounter Care Teams Broadcast Operations Technician Relationship Specialty Start Date End Date Jorge Enriquez MD [address] [place] [address] [place] [address] PCP - General 08/31/22 documented as of this encounter
--- OUTSIDE RECORDS SUMMARY | 2024-08-28 13:27 | XMS_ITS | Encounter Summary ---
Author Organization [facility] Address [address] [place] [address] Care Team Providers Care Administrative Office Clerk Name Role Phone Jorge Enriquez MD Primary Care Provider Encounter Details Date Type Department Care Team ([facility] st Contact Info) Description 10/30/2022 Scanned Document [facility] Plastic & Reconstructive Surgery [address] [place] [address] Rosina Mckinney MD [address] [place] [address] Social History Tobacco Use Types Packs/Day Years [...] on filedocumented in this encounter Care Teams Administrative Office Clerk Relationship Specialty Start Date End Date Jorge Enriquez MD [address] [place] [address] [place] [address] PCP - General 08/31/22 documented as of this encounter
--- OUTSIDE RECORDS SUMMARY | 2024-08-28 13:27 | XMS_ITS | Encounter Summary ---
Author Organization [facility] Address [address] [place] [address] Care Team Providers Care Hoistman Name Role Phone Jorge Enriquez MD Primary Care Provider [phone] Encounter Details Date Type Department Care Team ([facility] st Contact Info) Description 08/31/2022 Scanned Document [facility] [address] [facility] [address] [place] [phone] Provider, Generic Social History Tobacco Use [...] on filedocumented in this encounter Care Teams Hoistman Relationship Specialty Start Date End Date Jorge Enriquez MD [address] [place] [address] Dr Moura, JORGE L [address] PCP - General 08/31/22 documented as of this encounter
--- OUTSIDE RECORDS SUMMARY | 2024-08-28 13:27 | XMS_ITS | Encounter Summary ---
Author Organization [facility] Address [address] [place] [address] Care Team Providers Care Hotel General Manager Name Role Phone Jorge Enriquez MD Primary Care Provider [phone] Encounter Details Date Type Department Care Team ([facility] st Contact Info) Description 09/15/2022 Scanned Document [facility] Plastic & Reconstructive Surgery [address] [place] [address] Rosina Mckinney MD [address] [place] [address] Social History Tobacco Use Types Packs/Day Years [...] on filedocumented in this encounter Care Teams Hotel General Manager Relationship Specialty Start Date End Date Jorge Enriquez MD [address] [place] [address] Dr Pop [place], JORGE L [phone] PCP - General 08/31/22 documented as of this encounter
--- OUTSIDE RECORDS SUMMARY | 2024-08-28 13:27 | XMS_ITS | Encounter Summary ---
Author Organization [facility] Address [address] [place] [address] Care Team Providers Care Heat Treatment Technician Name Role Phone Jorge Enriquez MD Primary Care Provider [phone] Encounter Details Date Type Department Care Team ([facility] st Contact Info) Description 10/22/2022 Telephone [facility] Plastic & Reconstructive Surgery [address] [place] [address] Rosina Mckinney MD [address] [place] [address] Social History Tobacco Use Types Packs/Day Years [...] let you know she or Sergey from [facility] will be faxing over forms needed documented in this encounter Plan of Treatment Not on file documented as of this encounter Visit Diagnoses Not on filedocumented in this encounter Care Teams Heat Treatment Technician Relationship Specialty Start Date End Date Jorge Enriquez MD [address] [place] [address] Dr Moura, JORGE L [address] PCP - General 08/31/22 documented as of this encounter
--- OUTSIDE RECORDS SUMMARY | 2024-08-28 13:27 | XMS_ITS | Encounter Summary ---
Author Organization [facility] Address [address] [place] [address] Care Team Providers Care Pleater Name Role Phone Jorge Enriquez MD Primary Care Provider [phone] Encounter Details Date Type Department Care Team ([facility] st Contact Info) Description 10/30/2022 Scanned Document [facility] Plastic & Reconstructive Surgery [address] [place] [address] Rosina Mckinney MD [address] [place] [address] Social History Tobacco Use Types Packs/Day Years [...] on filedocumented in this encounter Care Teams Pleater Relationship Specialty Start Date End Date Jorge Enriquez MD [address] [place] [address] [place] [address] PCP - General 08/31/22 documented as of this encounter
--- OUTSIDE RECORDS SUMMARY | 2024-08-28 13:27 | XMS_ITS | Clinical Summary ---
Author Organization Formerly [facility] Address [address] [place] [address] Care Team Providers Care Mixer Slagman Name Role Phone Jorge Enriquez MD Primary Care Provider [phone] Allergies No known active allergies Medications Medication [...] place to sleep or slept in a half-way (including now)? No 09/29/2022 Sex and Gender [...] this topic Medical Devices Implanted Type Area Color Buffer Device Identifier Shelf Expiration Date Model / Serial / Lot [id number] Track Repairer Helper Anastomosis [place] [employer] Titanium 20mhz Od3 M - [id number] Implanted:Qty: 1 on 09/28/2022 by Jose Rafael Barroso MD at [facility] Graft Right: Breast [employer] [facility] 03/16/2027 [id number] / [id number] / [id number] Track Repairer Helper Anastomosis [place] [employer] Titanium 20mhz Od3 M - [id number] Implanted:Qty: 1 on 09/28/2022 by Rosina Mckinney MD at [facility] Graft Left: Breast [email or web address] [facility] 03/16/2027 [id number] / [id number] / [id number] Procedures Procedure Name Priority Date/Time Associated Diagnosis Comments BASIC METABOLIC PANEL Routine 09/30/2022 8:04 AM EDT from Last 3 Months or Most Recently Relevant to Health Maintenance Results * (ABNORMAL) Basic Metabolic Panel (Early AM) (09/30/2022 8:04 AM EDT) Glucose 91 74 - 106 mg/dL 09/30/2022 8:41 AM EDT [facility] Comment:Fasting: <100 mg/dL, Non-Fasting: <200 mg/dL (ADA 2005) Blood Urea Nitrogen (BUN) 15 9 - 23 mg/dL 09/30/2022 8:41 AM EDT [facility] Creatinine 0.8 0.6 - 1.0 mg/dL 09/30/2022 8:41 AM EDT [facility] eGFR 84 >59 09/30/2022 8:41 AM EDT [facility] Comment: CKD-EPI (2020) in mL/min/1.73 sq meters. Reported eGFR is based on the CKD-EPI equation that does not use a race coefficient as of 08/18/2022 Sodium 145 136 - 145 mmol/L 09/30/2022 8:41 AM EDT [facility] Potassium 3.8 3.4 - 4.5 mmol/L 09/30/2022 8:41 AM EDT [facility] Chloride 112(H) 98 - 107 mmol/L 09/30/2022 8:41 AM EDT [facility] CO2 28 20 - 31 mmol/L 09/30/2022 8:41 AM EDT [facility] Anion Gap 5 5 - 15 09/30/2022 8:41 AM EDT [facility] Calcium 8.3(L) 8.7 - 10.5 mg/dL 09/30/2022 8:41 AM EDT [facility] BUN/Creatinine Ratio 19 10.0 - 25.0 Ratio 09/30/2022 8:41 AM EDT [facility] Blood specimen (specimen) (Plasma/Serum) 09/30/2022 8:04 AM EDT 09/30/2022 8:21 AM EDT Althea Palacio PA-C [facility] See Below [facility] [address] [place] [address] from Last 3 Months or Most Recently Relevant to Health Maintenance Advance Directives * Full Code (Latest Code Status on File) Date Activated Date Inactivated Comments 09/28/2022 6:38 PM 02/10/2023 5:34 AM * Full Code Date Activated Date Inactivated Comments 09/28/2022 5:34 AM 09/28/2022 6:38 PM Care Teams Mixer Slagman Relationship Specialty Start Date End Date Jorge Enriquez MD [address] [place] [address] [place] [address] PCP - General 08/31/22
== END 2024-08-28 11:49 | disposition home or self-care (01) ==
LOC: HO.HOS 11:18
PROVIDERS: PCP Nurse Practitioner Family; Visit Provider Orthopaedic Surgery
DX: M17.12 Unilateral primary osteoarthritis, left knee (principal)
CPT/HCPCS: 20610; 99213

== ENCOUNTER → 2024-08-28 11:22 | Outpatient (BNV) | payer OTHER, SELFPAY | PROVIDERS: Visit Provider Radiology Diagnostic Radiology | DX: M17.0 Bilateral primary osteoarthritis of knee (principal) | CPT/HCPCS: 73562 ==

== ENCOUNTER 2024-09-05 16:25 | Outpatient (REF) | payer OTHER, SELFPAY ==
--- NOTE | ~2024-09-05 | CT_ITS ---
EXAMINATION: CT CHEST WITHOUT CONTRAST CLINICAL INFORMATION: Interstitial pulmonary disease. COMPARISON: None available. TECHNIQUE: Multidetector volumetric CT imaging of the chest was done. Axial MIP volume rendering provided. Sagittal and coronal reformatted images were obtained. This CT examination was performed using dose optimization techniques as appropriate, variously including the following: *Automated exposure control *Adjustment of mA and/or kV according to patient size (this includes techniques or standardized protocols for targeted exams where dose is matched to indication/reason for exam; i.e. extremities or head) *Use of iterative reconstruction technique. DLP: 159 mGy centimeter. FINDINGS: PASTE WORKER: Large body habitus. Both upper extremities at the site of the head. Vascular clips right upper quadrant abdomen. LUNGS: There is a focal cluster of 1 mm pulmonary nodules in the periphery of the right lower lung lobe, smaller on the left lung base, right middle lung lobe and lingula. There is a 2 mm noncalcified pulmonary nodule superior segment right upper lung lobe. 1 mm calcified pulmonary nodule, right middle lung lobe. No bronchiectasis. No honeycombing. Respiratory airways is patent. No hyperinflation. No volume loss. MEDIASTINUM: Prominent less than 1 cm lymph nodes. No pericardial effusion. No aneurysm, thoracic aorta. CORONARY ARTERY CALCIFICATION: Minimal. PLEURA: No pleural effusion. No pneumothorax. AXILLA: No specific prominent axillary lymph nodes. UPPER ABDOMEN: Sutures along the gastroesophageal junction with small volume of the stomach. Scattered diverticula in the splenic colonic flexure. OSSEOUS STRUCTURES: Multilevel spondylosis involving mostly the mid to lower thoracic spine. Multiple vascular clips and fat density in both breasts without breast parenchyma. CT/CT chest wo IV con IMPRESSION: Consider prior granulomatous disease process. No acute airspace disease. 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 Multilevel thoracic spondylosis. Fleischner guidelines were followed. Electronically signed by: Tan Toledo MD 09/06/2024 08:14 AM EDT
--- OUTSIDE RECORDS SUMMARY | 2024-09-05 19:49 | XMS_ITS | Encounter Summary ---
Author Organization [facility] Address [address] [place] [address] Care Team Providers Care Refractory Bricklayer Name Role Phone Jorge Enriquez MD Primary Care Provider [phone] Encounter Details Date Type Department Care Team ([facility] st Contact Info) Description 10/22/2022 Scanned Document [facility] Plastic & Reconstructive Surgery [place] [address] [place] [address] Rosina Mckinney MD [address] [place] [address] Social History Tobacco Use Types [...] on filedocumented in this encounter Care Teams Refractory Bricklayer Relationship Specialty Start Date End Date Jorge Enriquez MD [address] [place] [address] [place] [address] PCP - General 08/31/22 documented as of this encounter
--- OUTSIDE RECORDS SUMMARY | 2024-09-05 19:49 | XMS_ITS | Encounter Summary ---
Author Organization [facility] Address [address] [place] [address] Care Team Providers Care Lining Feller Name Role Phone Jorge Enriquez MD Primary Care Provider [phone] Encounter Details Date Type Department Care Team ([facility] st Contact Info) Description 10/30/2022 Scanned Document [facility] Plastic & Reconstructive Surgery [address] [place] [address] Rosina Mckinney MD [address] [place] [address] Social History Tobacco Use Types Packs/Day Years [...] on filedocumented in this encounter Care Teams Lining Feller Relationship Specialty Start Date End Date Jorge Enriquez MD [address] [place] [address] [place] [address] PCP - General 08/31/22 documented as of this encounter
--- OUTSIDE RECORDS SUMMARY | 2024-09-05 19:49 | XMS_ITS | Encounter Summary ---
Author Organization [facility] Address [address] [place] [address] Care Team Providers Care Searchlight Operator Name Role Phone Jorge Enriquez MD Primary Care Provider [phone] Encounter Details Date Type Department Care Team ([facility] st Contact Info) Description 11/19/2022 Telephone [facility] Plastic & Reconstructive Surgery [address] [place] [address] Rosina Mckinney MD [address] [place] [address] Social History Tobacco Use Types Packs/Day Years [...] date best contact number for pt is [phone] documented in this encounter Plan of Treatment Not on file documented as of this encounter Visit Diagnoses Not on filedocumented in this encounter Care Teams Searchlight Operator Relationship Specialty Start Date End Date Jorge Enriquez MD [address] [place] [address] [place] [address] PCP - General 08/31/22 documented as of this encounter
--- OUTSIDE RECORDS SUMMARY | 2024-09-05 19:49 | XMS_ITS | Encounter Summary ---
Author Organization [facility] Address [address] [place] [address] Care Team Providers Care Flexo Folder Gluer Operator Name Role Phone Jorge Enriquez MD Primary Care Provider [phone] Encounter Details Date Type Department Care Team ([facility] st Contact Info) Description 11/23/2022 Scanned Document [facility] Plastic & Reconstructive Surgery [address] [place] [address] Rosina Mckinney MD [address] [place] [address] Social History Tobacco Use Types Packs/Day Years [...] on filedocumented in this encounter Care Teams Flexo Folder Gluer Operator Relationship Specialty Start Date End Date Jorge Enriquez MD [address] [place] [address] [place] [address] PCP - General 08/31/22 documented as of this encounter
--- OUTSIDE RECORDS SUMMARY | 2024-09-05 19:49 | XMS_ITS | Encounter Summary ---
Author Organization [facility] Address [address] [place] [address] Care Team Providers Care Chucking Lathe Operator Name Role Phone Jorge Enriquez MD Primary Care Provider [phone] Encounter Details Date Type Department Care Team ([facility] st Contact Info) Description 08/31/2022 Scanned Document [facility] 80 [facility] [address] [place] [phone] Provider, Generic Social History Tobacco Use [...] on filedocumented in this encounter Care Teams Chucking Lathe Operator Relationship Specialty Start Date End Date Jorge Enriquez MD [address] [place] [address] Dr Moura, JORGE L [address] PCP - General 08/31/22 documented as of this encounter
--- OUTSIDE RECORDS SUMMARY | 2024-09-05 19:49 | XMS_ITS | Clinical Summary ---
Author Organization [facility] Address [address] [place] [address] Care Team Providers Care Medical Imaging Specialist Name Role Phone Jorge Enriquez MD Primary Care Provider [phone] Allergies No known active allergies Medications Medication [...] this topic Medical Devices Implanted Type Area Professor Of Visual Arts Device Identifier Shelf Expiration Date Model / Serial / Lot [id number] Corporate General Manager Anastomosis [place] [employer] Titanium 20mhz Od3 M - [id number] Implanted:Qty: 1 on 09/28/2022 by Jose Rafael Barroso MD at [facility] Graft Right: Breast [employer] [facility] 03/16/2027 [id number] / [id number] / [id number] Corporate General Manager Anastomosis [place] [employer] Titanium 20mhz Od3 M - [id number] Implanted:Qty: 1 on 09/28/2022 by Rosina Mckinney MD at [facility] Graft Left: Breast [employer] [facility] 03/16/2027 [id number] / [id number] / [id number] Procedures Procedure Name Priority Date/Time Associated Diagnosis Comments BASIC METABOLIC PANEL Routine 09/30/2022 8:04 AM EDT from Last 3 Months or Most Recently Relevant to Health Maintenance Results * (ABNORMAL) Basic Metabolic Panel (Early AM) (09/30/2022 8:04 AM EDT) Glucose 91 74 - 106 mg/dL 09/30/2022 8:41 AM EDT [facility] Comment:Fasting: <100 mg/dL, Non-Fasting: <200 mg/dL (ADA 2005) Blood Urea Nitrogen (BUN) 15 9 - 23 mg/dL 09/30/2022 8:41 AM EDT [facility] Creatinine 0.8 0.6 - 1.0 mg/dL 09/30/2022 8:41 AM EDT [facility] eGFR 84 >59 09/30/2022 8:41 AM EDT [facility] Comment: CKD-EPI (2020) in mL/min/1.73 sq meters. Reported eGFR is based on the CKD-EPI equation that does not use a race coefficient as of 08/18/2022 Sodium 145 136 - 145 mmol/L 09/30/2022 8:41 AM EDT [facility] Potassium 3.8 3.4 - 4.5 mmol/L 09/30/2022 8:41 AM EDT [facility] Chloride 112(H) 98 - 107 mmol/L 09/30/2022 8:41 AM EDT [facility] CO2 28 20 - 31 mmol/L 09/30/2022 8:41 AM EDT [facility] Anion Gap 5 5 - 15 09/30/2022 8:41 AM EDT [facility] Calcium 8.3(L) 8.7 - 10.5 mg/dL 09/30/2022 8:41 AM EDT [facility] BUN/Creatinine Ratio 19 10.0 - 25.0 Ratio 09/30/2022 8:41 AM EDT [facility] Blood specimen (specimen) (Plasma/Serum) 09/30/2022 8:04 AM EDT 09/30/2022 8:21 AM EDT Althea Palacio PA-C [facility] See Below [facility] [address] [place] [address] from Last 3 Months or Most Recently Relevant to Health Maintenance Advance Directives * Full Code (Latest Code Status on File) Date Activated Date Inactivated Comments 09/28/2022 6:38 PM 02/10/2023 5:34 AM * Full Code Date Activated Date Inactivated Comments 09/28/2022 5:34 AM 09/28/2022 6:38 PM Care Teams Medical Imaging Specialist Relationship Specialty Start Date End Date Jorge Enriquez MD [address] [place] [address] [place] [address] PCP - General 08/31/22
--- OUTSIDE RECORDS SUMMARY | 2024-09-05 19:49 | XMS_ITS | Encounter Summary ---
Author Organization [facility] Address [address] [place] [address] Care Team Providers Care Concrete Products Machine Operator Name Role Phone Jorge Enriquez MD Primary Care Provider [phone] Encounter Details Date Type Department Care Team ([facility] st Contact Info) Description 10/30/2022 Scanned Document [facility] Plastic & Reconstructive Surgery [address] [place] [address] Rosina Mckinney MD [address] [place] [address] Social History Tobacco Use Types Packs/Day Years [...] on filedocumented in this encounter Care Teams Concrete Products Machine Operator Relationship Specialty Start Date End Date Jorge Enriquez MD [address] [place] [address] [place] [address] PCP - General 08/31/22 documented as of this encounter
--- OUTSIDE RECORDS SUMMARY | 2024-09-05 19:49 | XMS_ITS | Encounter Summary ---
Author Organization [facility] Address [address] [place] [address] Care Team Providers Care Manager House Name Role Phone Jorge Enriquez MD Primary Care Provider [phone] Encounter Details Date Type Department Care Team ([facility] st Contact Info) Description 09/15/2022 Scanned Document [facility] Plastic & Reconstructive Surgery [address] [place] [address] Rosina Mckinney MD [address] [place] [address] Social History Tobacco Use Types Packs/Day Years [...] on filedocumented in this encounter Care Teams Manager House Relationship Specialty Start Date End Date Jorge Enriquez MD [address] [place] [address] Dr Pop [place], JORGE L [id number] PCP - General 08/31/22 documented as of this encounter
--- OUTSIDE RECORDS SUMMARY | 2024-09-05 19:49 | XMS_ITS | Encounter Summary ---
Author Organization [facility] Address [address] [place] [address] Care Team Providers Care Maple Products Supervisor Name Role Phone Jorge Enriquez MD Primary Care Provider [phone] Encounter Details Date Type Department Care Team ([facility] st Contact Info) Description 10/22/2022 Telephone [facility] Plastic & Reconstructive Surgery [address] [place] [address] Rosina Mckinney MD [address] [place] [address] Social History Tobacco Use Types Packs/Day Years [...] place to sleep or slept in a residential (including now)? No 09/29/2022 Sex and Gender [...] wanted to let you know she or Seregy from [facility] will be faxing over forms needed documented in this encounter Plan of Treatment Not on file documented as of this encounter Visit Diagnoses Not on filedocumented in this encounter Care Teams Maple Products Supervisor Relationship Specialty Start Date End Date Jorge Enriquez MD [address] [place] [address] Dr Moura, JORGE L [address] PCP - General 08/31/22 documented as of this encounter
== END 2024-09-05 16:26 | disposition home or self-care (01) ==
LOC: HO.CT 16:25
PROVIDERS: PCP Nurse Practitioner Family; Visit Provider Nurse Practitioner Family
DX: J84.9 Interstitial pulmonary disease, unspecified (principal)
CPT/HCPCS: 71250

== ENCOUNTER → 2024-09-05 16:27 | Outpatient (BNV) | payer OTHER, SELFPAY | PROVIDERS: PCP Nurse Practitioner Family; Visit Provider Radiology Diagnostic Radiology | DX: M47.814 Spondylosis without myelopathy or radiculopathy, thoracic region (principal) | CPT/HCPCS: 71250 ==

== ENCOUNTER 2024-09-06 08:02 | Outpatient (REF) | payer OTHER, SELFPAY ==
--- NOTE | ~2024-09-06 | MM_ITS ---
EXAMINATION: DXA BONE DENSITY AXIAL HISTORY: Estrogen deficiency TECHNIQUE: [employer] Dual energy absorptiometry (DEXA) of the lumbar spine, total left hip, and femoral neck was performed. COMPARISON: There are no prior studies for comparison. FINDINGS: The bone mineral density of the lumbar spine is 0.962 with a T-score of -1.8, and a Z-score of -2.0. This is indicative of osteopenia. The bone mineral density of the left total hip is 0.823 with a T-score of -1.5, and a Z-score of -2.0. This is indicative of osteopenia. The bone mineral density of the left femoral neck is 0.815 with a T-score of -1.6, and a Z-score of -1.8. This is indicative of osteopenia. FRACTURE RISK: The FRAX index suggests a risk of major osteoporotic fracture of 3.9%, and of hip fracture 0.4%. MM/XR DEXA axial skeleton IMPRESSION: Based on bone mineral density, and according to World Health Organization (WHO) criteria, the diagnosis is consistent with osteopenia. All bone density values are in grams per centimeter squared (g/cm2). Statistically, 68% of repeat scans fall within 1 SD (+/- 0.010 g/cm2 for AP spine L1-L4) and 1 SD (+/- 0.012 g/cm2 for femur total) FRAX is a trademark of the [employer]'s [place] for Metabolic Bone Disease, a World Health Organization (WHO) Collaborating Center. Electronically signed by: Leopoldo Poe MD 09/06/2024 08:55 AM EDT
--- OUTSIDE RECORDS SUMMARY | 2024-09-06 08:13 | XMS_ITS | Encounter Summary ---
Author Organization [facility] Address [address] [place] [address] Care Team Providers Care Hazmat Cdl Driver Name Role Phone Jorge Enriquez MD Primary Care Provider Encounter Details Date Type Department Care Team ([facility] st Contact Info) Description 10/30/2022 Scanned Document [facility] Plastic & Reconstructive Surgery [address] [place] [address] Rosina Mckinney MD [address] [place] [address] Social History Tobacco Use Types Packs/Day Years [...] on filedocumented in this encounter Care Teams Hazmat Cdl Driver Relationship Specialty Start Date End Date Jorge Enriquez MD [address] [place] [address] [place] [address] PCP - General 08/31/22 documented as of this encounter
--- OUTSIDE RECORDS SUMMARY | 2024-09-06 08:13 | XMS_ITS | Encounter Summary ---
Author Organization [facility] Address [address] [place] [address] Care Team Providers Care Film Process Operator Name Role Phone Jorge Enriquez MD Primary Care Provider [phone] Encounter Details Date Type Department Care Team ([facility] st Contact Info) Description 10/22/[address] [facility] Plastic & Reconstructive Surgery [place] [address] [place] [address] Rosina Mckinney MD [address] [place] [address] Social History Tobacco Use Types [...] on filedocumented in this encounter Care Teams Film Process Operator Relationship Specialty Start Date End Date Jorge Enriquez MD [address] [place] [address] [place] [address] PCP - General 08/31/22 documented as of this encounter
--- OUTSIDE RECORDS SUMMARY | 2024-09-06 08:13 | XMS_ITS | Encounter Summary ---
Author Organization [facility] Address [address] [place] [address] Care Team Providers Care Carpenter Assistant Name Role Phone Jorge Enriquez MD Primary Care Provider [phone] Encounter Details Date Type Department Care Team ([facility] st Contact Info) Description 11/19/2022 Telephone [facility] Plastic & Reconstructive Surgery [address] [place] [address] Rosina Mckinney MD [address] [place] [address] Social History Tobacco Use Types Packs/Day Years [...] date best contact number for pt is [phone] documented in this encounter Plan of Treatment Not on file documented as of this encounter Visit Diagnoses Not on filedocumented in this encounter Care Teams Carpenter Assistant Relationship Specialty Start Date End Date Jorge Enriquez MD [address] [place] [address] [place] [address] PCP - General 08/31/22 documented as of this encounter
--- OUTSIDE RECORDS SUMMARY | 2024-09-06 08:13 | XMS_ITS | Encounter Summary ---
Author Organization [facility] Address [address] [place] [address] Care Team Providers Care Lining Setter Name Role Phone Jorge Enriquez MD Primary Care Provider [phone] Encounter Details Date Type Department Care Team ([facility] st Contact Info) Description 10/22/2022 Telephone [facility] Plastic & Reconstructive Surgery [address] [place] [address] Rosina Mckinney MD [address] [place] [address] Social History Tobacco Use Types Packs/Day Years [...] let you know she or Sergey from [facility] will be faxing over forms needed documented in this encounter Plan of Treatment Not on file documented as of this encounter Visit Diagnoses Not on filedocumented in this encounter Care Teams Lining Setter Relationship Specialty Start Date End Date Jorge Enriquez MD [address] [place] [address] Dr Moura, JORGE L [address] PCP - General 08/31/22 documented as of this encounter
--- OUTSIDE RECORDS SUMMARY | 2024-09-06 08:14 | XMS_ITS | Encounter Summary ---
Author Organization [facility] Address [address] [place] [address] Care Team Providers Care Linking Machine Operator Name Role Phone Jorge Enriquez MD Primary Care Provider [phone] Encounter Details Date Type Department Care Team ([facility] st Contact Info) Description 10/30/2022 Scanned Document [facility] Plastic & Reconstructive Surgery [address] [place] [address] Rosina Mckinney MD [address] [place] [address] Social History Tobacco Use Types Packs/Day Years [...] on filedocumented in this encounter Care Teams Linking Machine Operator Relationship Specialty Start Date End Date Jorge Enriquez MD [address] [place] [address] [place] [address] PCP - General 08/31/22 documented as of this encounter
--- OUTSIDE RECORDS SUMMARY | 2024-09-06 08:14 | XMS_ITS | Encounter Summary ---
Author Organization [facility] Address [address] [place] [address] Care Team Providers Care Hydropulper Operator Name Role Phone Jorge Enriquez MD Primary Care Provider [phone] Encounter Details Date Type Department Care Team ([facility] st Contact Info) Description 08/31/2022 Scanned Document [facility] 80 [facility] [address] [place] [phone] Provider, Generic Social History Tobacco Use [...] on filedocumented in this encounter Care Teams Hydropulper Operator Relationship Specialty Start Date End Date Jorge Enriquez MD [address] [place] [address] Dr Moura, JORGE L [address] PCP - General 08/31/22 documented as of this encounter
--- OUTSIDE RECORDS SUMMARY | 2024-09-06 08:14 | XMS_ITS | Encounter Summary ---
Author Organization [facility] Address [address] [place] [address] Care Team Providers Care Driver Trainer Name Role Phone Jorge Enriquez MD Primary Care Provider [phone] Encounter Details Date Type Department Care Team ([facility] st Contact Info) Description 11/23/2022 Scanned Document [facility] Plastic & Reconstructive Surgery [address] [place] [address] Rosina Mckinney MD [address] [place] [address] Social History Tobacco Use Types Packs/Day Years [...] on filedocumented in this encounter Care Teams Driver Trainer Relationship Specialty Start Date End Date Jorge Enriquez MD [address] [place] [address] [place] [address] PCP - General 08/31/22 documented as of this encounter
--- OUTSIDE RECORDS SUMMARY | 2024-09-06 08:14 | XMS_ITS | Clinical Summary ---
Author Organization [facility] Address [address] [place] [address] Care Team Providers Care Ion Exchange Operator Name Role Phone Jorge Enriquez MD Primary Care Provider [phone] Allergies No known active allergies Medications Medication [...] this topic Medical Devices Implanted Type Area Steamer Blocker Device Identifier Shelf Expiration Date Model / Serial / Lot [id number] Supervisor Mapping Anastomosis [employer] Titanium 20mhz Od3 M - [id number] Implanted:Qty: 1 on 09/28/2022 by Jose Rafael Barroso MD at [facility] Graft Right: Breast SYNOVIS [employer] [facility] [facility] 03/16/2027 [id number] / [id number] / [id number] Supervisor Mapping Anastomosis [employer] Titanium 20mhz Od3 M - [id number] Implanted:Qty: 1 on 09/28/2022 by Rosina Mckinney MD at [facility] Graft Left: Breast SYNOVIS [employer] [facility] 03/16/2027 [id number] / [id number] / [id number] Procedures Procedure Name Priority Date/Time Associated Diagnosis Comments BASIC METABOLIC PANEL Routine 09/30/2022 8:04 AM EDT from Last 3 Months or Most Recently Relevant to Health Maintenance Results * (ABNORMAL) Basic Metabolic Panel (Early AM) (09/30/2022 8:04 AM EDT) Glucose 91 74 - 106 mg/dL 09/30/2022 8:41 AM EDT [facility] Comment:Fasting: <100 mg/dL, Non-Fasting: <200 mg/dL (ADA 2005) Blood Urea Nitrogen (BUN) 15 9 - 23 mg/dL 09/30/2022 8:41 AM EDT [facility] Creatinine 0.8 0.6 - 1.0 mg/dL 09/30/2022 8:41 AM EDT [facility] eGFR 84 >59 09/30/2022 8:41 AM EDT [facility] Comment: CKD-EPI (2020) in mL/min/1.73 sq meters. Reported eGFR is based on the CKD-EPI equation that does not use a race coefficient as of 08/18/2022 Sodium 145 136 - 145 mmol/L 09/30/2022 8:41 AM EDT [facility] Potassium 3.8 3.4 - 4.5 mmol/L 09/30/2022 8:41 AM EDT [facility] Chloride 112(H) 98 - 107 mmol/L 09/30/2022 8:41 AM EDT [facility] CO2 28 20 - 31 mmol/L 09/30/2022 8:41 AM EDT [facility] Anion Gap 5 5 - 15 09/30/2022 8:41 AM EDT [facility] Calcium 8.3(L) 8.7 - 10.5 mg/dL 09/30/2022 8:41 AM EDT [facility] BUN/Creatinine Ratio 19 10.0 - 25.0 Ratio 09/30/2022 8:41 AM EDT [facility] Blood specimen (specimen) (Plasma/Serum) 09/30/2022 8:04 AM EDT 09/30/2022 8:21 AM EDT Althea Palacio PA-C [facility] See Below [facility] [address] [place] [address] from Last 3 Months or Most Recently Relevant to Health Maintenance Advance Directives * Full Code (Latest Code Status on File) Date Activated Date Inactivated Comments 09/28/2022 6:38 PM 02/10/2023 5:34 AM * Full Code Date Activated Date Inactivated Comments 09/28/2022 5:34 AM 09/28/2022 6:38 PM Care Teams Ion Exchange Operator Relationship Specialty Start Date End Date Jorge Enriquez MD [address] [place] [address] [place] [address] PCP - General 08/31/22
--- OUTSIDE RECORDS SUMMARY | 2024-09-06 08:14 | XMS_ITS | Encounter Summary ---
Author Organization [facility] Address [address] [place] [address] Care Team Providers Care Replenishment Buyer Name Role Phone Jorge Enriquez MD Primary Care Provider [phone] Encounter Details Date Type Department Care Team ([facility] st Contact Info) Description 09/15/[address] [facility] Plastic & Reconstructive Surgery [address] [place] [address] Rosina Mckinney MD [address] [address] Social History Tobacco Use Types Packs/Day Years [...] on filedocumented in this encounter Care Teams Replenishment Buyer Relationship Specialty Start Date End Date Jorge Enriquez MD [address] [place] [address] Dr Pop [place], JORGE L [id number] PCP - General 08/31/22 documented as of this encounter
== END 2024-09-06 08:03 | disposition home or self-care (01) ==
LOC: HO.MAMMO 08:02
PROVIDERS: PCP Nurse Practitioner Family; Visit Provider Nurse Practitioner Family
DX: Z13.820 Encounter for screening for osteoporosis (principal); Z78.0 Asymptomatic menopausal state
CPT/HCPCS: 77080

== ENCOUNTER → 2024-09-06 08:15 | Outpatient (BNV) | payer OTHER, SELFPAY | PROVIDERS: PCP Nurse Practitioner Family; Visit Provider Radiology Diagnostic Radiology | DX: E28.39 Other primary ovarian failure (principal) | CPT/HCPCS: 77080 ==

== ENCOUNTER → 2024-09-06 19:30 | Outpatient (REF) | payer OTHER, SELFPAY | LOC: HO.SL 19:30 | PROVIDERS: PCP Nurse Practitioner Family; Visit Provider Nurse Practitioner Family | DX: G47.33 Obstructive sleep apnea (adult) (pediatric) (principal); G47.34 Idiopathic sleep related nonobstructive alveolar hypoventilation; G47.10 Hypersomnia, unspecified | CPT/HCPCS: 95810 ==

== ENCOUNTER → 2024-09-06 22:44 | Outpatient (BNV) | payer OTHER, SELFPAY | PROVIDERS: PCP Nurse Practitioner Family; Visit Provider Psychiatry & Neurology Neurology | DX: R06.83 Snoring (principal) | CPT/HCPCS: 95810 ==

== ENCOUNTER 2024-09-11 | Outpatient (REF) | payer OTHER, SELFPAY ==
--- NOTE | ~2024-09-11 | XR_ITS ---
CLINICAL HISTORY: Z02.6 - Encounter for examination for insurance purposes 3 view right ankle Comparison: None Findings: No acute fractures. Ankle mortise intact. No significant arthritic change or erosions. No ankle effusion. No radiopaque foreign body. IMPRESSION: 1. No acute findings. This document has been electronically signed by: Franca Strange MD on 09/12/2024 15:30:15
--- OUTSIDE RECORDS SUMMARY | 2024-12-07 17:39 | XMS_ITS | Encounter Summary ---
Author Organization [facility] Address [address] [place] [address] Care Team Providers Care Airways Control Specialist Name Role Phone Jorge Enriquez MD Primary Care Provider [phone] Encounter Details Date Type Department Care Team ([facility] st Contact Info) Description 10/22/2022 Telephone [facility] Plastic & Reconstructive Surgery [place] [address] Breast [place], [place] [address] Rosina Mckinney MD 4[address] [facility] [address] [place], [place] [address] Social History Tobacco Use Types Packs/Day Years [...] a long term (including now)? No 09/29/2022 Comments No Sex [...] let you know she or Sergey from [employer] will be faxing over forms needed documented in this encounter Plan of Treatment Not on file documented as of this encounter Visit Diagnoses Not on filedocumented in this encounter Care Teams Airways Control Specialist Relationship Specialty Start Date End Date Jorge Enriquez MD [address] [place] [address] [place] [id number] PCP - General 08/31/22 documented as of this encounter
== END 2024-09-11 00:01 | disposition home or self-care (01) ==
LOC: HO.XRAY
PROVIDERS: PCP Nurse Practitioner Family; Visit Provider Nurse Practitioner Family
DX: Z02.6 Encounter for examination for insurance purposes (principal); M25.571 Pain in right ankle and joints of right foot
CPT/HCPCS: 73610

== ENCOUNTER → 2024-09-11 16:37 | Outpatient (BNV) | payer OTHER, SELFPAY | PROVIDERS: PCP Nurse Practitioner Family; Visit Provider Radiology Diagnostic Radiology | DX: Z02.6 Encounter for examination for insurance purposes (principal) | CPT/HCPCS: 73610 ==

== ENCOUNTER 2024-09-12 12:49 | Outpatient (AMB) | payer OTHER, SELFPAY ==
[2024-09-12 12:59] VITALS: BP 122/66; PULSE 70; O2SAT 100; BMI 30.7
--- NOTE | 2024-09-12 12:59 | MHC.OFFVIS ---
Vital Signs 09/12/24 12:59 Height 5 ft 10 in Weight 214 lb BMI 30.7 BP 122/66 Blood Pressure Location Rt brachial Position Sitting Pulse 70 Pulse Source Pulse Oximeter Pulse Oximetry (%) 100 Oxygen Delivery Method Room Air Intake Visit Reasons: Asthma / CT FU Copra Processor Required: No Copra Processor Services: Copra Processor Offered & Declined Post Anesthesia Nurse: Post Anesthesia Nurse offered & declined Accompanied by: Self / Same As Patient Allergies cat dander Allergy (Severe, Verified 09/12/24 13:01) Loss Voice environmental allergies Allergy (Severe, Verified 09/12/24 13:01) Sneezing Medication List - Last Reconciled 09/12/24 by Flavia Neri LPN albuterol sulfate 90 mcg/actuation 1 puff inhalation Q4H PRN cholecalciferol (vitamin D3) 50 mcg PO DAILY cyanocobalamin (vitamin B-12) 1,000 mcg IM QWEEK docusate sodium (Colace) 200 mg (2 x 100 mg) PO BEDTIME fluticasone furoate 100 mcg/actuation (Arnuity Ellipta) 1 inh inhalation DAILY ipratropium bromide 2 sprays intranasal BID iron,carbonyl-vitamin C 65 mg iron- 125 mg (Vitron-C) 1 tab PO DAILY 90 days lidocaine 5% 1 patch topical DAILY montelukast (Singulair) 10 mg PO BEDTIME olmesartan 10 mg (2 x 5 mg) PO DAILY pantoprazole 40 mg PO QAM HPI HPI Asthma / CT FU: Details: Elma is a pleasant 63 year old female, former minimal smoker, quit 40 years ago with underlying asthma, IVANIA, environmental allergies, Sickle cell trait, DMII, s/p gastric surgery 2020, h/o breast cancer s/p chemo/mastectomy, HTN, GERMANIA not on CPAP, and GERD. She has been using Arnuity and Singulair with moderate control of respiratory symptoms, using albuterol MDI infrequently. She continues however continues dyspnea with moderate exertion and intermittent wheezing. Of note, patient with IVANIA, was evaluated by hematology, and underwent iron infusions, now maintained on oral supplements. Today she presents to review PFT. She denies any visits to urgent care or hospitalizations related to respiratory distress since the last visit. COUNTS INCLUDE 234 BEDS AT THE [facility] Medical History Deflation of breast implant Abnormal EKG History of breast cancer (~2008) History of diabetes mellitus GERMANIA (obstructive sleep apnea) Palpitations Steatosis, liver History of MRSA infection Arthritis Sickle cell trait History of COVID-19 (~09/2019) Hx of cardiac murmur Post-COVID syndrome (~2019) Pneumonia (~2019) Asthma Hypertension GERD (gastroesophageal reflux disease) Constipation Surgical History History of left knee surgery (~2010) History of Cassi-en-Y gastric bypass (~2020) History of bilateral mastectomy (~2008) History of colonoscopy (~2016) History of hysterectomy (~2003) History of laparoscopic cholecystectomy (~2002) History of esophagogastroduodenoscopy (EGD) (~2017) History of sleeve gastrectomy (~2010) Family History (Updated 07/28/24 @ 15:25 by Cindy Beth MA) Father DM (diabetes mellitus) Stroke Mother DM (diabetes mellitus) Brother No problems noted. Sister No problems noted. Son No problems noted. 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 Gender identity: Female Cognitive needs: No Hearing needs: No Vision needs: No Review of Systems Const Denies chills, Denies excessive sweating, Denies fever(s), Denies headache(s) and Denies night sweats Eyes Denies dry eyes and Denies irritation ENT Reports Normal hearing present, Denies headache(s) and Denies sore throat Card Denies chest pain, Denies chest pain at rest, Denies chest pain with activity, Denies claudication, Denies leg edema, Reports dyspnea on exertion, Denies orthopnea and Denies paroxysmal nocturnal dyspnea Resp Denies change in phlegm color, Denies chest congestion, Denies cough, Denies hemoptysis, Denies excessive phlegm production, Denies pain on inspiration, Denies pain with cough, Reports dyspnea on exertion, Denies stridor and Reports wheezing Musc Denies myalgias Neuro Reports Normal hearing present and Denies headache(s) Endo Denies excessive sweating Roberto/Lymph Denies lymphadenopathy Aller/Immun Reports wheezing Physical Exam Vital Signs: Last Vital Signs Pulse 70 09/12/24 12:59 BP 122/66 09/12/24 12:59 Pulse Ox 100 09/12/24 12:59 Oxygen Delivery Method Room Air 09/12/24 12:59 BMI result Body Mass Index 30.7 Const General: cooperative, healthy appearing, comfortable, no acute distress, well developed and alert Orientation/consciousness: patient oriented x3 Limitations: no limitations HEENT Head: Yes normal to inspection, Yes normocephalic and Yes atraumatic Ears: hearing grossly normal bilaterally and external ears normal Eyes General: appearance normal, both eyes and all related structures Eyelids: Yes eyelids normal Sclerae: sclerae normal EOM: EOMs intact bilaterally Neck Neck: Yes normal visual inspection and Yes no lymphadenopathy Lymphatic: no lymphadenopathy noted Chest Chest palpation & inspection: normal inspection of the chest Resp Effort & Inspection: normal respiratory effort, able to speak in complete sentences, no audible wheezes, no cough, no stridor, not tachypneic, no tripod positioning and no use of accessory muscles Auscultation: clear to auscultation bilaterally Cardio Jugular venous distension: no JVD Rate: regular rate Rhythm: regular rhythm Skin Other: warm, dry General skin exam: no rashes or lesions noted Neuro General: patient oriented x3 Cranial nerves: Yes Normal hearing present Cognition (Neuro): normal cognition Gait exam (Neuro): Normal gait present Extrem General: Yes normal to inspection, Yes capillary refill normal, Yes no clubbing, cyanosis or edema and Yes no pedal edema Psych Appearance: grossly normal and well kempt Speech and movement: Normal speech and movement present and Clear speech present Affect: normal affect Attitude: cooperative Thought process: Normal thought process present Thought content: Normal thought content present Insight: Good insight present (Psych) Judgement: Good judgement present (Psych) Results Reviewed Results Reviewed: [address] [address] [address] Scan Report Signed Patient: Elma Nuñez MR#: [id number] : 1960 Acct:[id number] Age/Sex: 63 / F ADM Date: 09/05/24 Loc: HO.CT Attending Dr: Ana Escalante NP Ordering Physician: Ana Escalante NP Date of Service: 09/05/24 Procedure(s): CT chest wo IV con Accession Number(s): [id number] cc: Umm Cates EDUCATIONAL DIAGNOSTICIAN-; Ana Escalante NP~ Report Number: [id number]: Total DLP = 159.00 mGy-cm EXAMINATION: CT CHEST WITHOUT CONTRAST CLINICAL INFORMATION: Interstitial pulmonary disease. COMPARISON: None available. TECHNIQUE: Multidetector volumetric CT imaging of the chest was done. Axial MIP volume rendering provided. Sagittal and coronal reformatted images were obtained. This CT examination was performed using dose optimization techniques as appropriate, variously including the following: *Automated exposure control *Adjustment of mA and/or kV according to patient size (this includes techniques or standardized protocols for targeted exams where dose is matched to indication/reason for exam; i.e. extremities or head) *Use of iterative reconstruction technique. DLP: 159 mGy centimeter. FINDINGS: GIFTED TEACHER: Large body habitus. Both upper extremities at the site of the head. Vascular clips right upper quadrant abdomen. LUNGS: There is a focal cluster of 1 mm pulmonary nodules in the periphery of the right lower lung lobe, smaller on the left lung base, right middle lung lobe and lingula. There is a 2 mm noncalcified pulmonary nodule superior segment right upper lung lobe. 1 mm calcified pulmonary nodule, right middle lung lobe. No bronchiectasis. No honeycombing. Respiratory airways is patent. No hyperinflation. No volume loss. MEDIASTINUM: Prominent less than 1 cm lymph nodes. No pericardial effusion. No aneurysm, thoracic aorta. CORONARY ARTERY CALCIFICATION: Minimal. PLEURA: No pleural effusion. No pneumothorax. AXILLA: No specific prominent axillary lymph nodes. UPPER ABDOMEN: Sutures along the gastroesophageal junction with small volume of the stomach. Scattered diverticula in the splenic colonic flexure. OSSEOUS STRUCTURES: Multilevel spondylosis involving mostly the mid to lower thoracic spine. Multiple vascular clips and fat density in both breasts without breast parenchyma. CT/CT chest wo IV con IMPRESSION: Consider prior granulomatous disease process. No acute airspace disease. 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 Multilevel thoracic spondylosis. Fleischner guidelines were followed. Electronically signed by: Tan Toledo MD 09/06/2024 08:14 AM EDT RP Dictated By: Tan Soni MD Signed By: <Electronically signed by Tan Reis MD in OV> 09/06/24 0814 DD/ 1635 TD/TT: 09/05/24 1640 Corrections Caseworker: Assessment & Plan Assessment & Plan (1) Asthma: Code(s): J45.909 - Unspecified asthma, uncomplicated Category: Medical Qualifiers: Asthma complication type: with acute exacerbation Asthma persistence: persistent Asthma severity: moderate Qualified Code(s): J45.41 - Moderate persistent asthma with (acute) exacerbation (2) Environmental allergies: Code(s): Z91.09 - Other allergy status, other than to drugs and biological substances Category: Medical (3) Pleuritic pain: Code(s): R07.81 - Pleurodynia Category: Medical (4) Iron deficiency anemia: Code(s): D50.9 - Iron deficiency anemia, unspecified Category: Medical (5) Multiple pulmonary nodules: Code(s): R91.8 - Other nonspecific abnormal finding of lung field Category: Medical Plan Reviewed PFT which revealed mild restrictive ventilatory defect with positive bronchodilator response. Combination of decreased diffusion capacity, corrects to normal after adjustment for alveolar ventilation, and restrictive ventilatory defect suggests underlying pulmonary parenchymal disease. Reviewed chest CT which revealed a focal cluster of 1 mm pulmonary nodules in the periphery of the right lower lung lobe, smaller on the left lung base, right middle lung lobe and lingula.There is a 2 mm noncalcified pulmonary nodule superior segment right upper lung lobe. 1 mm calcified pulmonary nodule, right middle lung lobe. Suggestive of prior granulatomous disease. Will repeat in one year to assess stability of nodules. All questions were answered and patient is in agreement of plan. Will follow-up in 3 months or sooner if needed. Medications: New fluticasone furoate-vilanterol 200-25 mcg/dose (Breo Ellipta) 1 inh inhalation DAILY 60 ea 3RF albuterol sulfate 90 mcg/actuation 1 puff inhalation Q4H PRN 1 ea 3RF Shortness Of Breath Coding Level of Care Code Est Pt Level 4 (53613) Diagnoses Moderate persistent asthma with acute exacerbation J45.41 Asthma complication type: with acute exacerbation Asthma persistence: persistent Asthma severity: moderate Environmental allergies Z91.09 Pleuritic pain R07.81 Iron deficiency anemia D50.9 Multiple pulmonary nodules R91.8
--- OUTSIDE RECORDS SUMMARY | 2024-09-12 14:56 | XMS_ITS | Encounter Summary ---
Author Organization [facility] Address [address] [place] [address] Care Team Providers Care Regulatory Associate Name Role Phone Jorge Enriquez MD Primary Care Provider [phone] Encounter Details Date Type Department Care Team ([facility] st Contact Info) Description 11/19/2022 Telephone [facility] Plastic & Reconstructive Surgery [address] [place] [address] Rosina Mckinney MD [address] [place] [address] Social History Tobacco Use Types Packs/Day Years [...] date best contact number for pt is [phone] documented in this encounter Plan of Treatment Not on file documented as of this encounter Visit Diagnoses Not on filedocumented in this encounter Care Teams Regulatory Associate Relationship Specialty Start Date End Date Jorge Enriquez MD [address] [place] [address] [place] [id number] PCP - General 08/31/22 documented as of this encounter
--- OUTSIDE RECORDS SUMMARY | 2024-09-12 14:56 | XMS_ITS | Encounter Summary ---
Author Organization [facility] Address [address] [place] [address] Care Team Providers Care Time Cycle Operator Name Role Phone Jorge Enriquez MD Primary Care Provider [phone] Encounter Details Date Type Department Care Team ([facility] st Contact Info) Description 10/22/2022 Scanned Document [facility] Plastic & Reconstructive Surgery [place] [address] [place] [address] Rosina Mckinney MD [address] [place] [address] Social History Tobacco Use Types [...] on filedocumented in this encounter Care Teams Time Cycle Operator Relationship Specialty Start Date End Date Jorge Enriquez MD [address] [place] [address] [place] [id number] PCP - General 08/31/22 documented as of this encounter
--- OUTSIDE RECORDS SUMMARY | 2024-09-12 14:56 | XMS_ITS | Encounter Summary ---
Author Organization [facility] Address [address] [place] [address] Care Team Providers Care Gas Transfer Operator Name Role Phone Jorge Enriquez MD Primary Care Provider [phone] Encounter Details Date Type Department Care Team ([facility] st Contact Info) Description 10/22/2022 Telephone [facility] Plastic & Reconstructive Surgery [address] [place] [address] Rosina Mckinney MD [address] [place] [address] Social History Tobacco Use Types Packs/Day Years [...] place to sleep or slept in a [facility] (including now)? No 09/29/2022 Sex and Gender [...] let you know she or Sergey from [facility] will be faxing over forms needed documented in this encounter Plan of Treatment Not on file documented as of this encounter Visit Diagnoses Not on filedocumented in this encounter Care Teams Gas Transfer Operator Relationship Specialty Start Date End Date Jorge Enriquez MD [address] [place] [address] Dr M[place], JORGE L [id number] PCP - General 08/31/22 documented as of this encounter
--- OUTSIDE RECORDS SUMMARY | 2024-09-12 14:56 | XMS_ITS | Encounter Summary ---
Author Organization [facility] Address [address] [place] [address] Care Team Providers Care Tumbling And Rolling Supervisor Name Role Phone Jorge Enriquez MD Primary Care Provider [phone] Encounter Details Date Type Department Care Team ([facility] st Contact Info) Description 10/30/2022 Scanned Document [facility] Plastic & Reconstructive Surgery [address] [place] [address] Rosina Mckinney MD [address] [place] [address] Social History Tobacco Use Types Packs/Day Years [...] on filedocumented in this encounter Care Teams Tumbling And Rolling Supervisor Relationship Specialty Start Date End Date Jorge Enriquez MD [address] [place] [address] [place] [address] PCP - General 08/31/22 documented as of this encounter
--- OUTSIDE RECORDS SUMMARY | 2024-09-12 14:57 | XMS_ITS | Encounter Summary ---
Author Organization [facility] Address [address] [place] [address] Care Team Providers Care Retail Sales Manager Name Role Phone Jorge Enriquez MD Primary Care Provider [phone] Encounter Details Date Type Department Care Team ([facility] st Contact Info) Description 09/15/2022 Scanned Document [facility] Plastic & Reconstructive Surgery [address] [place] [address] Rosina Mckinney MD [address] [place] [address] Social History Tobacco Use Types Packs/Day Years [...] on filedocumented in this encounter Care Teams Retail Sales Manager Relationship Specialty Start Date End Date Jorge Enriquez MD [address] [place] [address] Dr Pop [place], JORGE L [phone] PCP - General 08/31/22 documented as of this encounter
--- OUTSIDE RECORDS SUMMARY | 2024-09-12 14:57 | XMS_ITS | Encounter Summary ---
Author Organization [facility] Address [address] [place] [address] Care Team Providers Care Operation Manager Name Role Phone Jorge Enriquez MD Primary Care Provider [phone] Encounter Details Date Type Department Care Team ([facility] st Contact Info) Description 11/23/2022 Scanned Document [facility] Plastic & Reconstructive Surgery [address] [place] [address] Rosina Mckinney MD [address] [place] [address] Social History Tobacco Use Types Packs/Day Years [...] on filedocumented in this encounter Care Teams Operation Manager Relationship Specialty Start Date End Date Jorge Enriquez MD [address] [place] [address] [place] [id number] PCP - General 08/31/22 documented as of this encounter
--- OUTSIDE RECORDS SUMMARY | 2024-09-12 14:57 | XMS_ITS | Clinical Summary ---
Author Organization [facility] Address [address] [place] [address] Care Team Providers Care Hypercil Core Transformer Assembler Name Role Phone Jorge Enriquez MD Primary Care Provider [phone] Allergies No known active allergies Medications Medication [...] this topic Medical Devices Implanted Type Area Superintendent Greens Device Identifier Shelf Expiration Date Model / Serial / Lot [id number] Fitness Professional Anastomosis [employer] Titanium 20mhz Od3 M - [id number] Implanted:Qty: 1 on 09/28/2022 by Jose Rafael Barroso MD at [facility] Graft Right: Breast SYNOVIS MICRO Jing[employer] [facility] 03/16/2027 [id number] / [id number] / [id number] [id number] Professional Anastomosis [employer] Titanium 20mhz Od3 M - [id number] Implanted:Qty: 1 on 09/28/2022 by Rosina Mckinney MD at [facility] Graft Left: Breast SYNOVIS Gangkr [facility] 03/16/2027 [id number] / [id number] / [id number] Procedures Procedure Name Priority Date/Time Associated Diagnosis Comments BASIC METABOLIC PANEL Routine 09/30/2022 8:04 AM EDT from Last 3 Months or Most Recently Relevant to Health Maintenance Results * (ABNORMAL) Basic Metabolic Panel (Early AM) (09/30/2022 8:04 AM EDT) Glucose 91 74 - 106 mg/dL 09/30/2022 8:41 AM EDT [facility] Comment:Fasting: <100 mg/dL, Non-Fasting: <200 mg/dL (ADA 2005) Blood Urea Nitrogen (BUN) 15 9 - 23 mg/dL 09/30/2022 8:41 AM EDT [facility] Creatinine 0.8 0.6 - 1.0 mg/dL 09/30/2022 8:41 AM EDT [facility] eGFR 84 >59 09/30/2022 8:41 AM EDT [facility] Comment: CKD-EPI (2020) in mL/min/1.73 sq meters. Reported eGFR is based on the CKD-EPI equation that does not use a race coefficient as of 08/18/2022 Sodium 145 136 - 145 mmol/L 09/30/2022 8:41 AM EDT [facility] Potassium 3.8 3.4 - 4.5 mmol/L 09/30/2022 8:41 AM EDT [facility] Chloride 112(H) 98 - 107 mmol/L 09/30/2022 8:41 AM EDT [facility] CO2 28 20 - 31 mmol/L 09/30/2022 8:41 AM EDT [facility] Anion Gap 5 5 - 15 09/30/2022 8:41 AM EDT [facility] Calcium 8.3(L) 8.7 - 10.5 mg/dL 09/30/2022 8:41 AM EDT [facility] BUN/Creatinine Ratio 19 10.0 - 25.0 Ratio 09/30/2022 8:41 AM EDT [facility] Blood specimen (specimen) (Plasma/Serum) 09/30/2022 8:04 AM EDT 09/30/2022 8:21 AM EDT Althea Palacio PA-C LAB BLOOD ORDERABL ES HOSPITAL LAB See Below [facility] [address] [place] [address] from Last 3 Months or Most Recently Relevant to Health Maintenance Advance Directives * Full Code (Latest Code Status on File) Date Activated Date Inactivated Comments 09/28/2022 6:38 PM 02/10/2023 5:34 AM * Full Code Date Activated Date Inactivated Comments 09/28/2022 5:34 AM 09/28/2022 6:38 PM Care Teams Hypercil Core Transformer Assembler Relationship Specialty Start Date End Date Jorge Enriquez MD [address] [place] [address] [place] [address] PCP - General 08/31/22
--- OUTSIDE RECORDS SUMMARY | 2024-09-12 14:57 | XMS_ITS | Encounter Summary ---
Author Organization [facility] Address [address] [place] [address] Care Team Providers Care Stock Letterer Name Role Phone Jorge Enriquez MD Primary Care Provider [phone] Encounter Details Date Type Department Care Team ([facility] st Contact Info) Description 10/30/2022 Scanned Document [facility] Plastic & Reconstructive Surgery [address] [place] [address] Rosina Mckinney MD [address] [place] [address] Social History Tobacco Use Types Packs/Day Years [...] on filedocumented in this encounter Care Teams Stock Letterer Relationship Specialty Start Date End Date Jorge Enriquez MD [address] [place] [address] [place] [address] PCP - General 08/31/22 documented as of this encounter
--- OUTSIDE RECORDS SUMMARY | 2024-09-12 14:57 | XMS_ITS | Encounter Summary ---
Author Organization [facility] Address [address] [place] [address] Care Team Providers Care Ticket Marker Name Role Phone Jorge Enriquez MD Primary Care Provider [phone] Encounter Details Date Type Department Care Team ([facility] st Contact Info) Description 08/31/2022 Scanned Document [facility] 80 [facility] [address] [place] [phone] Provider, Generic Social History Tobacco Use [...] on filedocumented in this encounter Care Teams Ticket Marker Relationship Specialty Start Date End Date Jorge Enriquez MD [address] [place] [address] Dr Moura, JORGE L [address] PCP - General 08/31/22 documented as of this encounter
== END 2024-09-12 13:22 | disposition home or self-care (01) ==
LOC: HO.HPSW 12:49
PROVIDERS: PCP Nurse Practitioner Family; Visit Provider Nurse Practitioner Family
DX: J45.41 Moderate persistent asthma with (acute) exacerbation (principal); R07.81 Pleurodynia; R91.8 Other nonspecific abnormal finding of lung field; D50.9 Iron deficiency anemia, unspecified
CPT/HCPCS: 99214

== ENCOUNTER → 2024-09-12 12:49 | Outpatient (BNVA) | payer OTHER, SELFPAY | PROVIDERS: PCP Nurse Practitioner Family; Visit Provider Nurse Practitioner Family | DX: J45.41 Moderate persistent asthma with (acute) exacerbation (principal); G47.33 Obstructive sleep apnea (adult) (pediatric); R07.81 Pleurodynia; D50.9 Iron deficiency anemia, unspecified; R91.8 Other nonspecific abnormal finding of lung field; Z91.09 Other allergy status, other than to drugs and biological substances; Z87.891 Personal history of nicotine dependence | CPT/HCPCS: 99212 ==

== ENCOUNTER 2024-10-23 14:50 | Outpatient (AMB) | payer OTHER, SELFPAY ==
--- NOTE | 2024-10-23 14:53 | A.OFFVIS_ITS ---
Vital Signs 10/23/24 14:54 Height 5 ft 9 in Weight 218 lb BMI 32.2 Intake Visit Reasons: OV-LT knee follow up Intake Note: Elma is a 63 year old female who presents today for a follow up of her left knee. At her last visit on 08/28/2024 the left knee was injected and she was instructed to work as tolerated. Patient reports that the injection was helpful for her pain but she continues to feel a burning pain in the medial aspect of thebleft knee. Allergies cat dander Allergy (Severe, Verified 09/12/24 13:01) Loss Voice environmental allergies Allergy (Severe, Verified 09/12/24 13:01) Sneezing HPI HPI OV-LT knee follow up: Details: Elma is a 63 year old female who presents today for a follow up of her left knee. At her last visit on 08/28/2024 the left knee was injected and she was instructed to work as tolerated. She comes in with feeling okay and has returned to her baseline. She can no longer ambulate comfortably around a track. She can not exercise and feels quality of her life is diminished secondary to left knee pain. When she does have pain it is in the medial aspect of her left knee. She denies numbness tingling injury. The injection was helpful but it is wearing off. ON LICENSE OF [facility] Medical History Deflation of breast implant Abnormal EKG History of breast cancer (~2008) History of diabetes mellitus GER[place]IA (obstructive sleep apnea) Palpitations Steatosis, liver History of MRSA infection Arthritis Sickle cell trait History of COVID-19 (~09/2019) Hx of cardiac murmur Post-COVID syndrome (~2019) Pneumonia (~2019) Asthma Hypertension GERD (gastroesophageal reflux disease) Constipation Surgical History History of left knee surgery (~2010) History of Cassi-en-Y gastric bypass (~2020) History of bilateral mastectomy (~2008) History of colonoscopy (~2016) History of hysterectomy (~2003) History of laparoscopic cholecystectomy (~2002) History of esophagogastroduodenoscopy (EGD) (~2017) History of sleeve gastrectomy (~2010) Family History (Updated 02/14/25 @ 15:25 by Cindy Beth MA) Father DM (diabetes mellitus) Stroke Mother DM (diabetes mellitus) Brother No problems noted. Sister No problems noted. Son No problems noted. 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 5-125 degrees motion with antalgic gait. Results Reviewed Results Reviewed: Radiographs and MRI were reviewed and she has severe medial compartment osteoarthritis. Assessment & Plan Assessment & Plan (1) Osteoarthritis of left knee: Code(s): M17.12 - Unilateral primary osteoarthritis, left knee Category: Medical Plan: This is a 63-year-old with osteoarthritis of the left knee. She has benefitted from injections but feels that they are not worth it anymore and feels the quality of her life is diminished secondary to her limited ambulatory capacity and pain in her left knee. I reviewed her MRI from 2022 in the more recent 1. She has worsening medial compartment osteoarthritis and I recommend arthroplasty. I discussed the risks, benefits and alternatives with her. I discussed the risk of infection, stiffness, need for further surgery, incomplete symptom resolution, fracture, medical complications associated with surgery including, but not limited to the risk of blood clots, PE as well as cardiopulmonary compromise. She does have asthma and a history of sickle cell trait. She had an injection about 3 months ago and so we will start planning for surgery at the end of the summer early fall. She expressed understanding. We will proceed forward accordingly. Coding Level of Care Code Est Pt Level 4 (97146) Diagnoses Osteoarthritis of left knee M17.12
--- OUTSIDE RECORDS SUMMARY | 2024-10-23 14:53 | XMS_ITS | Encounter Summary ---
Author Organization [facility] Address [address] [place] [address] Care Team Providers Care Dewaterer Operator Name Role Phone Jorge Enriquez MD Primary Care Provider [phone] Encounter Details Date Type Department Care Team (Late st Contact Info) Description 09/15/2022 Scanned Document [facility] Plastic & Reconstructive Surgery [address] Floor Breast [place], [place] [address] Rosina Mckinney MD [address] [id number] Social History Tobacco Use Types Packs/Day Years Used Date Smoking Tobacco: Never Smokeless Tobacco: Never Alcohol Use Standard Drinks/Week Comments Not Currently 0 (1 standard drink = 0.6 oz pur e alcohol) Comments Unknown Sex and Gender Information Value Date Recorded Sex Assigned at Female 09/28/2022 5:09 AM EDT Legal Sex Female 11:56 AM EDT Gender Identity Female 09/28/2022 5:09 [...] on filedocumented in this encounter Care Teams Dewaterer Operator Relationship Specialty Start Date End Date Jorge Enriquez MD [address] [place] [address] Dr [address] [place] [address] [place] [address] PCP - General 08/31/22 documented as of this encounter
--- OUTSIDE RECORDS SUMMARY | 2024-10-23 14:53 | XMS_ITS | Encounter Summary ---
Author Organization [facility] Address [address] [place] [address] Care Team Providers Care Electrical Engineer Name Role Phone Jorge Enriquez MD Primary Care Provider [phone] Encounter Details Date Type Department Care Team (Late st Contact Info) Description 10/30/2022 Scanned Document [facility] Plastic & Reconstructive Surgery [place] [address] Breast [place], [place] [address] Rosina Mckinney MD 4185 [facility] [address] [place], [place] [address] Social History Tobacco Use Types Packs/Day Years [...] in a long-term (including now)? No 09/29/2022 Comments No Sex and Gender Information Value Date Recorded [...] on filedocumented in this encounter Care Teams Electrical Engineer Relationship Specialty Start Date End Date Jorge Enriquez MD [address] [place] [address] [place] [address] PCP - General 08/31/22 documented as of this encounter
--- OUTSIDE RECORDS SUMMARY | 2024-10-23 14:53 | XMS_ITS | Encounter Summary ---
Author Organization [facility] Address [address] [place] [address] Care Team Providers Care Radiation / Chemistry Technician Name Role Phone Jorge Enriquez MD Primary Care Provider [phone] Encounter Details Date Type Department Care Team (Late st Contact Info) Description 10/30/2022 Scanned Document [facility] Plastic & Reconstructive Surgery [place] [address] Breast [place], [place] [address] Rosina Mckinney MD 4185 [facility] 201 [place], [place] [address] Social History Tobacco Use Types Packs/Day Years [...] on filedocumented in this encounter Care Teams Radiation / Chemistry Technician Relationship Specialty Start Date End Date Jorge Enriquez MD [address] [place] [address] [place] [address] PCP - General 08/31/22 documented as of this encounter
--- OUTSIDE RECORDS SUMMARY | 2024-10-23 14:53 | XMS_ITS | Encounter Summary ---
Author Organization [facility] Address [address] [place] [address] Care Team Providers Care Ball Worker Name Role Phone Jorge Enriquez MD Primary Care Provider [phone] Encounter Details Date Type Department Care Team ([facility] st Contact Info) Description 10/22/2022 Telephone [facility] Plastic & Reconstructive Surgery [place] [address] Breast [place], [place] [address] Rosina Mckinney MD 4185 [facility] 201 [place], [place] [address] Social History Tobacco Use Types Packs/Day Years [...] place to sleep or slept in a nursing home (including now)? No 09/29/2022 Comments No Sex [...] let you know she or Sergey from [employer] will be faxing over forms needed documented in this encounter Plan of Treatment Not on file documented as of this encounter Visit Diagnoses Not on filedocumented in this encounter Care Teams Ball Worker Relationship Specialty Start Date End Date Jorge Enriquez MD [address] [place] [address] [place] [address] PCP - General 08/31/22 documented as of this encounter
--- OUTSIDE RECORDS SUMMARY | 2024-10-23 14:53 | XMS_ITS | Clinical Summary ---
Author Organization [facility] Address [address] [place] [address] Care Team Providers Care Scientific Director Name Role Phone Jorge Enriquez MD Primary Care Provider [phone] Allergies No known active allergies Medications Blood Glucose Monitoring Suppl (ONE TOUCH ULTRA 2 DEVICE KIT) w/Device Kit 03/27/20 22 Active cholecalcifero l (CHOLECALCIFER OL) 125 MCG (5000 UT) capsule 03/26/20 22 Active cyanocobalamin (VITAMIN B-12) 1000 MCG/ML injection INJECT 1 ML INTRAMUSCULARLY ONCE A WEEK 03/09/20 22 Active OneTouch Ultra test strip USE TO TEST DAILY 03/20/20 22 Active Lancets (onetouch ultrasoft) lancets 03/26/20 22 Active OMEprazole (PriLOSEC) 40 MG capsule 03/26/20 22 Active lisinopril-hyd roCHLOROthiazi de (PRINZIDE,ZEST ORETIC) 20-12.5 MG per tablet Take 1 tablet by mouth daily. 08/05/19 23 Active acetaminophen (TYLENOL) 325 MG tabletIndicati ons:History of cancer of left breast Take 2 tablets (650 mg total) by mouth 4 times daily (every 6 hours) as needed for mild pain, headaches or fever. 240 tablet 10/03/19 23 Active Active Problems Problem Noted Date Diagnosed [...] a group home (including now)? No 09/29/2022 Comments No [...] Done Comments Hepatitis C Virus Screening 1960 Foot Exam 1970 Hemoglobin A1C 1970 Lipid Panel 1970 Ophthalmology Exam 1970 HIV Screening 1973 Microalbumin/Creatinine Ratio Urine 1978 DTaP/Tdap/Td Vaccines (1 - Tdap) 12/16/1979 Pneumococcal Vaccines 50+ (1 of 2 - PCV) 12/16/1979 Pap Smear (Ages 21-65) 1981 Mammogram 2000 Colonoscopy 2005 Zoster (Shingles) Vaccine (1 of 2) 2010 Creatinine with GFR 10/01/2023 09/30/2022, 09/29/2022, 09/07/2022, Additional history exists COVID-19 Vaccine ( season) 2024 Influenza Vaccine 01/12/2025 RSV Vaccine 60 years and older and Patients (1 - 1-dose 75+ series) 12/16/2035 Hepatitis B Vaccines Aged Out No long er eligible based on patient's age to complete this topic Medical Devices Implanted Type Area Commission For The [employer] Director Device Identifier Shelf Expiration Date Model / Serial / Lot [id number] Pattern Clerk Anastomosis [employer] Titanium 20mhz Od3 M - [id number] Implanted:Qty: 1 on 09/28/2022 by Jose Rafael Barroso MD at [facility] Graft Right: Breast SYNOVIS [employer]! [facility] 03/16/2027 [id number] / [id number] / [id number] Pattern Clerk Anastomosis [employer] Titanium 20mhz Od3 M - [id number] Implanted:Qty: 1 on 09/28/2022 by Rosina Mckinney MD at [facility] Graft Left: Breast SYNOVIS [employer] [facility] 03/16/2027 [id number] / [id number] / [id number] Procedures Procedure Name Priority Date/Time Associated Diagnosis Comments BASIC METABOLIC PANEL Routine 09/30/2022 8:04 AM EDT from Last 3 Months or Most Recently Relevant to Health Maintenance Results * (ABNORMAL) Basic Metabolic Panel (Early AM) (09/30/2022 8:04 AM EDT) Pathologist [facility] Glucose 91 74 - 106 mg/dL 09/30/2022 8:41 AM EDT [facility] Comment:Fasting: <100 mg/dL, Non-Fasting: <200 mg/dL (ADA 2005) Blood Urea Nitrogen (BUN) 15 9 - 23 mg/dL 09/30/2022 8:41 AM EDT [facility] Creatinine 0.8 0.6 - 1.0 mg/dL 09/30/2022 8:41 AM EDT [facility] eGFR 84 >59 09/30/2022 8:41 AM EDT [facility] Comment: CKD-EPI (2020) in mL/min/1.73 sq meters. Reported eGFR is based on the CKD-EPI equation that does not use a race coefficient as of 08/18/2022 Sodium 145 136 - 145 mmol/L 09/30/2022 8:41 AM EDT [facility] Potassium 3.8 3.4 - 4.5 mmol/L 09/30/2022 8:41 AM EDT [facility] Chloride 112(H) 98 - 107 mmol/L 09/30/2022 8:41 AM EDT [facility] CO2 28 20 - 31 mmol/L 09/30/2022 8:41 AM EDT [facility] Anion Gap 5 5 - 15 09/30/2022 8:41 AM EDT [facility] Calcium 8.3(L) 8.7 - 10.5 mg/dL 09/30/2022 8:41 AM EDT [facility] BUN/Creatinine Ratio 19 10.0 - 25.0 Ratio 09/30/2022 8:41 AM EDT [facility] Blood specimen (specimen) (Plasma/Serum) 09/30/2022 8:04 AM EDT 09/30/2022 8:21 AM EDT Althea Palacio PA-C LAB BLOOD ORDERABLES Final Result HOSPITAL LAB See Below [facility] [address] [place] [address] from Last 3 Months or Most Recently Relevant to Health Maintenance Insurance [facility] - PPO Advance Directives * Full Code (Latest Code Status on File) Date Activated Date Inactivated Comments 09/28/2022 6:38 PM 02/10/2023 5:34 AM * Full Code Date Activated Date Inactivated Comments 09/28/2022 5:34 AM 09/28/2022 6:38 PM Care Teams Scientific Director Relationship Specialty Start Date End Date Jorge Enriquez MD [address] [place] [address] Dr Moura, JORGE L [address] PCP - General 08/31/22
--- OUTSIDE RECORDS SUMMARY | 2024-10-23 14:53 | XMS_ITS | Encounter Summary ---
Author Organization [facility] Address [address] [place] [address] Care Team Providers Care Principal Clerk Name Role Phone Jorge Enriquez MD Primary Care Provider [phone] Encounter Details Date Type Department Care Team (Late st Contact Info) Description 08/31/2022 Scanned Document [facility] 80 [facility] [address] [place] [phone] Provider, Generic Social History Tobacco Use [...] Narrative 08/31/2022 Ordered by an unspecified provider. us Generic Provider HX AMB PROCEDURES Final Result documented in this encounter Visit Diagnoses Not on filedocumented in this encounter Care Teams Principal Clerk Relationship Specialty Start Date End Date Jorge Enriquez MD [address] [place] [address] [place] [address] PCP - General 08/31/22 documented as of this encounter
--- OUTSIDE RECORDS SUMMARY | 2024-10-23 14:53 | XMS_ITS | Encounter Summary ---
Author Organization [facility] Address [address] [place] [address] Care Team Providers Care Hand Rug Cleaner Name Role Phone Jorge Enriquez MD Primary Care Provider [phone] Encounter Details Date Type Department Care Team (Late st Contact Info) Description 10/22/2022 Scanned Document [facility] Plastic & Reconstructive Surgery [place] [address] [place] [address] Rosina Mckinney MD 4182 [facility] 201 [place] [address] Social History Tobacco Use Types Packs/Day Years [...] in a assisted (including now)? No 09/29/2022 Comments No Sex [...] on filedocumented in this encounter Care Teams Hand Rug Cleaner Relationship Specialty Start Date End Date Jorge Enriquez MD [address] [place] [address] [place] [address] PCP - General 08/31/22 documented as of this encounter
--- OUTSIDE RECORDS SUMMARY | 2024-10-23 14:53 | XMS_ITS | Encounter Summary ---
Author Organization [facility] Address [address] [place] [address] Care Team Providers Care Hide Dropper Name Role Phone Jorge Enriquez MD Primary Care Provider [phone] Encounter Details Date Type Department Care Team (Late st Contact Info) Description 11/23/2022 Scanned Document [facility] Plastic & Reconstructive Surgery [place] [address] Breast [place], [place] [address] Rosina Mckinney MD 4185 [facility] 201 [place], [place] [address] Social History Tobacco Use Types Packs/Day Years [...] in a alf (including now)? No 09/29/2022 Comments No Sex [...] on filedocumented in this encounter Care Teams Hide Dropper Relationship Specialty Start Date End Date Jorge Enriquez MD [address] [place] [address] [place] [address] PCP - General 08/31/22 documented as of this encounter
--- OUTSIDE RECORDS SUMMARY | 2024-10-23 14:53 | XMS_ITS | Encounter Summary ---
Author Organization [facility] Address [address] [place] [address] Care Team Providers Care Keyliner Name Role Phone Jorge Enriquez MD Primary Care Provider [phone] Encounter Details Date Type Department Care Team ([facility] st Contact Info) Description 11/19/2022 Telephone [facility] Plastic & Reconstructive Surgery [place] [address] Breast [place], [place] [address] Rosina Mckinney MD 4185 [facility] 201 [place], [place] [address] Social History Tobacco Use Types Packs/Day Years [...] in a residential (including now)? No 09/29/2022 Comments No Sex [...] Miscellaneous Notes * Telephone Encounter - Sally Harris - 11/19/2022 2:31 PM EDT Following up on the fax she sent for [employer] paper work please confirm you received it and follow up on return date best contact number for pt is [phone] documented in this encounter Plan of Treatment Not on file documented as of this encounter Visit Diagnoses Not on filedocumented in this encounter Care Teams Keyliner Relationship Specialty Start Date End Date Jorge Enriquez MD [address] [place] [address] [place] [address] PCP - General 08/31/22 documented as of this encounter
[2024-10-23 14:54] VITALS: BMI 32.2
== END 2024-10-23 16:03 | disposition home or self-care (01) ==
LOC: HO.HOS 14:51
PROVIDERS: PCP Nurse Practitioner Family; Visit Provider Orthopaedic Surgery
DX: M17.12 Unilateral primary osteoarthritis, left knee (principal)
CPT/HCPCS: 99214

== ENCOUNTER → 2024-10-23 14:50 | Outpatient (BNVA) | payer OTHER, SELFPAY | PROVIDERS: PCP Nurse Practitioner Family; Visit Provider Orthopaedic Surgery | DX: M17.12 Unilateral primary osteoarthritis, left knee (principal) | CPT/HCPCS: 99212 ==

== ENCOUNTER 2024-11-02 09:46 | Outpatient (AMB) | payer OTHER, SELFPAY ==
--- NOTE | 2024-11-02 09:53 | MHC.OFFVIS ---
Vital Signs 11/02/24 10:05 Height 5 ft 9 in Weight 218 lb BMI 32.2 BP 146/82 H Blood Pressure Location Rt brachial Position Sitting Pulse 64 Pulse Source Pulse Oximeter Pulse Oximetry (%) 97 Oxygen Delivery Method Room Air Intake Visit Reasons: Chronic Constipation, Gastric Ulcrer, GERD Intake Note: ESTABLISHED PATIENT for re-est care. AUGUSTIN w/ ABENA 2023. Mgmt of CIC, GERD. CC; C.O. B/L LQ abd pain, persistence of CIC despite colace. Pt states that colace is not helping as it used to. GERD is controlled with current PPI per pt. Pt also reports abnormal sensation of moving throughout their abdomen and is concerned about possible parasitic infection? Railroad Auditor Required: No Accompanied by: Self / Same As Patient Allergies cat dander Allergy (Severe, Verified 11/02/24 09:59) Loss Voice environmental allergies Allergy (Severe, Verified 11/02/24 09:59) Sneezing HPI HPI Chronic Constipation, Gastric Ulcrer, GERD: Details: 63-year-old female here for initial evaluation of constipation, peptic ulcer disease and GERD. She is referred by Umm Cates. She was also seen in the past by Kiley Soares. PMX Obesity Interstitial lung disease GERMANIA Hypertension History of gastric ulcer Chronic constipation Bilateral carpal tunnel syndrome Steatosis of the liver GERD * SURGICAL HISTORY Gastric bypass Bilateral mastectomy Hysterectomy Cholecystectomy EGD-2018 Donna Colonoscopy 2017 with 10 year repeat Left knee surgery * ALLERGIES : NKDA * [email or web address] LABS: Laboratory Tests 09/18/24 15:58 WBC 5.1 Hgb 13.0 Hct 38.2 MCV 73.5 L MCH 25.0 L Plt Count 296 KILEY SOARES IS LAST NOTE: 62-year-old female referred with chronic constipation- many years-has tried many [id number]-[id number] preparationSmooth move tea, benefiber, citrucel, mag citrate- she does not take anything every day-she waits until she is constipated to take anything Sleeve @ [facility]- plateaued was not losing weight joint the [facility] weight management Then revision- by Dr. Valdez- bypass-2020- 05/15/23-Recent EGD - Dr. Valdez- having repeat 07/01/22- following clear liquid dietColonoscopy 2016- Dr. Cervantes- diverticulosis-no polyps She otherwise has no GI or general complaints A very pleasant 62-year-old female chronic constipation s/p gastric bypass following with weight management currently She continue to her plan and please however recommend Colace daily Be consistent with bowel regimen She re-evaluate after EGD next week-and diet is increased. Encouraged to call with questions or concerns Appreciate the opportunity assist in the care this pleasant patient Last colonoscopy 2017-will follow-up colonoscopy when appropriate however want to be sure she is able to have an adequate prep TODAY'S VISIT Doing well on her meds, has a new problem of unexplained anemia. We discussed that we may want to do a Chem panel to make sure there is no renal disease and some fit testing to make sure she is not losing small amounts of blood through the GI system. She is seeing Hematology for this and having what I believe is iron transfusions. She is having worsening trouble with constipation since she was prior oral iron supplement. This is common. She continues with her Colace and in the past she has used smooth move tea I tell her that that this is excellent option since she liked it I suggest she restart this regimen and if this does not work then can go on to something more complex. She is likely not a good candidate for MiraLax since her gastric bypass limits the amount of liquid she can intake. This likely also limits her fiber. Return office visit in 6-8 weeks [facility] Medical History (Reviewed 11/02/24 @ 10:04 by Priyank Raphael [facility]) Pleuritic pain De Quervain's tenosynovitis, right Abnormal EKG Obesity (BMI 30.0-34.9) Hypersomnolence Nocturnal hypoxemia Rhinitis Fall Left knee pain Right ankle pain Neck pain Leg pain Back pain Shoulder pain Encounter related to worker's compensation claim Tick bite Encounters for administrative purpose Deflation of breast implant History of breast cancer (~2008) History of diabetes mellitus GERMANIA (obstructive sleep apnea) Palpitations Steatosis, liver History of MRSA infection Arthritis Sickle cell trait History of COVID-19 (~09/2019) Hx of cardiac murmur Post-COVID syndrome (~2019) Pneumonia (~2019) Asthma Hypertension GERD (gastroesophageal reflux disease) Constipation Surgical History S/P gastric bypass (~2020) History of left knee surgery (~2010) History of Cassi-en-Y gastric bypass (~2020) History of bilateral mastectomy (~2008) History of colonoscopy (~2016) History of hysterectomy (~2003) History of laparoscopic cholecystectomy (~2002) History of esophagogastroduodenoscopy (EGD) (~2017) History of sleeve gastrectomy (~2010) Family History Father DM (diabetes mellitus) Stroke Mother DM (diabetes mellitus) Brother No problems noted. Sister No problems noted. Son No problems noted. 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 Gender identity: Female Cognitive needs: No Hearing needs: No Vision needs: No Review of Systems Const Denies fatigue, Denies fever(s), Denies night sweats, Denies poor appetite and Denies weight loss ENT Reports Normal hearing present, Denies dental pain, Denies dysphagia, Denies hearing loss, Denies mouth pain, Denies odynophagia, Denies throat swelling, Denies tongue swelling and Reports other (Dentition adequate) Card Reports no additional complaints Resp Reports no additional complaints GI Details: Denies abdominal pain, Denies melena, Denies bloating, Denies hematochezia, Reports constipation, Denies GI cramping, Denies dysphagia, Denies excessive flatus, Denies early satiety, Denies heartburn, Denies diarrhea, Denies nausea, Denies odynophagia, Denies vomiting and Denies hematemesis Skin/Breast Denies pruritus, Denies lesions, Denies rash and Denies jaundice Neuro Reports Normal hearing present and Denies Abnormal speech present Endo Denies fatigue Aller/Immun Denies throat swelling and Denies tongue swelling Physical Exam Vital Signs: Last Vital Signs Pulse 64 11/02/24 10:05 BP 146/82 H 11/02/24 10:05 Pulse Ox 97 11/02/24 10:05 Oxygen Delivery Method Room Air 11/02/24 10:05 BMI result Body Mass Index 32.2 Const General: cooperative, no acute distress, well developed and well groomed Nutritional Appearance: well nourished and obese Orientation/consciousness: oriented to person, oriented to place and oriented to time Limitations: No language barrier HEENT Head: Yes normocephalic and Yes atraumatic Eyes General: appearance normal, both eyes and all related structures Pupils: Equal, round and reactive pupils present Neck Neck: Yes normal visual inspection and Yes no lymphadenopathy Thyroid: Thyroid normal Resp Effort & Inspection: normal respiratory effort and able to speak in complete sentences Auscultation: clear to auscultation bilaterally Cardio Rate: regular rate Rhythm: regular rhythm Heart sounds: Normal, physiologic split S2 sound present Peripheral pulses: radial pulses present and posterior tibial pulses present GI Inspection: No distended, No Abdominal panniculus present and Yes obesity Palpation (GI): Soft to palpation, nontender, no guarding, not rigid and No hepatosplenomegaly present Percussion: Yes normal to percussion Auscultation: normal bowel sounds Rectal Exam - Female: deferred Abdomen image: 1. SURGICAL SCARS 2. 3. 4. 5. Skin General skin exam: no rashes or lesions noted, turgor normal, skin not dry, no jaundice, No spider nevi and no striae Rashes: no rashes Nails: normal Neuro General: oriented to person, oriented to place and oriented to time Cranial nerves: Yes Equal, round and reactive pupils present and Yes Normal hearing present Speech: No Abnormal speech present Extrem General: Yes normal to inspection, No clubbing, No cyanosis and No edema Psych Appearance: grossly normal and well kempt Mental Status: mental status grossly normal Speech and movement: Normal speech and movement present Affect: normal affect Attitude: cooperative Thought process: Normal thought process present and not confabulating Thought content: Normal thought content present Insight: Good insight present (Psych) Judgement: Good judgement present (Psych) Assessment & Plan Assessment & Plan (1) Chronic constipation: Comment: Following weight management diet protocol She may take Colace as q.h.s. Stay well hydrated Code(s): K59.09 - Other constipation Category: Medical (2) GERD (gastroesophageal reflux disease): Code(s): K21.9 - Gastro-esophageal reflux disease without esophagitis Category: Medical (3) Hypertension: Code(s): I10 - Essential (primary) hypertension Category: Medical Qualifiers: Hypertension type: primary hypertension Qualified Code(s): I10 - Essential (primary) hypertension (4) Steatosis, liver: Code(s): K76.0 - Fatty (change of) liver, not elsewhere classified Category: Medical (5) Iron deficiency anemia: Code(s): D50.9 - Iron deficiency anemia, unspecified Category: Medical Plan Doing well on her meds, has a new problem of unexplained anemia. We discussed that we may want to do a Chem panel to make sure there is no renal disease and some fit testing to make sure she is not losing small amounts of blood through the GI system. She is seeing Hematology for this and having what I believe is iron transfusions. She is having worsening trouble with constipation since she was prior oral iron supplement. This is common. She continues with her Colace and in the past she has used smooth move tea I tell her that that this is excellent option since she liked it I suggest she restart this regimen and if this does not work then can go on to something more complex. She is likely not a good candidate for MiraLax since her gastric bypass limits the amount of liquid she can intake. This likely also limits her fiber. Return office visit in 6-8 weeks Orders: Orders Comprehensive Met. Panel Today D50.9 - Iron deficiency anemia, unspecified, I10 - Essential (primary) hypertension, K76.0 - Fatty (change of) liver, not elsewhere classified FITS Today D50.9 - Iron deficiency anemia, unspecified, I10 - Essential (primary) hypertension, K76.0 - Fatty (change of) liver, not elsewhere classified Vitamin B12 and Folate Today D50.9 - Iron deficiency anemia, unspecified, I10 - Essential (primary) hypertension, K76.0 - Fatty (change of) liver, not elsewhere classified Medications: Refilled pantoprazole 40 mg PO QAM 90 tabs 3RF docusate sodium (Colace) 200 mg (2 x 100 mg) PO BEDTIME 60 caps 5RF Coding Level of Care Code Est Pt Level 4 (39882) Diagnoses Chronic constipation K59.09 GERD (gastroesophageal reflux disease) K21.9 Primary hypertension I10 Hypertension type: primary hypertension Steatosis, liver K76.0 Iron deficiency anemia D50.9 Time Spent (min) 38
[2024-11-02 10:05] VITALS: BP 146/82; PULSE 64; O2SAT 97; BMI 32.2
--- OUTSIDE RECORDS SUMMARY | 2024-11-02 10:06 | XMS_ITS | Encounter Summary ---
Author Organization [facility] Address [address] [place] [address] Care Team Providers Care Overhead Foreman Name Role Phone Jorge Enriquez MD Primary Care Provider [phone] Encounter Details Date Type Department Care Team (Late st Contact Info) Description 09/15/2022 Scanned Document [facility] Plastic & Reconstructive Surgery [address] Floor Breast [place], [place] [address] Rosina Mckinney MD [address] [id number] Social History Tobacco Use Types Packs/Day Years [...] on filedocumented in this encounter Care Teams Overhead Foreman Relationship Specialty Start Date End Date Jorge Enriquez MD [address] [place] [address] Dr [address] [place], [place] [address] [address] PCP - General 08/31/22 documented as of this encounter
--- OUTSIDE RECORDS SUMMARY | 2024-11-02 10:06 | XMS_ITS | Encounter Summary ---
Author Organization [facility] Address [address] [place] [address] Care Team Providers Care Advertising Editor Name Role Phone Jorge Enriquez MD Primary Care Provider [phone] Encounter Details Date Type Department Care Team (Late st Contact Info) Description 10/22/2022 Scanned Document [facility] Plastic & Reconstructive Surgery [place] [address] [place] [address] Rosina Mckinney MD 4188 [facility] [address] [place] [address] Social History Tobacco Use Types [...] in a snf (including now)? No 09/29/2022 Comments No Sex [...] on filedocumented in this encounter Care Teams Advertising Editor Relationship Specialty Start Date End Date Jorge Enriquez MD [address] [place] [address] [place] [address] PCP - General 08/31/22 documented as of this encounter
--- OUTSIDE RECORDS SUMMARY | 2024-11-02 10:06 | XMS_ITS | Encounter Summary ---
Author Organization [facility] Address [address] [place] [address] Care Team Providers Care Forestry Tree Pruner Name Role Phone Jorge Enriquez MD Primary Care Provider [phone] Encounter Details Date Type Department Care Team (Late st Contact Info) Description 10/30/2022 Scanned Document [facility] Plastic & Reconstructive Surgery [place] [address] Breast [place], [place] [address] Rosina Mckinney MD 4185 [facility] [address] [place], [place] [address] Social History Tobacco Use Types Packs/Day Years [...] in a fdc (including now)? No 09/29/2022 Comments No Sex [...] on filedocumented in this encounter Care Teams Forestry Tree Pruner Relationship Specialty Start Date End Date Jorge Enriquez MD [address] [place] [address] [place] [address] PCP - General 08/31/22 documented as of this encounter
--- OUTSIDE RECORDS SUMMARY | 2024-11-02 10:06 | XMS_ITS | Encounter Summary ---
Author Organization [facility] Address [address] [place] [address] Care Team Providers Care Business Broker Name Role Phone Jorge Enriquez MD Primary Care Provider [phone] Encounter Details Date Type Department Care Team ([facility] st Contact Info) Description 10/22/2022 Telephone [facility] Plastic & Reconstructive Surgery [place] [address] Breast [place], [place] [address] Rosina Mckinney MD 4185 [facility] [address] [place], [place] [id number] Social History Tobacco Use Types Packs/Day Years [...] in a chcf (including now)? No 09/29/2022 Comments No Sex [...] let you know she or Sergey from [employer] will be faxing over forms needed documented in this encounter Plan of Treatment Not on file documented as of this encounter Visit Diagnoses Not on filedocumented in this encounter Care Teams Business Broker Relationship Specialty Start Date End Date Jorge Enriquez MD [address] [place] [address] [place] [address] PCP - General 08/31/22 documented as of this encounter
--- OUTSIDE RECORDS SUMMARY | 2024-11-02 10:06 | XMS_ITS | Encounter Summary ---
Author Organization [facility] Address [address] [place] [address] Care Team Providers Care Fish Bin Tender Name Role Phone Jorge Enriquez MD Primary Care Provider [phone] Encounter Details Date Type Department Care Team (Late st Contact Info) Description 11/23/2022 Scanned Document [facility] Plastic & Reconstructive Surgery [place] [address] Breast [place], [place] [address] Rosina Mckinney MD 4185 [facility] [address] [place], [place] [address] Social History Tobacco Use Types Packs/Day Years [...] a care home (including now)? No 09/29/2022 Comments No [...] on filedocumented in this encounter Care Teams Fish Bin Tender Relationship Specialty Start Date End Date Jorge Enriquez MD [address] [place] [address] [place] [address] PCP - General 08/31/22 documented as of this encounter
--- OUTSIDE RECORDS SUMMARY | 2024-11-02 10:06 | XMS_ITS | Encounter Summary ---
Author Organization [facility] Address [address] [place] [address] Care Team Providers Care Shaft Tender Name Role Phone Jorge Enriquez MD Primary Care Provider [phone] Encounter Details Date Type Department Care Team (Late st Contact Info) Description 10/30/2022 Scanned Document [facility] Plastic & Reconstructive Surgery [place] [address] Breast [place], [place] [address] Rosina Mckinney MD 4185 [facility] [address] [place], [place] [address] Social History Tobacco Use Types Packs/Day Years [...] on filedocumented in this encounter Care Teams Shaft Tender Relationship Specialty Start Date End Date Jorge Enriquez MD [address] [place] [address] [place] [address] PCP - General 08/31/22 documented as of this encounter
--- OUTSIDE RECORDS SUMMARY | 2024-11-02 10:06 | XMS_ITS | Clinical Summary ---
Author Organization [facility] Address [address] [place] [address] Care Team Providers Care Gameplay Programmer Name Role Phone Jorge Enriquez MD Primary Care Provider [phone] Allergies No known active allergies Medications Blood [...] in a mcfp (including now)? No 09/29/2022 Comments No Sex [...] this topic Medical Devices Implanted Type Area Home Stereo Equipment Installer Device Identifier Shelf Expiration Date Model / Serial / Lot [id number] Lead Relay Tester Anastomosis [place] [employer] Titanium 20mhz Od3 M - [id number] Implanted:Qty: 1 on 09/28/2022 by Jose Rafael Barroso MD at [facility] Graft Right: Breast [employer] [facility] 03/16/2027 [id number] / [id number] / [id number] Lead Relay Tester Anastomosis [place] [employer] Titanium 20mhz Od3 M - [id number] Implanted:Qty: 1 on 09/28/2022 by Rosina Mckinney MD at [facility] Graft Left: Breast [employer] [facility] 03/16/2027 [id number] / [id number] / [id number] Procedures Procedure Name Priority Date/Time Associated Diagnosis Comments BASIC METABOLIC PANEL Routine 09/30/2022 8:04 AM EDT from Last 3 Months or Most Recently Relevant to Health Maintenance Results * (ABNORMAL) Basic Metabolic Panel (Early AM) (09/30/2022 8:04 AM EDT) Pathologist [facility] Glucose 91 74 - 106 mg/dL 09/30/2022 8:41 AM EDT [facility] Comment:Fasting: <100 mg/dL, Non-Fasting: <200 mg/dL (ADA 2005) Blood Urea Nitrogen (BUN) 15 9 - 23 mg/dL 09/30/2022 8:41 AM EDT [facility] Creatinine 0.8 0.6 - 1.0 mg/dL 09/30/2022 8:41 AM EDT [facility] eGFR 84 >59 09/30/2022 8:41 AM EDT [facility] Comment: CKD-EPI (2020) in mL/min/1.73 sq meters. Reported eGFR is based on the CKD-EPI equation that does not use a race coefficient as of 08/18/2022 Sodium 145 136 - 145 mmol/L 09/30/2022 8:41 AM EDT [facility] Potassium 3.8 3.4 - 4.5 mmol/L 09/30/2022 8:41 AM EDT [facility] Chloride 112(H) 98 - 107 mmol/L 09/30/2022 8:41 AM EDT [facility] CO2 28 20 - 31 mmol/L 09/30/2022 8:41 AM EDT [facility] Anion Gap 5 5 - 15 09/30/2022 8:41 AM EDT [facility] Calcium 8.3(L) 8.7 - 10.5 mg/dL 09/30/2022 8:41 AM EDT [facility] BUN/Creatinine Ratio 19 10.0 - 25.0 Ratio 09/30/2022 8:41 AM EDT [facility] Blood specimen (specimen) (Plasma/Serum) 09/30/2022 8:04 AM EDT 09/30/2022 8:21 AM EDT Althea Palacio PA-C LAB BLOOD ORDERABLES Final Result HOSPITAL LAB See Below [facility] [address] [place] [address] from Last 3 Months or Most Recently Relevant to Health Maintenance Insurance [facility] - PPO Advance Directives * Full Code (Latest Code Status on File) Date Activated Date Inactivated Comments 09/28/2022 6:38 PM 02/10/2023 5:34 AM * Full Code Date Activated Date Inactivated Comments 09/28/2022 5:34 AM 09/28/2022 6:38 PM Care Teams Gameplay Programmer Relationship Specialty Start Date End Date Jorge Enriquez MD [address] [place] [address] Dr Moura, JORGE L [address] PCP - General 08/31/22
--- OUTSIDE RECORDS SUMMARY | 2024-11-02 10:06 | XMS_ITS | Encounter Summary ---
Author Organization [facility] Address [address] [place] [address] Care Team Providers Care Pattern Marking Supervisor Name Role Phone Jorge Enriquez MD Primary Care Provider [phone] Encounter Details Date Type Department Care Team ([facility] st Contact Info) Description 11/19/2022 Telephone [facility] Plastic & Reconstructive Surgery [place] [address] [place] [address] Breast [place], [place] [address] Rosina Mckinney MD 4185 [facility] 201 [place], [place] [address] Social History Tobacco Use Types Packs/Day Years [...] place to sleep or slept in a prison (including now)? No 09/29/2022 Comments No Sex [...] date best contact number for pt is [phone] documented in this encounter Plan of Treatment Not on file documented as of this encounter Visit Diagnoses Not on filedocumented in this encounter Care Teams Pattern Marking Supervisor Relationship Specialty Start Date End Date Jorge Enriquez MD [address] [place] [address] [place] [address] PCP - General 08/31/22 documented as of this encounter
--- OUTSIDE RECORDS SUMMARY | 2024-11-02 10:06 | XMS_ITS | Encounter Summary ---
Author Organization [facility] Address [address] [place] [address] Care Team Providers Care Energy Specialist Name Role Phone Jorge Enriquez MD Primary Care Provider [phone] Encounter Details Date Type Department Care Team (Late st Contact Info) Description 08/31/2022 Scanned Document [facility] 80 [facility] [address] [place] [id number] Provider, Generic Social History Tobacco Use [...] on filedocumented in this encounter Care Teams Energy Specialist Relationship Specialty Start Date End Date Jorge Enriquez MD [address] [place] [address] [place] [address] PCP - General 08/31/22 documented as of this encounter
== END 2024-11-02 10:32 | disposition home or self-care (01) ==
LOC: HO.HGI 09:46
PROVIDERS: PCP Nurse Practitioner Family; Visit Provider Nurse Practitioner
DX: K59.09 Other constipation (principal); K21.9 Gastro-esophageal reflux disease without esophagitis; I10 Essential (primary) hypertension; K76.0 Fatty (change of) liver, not elsewhere classified; D50.9 Iron deficiency anemia, unspecified
CPT/HCPCS: 99214

== ENCOUNTER → 2024-11-02 09:46 | Outpatient (BNVA) | payer OTHER, SELFPAY | PROVIDERS: PCP Nurse Practitioner Family; Visit Provider Nurse Practitioner ==

== ENCOUNTER 2024-11-02 11:22 | Outpatient (REF) | payer OTHER, SELFPAY ==
--- OUTSIDE RECORDS SUMMARY | 2024-11-02 12:01 | XMS_ITS | Encounter Summary ---
Author Organization [facility] Address [address] [place] [address] Care Team Providers Care Wrinkle Chaser Name Role Phone Jorge Enriquez MD Primary Care Provider [phone] Encounter Details Date Type Department Care Team (Late st Contact Info) Description 10/22/2022 Scanned Document [facility] Plastic & Reconstructive Surgery [place] [address] [place] [address] Rosina Mckinney MD 4181 [facility] 201 [place] [address] Social History Tobacco Use Types [...] in a detention (including now)? No 09/29/2022 Comments No Sex [...] on filedocumented in this encounter Care Teams Wrinkle Chaser Relationship Specialty Start Date End Date Jorge Enriquez MD [address] [place] [address] [place] [address] PCP - General 08/31/22 documented as of this encounter
--- OUTSIDE RECORDS SUMMARY | 2024-11-02 12:01 | XMS_ITS | Encounter Summary ---
Author Organization [facility] Address [address] [place] [address] Care Team Providers Care Mental Health Program Specialist Name Role Phone Jorge Enriquez MD Primary Care Provider [phone] Encounter Details Date Type Department Care Team ([facility] st Contact Info) Description 10/22/2022 Telephone [facility] Plastic & Reconstructive Surgery [place] [address] Breast [place], [place] [address] Rosina Mckinney MD 4185 [facility] 201 [place], [place] [address] Social History Tobacco Use Types Packs/Day Years [...] let you know she or Sergey from [employer] will be faxing over forms needed documented in this encounter Plan of Treatment Not on file documented as of this encounter Visit Diagnoses Not on filedocumented in this encounter Care Teams Mental Health Program Specialist Relationship Specialty Start Date End Date Jorge Enriquez MD [address] [place] [address] [place] [address] PCP - General 08/31/22 documented as of this encounter
--- OUTSIDE RECORDS SUMMARY | 2024-11-02 12:01 | XMS_ITS | Encounter Summary ---
Author Organization [facility] Address [address] [place] [address] Care Team Providers Care Position Classifier Name Role Phone Jorge Enriquez MD Primary Care Provider [phone] Encounter Details Date Type Department Care Team (Late st Contact Info) Description 11/23/2022 Scanned Document [facility] Plastic & Reconstructive Surgery [place] [address] Breast [place], [place] [address] Rosina Mckinney MD 4185 [facility] 201 [place], [place] [address] Social History Tobacco Use Types Packs/Day Years [...] in a fpc (including now)? No 09/29/2022 Comments No Sex [...] on filedocumented in this encounter Care Teams Position Classifier Relationship Specialty Start Date End Date Jorge Enriquez MD [address] [place] [address] [place] [address] PCP - General 08/31/22 documented as of this encounter
--- OUTSIDE RECORDS SUMMARY | 2024-11-02 12:01 | XMS_ITS | Encounter Summary ---
Author Organization [facility] Address [address] [place] [address] Care Team Providers Care Wastewater Treatment Operator Name Role Phone Jorge Enriquez MD Primary Care Provider [phone] Encounter Details Date Type Department Care Team (Late st Contact Info) Description 08/31/2022 Scanned Document [facility] 80 [facility] [address] [place] [id number] Provider, Generic Social History Tobacco Use [...] on filedocumented in this encounter Care Teams Wastewater Treatment Operator Relationship Specialty Start Date End Date Jogre Enriquez MD [address] [place] [address] [place] [address] PCP - General 08/31/22 documented as of this encounter
--- OUTSIDE RECORDS SUMMARY | 2024-11-02 12:01 | XMS_ITS | Encounter Summary ---
Author Organization [facility] Address [address] [place] [address] Care Team Providers Care Information Engineer Name Role Phone Jorge Enriquez MD Primary Care Provider [phone] Encounter Details Date Type Department Care Team (Late st Contact Info) Description 10/30/2022 Scanned Document [facility] Plastic & Reconstructive Surgery [place] [address] Breast [place], [place] [address] Rosina Mckinney MD 4185 [facility] 201 [place], [place] [address] Social History Tobacco Use Types Packs/Day Years [...] a senior living (including now)? No 09/29/2022 Comments No Sex [...] on filedocumented in this encounter Care Teams Information Engineer Relationship Specialty Start Date End Date Jorge Enriquez MD [address] [place] [address] [place] [address] PCP - General 08/31/22 documented as of this encounter
--- OUTSIDE RECORDS SUMMARY | 2024-11-02 12:01 | XMS_ITS | Clinical Summary ---
Author Organization [facility] Address [address] [place] [id number] Care Team Providers Care Termite Renewal Inspector Name Role Phone Jorge Enriquez MD Primary Care Provider [phone] Allergies No known active allergies Medications Blood [...] this topic Medical Devices Implanted Type Area Transfer Car Operator Device Identifier Shelf Expiration Date Model / Serial / Lot [id number] Catering Coordinator Anastomosis [place] [employer] Titanium 20mhz Od3 M - [id number] Implanted:Qty: 1 on 09/28/2022 by Jose Rafael Barroso MD at [facility] Graft Right: Breast [employer] [facility] 03/16/2027 [id number] / [id number] / [id number] Catering Coordinator Anastomosis [place] [employer] Titanium 20mhz Od3 M - [id number] Implanted:Qty: 1 on 09/28/2022 by Rosina Mckinney MD at [facility] Graft Left: Breast [employer] [facility] 03/16/2027 [id number] / [id number] / [id number] Procedures Procedure Name Priority Date/Time Associated Diagnosis Comments BASIC METABOLIC PANEL Routine 09/30/2022 8:04 AM EDT from Last 3 Months or Most Recently Relevant to Health Maintenance Results * (ABNORMAL) Basic Metabolic Panel (Early AM) (09/30/2022 8:04 AM EDT) Pathologist [facility] Glucose 91 74 - 106 mg/dL 09/30/2022 8:41 AM EDT [facility] Comment:Fasting: <100 mg/dL, Non-Fasting: <200 mg/dL (ADA 2005) Blood Urea Nitrogen (BUN) 15 9 - 23 mg/dL 09/30/2022 8:41 AM EDT [facility] Creatinine 0.8 0.6 - 1.0 mg/dL 09/30/2022 8:41 AM EDT [facility] eGFR 84 >59 09/30/2022 8:41 AM EDT [facility] Comment: CKD-EPI (2020) in mL/min/1.73 sq meters. Reported eGFR is based on the CKD-EPI equation that does not use a race coefficient as of 08/18/2022 Sodium 145 136 - 145 mmol/L 09/30/2022 8:41 AM EDT [facility] Potassium 3.8 3.4 - 4.5 mmol/L 09/30/2022 8:41 AM EDT [facility] Chloride 112(H) 98 - 107 mmol/L 09/30/2022 8:41 AM EDT [facility] CO2 28 20 - 31 mmol/L 09/30/2022 8:41 AM EDT [facility] Anion Gap 5 5 - 15 09/30/2022 8:41 AM EDT [facility] Calcium 8.3(L) 8.7 - 10.5 mg/dL 09/30/2022 8:41 AM EDT [facility] BUN/Creatinine Ratio 19 10.0 - 25.0 Ratio 09/30/2022 8:41 AM EDT [facility] Blood specimen (specimen) (Plasma/Serum) 09/30/2022 8:04 AM EDT 09/30/2022 8:21 AM EDT Althea Palacio PA-C LAB BLOOD ORDERABLES Final Result HOSPITAL LAB See Below [facility] [address] [place] [address] from Last 3 Months or Most Recently Relevant to Health Maintenance Insurance [facility] - PPO Advance Directives * Full Code (Latest Code Status on File) Date Activated Date Inactivated Comments 09/28/2022 6:38 PM 02/10/2023 5:34 AM * Full Code Date Activated Date Inactivated Comments 09/28/2022 5:34 AM 09/28/2022 6:38 PM Care Teams Termite Renewal Inspector Relationship Specialty Start Date End Date Jorge Enriquez MD [address] [place] [address] Dr Moura, JORGE L [address] PCP - General 08/31/22
--- OUTSIDE RECORDS SUMMARY | 2024-11-02 12:01 | XMS_ITS | Encounter Summary ---
Author Organization [facility] Address [address] [place] [address] Care Team Providers Care Intelligence Senior Sergeant Name Role Phone Jorge Enriquez MD Primary Care Provider [phone] Encounter Details Date Type Department Care Team (Late st Contact Info) Description 09/15/2022 Scanned Document [facility] Plastic & Reconstructive Surgery [address] Floor Breast [place], [place] [address] Rosina Mckinney MD [address] [id number] Social History Tobacco Use Types Packs/Day Years [...] on filedocumented in this encounter Care Teams Intelligence Senior Sergeant Relationship Specialty Start Date End Date Jorge Enriquez MD [address] [place] [address] Dr [address] [place], [place] [address] [address] PCP - General 08/31/22 documented as of this encounter
--- OUTSIDE RECORDS SUMMARY | 2024-11-02 12:01 | XMS_ITS | Encounter Summary ---
Author Organization [facility] Address [address] [place] [address] Care Team Providers Care Patternmaker Plastics Name Role Phone Jorge Enriquez MD Primary Care Provider [phone] Encounter Details Date Type Department Care Team (Late st Contact Info) Description 10/30/2022 Scanned Document [facility] Plastic & Reconstructive Surgery [place] [address] Breast [place], [place] [address] Rosina Mckinney MD 4185 [facility] 201 [place], [place] [address] Social History Tobacco Use Types Packs/Day Years [...] in a fci (including now)? No 09/29/2022 Comments No Sex [...] on filedocumented in this encounter Care Teams Patternmaker Plastics Relationship Specialty Start Date End Date Jorge Enriquez MD [address] [place] [address] [place] [address] PCP - General 08/31/22 documented as of this encounter
--- OUTSIDE RECORDS SUMMARY | 2024-11-02 12:01 | XMS_ITS | Encounter Summary ---
Author Organization [facility] Address [address] [place] [address] Care Team Providers Care Nutrition Educator Name Role Phone Jorge Enriquez MD Primary Care Provider [phone] Encounter Details Date Type Department Care Team ([facility] st Contact Info) Description 11/19/2022 Telephone [facility] Plastic & Reconstructive Surgery [place] [address] [place] [address] Breast [place], [place] [address] Rosina Mckinney MD 4185 [facility] 201 [place], [place] [address] Social History Tobacco Use Types Packs/Day Years [...] in a half-way (including now)? No 09/29/2022 Comments No Sex [...] date best contact number for pt is [phone] documented in this encounter Plan of Treatment Not on file documented as of this encounter Visit Diagnoses Not on filedocumented in this encounter Care Teams Nutrition Educator Relationship Specialty Start Date End Date Jorge Enriquez MD [address] [place] [address] [place] [address] PCP - General 08/31/22 documented as of this encounter
[2024-11-02 14:36] LABS: Alanine Aminotransferase 11 U/L (0-31); Albumin Level 4.3 g/dL (3.5-5.0); Alkaline Phosphatase 124 U/L (39-117); Anion Gap 15 (12-20); Aspartate Amino Transferase 18 U/L (5-31); Bilirubin Total 0.8 mg/dL (0.0-1.0); Blood Urea Nitrogen 15 mg/dL (9-16); Calcium 9.1 mg/dL (8.4-10.2); Carbon Dioxide 22 mmol/L (22-29); Chloride 110 mmol/L (96-108); Estimated Glomerular Filt Rate > 60; Glucose Random 111 mg/dL (60-115); Potassium 3.5 mmol/L (3.3-5.1); Sodium 143 mmol/L (135-145); Total Protein 7.2 g/dL (6.5-8.0)
[2024-11-02 14:58] LABS: Vitamin B12 609 pg/mL (200-900)
== END 2024-11-02 11:23 | disposition home or self-care (01) ==
LOC: HO.WFDLDS 11:22
PROVIDERS: Visit Provider Nurse Practitioner
DX: D50.9 Iron deficiency anemia, unspecified (principal); I10 Essential (primary) hypertension; K76.0 Fatty (change of) liver, not elsewhere classified
CPT/HCPCS: 36415; 80053; 82607; 82746

== ENCOUNTER → 2024-11-09 16:01 | Outpatient (BNVA) | payer OTHER, SELFPAY | PROVIDERS: PCP Nurse Practitioner Family; Visit Provider Internal Medicine Endocrinology, Diabetes & Metabolism ==

== ENCOUNTER → 2024-11-09 16:01 | Outpatient (AMB) | payer OTHER, SELFPAY ==
--- NOTE | 2024-11-09 16:03 | MHC.OFFVIS ---
Vital Signs 11/09/24 16:06 Height 5 ft 9 in Weight 222 lb 7.143 oz BMI 32.8 BP 132/82 Blood Pressure Location Rt brachial Position Sitting Pulse 82 Pulse Source Pulse Oximeter Pulse Oximetry (%) 98 Oxygen Delivery Method Room Air Intake Visit Reasons: Postsurgical malabsorption Intake Note: New patient referred by PCP Umm Cates [facility] for Hypoglycemia. Guitar Maker Hand Required: No Accompanied by: Self / Same As Patient Allergies cat dander Allergy (Severe, Verified 11/09/24 16:06) Loss Voice environmental allergies Allergy (Severe, Verified 11/09/24 16:06) Sneezing Medication List - Last Reconciled 11/09/24 by Leopoldo Urrutia MD albuterol sulfate 90 mcg/actuation 1 puff inhalation Q4H PRN cholecalciferol (vitamin D3) 50 mcg PO DAILY cyanocobalamin (vitamin B-12) 1,000 mcg IM QWEEK docusate sodium (Colace) 200 mg (2 x 100 mg) PO BEDTIME fluticasone furoate-vilanterol 200-25 mcg/dose (Breo Ellipta) 1 inh inhalation DAILY ipratropium bromide 2 sprays intranasal BID iron,carbonyl-vitamin C 65 mg iron- 125 mg (Vitron-C) 1 tab PO DAILY 90 days lidocaine 5% 1 patch topical DAILY montelukast (Singulair) 10 mg PO BEDTIME olmesartan 10 mg (2 x 5 mg) PO DAILY 90 days pantoprazole 40 mg PO QAM HPI Comments Details: The patient is a 63-year-old female presenting with recurrent hypoglycemia episodes. These episodes began approximately one year after her second bariatric surgery in 2013 and involve symptoms such as dizziness, cold sweats, and feelings of inebriation. The patient reports that her blood sugar can drop significantly, with the lowest recorded at 33 mg/dL. She experiences these episodes about once a week, predominantly after meals, though they can occur any time of the day. The patient uses a continuous glucose monitor which has shown levels as low as 53 mg/dL. There is no history of seizures or loss of consciousness associated with these episodes. The patient also received treatment for anemia with iron infusions recently. The patient reports a history of not eating during the day until she returns home, which she believed contributed to her hypoglycemic episodes. To mitigate this, she began bringing snacks such as peanut butter to work. She consumes sweet foods to counteract low blood sugar, which has resulted in weight gain. Recently, she has started incorporating protein drinks into her diet as recommended by her doctor. - Blood glucose control medications prior to weight loss (specifics not detailed) [facility] Medical History Pleuritic pain De Quervain's tenosynovitis, right Abnormal EKG Obesity (BMI 30.0-34.9) Hypersomnolence Nocturnal hypoxemia Rhinitis Fall Left knee pain Right ankle pain Neck pain Leg pain Back pain Shoulder pain Encounter related to worker's compensation claim Tick bite Encounters for administrative purpose Deflation of breast implant History of breast cancer (~2008) History of diabetes mellitus [place] (obstructive sleep apnea) Palpitations Steatosis, liver History of MRSA infection Arthritis Sickle cell trait History of COVID-19 (~09/2019) Hx of cardiac murmur Post-COVID syndrome (~2019) Pneumonia (~2019) Asthma Hypertension GERD (gastroesophageal reflux disease) Constipation Surgical History S/P gastric bypass (~2020) History of left knee surgery (~2010) History of Cassi-en-Y gastric bypass (~2020) History of bilateral mastectomy (~2008) History of colonoscopy (~2016) History of hysterectomy (~2003) History of laparoscopic cholecystectomy (~2002) History of esophagogastroduodenoscopy (EGD) (~2017) History of sleeve gastrectomy (~2010) Family History Father DM (diabetes mellitus) Stroke Mother DM (diabetes mellitus) Brother No problems noted. Sister No problems noted. Son No problems noted. 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 There are no thyroid nodules palpated. There are no skin rashes noted Assessment & Plan Assessment & Plan (1) Hypoglycemia after GI (gastrointestinal) surgery: Code(s): K91.2 - Postsurgical malabsorption, not elsewhere classified Category: Medical Plan: This is a 63-year-old female with a history of hypoglycemia Pattern most likely fits post bariatric hypoglycemia considering timeframe after surgery and episodes occurring post-prandially preceded by hyperglycemia. Differential diagnosis includes adrenal insufficiency as well as endogenous insulin tumor such as insulinoma less likely. The plan is to have the patient check a serum glucose at the time symptoms to establish Whipple's triad. If patient does have a low serum glucose, we will recheck glucose along with insulin, C-peptide, proinsulin levels. We will also obtain an a.m. cortisol level. We will send patient to helicopter repairer. Recommended nonpharmacologic treatment with cornstarch currently. May use acarbose in future if evidence suggest post-bariatric hypoglycemia. Lastly, if symptoms progress and Whipple's triad satisfied, talked about a possible referral to Dr. Faustina varela specialist the [facility] and hypoglycemia post bariatric 1. Hypoglycemia post-bariatric surgery Recurrent hypoglycemia is likely due to post-bariatric changes. I have advised the patient to obtain serum glucose levels during episodes to confirm hypoglycemia and consider further endocrine testing if necessary. Dietary modifications and possible use of acarbose were discussed. I discussed with the patient the likelihood of post-bariatric reactive hypoglycemia given her surgical history and symptoms. I emphasized the importance of confirming hypoglycemia with a serum glucose test during symptomatic episodes. We discussed dietary strategies, including regular meal intake and the potential use of acarbose to prevent glucose spikes and subsequent hypoglycemia. I advised the patient to keep a detailed diary of symptoms and glucose readings. We also reviewed the recent management of her anemia with iron infusions, and I explained the need for ongoing monitoring of her blood counts. Follow-up was planned to reassess symptoms and the need for further testing. The patient had an opportunity to ask questions regarding treatment plan. The patient expressed understanding and agreement with the above treatment plan. The patient is aware they should contact our office by phone for worsening glucose readings or for any low blood sugars which may warrant a change in diabetes medication. Patient was informed and verbally consented to the use of an ambient scribe for clinic note documentation during this visit. Orders: Orders Cortisol Random 1 Day K91.2 - Postsurgical malabsorption, not elsewhere classified Glucose Random Today K91.2 - Postsurgical malabsorption, not elsewhere classified Referrals Nutrition/Dietitian Referral K91.2 - Postsurgical malabsorption, not elsewhere classified Coding Level of Care Code New Pt Level 4 (90673) Diagnoses Hypoglycemia after GI (gastrointestinal) surgery K91.2
--- OUTSIDE RECORDS SUMMARY | 2024-11-09 16:03 | XMS_ITS | Encounter Summary ---
Author Organization [facility] Address [address] [place] [address] Care Team Providers Care Product Operations Associate Name Role Phone Jorge Enriquez MD Primary Care Provider [phone] Encounter Details Date Type Department Care Team (Late st Contact Info) Description 10/22/2022 Telephone [facility] Plastic & Reconstructive Surgery [place] [address] [place], [place] [address] Rosina Mckinney MD 4185 [facility] 201 [place], [place] [address] Social History Tobacco Use Types Packs/Day Years [...] in a usp (including now)? No 09/29/2022 Comments No Sex [...] let you know she or Sergey from [employer] will be faxing over forms needed documented in this encounter Plan of Treatment Not on file documented as of this encounter Visit Diagnoses Not on filedocumented in this encounter Care Teams Product Operations Associate Relationship Specialty Start Date End Date Jorge Enriquez MD [address] [place] [address] [place] [address] PCP - General 08/31/22 documented as of this encounter
[2024-11-09 16:06] VITALS: BP 132/82; PULSE 82; O2SAT 98; BMI 32.8
== END ==
LOC: HO.ENCR 16:01
PROVIDERS: PCP Nurse Practitioner Family; Visit Provider Internal Medicine Endocrinology, Diabetes & Metabolism
DX: K91.2 Postsurgical malabsorption, not elsewhere classified (principal)
CPT/HCPCS: 99204

== ENCOUNTER 2024-11-10 07:13 | Outpatient (REF) | payer OTHER, SELFPAY ==
--- OUTSIDE RECORDS SUMMARY | 2024-11-10 07:15 | XMS_ITS | Encounter Summary ---
Author Organization [facility] Address [address] [place] [address] Care Team Providers Care Alarm Field Technician Name Role Phone Jorge Enriquez MD Primary Care Provider [phone] Encounter Details Date Type Department Care Team (Late st Contact Info) Description 10/22/2022 Telephone [facility] Plastic & Reconstructive Surgery [place] [address] Breast [place], [place] [address] Rosina Mckinney MD 4185 [facility] 201 [place], [place] [address] Social History Tobacco Use Types Packs/Day Years [...] let you know she or Sergey from [employer] will be faxing over forms needed documented in this encounter Plan of Treatment Not on file documented as of this encounter Visit Diagnoses Not on filedocumented in this encounter Care Teams Alarm Field Technician Relationship Specialty Start Date End Date Jorge Enriquez MD [address] [place] [address] [place] [address] PCP - General 08/31/22 documented as of this encounter
[2024-11-10 12:49] LABS: Cortisol Random 12.7 ug/dL
== END 2024-11-10 07:14 | disposition home or self-care (01) ==
LOC: HO.WFDLDS 07:13
PROVIDERS: Visit Provider Internal Medicine Endocrinology, Diabetes & Metabolism
DX: K91.2 Postsurgical malabsorption, not elsewhere classified (principal)
CPT/HCPCS: 36415; 82533

== ENCOUNTER 2024-11-18 11:57 | Outpatient (REF) | payer OTHER, SELFPAY ==
[2024-11-18 12:09] LABS: Glucose Random 64 mg/dL (60-115)
== END 2024-11-18 11:58 | disposition home or self-care (01) ==
LOC: HO.LNP 11:57
PROVIDERS: Visit Provider Internal Medicine Endocrinology, Diabetes & Metabolism
DX: Z13.1 Encounter for screening for diabetes mellitus (principal); K91.2 Postsurgical malabsorption, not elsewhere classified
CPT/HCPCS: 82947

== ENCOUNTER 2024-11-23 15:17 | Outpatient (AMB) | payer OTHER, SELFPAY ==
[2024-11-23 15:27] VITALS: BP 140/82; PULSE 63; BMI 32.8
--- NOTE | 2024-11-23 15:27 | MHC.OFFVIS ---
Vital Signs 11/23/24 15:27 Height 5 ft 9 in Weight 222 lb 3.615 oz BMI 32.8 BP 140/82 H Blood Pressure Location Rt brachial Position Sitting Pulse 63 Pulse Source Monitor Intake Visit Reasons: 1 year f/u Undercover Cop Required: No Allergies cat dander Allergy (Severe, Verified 11/23/24 15:29) Loss Voice environmental allergies Allergy (Severe, Verified 11/23/24 15:29) Sneezing Medication List - Last Reconciled 11/23/24 by Elke Menon, LILLY-C albuterol sulfate 90 mcg/actuation 1 puff inhalation Q4H PRN cholecalciferol (vitamin D3) 50 mcg PO DAILY cyanocobalamin (vitamin B-12) 1,000 mcg IM QWEEK docusate sodium (Colace) 200 mg (2 x 100 mg) PO BEDTIME fluticasone furoate-vilanterol 200-25 mcg/dose (Breo Ellipta) 1 inh inhalation DAILY ipratropium bromide 2 sprays intranasal BID iron,carbonyl-vitamin C 65 mg iron- 125 mg (Vitron-C) 1 tab PO DAILY 90 days lidocaine 5% 1 patch topical DAILY montelukast (Singulair) 10 mg PO BEDTIME olmesartan 10 mg (2 x 5 mg) PO DAILY 90 days pantoprazole 40 mg PO QAM HPI HPI 1 year f/u: Details: Elma is a 63-year-old female with past medical history of hypertension, obstructive sleep apnea, obesity, palpitations, PACs who presents for follow-up. Today she reports she has been feeling well since her last visit 05/31/2023. She does have intermittent heart palpitations lasting sec. No presyncope, syncope, falls. She denies concerning chest discomfort at rest or with activity, no shortness of breath, PND, orthopnea or edema. She does report high stress at work. 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 She will be needing knee surgery in May. She is compliant with CPAP. Taking meds as directed. [facility] Medical History Pleuritic pain De Quervain's tenosynovitis, right Abnormal EKG Obesity (BMI 30.0-34.9) Hypersomnolence Nocturnal hypoxemia Rhinitis Fall Left knee pain Right ankle pain Neck pain Leg pain Back pain Shoulder pain Encounter related to worker's compensation claim Tick bite Encounters for administrative purpose Deflation of breast implant History of breast cancer (~2008) History of diabetes mellitus GERMANIA (obstructive sleep apnea) Palpitations Steatosis, liver History of MRSA infection Arthritis Sickle cell trait History of COVID-19 (~09/2019) Hx of cardiac murmur Post-COVID syndrome (~2019) Pneumonia (~2019) Asthma Hypertension GERD (gastroesophageal reflux disease) Constipation Surgical History S/P gastric bypass (~2020) History of left knee surgery (~2010) History of Cassi-en-Y gastric bypass (~2020) History of bilateral mastectomy (~2008) History of colonoscopy (~2016) History of hysterectomy (~2003) History of laparoscopic cholecystectomy (~2002) History of esophagogastroduodenoscopy (EGD) (~2017) History of sleeve gastrectomy (~2010) Family History Father DM (diabetes mellitus) Stroke Mother DM (diabetes mellitus) Brother No problems noted. Sister No problems noted. Son No problems noted. 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 Gender identity: Female Cognitive needs: No Hearing needs: No Vision needs: No Review of Systems Const All systems reviewed & are unremarkable except as noted in HPI and below ENT Denies dizziness Card Details: palpitations Denies chest pain, Denies chest pain at rest, Denies chest pain with activity, Denies rapid heart rate, Denies pedal edema, Denies edema, Denies leg edema, Denies lightheadedness, Denies palpitations, Denies dyspnea, Denies dyspnea on exertion and Denies orthopnea Resp Denies cough, Denies dyspnea and Denies dyspnea on exertion GI Denies hematochezia and Denies change in stool character Musc Denies abnormal gait, Denies limited range of motion, Denies muscle cramps, Denies muscle weakness, Denies numbness, Denies radiating pain into limb, Denies stiffness and Denies tingling Neuro Denies abnormal gait, Denies dizziness, Denies numbness and Denies tingling Endo Denies palpitations Physical Exam Vital Signs: Last Vital Signs Pulse 63 11/23/24 15:27 BP 140/82 H 11/23/24 15:27 BMI result Body Mass Index 32.8 Const General: cooperative, healthy appearing, comfortable and no acute distress Orientation/consciousness: patient oriented x3 Resp Effort & Inspection: normal respiratory effort Auscultation: clear to auscultation bilaterally, no crackles, no rales, no rhonchi and no wheezes Cardio Jugular venous distension: no JVD Rate: regular rate Rhythm: regular rhythm Heart sounds: S1 normal heart sound present, S2 normal heart sound present, no murmurs and no rubs Neuro General: patient oriented x3 Extrem General: Yes normal to inspection, No no pedal edema and No calf tenderness Psych Appearance: grossly normal Mental Status: mental status grossly normal Speech and movement: Normal speech and movement present Office Procedures EKG Details: Today, read by me, normal sinus rhythm, rate 63, Qtc 405ms [id number], Complete Assessment & Plan Assessment & Plan (1) Palpitations: Comment: with ectopy on EKG Code(s): R00.2 - Palpitations Category: Medical Plan: Reports of brief heart palpitations, without associated symptoms. Echocardiogram 04/07/2022 showed normal LV, EF 65-70%, normal RV and normal valves. Holter monitor done 04/07/2022 for 3 days showed sinus rhythm with average heart rate 71, 5 short bursts of SVT, longest 4 beats. An exercise stress test was done on 04/01/2022 with exercise just over 5 minutes with shortness of breath, atrial ectopy noted, no ischemic changes. Her symptoms are likely related to the PACs and short SVT runs. She has not required med management. Conservative measures including good hydration, adequate rest, reduction in caffeinated beverages reviewed. Emergency care if ever needed for sustained rapid heart palpitations. Vagal maneuvers discussed. Cardiology follow-up 1 year, sooner if needed. (2) PAC (premature atrial contraction): Code(s): I49.1 - Atrial premature depolarization Category: Medical Plan: As above (3) GERMANIA (obstructive sleep apnea): Comment: (mild GERMANIA in general but moderate to severe when supine - using cpap. Repeat sleep study WNL Code(s): G47.33 - Obstructive sleep apnea (adult) (pediatric) Category: Medical Plan: History of obstructive sleep apnea, compliant with CPAP mask. (4) Preop cardiovascular exam: Code(s): Z01.810 - Encounter for preprocedural cardiovascular examination Category: Medical Plan: She anticipates having knee surgery in May 2025 and will need preop clearance. At this time she has an activity level greater than 4 Mets without concerning symptoms beyond knee pain. She has no anginal sounding symptoms. If condition remains unchanged then she can likely proceed with low cardiac risk. (5) Hypertension: Code(s): I10 - Essential (primary) hypertension Category: Medical Qualifiers: Hypertension type: primary hypertension Qualified Code(s): I10 - Essential (primary) hypertension Plan: Blood pressure goal less than 130/80. Blood pressure mildly elevated today 140/82. She is on hydrochlorothiazide. Recommend that she periodically check blood pressure at home and call if blood pressure consistently running greater than 140 systolic and medication adjustments can be made. Plan Time spent with chart review, documentation, interview assessment Coding Level of Care Code Est Pt Level 4 (68274) Complex EM visit Add On G2211 Diagnoses Palpitations R00.2 PAC (premature atrial contraction) I49.1 GERMANIA (obstructive sleep apnea) G47.33 Preop cardiovascular exam Z01.810 Primary hypertension I10 Hypertension type: primary hypertension CPT Codes EKG - CPT: [id number], Complete ([id number]) Time Spent (min) 28
--- OUTSIDE RECORDS SUMMARY | 2024-11-23 17:53 | XMS_ITS | Encounter Summary ---
Author Organization [facility] Address [address] [place] [address] Care Team Providers Care System Controller Name Role Phone Jorge Enriquez MD Primary Care Provider [phone] Encounter Details Date Type Department Care Team ([facility] st Contact Info) Description 10/22/2022 Telephone [facility] Plastic & Reconstructive Surgery [place] [address] Breast [place], [place] [phone] Rosina Mckinney MD 4[address] [facility] [address] [place], [place] [address] Social History Tobacco Use Types Packs/Day Years [...] let you know she or Sergey from [employer] will be faxing over forms needed documented in this encounter Plan of Treatment Not on file documented as of this encounter Visit Diagnoses Not on filedocumented in this encounter Care Teams System Controller Relationship Specialty Start Date End Date Jorge Enriquez MD [address] [place] [address] [place] [id number] PCP - General 08/31/22 documented as of this encounter
== END 2024-11-23 16:02 | disposition home or self-care (01) ==
LOC: HO.HCS 15:17
PROVIDERS: PCP Nurse Practitioner Family; Visit Provider Nurse Practitioner Family
DX: R00.2 Palpitations (principal); I49.1 Atrial premature depolarization; G47.33 Obstructive sleep apnea (adult) (pediatric); Z01.810 Encounter for preprocedural cardiovascular examination; I10 Essential (primary) hypertension
CPT/HCPCS: 93010; 99214

== ENCOUNTER → 2024-11-23 15:17 | Outpatient (BNVA) | payer OTHER, SELFPAY | PROVIDERS: PCP Nurse Practitioner Family; Visit Provider Nurse Practitioner Family | DX: R00.2 Palpitations (principal) | CPT/HCPCS: 93005 ==

== ENCOUNTER 2024-11-24 12:45 | Outpatient (AMB) | payer OTHER, SELFPAY ==
--- NOTE | 2024-11-24 12:53 | MHC.OFFVIS ---
Vital Signs 11/24/24 13:01 Height 5 ft 9 in Weight 223 lb 6 oz BMI 33.0 BP 138/80 Blood Pressure Location Rt brachial Position Sitting Pulse 72 Pulse Source Pulse Oximeter Pulse Oximetry (%) 99 Oxygen Delivery Method Room Air Intake Visit Reasons: Asthma Allergies cat dander Allergy (Severe, Verified 11/24/24 13:04) Loss Voice environmental allergies Allergy (Severe, Verified 11/24/24 13:04) Sneezing HPI HPI Asthma: Details: Elma is a pleasant 63 year old female, former minimal smoker, quit 40 years ago with underlying asthma, IVANIA on oral iron supplements, environmental allergies, Sickle cell trait, DMII, s/p gastric surgery 2020, h/o breast cancer s/p chemo/mastectomy, HTN, GERMANIA not on CPAP, and GERD. Since initiating Breo in addition to Singulair, she reports good control of respiratory symptoms, rarely requiring albuterol. She continues to report intermittent allergy symptoms, not using antihistamines. Previously with low H/H, h/o IVANIA, now maintained on oral supplements. She denies any visits to urgent care or hospitalizations related to respiratory distress since the last visit. [facility] Medical History Pleuritic pain De Quervain's tenosynovitis, right Abnormal EKG Obesity (BMI 30.0-34.9) Hypersomnolence Nocturnal hypoxemia Rhinitis Fall Left knee pain Right ankle pain Neck pain Leg pain Back pain Shoulder pain Encounter related to worker's compensation claim Tick bite Encounters for administrative purpose Deflation of breast implant History of breast cancer (~2008) History of diabetes mellitus GERMANIA (obstructive sleep apnea) Palpitations Steatosis, liver History of MRSA infection Arthritis Sickle cell trait History of COVID-19 (~09/2019) Hx of cardiac murmur Post-COVID syndrome (~2019) Pneumonia (~2019) Asthma Hypertension GERD (gastroesophageal reflux disease) Constipation Surgical History S/P gastric bypass (~2020) History of left knee surgery (~2010) History of Cassi-en-Y gastric bypass (~2020) History of bilateral mastectomy (~2008) History of colonoscopy (~2016) History of hysterectomy (~2003) History of laparoscopic cholecystectomy (~2002) History of esophagogastroduodenoscopy (EGD) (~2017) History of sleeve gastrectomy (~2010) Family History Father DM (diabetes mellitus) Stroke Mother DM (diabetes mellitus) Brother No problems noted. Sister No problems noted. Son No problems noted. 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 Gender identity: Female Cognitive needs: No Hearing needs: No Vision needs: No Review of Systems Const Denies chills, Denies excessive sweating, Denies fever(s), Denies headache(s) and Denies night sweats Eyes Denies dry eyes ENT Reports Normal hearing present, Denies headache(s), Denies nasal congestion, Denies nasal discharge, Denies post nasal drip and Denies sore throat Card Denies chest pain, Denies chest pain at rest, Denies chest pain with activity, Denies claudication, Denies leg edema, Denies orthopnea and Denies paroxysmal nocturnal dyspnea Resp Denies chest congestion, Denies cough, Denies excessive phlegm production, Denies pain on inspiration, Denies pain with cough, Denies stridor and Denies wheezing Musc Denies myalgias Neuro Reports Normal hearing present and Denies headache(s) Endo Denies excessive sweating Roberto/Lymph Denies lymphadenopathy Aller/Immun Denies wheezing Physical Exam Vital Signs: Last Vital Signs Pulse 72 11/24/24 13:01 BP 138/80 11/24/24 13:01 Pulse Ox 99 11/24/24 13:01 Oxygen Delivery Method Room Air 11/24/24 13:01 BMI result Body Mass Index 33.0 Const General: cooperative, healthy appearing, comfortable, no acute distress, well developed and alert Orientation/consciousness: patient oriented x3 Limitations: no limitations HEENT Head: Yes normal to inspection, Yes normocephalic and Yes atraumatic Ears: hearing grossly normal bilaterally and external ears normal Eyes General: appearance normal, both eyes and all related structures Eyelids: Yes eyelids normal Sclerae: sclerae normal EOM: EOMs intact bilaterally Neck Neck: Yes normal visual inspection and Yes no lymphadenopathy Lymphatic: no lymphadenopathy noted Chest Chest palpation & inspection: normal inspection of the chest Resp Effort & Inspection: normal respiratory effort, able to speak in complete sentences, no audible wheezes, no cough, no stridor, not tachypneic, no tripod positioning and no use of accessory muscles Auscultation: clear to auscultation bilaterally Cardio Jugular venous distension: no JVD Rate: regular rate Rhythm: regular rhythm Skin Other: warm, dry General skin exam: no rashes or lesions noted Neuro General: patient oriented x3 Cranial nerves: Yes Normal hearing present Cognition (Neuro): normal cognition Gait exam (Neuro): Normal gait present Extrem General: Yes normal to inspection, Yes capillary refill normal, Yes no clubbing, cyanosis or edema and Yes no pedal edema Psych Appearance: grossly normal and well kempt Speech and movement: Normal speech and movement present and Clear speech present Affect: normal affect Attitude: cooperative Thought process: Normal thought process present Thought content: Normal thought content present Insight: Good insight present (Psych) Judgement: Good judgement present (Psych) Assessment & Plan Assessment & Plan (1) Asthma: Code(s): J45.909 - Unspecified asthma, uncomplicated Category: Medical Qualifiers: Asthma complication type: unspecified Asthma persistence: unspecified Asthma severity: moderate Qualified Code(s): J45.909 - Unspecified asthma, uncomplicated (2) Environmental allergies: Code(s): Z91.09 - Other allergy status, other than to drugs and biological substances Category: Medical (3) Iron deficiency anemia: Code(s): D50.9 - Iron deficiency anemia, unspecified Category: Medical (4) Multiple pulmonary nodules: Code(s): R91.8 - Other nonspecific abnormal finding of lung field Category: Medical Plan At this time, patient reports good control of respiratory symptoms, advised to continue Breo, Singulair and albuterol MDI PRN. Recommended antihistamine PRN. Reviewed chest CT which revealed a focal cluster of 1 mm pulmonary nodules in the periphery of the right lower lung lobe, smaller on the left lung base, right middle lung lobe and lingula.There is a 2 mm noncalcified pulmonary nodule superior segment right upper lung lobe. 1 mm calcified pulmonary nodule, right middle lung lobe. Suggestive of prior granulatomous disease. Will repeat in one year to assess stability of nodules. All questions were answered and patient is in agreement of plan. Will follow-up in 3-6 months or sooner if needed. Orders: Orders CT chest wo IV con 9 Months R91.8 - Other nonspecific abnormal finding of lung field Coding Level of Care Code Est Pt Level 4 (27177) Diagnoses Moderate asthma, unspecified whether complicated, unspecified whether persistent J45.909 Asthma complication type: unspecified Asthma persistence: unspecified Asthma severity: moderate Environmental allergies Z91.09 Iron deficiency anemia D50.9 Multiple pulmonary nodules R91.8
[2024-11-24 13:01] VITALS: BP 138/80; PULSE 72; O2SAT 99; BMI 33.0
--- OUTSIDE RECORDS SUMMARY | 2024-11-24 13:11 | XMS_ITS | Encounter Summary ---
Author Organization [facility] Address [address] [place] [address] Care Team Providers Care Steam Tank Operator Name Role Phone Jorge Enriquez MD Primary Care Provider [phone] Encounter Details Date Type Department Care Team ([facility] st Contact Info) Description 10/22/2022 Telephone [facility] Plastic & Reconstructive Surgery [place] [address] Breast [place], [place] [address] Rosina Mckinney MD 4185 [facility] [address] [place], [place] [address] Social History Tobacco Use Types Packs/Day Years [...] in a mcc (including now)? No 09/29/2022 Comments No Sex [...] let you know she or Sergey from [employer] will be faxing over forms needed documented in this encounter Plan of Treatment Not on file documented as of this encounter Visit Diagnoses Not on filedocumented in this encounter Care Teams Steam Tank Operator Relationship Specialty Start Date End Date Jorge Enriquez MD [address] [place] [address] [place] [id number] PCP - General 08/31/22 documented as of this encounter
== END 2024-11-24 13:15 | disposition home or self-care (01) ==
LOC: HO.HPSW 12:46
PROVIDERS: PCP Nurse Practitioner Family; Visit Provider Nurse Practitioner Family
DX: J45.909 Unspecified asthma, uncomplicated (principal); Z91.09 Other allergy status, other than to drugs and biological substances; D50.9 Iron deficiency anemia, unspecified; R91.8 Other nonspecific abnormal finding of lung field
CPT/HCPCS: 99214

== ENCOUNTER 2024-12-08 08:16 | Outpatient (REF) | payer OTHER, SELFPAY ==
--- OUTSIDE RECORDS SUMMARY | 2024-12-08 08:22 | XMS_ITS | Encounter Summary ---
Author Organization [facility] Address [address] [place] [address] Care Team Providers Care Cyber Systems Administrator Name Role Phone Jorge Enriquez MD Primary Care Provider Encounter Details Date Type Department Care Team ([facility] st Contact Info) Description 10/22/2022 Telephone [facility] Plastic & Reconstructive Surgery [place] [address] Breast [place], [place] [address] Rosina Mckinney MD 4[address] [facility] [address] [place], [place] [address] Social History Tobacco Use Types Packs/Day Years [...] in a jail (including now)? No 09/29/2022 Comments No Sex [...] let you know she or Sergey from [employer] will be faxing over forms needed documented in this encounter Plan of Treatment Not on file documented as of this encounter Visit Diagnoses Not on filedocumented in this encounter Care Teams Cyber Systems Administrator Relationship Specialty Start Date End Date Jorge Enriquez MD [address] [place] [address] [place] [id number] PCP - General 08/31/22 documented as of this encounter
[2024-12-08 11:44] LABS: Glucose Fasting 46 mg/dL (60-99)
[2024-12-08 12:09] LABS: Insulin 5 uU/mL (2-29)
[2024-12-14 00:44] LABS: Proinsulin 6.5 pmol/L (< OR = 18.8)
== END 2024-12-08 08:17 | disposition home or self-care (01) ==
LOC: HO.WFDLDS 08:16
PROVIDERS: Visit Provider Nurse Practitioner Adult Health
DX: E16.2 Hypoglycemia, unspecified (principal)
CPT/HCPCS: 36415; 82947; 83525; 84206

== ENCOUNTER 2024-12-12 07:51 | Outpatient (REF) | payer OTHER, SELFPAY ==
--- OUTSIDE RECORDS SUMMARY | 2024-12-12 07:54 | XMS_ITS ---
Author Name [facility] Organization Unknown History of Medication Use Medication Directions Dispensed Refills Start Date End Date Stat cefadroxil (DURICEF) 500 mg capsule Take 1 capsule (500 mg total) by mouth 2 (two) times a day. Do not start before February 10, 2023. 09/07/2022 3 aborted diazepam (VALIUM) 5 MG tablet Take 1 tablet (5 mg total) by mouth 3 times daily (every 8 hours) as needed for muscle spasms. Do not start before February 10, 2023. 09/07/2022 3 active silver sulfADIAZINE (SILVADENE) 1 % cream Apply topically 2 (two) times a day. Apply to breast skin and belly button twice daily 09/07/2022 3 active iohexol (OMNIPAQUE) 350 mg/mL injection 80 mL 80 mL, Intravenous, Once in imaging, contrast, Starting on 08/31/22 at 0857, For 1 dose, Radiology Appointment 08/31/2022 3 completed lisinopril-hydroCHLOR Othiazide (PRINZIDE,ZESTORETIC) 20-12.5 MG per tablet Take 1 tablet by mouth daily. 08/05/2022 active cholecalciferol (CHOLECALCIFEROL) 125 MCG (5000 UT) capsule 03/26/2022 act pedro OMEprazole (PriLOSEC) 40 MG capsule 03/26/2022 active Blood Glucose Monitoring Suppl (ONE TOUCH ULTRA 2 DEVICE KIT) w/Device Kit 03/20/2022 active Problems Problem Status Onset Date Problem Type Date of Resoluti on Source Hypertension active ProblemAct [facility] Diabetes mellitus active ProblemAct H [facility] Personal history of malignant neoplasm of breast active 2022-09-28 ProblemAct [facility] Encounters Encounter Type Encounter Reason Primary Diagnosis Location Date Ambulatory Personal history of malignant neoplasm of breast Personal history of malignant neoplasm of breast [facility] 03/12/2023 Ambulatory Personal history of malignant neoplasm of breast Personal history of malignant neoplasm of breast [facility] 02/18/2023 Ambulatory Personal history of malignant neoplasm of breast Personal history of malignant neoplasm of breast [facility] 02/10/2023 Ambulatory Encounter for other preprocedural examination Encounter for other preprocedural examination [facility] [facility] 01/27/2023 Ambulatory Personal history of malignant neoplasm of breast Personal history of malignant neoplasm of breast [facility] 01/27/2023 Ambulatory Personal history of malignant neoplasm of breast Personal history of malignant neoplasm of breast [facility] 01/21/2023 Ambulatory Personal history of malignant neoplasm of breast [facility] 10/30/2022 Ambulatory Personal history of malignant neoplasm of breast [facility] 10/19/2022 Ambulatory Personal history of malignant neoplasm of breast [facility] 10/05/2022 Inpatient Personal history of malignant neoplasm of breast [facility] 09/28/2022 Ambulatory Encounter for ot her preprocedural examination [facility] 09/07/2022 Ambulatory Personal history of malignant neoplasm of breast [facility] 09/07/2022 Ambulatory Personal history of malignant neoplasm of breast [facility] 08/31/2022 Ambulatory Personal history of malignant neoplasm of breast [facility] 06/25/2022 Ambulatory Personal history of malignant neoplasm of breast [facility] 04/06/2022 Care Team Organization Name Specialty Phone Email Start Date End Da te [employer] [facility] JORGE GARIBAY Primary Care 08/31/2022 08/31/19 25 [employer] Jorge Garibay Primary Care 08/31/2022 09/01/19 23 [employer] PCP,No Primary Care 04/06/2022 08/30/2024 [employer] NO PCP Primary Care 04/06/2022 04/06/2022
--- OUTSIDE RECORDS SUMMARY | 2024-12-12 07:54 | XMS_ITS | Patient Health Record ---
Author Organization [facility] Address [address] [place] [address] Care Team Providers Care Computer Help Desk Specialist Name Role Phone Mansi(inactive) Fer MOCK Primary Care Provider U Dean Katz Jr [phone] Allergies Allergen (clinical drug ingredient) Drug/Non Drug Allergy documented on EMR Reaction Allergy Type Onset Date Status cats,mold ,grass,gaston es (uncoded) Unknown Allergy Active Reason For Referral No Information Medications Medication SIG (Take, Route, Frequency, Duration) Notes Start Date End Date Status metFORMIN HCl 500 MG 1 tablet with meals Orally Twice a day Active Advil Active Vitamin D 5000 1 tablet Orally Once a day Active Hydrocortisone Activ e Colyte with Flavor Packs 240 GM As directed Orally Over the specified time. for 1 day(s) 09/24/2016 Active Problems Problem Type SNOMED Code ICD Code Onset Dates Problem Status W/U Status Risk Notes Problem [id number] Colon cancer screening (Z12.11) Active confirmed Problem [id number] Constipation, unspecified constipation type (K59.00) Active confirmed Plan Of Treatment Future Test Test Name Order Date COLONOSCOPY 09/24/2016 Insurance Providers Payer Name Payer Address Payer Phone Subscriber Number Group Number Insured Name Patient Relationship to Insured Coverage Start Date Coverage End Date [place] [address] [place] [phone] [id number] TETE THOMAS Self - patient is the insured Medical (General) History Medical History History ICD Code diabetes mellitus hypertension heart murmur Denies [place],CVA,Lung disease,renal disease Surgical History Surgery Date(Month/Year) hysterectomy 2004 breast cancer bilateral 2009 knee surgery 2010 gastric sleeve 2014
--- OUTSIDE RECORDS SUMMARY | 2024-12-12 07:54 | XMS_ITS | Encounter Summary ---
Author Organization [facility] Address [address] [place] [address] Care Team Providers Care Warp Worker Name Role Phone Jorge Enriquez MD Primary Care Provider [phone] Encounter Details Date Type Department Care Team ([facility] st Contact Info) Description 10/22/2022 Telephone [facility] Plastic & Reconstructive Surgery [place] [address] Breast [place], [place] [address] Rosina Mckinney MD 4185 [facility] 201 [place], [place] [address] Social History Tobacco Use Types Packs/Day Years [...] let you know she or Sergey from [employer] will be faxing over forms needed documented in this encounter Plan of Treatment Not on file documented as of this encounter Visit Diagnoses Not on filedocumented in this encounter Care Teams Warp Worker Relationship Specialty Start Date End Date Jorge Enriquez MD [address] [place] [address] [place] [address] PCP - General 08/31/22 documented as of this encounter
[2024-12-20 20:09] LABS: Insulin Auto Antibody <0.4 U/mL (<0.4)
[2025-01-01 16:28] LABS: Pioglitazone None Detected; Rosiglitazone None Detected
== END 2024-12-12 07:52 | disposition home or self-care (01) ==
LOC: HO.WFDLDS 07:51
PROVIDERS: Visit Provider Internal Medicine Endocrinology, Diabetes & Metabolism
DX: E16.2 Hypoglycemia, unspecified (principal)
CPT/HCPCS: 36415; 80337; 82947; 83525; 84206; 84681; 86337

== ENCOUNTER 2025-01-24 16:49 | Outpatient (RCR) | payer OTHER, SELFPAY | END 2025-03-22 07:48 | disposition home or self-care (01) | LOC: HO.PT 16:49 | PROVIDERS: PCP Nurse Practitioner Family; Visit Provider Physician Assistant | DX: S93.401D Sprain of unspecified ligament of right ankle, subsequent encounter (principal) | CPT/HCPCS: 97110; 97162; 97164; 97530 ==

== ENCOUNTER 2025-01-28 11:28 | Outpatient (REF) | payer OTHER, SELFPAY ==
[2025-01-29 11:52] LABS: FIT Date 1 08/16/25; FIT Int Ctl YES; FIT1 NEGATIVE (NEGATIVE); FIT2 NEGATIVE (NEGATIVE)
[2025-01-29 11:53] LABS: FIT Lot M502755
--- OUTSIDE RECORDS SUMMARY | 2025-01-29 12:50 | XMS_ITS | Patient Health Record ---
Author Organization [facility] Address [address] [place] [address] Care Team Providers Care Clinical Team Lead Name Role Phone Mansi(inactive) Fer MOCK Primary Care Provider U Dean Katz Jr Allergies Allergen (clinical drug ingredient) Drug/Non Drug [...] Problem Status W/U Status Risk Notes Problem [id number] Colon cancer screening (Z12.11) Active confirmed Problem [id number] Constipation, unspecified constipation type (K59.00) Active confirmed Plan Of Treatment Future Test Test Name Order Date COLONOSCOPY 09/24/2016 Insurance Providers Payer Name Payer Address Payer Phone Subscriber Number Group Number Insured Name Patient Relationship to Insured Coverage Start Date Coverage End Date [place] [address] [place] [phone] [id number] TETE THOMAS Self - patient is the insured Medical (General) History Medical History History ICD Code diabetes mellitus hypertension heart murmur Denies [place],CVA,Lung disease,renal disease Surgical History Surgery Date(Month/Year) hysterectomy 2004 breast cancer bilateral 2009 knee surgery 2010 gastric sleeve 2014
--- OUTSIDE RECORDS SUMMARY | 2025-01-29 12:50 | XMS_ITS | Encounter Summary ---
Author Organization [facility] Address [address] [place] [address] Care Team Providers Care Hitcher Name Role Phone Jorge Enriquez MD Primary Care Provider Encounter Details Date Type Department Care Team ([facility] st Contact Info) Description 10/22/2022 Telephone [facility] Plastic & Reconstructive Surgery [place] [address] Breast [place], [place] [address] Rosina Mckinney MD 4185 [facility] 201 [place], [place] [address] Social History Tobacco Use Types Packs/Day Years [...] encounter Miscellaneous Notes * Telephone Encounter - Pojoa Mast MA - 10/22/2022 3:56 PM EDT Form was completed, faxed and scanned into the chart. Patient should be all set, thank you! * Telephone Encounter - Sally Harris - 10/22/2022 10:00 AM EDT Elma wanted to let you know she or Sergey from [employer] will be faxing over forms needed documented in this encounter Plan of Treatment Not on file documented as of this encounter Visit Diagnoses Not on filedocumented in this encounter Care Teams Hitcher Relationship Specialty Start Date End Date Jorge Enriquez MD [address] [place] [address] [place] [address] PCP - General 08/31/22 documented as of this encounter
== END 2025-01-28 11:29 | disposition home or self-care (01) ==
LOC: HO.LNP 11:28
PROVIDERS: Visit Provider Nurse Practitioner
DX: D50.9 Iron deficiency anemia, unspecified (principal); K76.0 Fatty (change of) liver, not elsewhere classified; I10 Essential (primary) hypertension
CPT/HCPCS: 82274

== ENCOUNTER 2025-03-08 15:52 | Outpatient (AMB) | payer OTHER, SELFPAY ==
--- NOTE | 2025-03-08 15:55 | MHC.OFFVIS ---
Vital Signs 03/08/25 15:58 Height 5 ft 9 in Weight 225 lb 8.526 oz BMI 33.3 BP 148/82 H Blood Pressure Location Rt brachial Position Sitting Pulse 77 Pulse Source Pulse Oximeter Pulse Oximetry (%) 97 Oxygen Delivery Method Room Air Intake Visit Reasons: Hypoglycemia after GI surgery Intake Note: Patient present today for Hypoglycemia follow up. Recreational Vehicle Resort Manager Required: No Accompanied by: Self / Same As Patient Allergies cat dander Allergy (Severe, Verified 03/08/25 15:58) Loss Voice environmental allergies Allergy (Severe, Verified 03/08/25 15:58) Sneezing Medication List - Last Reconciled 03/08/25 by Leopoldo Urrutia MD albuterol sulfate 90 mcg/actuation 1 puff inhalation Q4H PRN cholecalciferol (vitamin D3) 50 mcg PO DAILY cyanocobalamin (vitamin B-12) 1,000 mcg IM QWEEK docusate sodium (Colace) 200 mg (2 x 100 mg) PO BEDTIME fluticasone furoate-vilanterol 200-25 mcg/dose (Breo Ellipta) 1 inh inhalation DAILY ipratropium bromide 2 sprays intranasal BID iron,carbonyl-vitamin C 65 mg iron- 125 mg (Vitron-C) 1 tab PO DAILY 90 days [KNEE SCOOTER As directed] lidocaine 5% 1 patch topical DAILY montelukast (Singulair) 10 mg PO BEDTIME olmesartan 10 mg (2 x 5 mg) PO DAILY 90 days [One Touch Ultra lancets test blood sugar once daily] [One Touch ultra test strips test blood sugar once daily] pantoprazole 40 mg PO QAM HPI Comments Details: The patient is a 64-year-old female presenting with recurrent hypoglycemia episodes. These episodes began approximately one year after her second bariatric surgery in 2013 and involve symptoms such as dizziness, cold sweats, and feelings of inebriation. The patient reports that her blood sugar can drop significantly, with the lowest recorded at 33 mg/dL. She experiences these episodes about once a week, predominantly after meals, though they can occur any time of the day. The patient uses a continuous glucose monitor which has shown levels as low as 53 mg/dL. There is no history of seizures or loss of consciousness associated with these episodes. The patient also received treatment for anemia with iron infusions recently. The patient reports a history of not eating during the day until she returns home, which she believed contributed to her hypoglycemic episodes. To mitigate this, she began bringing snacks such as peanut butter to work. She consumes sweet foods to counteract low blood sugar, which has resulted in weight gain. Recently, she has started incorporating protein drinks into her diet as recommended by her doctor. - Blood glucose control medications prior to weight loss (specifics not detailed) Patient went to [facility] and underwent a fast and did not become hypoglycemic and labs were not consistent with the insulin,. [facility] Medical History Pleuritic pain De Quervain's tenosynovitis, right Abnormal EKG Obesity (BMI 30.0-34.9) Hypersomnolence Nocturnal hypoxemia Rhinitis Fall Left knee pain Right ankle pain Neck pain Leg pain Back pain Shoulder pain Encounter related to worker's compensation claim Tick bite Encounters for administrative purpose Deflation of breast implant History of breast cancer (~2008) History of diabetes mellitus GER[place]IA (obstructive sleep apnea) Palpitations Steatosis, liver History of MRSA infection Arthritis Sickle cell trait History of COVID-19 (~09/2019) Hx of cardiac murmur Post-COVID syndrome (~2019) Pneumonia (~2019) Asthma Hypertension GERD (gastroesophageal reflux disease) Constipation Surgical History S/P gastric bypass (~2020) History of left knee surgery (~2010) History of Cassi-en-Y gastric bypass (~2020) History of bilateral mastectomy (~2008) History of colonoscopy (~2016) History of hysterectomy (~2003) History of laparoscopic cholecystectomy (~2002) History of esophagogastroduodenoscopy (EGD) (~2017) History of sleeve gastrectomy (~2010) Family History Father DM (diabetes mellitus) Stroke Mother DM (diabetes mellitus) Brother No problems noted. Sister No problems noted. Son No problems noted. 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 Gender identity: Female Cognitive needs: No Hearing needs: No Vision needs: No Physical Exam Vital Signs: Last Vital Signs Pulse 77 03/08/25 15:58 BP 148/82 H 03/08/25 15:58 Pulse Ox 97 03/08/25 15:58 Oxygen Delivery Method Room Air 03/08/25 15:58 BMI result Body Mass Index 33.3 Assessment & Plan Assessment & Plan (1) 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 Fast performed at [facility] was not consistent with the insulin, but more post bariatric hypoglycemia. Responded to dietary intervention Plan is to continue dietary modification. At this point, pharmacologic therapy is not necessary with acarbose. Patient will follow up with [facility] in the next couple of months and follow up here as needed Coding Level of Care Code Est Pt Level 3 (73818) Diagnoses Hypoglycemia after GI (gastrointestinal) surgery K91.2
[2025-03-08 15:58] VITALS: BP 148/82; PULSE 77; O2SAT 97; BMI 33.3
--- OUTSIDE RECORDS SUMMARY | 2025-03-08 19:48 | XMS_ITS | Clinical Summary ---
Author Organization [facility] Address [address] [place] [address] Care Team Providers Care Analytical Data Miner Name Role Phone Jorge Enriquez MD Primary Care Provider [phone] Allergies No known active allergies Medications Blood [...] in a custodial (including now)? No 09/29/2022 Comments No Sex [...] 68 03/12/2023 1:35 PM EDT Temperature 36.2 C (97.2 F) 02/10/2023 10:30 AM EDT Respiratory Rate 18 02/10/2023 10:30 AM EDT [...] Zoster (Shingles) Vaccine (1 of 2) 2010 RSV Vaccine 60 years and older and Patients (1 - Risk 60-74 years 1-dose series) 2020 Creatinine with GFR 10/01/2023 09/30/2022, 09/29/2022, 09/07/2022, Additional history exists Influenza Vaccine 01/12/2025 COVID-19 Vaccine ( season) 2025 Hepatitis B Vaccines Aged Out No long er eligible based on patient's age to complete this topic Medical Devices Implanted Type Area Chairperson Anesthesiology Device Identifier Shelf Expiration Date Model / Serial / Lot [id number] Manager Relocation Anastomosis [place] [employer] Titanium 20mhz Od3 M - [id number] Implanted:Qty: 1 on 09/28/2022 by Jose Rafael Barroso MD at [facility] Graft Right: Breast SYNOVIS V[employer] [facility] 03/16/2027 [id number] / [id number] / [id number] Relocation Anastomosis [place] [employer] Titanium 20mhz Od3 M - [id number] Implanted:Qty: 1 on 09/28/2022 by Rosina Mckinney MD at [facility] Graft Left: Breast SYNOVIS [employer] [facility] 03/16/2027 [id number] / [id number] / [id number] Procedures Procedure Name Priority Date/Time Associated Diagnosis [...] ORDERABLES Final Result HOSPITAL LAB See Below [facility] [address] [place] [address] from Last 3 Months or Most Recently Relevant to Health Maintenance Insurance [facility] - PPO Advance Directives * Full Code (Latest Code Status on File) Date Activated Date Inactivated Comments 09/28/2022 6:38 PM 02/10/2023 5:34 AM * Full Code Date Activated Date Inactivated Comments 09/28/2022 5:34 AM 09/28/2022 6:38 PM Care Teams Analytical Data Miner Relationship Specialty Start Date End Date Jorge Enriquez MD [address] [place] [address] Dr Moura, JORGE L [address] PCP - General 08/31/22
--- OUTSIDE RECORDS SUMMARY | 2025-03-08 19:48 | XMS_ITS | Encounter Summary ---
Author Organization [facility] Address [address] [place] [address] Care Team Providers Care Signaler Name Role Phone Jorge Enriquez MD Primary Care Provider [phone] Encounter Details Date Type Department Care Team (Late st Contact Info) Description 11/23/2022 Scanned Document [facility] Plastic & Reconstructive Surgery [place] [address] Breast [place], [place] [address] Rosina Mckinney MD 4189 [facility] 201 [place], [place] [address] Social History Tobacco Use Types Packs/Day Years [...] on filedocumented in this encounter Care Teams Signaler Relationship Specialty Start Date End Date Jorge Enriquez MD [address] [place] [address] [place] [address] PCP - General 08/31/22 documented as of this encounter
--- OUTSIDE RECORDS SUMMARY | 2025-03-08 19:48 | XMS_ITS | Encounter Summary ---
Author Organization [facility] Address [address] [place] [address] Care Team Providers Care Mine Development Engineer Name Role Phone Jorge Enriquez MD Primary Care Provider [phone] Encounter Details Date Type Department Care Team ([facility] st Contact Info) Description 10/22/2022 Telephone [facility] Plastic & Reconstructive Surgery [place] [address] Breast [place], [place] [address] Rosina Mckinney MD 4185 [facility] 201 [place], [place] [address] Social History Tobacco Use Types Packs/Day Years [...] let you know she or Sergey from [employer] will be faxing over forms needed documented in this encounter Plan of Treatment Not on file documented as of this encounter Visit Diagnoses Not on filedocumented in this encounter Care Teams Mine Development Engineer Relationship Specialty Start Date End Date Jorge Enriquez MD [address] [place] [address] [place] [address] PCP - General 08/31/22 documented as of this encounter
--- OUTSIDE RECORDS SUMMARY | 2025-03-08 19:48 | XMS_ITS | Patient Health Record ---
Author Organization [facility] Address [address] [place] [address] Care Team Providers Care Delivery Person Name Role Phone Mansi(inactive) Fer MOCK Primary [...] Problem Status W/U Status Risk Notes Problem [id number] Colon cancer screening (Z12.11) Active confirmed Problem 35589359 Constipation, unspecified constipation type (K59.00) Active confirmed Plan Of Treatment Future Test Test Name Order Date COLONOSCOPY 09/24/2016 Insurance Providers Payer Name Payer Address Payer Phone Subscriber Number Group Number Insured Name Patient Relationship to Insured Coverage Start Date Coverage End Date [place] [address] [place] [phone] [id number] TETE THOMAS Self - patient is the insured Medical (General) History Medical History History ICD Code diabetes mellitus hypertension heart murmur Denies [place],CVA,Lung disease,renal disease Surgical History Surgery Date(Month/Year) hysterectomy 2004 breast cancer bilateral 2009 knee surgery 2010 gastric sleeve 2014
--- OUTSIDE RECORDS SUMMARY | 2025-03-08 19:48 | XMS_ITS | Encounter Summary ---
Author Organization [facility] Address [address] [place] [address] Care Team Providers Care Director Medical Affairs Name Role Phone Jorge Enriquez MD Primary Care Provider [phone] Encounter Details Date Type Department Care Team (Late st Contact Info) Description 08/31/2022 Scanned Document [facility] [address] [facility] [address] [place] [phone] Provider, Generic Social History Tobacco Use [...] on filedocumented in this encounter Care Teams Director Medical Affairs Relationship Specialty Start Date End Date Jorge Enriquez MD [address] [place] [address] [place] [address] PCP - General 08/31/22 documented as of this encounter
--- OUTSIDE RECORDS SUMMARY | 2025-03-08 19:48 | XMS_ITS | Encounter Summary ---
Author Organization [facility] Address [address] [place] [address] Care Team Providers Care [employer] Workflow Consultant Name Role Phone Jorge Enriquez MD Primary Care Provider [phone] Encounter Details Date Type Department Care Team (Late st Contact Info) Description 10/30/2022 Scanned Document [facility] Plastic & Reconstructive Surgery [place] [address] [place], [place] [address] Rosina Mckinney MD 4180 [facility] 201 [place], [place] [address] Social History Tobacco Use Types Packs/Day Years [...] filedocumented in this encounter Care Teams [employer] Solutions Workflow Consultant Relationship Specialty Start Date End Date Jorge Enriquez MD [address] [place] [address] [place] [address] PCP - General 08/31/22 documented as of this encounter
--- OUTSIDE RECORDS SUMMARY | 2025-03-08 19:48 | XMS_ITS | Encounter Summary ---
Author Organization [facility] Address [address] [place] [address] Care Team Providers Care Insolvency Practitioner Name Role Phone Jorge Enriquez MD Primary Care Provider [phone] Encounter Details Date Type Department Care Team ([facility] st Contact Info) Description 11/19/2022 Telephone [facility] Plastic & Reconstructive Surgery [place] [address] Breast [place], [place] [address] Rosina Mckinney MD 4185 [facility] 201 [place], [place] [address] Social History Tobacco Use Types Packs/Day Years [...] a senior care (including now)? No 09/29/2022 Comments No Sex [...] date best contact number for pt is [phone] documented in this encounter Plan of Treatment Not on file documented as of this encounter Visit Diagnoses Not on filedocumented in this encounter Care Teams Insolvency Practitioner Relationship Specialty Start Date End Date Jorge Enriquez MD [address] [place] [address] [place] [address] PCP - General 08/31/22 documented as of this encounter
--- OUTSIDE RECORDS SUMMARY | 2025-03-08 19:48 | XMS_ITS | Encounter Summary ---
Author Organization [facility] Address [address] [place] [address] Care Team Providers Care Gta Name Role Phone Jorge Enriquez MD Primary Care Provider [phone] Encounter Details Date Type Department Care Team (Late st Contact Info) Description 10/30/2022 Scanned Document [facility] Plastic & Reconstructive Surgery [place] [address] [place], [place] [address] Rosina Mckinney MD 4187 [facility] 201 [place], [place] [address] Social History Tobacco Use Types Packs/Day Years [...] on filedocumented in this encounter Care Teams Gta Relationship Specialty Start Date End Date Jorge Enriquez MD [address] [place] [address] [place] [address] PCP - General 08/31/22 documented as of this encounter
--- OUTSIDE RECORDS SUMMARY | 2025-03-08 19:48 | XMS_ITS | Encounter Summary ---
Author Organization [facility] Address [address] [place] [address] Care Team Providers Care Neuropathologist Name Role Phone Jorge Enriquez MD Primary Care Provider [phone] Encounter Details Date Type Department Care Team (Late st Contact Info) Description 09/15/2022 Scanned Document [facility] Plastic & Reconstructive Surgery [place] [address] [place] [address] Breast [place], [place] [address] Rosina Mckinney MD [address] [id number] Social History Tobacco Use Types Packs/Day Years [...] on filedocumented in this encounter Care Teams Neuropathologist Relationship Specialty Start Date End Date Jorge Enriquez MD [address] [place] [address] Dr [address] [place] [address] [place] [address] PCP - General 08/31/22 documented as of this encounter
--- OUTSIDE RECORDS SUMMARY | 2025-03-08 19:48 | XMS_ITS | Encounter Summary ---
Author Organization [facility] Address [address] [place] [address] Care Team Providers Care Supervising Editor Trailer Name Role Phone Jorge Enriquez MD Primary Care Provider [phone] Encounter Details Date Type Department Care Team (Late st Contact Info) Description 10/22/2022 Scanned Document [facility] Plastic & Reconstructive Surgery [place] [address] [place] [address] Rosina Mckinney MD 4182 [facility] 201 [place] [address] Social History Tobacco Use Types [...] on filedocumented in this encounter Care Teams Supervising Editor Trailer Relationship Specialty Start Date End Date Jorge Enriquez MD [address] [place] [address] [place] [address] PCP - General 08/31/22 documented as of this encounter
== END 2025-03-08 16:21 | disposition home or self-care (01) ==
LOC: HO.ENCR 15:53
PROVIDERS: PCP Nurse Practitioner Family; Visit Provider Internal Medicine Endocrinology, Diabetes & Metabolism
DX: K91.2 Postsurgical malabsorption, not elsewhere classified (principal)
CPT/HCPCS: 99213

== ENCOUNTER 2025-03-20 11:45 | Outpatient (REF) | payer OTHER, SELFPAY ==
[2025-03-20 14:30] LABS: Appearance Urine Turbid; Glucose Urine UA 100 mg/dL (Negative); PH 6.0 (5.0-9.0); Specific Gravity - Urine 1.025 (1.005-1.025); UMIC TRIGGER UACC YES
--- OUTSIDE RECORDS SUMMARY | 2025-03-20 14:54 | XMS_ITS | Encounter Summary ---
Author Organization [facility] Address [address] [place] [address] Care Team Providers Care Radiator Tester Name Role Phone Jorge Enriquez MD Primary Care Provider [phone] Encounter Details Date Type Department Care Team (Late st Contact Info) Description 10/30/[address] [facility] Plastic & Reconstructive Surgery [place] [address] Breast [place], [place] [address] Rosina Mckinney MD 4185 [facility] 201 [place], [place] [address] Social History Tobacco Use Types Packs/Day Years [...] on filedocumented in this encounter Care Teams Radiator Tester Relationship Specialty Start Date End Date Jorge Enriquez MD [address] [place] [address] [place] [address] PCP - General 08/31/22 documented as of this encounter
--- OUTSIDE RECORDS SUMMARY | 2025-03-20 14:54 | XMS_ITS | Encounter Summary ---
Author Organization [facility] Address [address] [place] [address] Care Team Providers Care Veterans Service Officer Name Role Phone Jorge Enriquez MD Primary Care Provider [phone] Encounter Details Date Type Department Care Team ([facility] st Contact Info) Description 10/22/2022 Telephone [facility] Plastic & Reconstructive Surgery [place] [address] Breast [place], [place] [address] Rosina Mckinney MD 4185 [facility] 201 [place], [place] [address] Social History Tobacco Use Types Packs/Day Years [...] let you know she or Sergey from [employer] will be faxing over forms needed documented in this encounter Plan of Treatment Not on file documented as of this encounter Visit Diagnoses Not on filedocumented in this encounter Care Teams Veterans Service Officer Relationship Specialty Start Date End Date Jorge Enriquez MD [address] [place] [address] [place] [address] PCP - General 08/31/22 documented as of this encounter
--- OUTSIDE RECORDS SUMMARY | 2025-03-20 14:54 | XMS_ITS | Encounter Summary ---
Author Organization [facility] Address [address] [place] [address] Care Team Providers Care Management Tech Name Role Phone Jorge Enriquez MD Primary Care Provider [phone] Encounter Details Date Type Department Care Team (Late st Contact Info) Description 11/23/2022 Scanned Document [facility] Plastic & Reconstructive Surgery [place] [address] Breast [place], [place] [address] Rosina Mckinney MD 4185 [facility] 201 [place], [place] [address] Social History Tobacco Use Types Packs/Day Years [...] on filedocumented in this encounter Care Teams Management Tech Relationship Specialty Start Date End Date Jorge Enriquez MD [address] [place] [address] [place] [address] PCP - General 08/31/22 documented as of this encounter
--- OUTSIDE RECORDS SUMMARY | 2025-03-20 14:54 | XMS_ITS | Encounter Summary ---
Author Organization [facility] Address [address] [place] [address] Care Team Providers Care Chief Telephone Operator Name Role Phone Jorge Enriquez MD Primary Care Provider [phone] Encounter Details Date Type Department Care Team ([facility] st Contact Info) Description 11/19/2022 Telephone [facility] Plastic & Reconstructive Surgery [place] [address] Breast [place], [place] [address] Rosina Mckinney MD 4185 [facility] 201 [place], [place] [address] Social History Tobacco Use Types Packs/Day Years [...] date best contact number for pt is [phone] documented in this encounter Plan of Treatment Not on file documented as of this encounter Visit Diagnoses Not on filedocumented in this encounter Care Teams Chief Telephone Operator Relationship Specialty Start Date End Date Jorge Enriquez MD [address] [place] [address] [place] [address] PCP - General 08/31/22 documented as of this encounter
--- OUTSIDE RECORDS SUMMARY | 2025-03-20 14:54 | XMS_ITS | Encounter Summary ---
Author Organization [facility] Address [address] [place] [address] Care Team Providers Care Clay Artisan Name Role Phone Jorge Enriquez MD Primary Care Provider [phone] Encounter Details Date Type Department Care Team (Late st Contact Info) Description 10/30/[address] [facility] Plastic & Reconstructive Surgery [place] [address] Breast [place], [place] [address] Rosina Mckinney MD 4185 [facility] 201 [place], [place] [address] Social History Tobacco Use Types Packs/Day Years [...] on filedocumented in this encounter Care Teams Clay Artisan Relationship Specialty Start Date End Date Jorge Enriquez MD [address] [place] [address] [place] [address] PCP - General 08/31/22 documented as of this encounter
--- OUTSIDE RECORDS SUMMARY | 2025-03-20 14:54 | XMS_ITS | Encounter Summary ---
Author Organization [facility] Address [address] [place] [address] Care Team Providers Care Survey And Mapping Technician Name Role Phone Jorge Enriquez MD Primary Care Provider [phone] Encounter Details Date Type Department Care Team (Late st Contact Info) Description 10/22/2022 Scanned Document [facility] Plastic & Reconstructive Surgery [place] 1505 [place] [address] Rosina Mckinney MD 4182 [facility] 201 [place] [address] Social History Tobacco Use Types [...] on filedocumented in this encounter Care Teams Survey And Mapping Technician Relationship Specialty Start Date End Date Jorge Enriquez MD [address] [place] [address] [place] [address] PCP - General 08/31/22 documented as of this encounter
--- OUTSIDE RECORDS SUMMARY | 2025-03-20 14:55 | XMS_ITS | Patient Health Record ---
Author Organization [facility] Address [address] [place] [address] Care Team Providers Care Ball Mill Operator Name Role Phone Mansi(inactive) Fer MOCK Primary [...] Problem Status W/U Status Risk Notes Problem [id number] Colon cancer screening (Z12.11) Active confirmed Problem [id number] Constipation, unspecified constipation type (K59.00) Active confirmed Plan Of Treatment Future Test Test Name Order Date COLONOSCOPY 09/24/2016 Insurance Providers Payer Name Payer Address Payer Phone Subscriber Number Group Number Insured Name Patient Relationship to Insured Coverage Start Date Coverage End Date [place] [address] [place] [phone] [id number] TETE THOMAS Self - patient is the insured Medical (General) History Medical History History ICD Code diabetes mellitus hypertension heart murmur Denies CT,CVA,Lung disease,renal disease Surgical History Surgery Date(Month/Year) hysterectomy 2004 breast cancer bilateral 2009 knee surgery 2010 gastric sleeve 2014
--- OUTSIDE RECORDS SUMMARY | 2025-03-20 14:55 | XMS_ITS | Encounter Summary ---
Author Organization [facility] Address [address] [place] [address] Care Team Providers Care Information Systems Consultant Name Role Phone Jorge Enriquez MD Primary Care Provider Encounter Details Date Type Department Care Team (Late st Contact Info) Description 08/31/2022 Scanned Document [facility] 80 [facility] [address] [place] [address] Provider, Generic Social History Tobacco Use [...] filedocumented in this encounter Care Teams Information Systems Consultant Relationship Specialty Start Date End Date Jorge Enriquez MD [address] [place] [address] [place] [address] PCP - General 08/31/22 documented as of this encounter
--- OUTSIDE RECORDS SUMMARY | 2025-03-20 14:55 | XMS_ITS | Encounter Summary ---
Author Organization [facility] Address [address] [place] [address] Care Team Providers Care Manager Copy Name Role Phone Jorge Enriquez MD Primary Care Provider [phone] Encounter Details Date Type Department Care Team (Late st Contact Info) Description 09/15/2022 Scanned Document [facility] Plastic & Reconstructive Surgery [place] [address] [place] [address] Breast [place], [place] [address] Rosina Mckinney MD [address] [address] Social History Tobacco Use Types Packs/Day Years [...] filedocumented in this encounter Care Teams Manager Copy Relationship Specialty Start Date End Date Jorge Enriquez MD [address] [place] [address] Dr [address] [place] [address] [place] [address] PCP - General 08/31/22 documented as of this encounter
--- OUTSIDE RECORDS SUMMARY | 2025-03-20 14:55 | XMS_ITS | Clinical Summary ---
Author Organization [facility] Address [address] [place] [address] Care Team Providers Care Belt Conveyor Drier Name Role Phone Jorge Enriquez MD Primary Care Provider [phone] Allergies No known active allergies Medications Blood [...] this topic Medical Devices Implanted Type Area Die Cast Engineer Device Identifier Shelf Expiration Date Model / Serial / Lot [id number] Passenger Service Representative Anastomosis Eva Stainless Steel Titanium 20mhz Od3 M - [id number] Implanted:Qty: 1 on 09/28/2022 by Jose Rafael Barroso MD at Graft Right: Breast [employer] [facility] 03/16/2027 [id number] / [id number] / [id number] Passenger Service Representative Anastomosis Eva Stainless Steel Titanium 20mhz Od3 M - [id number] Implanted:Qty: 1 on 09/28/2022 by Rosina Mckinney MD at Graft Left: Breast [employer] [facility] 03/16/2027 [id number] / [id number] / [id number] Procedures Procedure Name Priority Date/Time Associated Diagnosis [...] ORDERABLES Final Result HOSPITAL LAB See Below [facility] 2800 [place] [address] from Last 3 Months or Most Recently Relevant to Health Maintenance Insurance [facility] - PPO Advance Directives * Full Code (Latest Code Status on File) Date Activated Date Inactivated Comments 09/28/2022 6:38 PM 02/10/2023 5:34 AM * Full Code Date Activated Date Inactivated Comments 09/28/2022 5:34 AM 09/28/2022 6:38 PM Care Teams Belt Conveyor Drier Relationship Specialty Start Date End Date Jorge Enriquez MD [address] [place] [address] Dr Moura, JORGE L [address] PCP - General 08/31/22
== END 2025-03-20 11:46 | disposition home or self-care (01) ==
LOC: HO.WFDLDS 11:45
PROVIDERS: Visit Provider Nurse Practitioner Family
DX: R30.0 Dysuria (principal); R31.9 Hematuria, unspecified
CPT/HCPCS: 81001; 88112

== ENCOUNTER 2025-03-23 09:19 | Outpatient (REF) | payer OTHER, SELFPAY ==
--- NOTE | ~2025-03-23 | US_ITS ---
CLINICAL HISTORY: R31.9 - Hematuria, unspecified US Renal Comparison: None provided Findings: Right kidney normal size and echotexture, 11.2 cm length. Left kidney normal size and echotexture, 11.5 cm length. There are bilateral Bosniak 1 renal cysts. No collecting system dilatation of either kidney. Normal color Doppler. Urinary bladder is unremarkable. Prevoid volume 540 mL. Postvoid volume 50 mL. Bilateral ureteral jets are visualized. IMPRESSION: 1. No acute findings This document has been electronically signed by: Kavin Mendoza MD on 03/24/2025 09:04:13
--- OUTSIDE RECORDS SUMMARY | 2025-03-23 09:52 | XMS_ITS | Encounter Summary ---
Author Organization [facility] Address [address] [place] [address] Care Team Providers Care Automat Car Attendant Name Role Phone Jorge Enriquez MD Primary Care Provider [phone] Encounter Details Date Type Department Care Team (Late st Contact Info) Description 08/31/2022 Scanned Document [facility] 80 [facility] [address] [place] [address] Provider, Generic Social History Tobacco Use [...] on filedocumented in this encounter Care Teams Automat Car Attendant Relationship Specialty Start Date End Date Jorge Enriquez MD [address] [place] [address] [place] [address] PCP - General 08/31/22 documented as of this encounter
--- OUTSIDE RECORDS SUMMARY | 2025-03-23 09:52 | XMS_ITS | Encounter Summary ---
Author Organization [facility] Address [address] [place] [address] Care Team Providers Care Sales Assistants And Salespersons Name Role Phone Jorge Enriquez MD Primary Care Provider [phone] Encounter Details Date Type Department Care Team (Late st Contact Info) Description 10/30/2022 Scanned Document [facility] Plastic & Reconstructive Surgery [place] [address] [place], [place] [address] Rosina Mckinney MD 4185 [facility] 201 [place], [place] [address] Social History Tobacco Use Types Packs/Day Years [...] on filedocumented in this encounter Care Teams Sales Assistants And Salespersons Relationship Specialty Start Date End Date Jorge Enriquez MD [address] [place] [address] [place] [address] PCP - General 08/31/22 documented as of this encounter
--- OUTSIDE RECORDS SUMMARY | 2025-03-23 09:52 | XMS_ITS | Encounter Summary ---
Author Organization [facility] Address [address] [place] [address] Care Team Providers Care Core Driller Helper Name Role Phone Jorge Enriquez MD Primary Care Provider [phone] Encounter Details Date Type Department Care Team (Late st Contact Info) Description 09/15/2022 Scanned Document [facility] Plastic & Reconstructive Surgery [place] [address] [place] [address] Breast [place], [place] [address] Rosina Mckinney MD [address] [address] Social History Tobacco Use Types Packs/Day Years [...] on filedocumented in this encounter Care Teams Core Driller Helper Relationship Specialty Start Date End Date Jorge Enriquez MD [address] [place] [address] Dr Carl [address] [place] [address] [place] [address] PCP - General 08/31/22 documented as of this encounter
--- OUTSIDE RECORDS SUMMARY | 2025-03-23 09:52 | XMS_ITS | Clinical Summary ---
Author Organization [facility] Address [address] [place] [address] Care Team Providers Care Sap Business Analyst Name Role Phone Jorge Enriquez MD Primary Care Provider [phone] Allergies No known active allergies Medications Blood [...] this topic Medical Devices Implanted Type Area Freight Service Inspector Device Identifier Shelf Expiration Date Model / Serial / Lot [id number] Professor Of Political Science Anastomosis [employer]aney Stainless [employer] Titanium 20mhz Od3 M - [id number] Implanted:Qty: 1 on 09/28/2022 by Jose Rafael Barroso MD at [facility] Graft Right: Breast [employer] [facility] 03/16/2027 [id number] / [id number] / [id number] Professor Of Political Science Anastomosis [employer]aney [employer]ain[employer] Titanium 20mhz Od3 M - [id number] Implanted:Qty: 1 on 09/28/2022 by Rosina Mckinney MD at [facility] Graft Left: Breast [employer] [facility] 03/16/2027 [id number] / [id number] / [id number] Procedures Procedure Name Priority Date/Time Associated Diagnosis Comments BASIC METABOLIC PANEL Routine 09/30/2022 8:04 AM EDT from Last 3 Months or Most Recently Relevant to Health Maintenance Results * (ABNORMAL) Basic Metabolic Panel (Early AM) (09/30/2022 8:04 AM EDT) Glucose 91 74 - 106 mg/dL 09/30/2022 8:41 AM EDT [facility] Comment:Fasting: <100 mg/dL, Non-Fasting: <200 mg/dL (ADA 2005) Blood Urea Nitrogen (BUN) 15 9 - 23 mg/dL 09/30/2022 8:41 AM EDT [facility] Creatinine 0.8 0.6 - 1.0 mg/dL 09/30/2022 8:41 AM EDT [facility] eGFR 84 >59 09/30/2022 8:41 AM EDT [facility] Comment: CKD-EPI (2020) in mL/min/1.73 sq meters. Reported eGFR is based on the CKD-EPI equation that does not use a race coefficient as of 08/18/2022 Sodium 145 136 - 145 mmol/L 09/30/2022 8:41 AM EDT [facility] Potassium 3.8 3.4 - 4.5 mmol/L 09/30/2022 8:41 AM EDT [facility] Chloride 112(H) 98 - 107 mmol/L 09/30/2022 8:41 AM EDT [facility] CO2 28 20 - 31 mmol/L 09/30/2022 8:41 AM EDT [facility] Anion Gap 5 5 - 15 09/30/2022 8:41 AM EDT [facility] Calcium 8.3(L) 8.7 - 10.5 mg/dL 09/30/2022 8:41 AM EDT [facility] BUN/Creatinine Ratio 19 10.0 - 25.0 Ratio 09/30/2022 8:41 AM EDT [facility] Blood specimen (specimen) (Plasma/Serum) 09/30/2022 8:04 AM EDT 09/30/2022 8:21 AM EDT Althea Palacio PA-C LAB BLOOD ORDERABLES Final Result HOSPITAL LAB See Below [facility] [address] [place] [address] from Last 3 Months or Most Recently Relevant to Health Maintenance Insurance [facility] OUT [facility] - PPO Advance Directives * Full Code (Latest Code Status on File) Date Activated Date Inactivated Comments 09/28/2022 6:38 PM 02/10/2023 5:34 AM * Full Code Date Activated Date Inactivated Comments 09/28/2022 5:34 AM 09/28/2022 6:38 PM Care Teams Sap Business Analyst Relationship Specialty Start Date End Date Jorge Enriquez MD [address] [place] [address] Dr Moura, JORGE L [address] PCP - General 08/31/22
--- OUTSIDE RECORDS SUMMARY | 2025-03-23 09:52 | XMS_ITS | Encounter Summary ---
Author Organization [facility] Address [address] [place] [address] Care Team Providers Care Police Crime Scene Technician Name Role Phone Jorge Enriquez MD Primary Care Provider [phone] Encounter Details Date Type Department Care Team (Late st Contact Info) Description 11/23/2022 Scanned Document [facility] Plastic & Reconstructive Surgery [place] [address] Breast [place], [place] [address] Rosina Mckinney MD 4185 [facility] [address] [place], [place] [address] Social History Tobacco Use Types Packs/Day Years [...] place to sleep or slept in a penitentiary (including now)? No 09/29/2022 Comments No Sex [...] on filedocumented in this encounter Care Teams Police Crime Scene Technician Relationship Specialty Start Date End Date Jorge Enriquez MD [address] [place] [address] [place] [address] PCP - General 08/31/22 documented as of this encounter
--- OUTSIDE RECORDS SUMMARY | 2025-03-23 09:52 | XMS_ITS | Encounter Summary ---
Author Organization [facility] Address [address] [place] [address] Care Team Providers Care Budget Record Clerk Name Role Phone Jorge Enriquez MD Primary Care Provider [phone] Encounter Details Date Type Department Care Team ([facility] st Contact Info) Description 11/19/2022 Telephone [facility] Plastic & Reconstructive Surgery [place] [address] Breast [place], [place] [address] Rosina Mckinney MD 4185 [facility] [address] [place], [place] [address] Social History Tobacco Use Types Packs/Day Years [...] date best contact number for pt is [phone] documented in this encounter Plan of Treatment Not on file documented as of this encounter Visit Diagnoses Not on filedocumented in this encounter Care Teams Budget Record Clerk Relationship Specialty Start Date End Date Jorge Enriquez MD [address] [place] [address] [place] [address] PCP - General 08/31/22 documented as of this encounter
--- OUTSIDE RECORDS SUMMARY | 2025-03-23 09:52 | XMS_ITS | Patient Health Record ---
Author Organization [facility] Address [address] [place] [address] Care Team Providers Care Banking Pin Adjuster Name Role Phone Mansi(inactive) Fer MOCK Primary Care Provider U Dean Katz Jr [phone] Allergies Allergen (clinical drug ingredient) Drug/Non Drug [...] GM As directed Orally Over the specified time.; Duration: 1 day(s) 09/24/2016 Active Problems Problem Type SNOMED Code ICD Code Onset Dates Problem Status W/U Status Risk Notes Problem Colon cancer screening (441222598) Colon cancer screening (Z12.11) Active confirmed Problem Constipation (86094865) Constipation, unspecified constipation type (K59.00) Active confirmed Plan Of Treatment Future Test Test Name Order Date COLONOSCOPY 09/24/2016 Insurance Providers Payer Name Payer Address Payer Phone Subscriber Number Group Number Insured Name Patient Relationship to Insured Coverage Start Date Coverage End Date [place] [address] JORGE L BERRY [phone] [id number] TETE THOMAS Self - patient is the insured Medical (General) History Medical History History ICD Code diabetes mellitus hypertension heart murmur Denies [place],CVA,Lung disease,renal disease Surgical History Surgery Date(Month/Year) hysterectomy 2004 breast cancer bilateral 2010 knee surgery 2010 gastric sleeve 2013
--- OUTSIDE RECORDS SUMMARY | 2025-03-23 09:52 | XMS_ITS | Encounter Summary ---
Author Organization [facility] Address [address] [place] [address] Care Team Providers Care Petrography Teacher Name Role Phone Jorge Enriquez MD Primary Care Provider [phone] Encounter Details Date Type Department Care Team (Late st Contact Info) Description 10/22/2022 Telephone [facility] Plastic & Reconstructive Surgery [place] [address] Breast [place], [place] [address] Rosina Mckinney MD 4185 [facility] 201 [place], [place] [address] Social History Tobacco Use Types Packs/Day Years [...] let you know she or Sergey from [employer] will be faxing over forms needed documented in this encounter Plan of Treatment Not on file documented as of this encounter Visit Diagnoses Not on filedocumented in this encounter Care Teams Petrography Teacher Relationship Specialty Start Date End Date Jorge Enriquez MD [address] [place] [address] [place] [address] PCP - General 08/31/22 documented as of this encounter
--- OUTSIDE RECORDS SUMMARY | 2025-03-23 09:52 | XMS_ITS | Encounter Summary ---
Author Organization [facility] Address [address] [place] [address] Care Team Providers Care Cardroom Hand Name Role Phone Jorge Enriquez MD Primary Care Provider [phone] Encounter Details Date Type Department Care Team (Late st Contact Info) Description 10/22/2022 Scanned Document [facility] Plastic & Reconstructive Surgery [place] [address] [place] [address] Rosina Mckinney MD 4184 [facility] 201 [place] [address] Social History Tobacco Use Types [...] on filedocumented in this encounter Care Teams Cardroom Hand Relationship Specialty Start Date End Date Jorge Enriquez MD [address] [place] [address] [place] [address] PCP - General 08/31/22 documented as of this encounter
--- OUTSIDE RECORDS SUMMARY | 2025-03-23 09:52 | XMS_ITS | Encounter Summary ---
Author Organization [facility] Address [address] [place] [address] Care Team Providers Care Silicator Name Role Phone Jorge Enriquez MD Primary Care Provider [phone] Encounter Details Date Type Department Care Team (Late st Contact Info) Description 10/30/2022 Scanned Document [facility] Plastic & Reconstructive Surgery [place] [address] Breast [place], [place] [address] Rosina Mckinney MD 4185 [facility] 201 [place], [place] [address] Social History Tobacco Use Types Packs/Day Years [...] on filedocumented in this encounter Care Teams Silicator Relationship Specialty Start Date End Date Jorge Enriquez MD [address] [place] [address] [place] [address] PCP - General 08/31/22 documented as of this encounter
== END 2025-03-23 09:20 | disposition home or self-care (01) ==
LOC: HO.US 09:19
PROVIDERS: PCP Nurse Practitioner Family; Visit Provider Nurse Practitioner Family
DX: R31.9 Hematuria, unspecified (principal)
CPT/HCPCS: 76770

== ENCOUNTER → 2025-03-23 09:25 | Outpatient (BNV) | payer OTHER, SELFPAY | PROVIDERS: PCP Nurse Practitioner Family; Visit Provider Specialist | DX: R31.9 Hematuria, unspecified (principal); N28.1 Cyst of kidney, acquired | CPT/HCPCS: 76770 ==

== ENCOUNTER 2025-03-26 10:01 | Outpatient (REF) | payer OTHER, SELFPAY ==
--- OUTSIDE RECORDS SUMMARY | 2025-03-26 10:09 | XMS_ITS | Encounter Summary ---
Author Organization [facility] Address [address] [place] [address] Care Team Providers Care Cost Coordinator Name Role Phone Jorge Enriquez MD Primary Care Provider [phone] Encounter Details Date Type Department Care Team ([facility] st Contact Info) Description 11/19/2022 Telephone [facility] Plastic & Reconstructive Surgery [place] [address] Breast [place], [place] [address] Rosina Mckinney MD 4185 [facility] 201 [place], [place] [address] Social History Tobacco Use Types Packs/Day Years [...] date best contact number for pt is [phone] documented in this encounter Plan of Treatment Not on file documented as of this encounter Visit Diagnoses Not on filedocumented in this encounter Care Teams Cost Coordinator Relationship Specialty Start Date End Date Jorge Enriquez MD [address] [place] [address] [place] [address] PCP - General 08/31/22 documented as of this encounter
--- OUTSIDE RECORDS SUMMARY | 2025-03-26 10:09 | XMS_ITS | Encounter Summary ---
Author Organization [facility] Address [address] [place] [address] Care Team Providers Care Dashboard Developer Name Role Phone Jorge Enriquez MD Primary Care Provider [phone] Encounter Details Date Type Department Care Team (Late st Contact Info) Description 10/30/2022 Scanned Document [facility] Plastic & Reconstructive Surgery [place] [address] Breast [place], [place] [address] Rosina Mckinney MD 4[address] [facility] 201 [place], [place] [address] Social History Tobacco Use Types Packs/Day Years [...] on filedocumented in this encounter Care Teams Dashboard Developer Relationship Specialty Start Date End Date Jorge Enriquez MD [address] [place] [address] [place] [address] PCP - General 08/31/22 documented as of this encounter
--- OUTSIDE RECORDS SUMMARY | 2025-03-26 10:09 | XMS_ITS | Clinical Summary ---
Author Organization [facility] Address [address] [place] [address] Care Team Providers Care Loan Operations Specialist Name Role Phone Jorge Enriquez MD Primary Care Provider [phone] Allergies No known active allergies Medications Blood [...] in a retirement (including now)? No 09/29/2022 Comments No Sex [...] this topic Medical Devices Implanted Type Area Freelance Translator Device Identifier Shelf Expiration Date Model / Serial / Lot [id number] Grease Cup Filler Anastomosis [employer] Titanium 20mhz Od3 M - [id number] Implanted:Qty: 1 on 09/28/2022 by Jose Rafael Barroso MD at Graft Right: Breast [employer] [facility] 03/16/2027 [id number] / [id number] / [id number] Grease Cup Filler Anastomosis [employer] Titanium 20mhz Od3 M - [id number] Implanted:Qty: 1 on 09/28/2022 by Rosina Mckinney MD at Graft Left: Breast [employer] [facility] 03/16/2027 [id number] / [id number] / [id number] Procedures Procedure Name Priority Date/Time Associated Diagnosis [...] ORDERABLES Final Result HOSPITAL LAB See Below [facility] [address] [place] [address] from Last 3 Months or Most Recently Relevant to Health Maintenance Insurance [facility] - PPO Advance Directives * Full Code (Latest Code Status on File) Date Activated Date Inactivated Comments 09/28/2022 6:38 PM 02/10/2023 5:34 AM * Full Code Date Activated Date Inactivated Comments 09/28/2022 5:34 AM 09/28/2022 6:38 PM Care Teams Loan Operations Specialist Relationship Specialty Start Date End Date Jorge Enriquez MD [address] [place] [address] Dr Moura, JORGE L [address] PCP - General 08/31/22
--- OUTSIDE RECORDS SUMMARY | 2025-03-26 10:09 | XMS_ITS | Encounter Summary ---
Author Organization [facility] Address [address] [place] [address] Care Team Providers Care Vice President Diversity Name Role Phone Jorge Enriquez MD Primary Care Provider [phone] Encounter Details Date Type Department Care Team ([facility] st Contact Info) Description 10/22/2022 Telephone [facility] Plastic & Reconstructive Surgery [place] [address] Breast [place], [place] [address] Rosina Mckinney MD 4185 [facility] 201 [place], [place] [address] Social History Tobacco Use Types Packs/Day Years [...] in a intermediate (including now)? No 09/29/2022 Comments No Sex [...] let you know she or Sergey from [employer] will be faxing over forms needed documented in this encounter Plan of Treatment Not on file documented as of this encounter Visit Diagnoses Not on filedocumented in this encounter Care Teams Vice President Diversity Relationship Specialty Start Date End Date Jorge Enriquez MD [address] [place] [address] [place] [address] PCP - General 08/31/22 documented as of this encounter
--- OUTSIDE RECORDS SUMMARY | 2025-03-26 10:09 | XMS_ITS | Encounter Summary ---
Author Organization [facility] Address [address] [place] [address] Care Team Providers Care Bullet Slugs Inspector Name Role Phone Jorge Enriquez MD Primary Care Provider [phone] Encounter Details Date Type Department Care Team (Late st Contact Info) Description 10/22/2022 Scanned Document [facility] Plastic & Reconstructive Surgery [place] [address] [place] [address] Rosina Mckinney MD 4189 [facility] 201 [place] [address] Social History Tobacco Use Types [...] a skilled nursing (including now)? No 09/29/2022 Comments No Sex [...] on filedocumented in this encounter Care Teams Bullet Slugs Inspector Relationship Specialty Start Date End Date Jorge Enriquez MD [address] [place] [address] [place] [address] PCP - General 08/31/22 documented as of this encounter
--- OUTSIDE RECORDS SUMMARY | 2025-03-26 10:09 | XMS_ITS | Encounter Summary ---
Author Organization [facility] Address [address] [place] [address] Care Team Providers Care Canceling Machine Operator Name Role Phone Jorge Enriquez MD Primary Care Provider [phone] Encounter Details Date Type Department Care Team (Late st Contact Info) Description 10/30/2022 Scanned Document [facility] Plastic & Reconstructive Surgery [place] [address] Breast [place], [place] [address] Rosina Mckinney MD 4185 [facility] 201 [place], [place] [address] Social History Tobacco Use Types Packs/Day Years [...] on filedocumented in this encounter Care Teams Canceling Machine Operator Relationship Specialty Start Date End Date Jorge Enriquez MD [address] [place] [address] [place] [address] PCP - General 08/31/22 documented as of this encounter
--- OUTSIDE RECORDS SUMMARY | 2025-03-26 10:09 | XMS_ITS | Encounter Summary ---
Author Organization [facility] Address [address] [place] [address] Care Team Providers Care Language Instructor Name Role Phone Jorge Enriquez MD Primary Care Provider Encounter Details Date Type Department Care Team (Late st Contact Info) Description 08/31/2022 Scanned Document [facility] [address] [facility] [address] [place] [phone] Provider, Generic Social History Tobacco Use [...] on filedocumented in this encounter Care Teams Language Instructor Relationship Specialty Start Date End Date Jorge Enriquez MD [address] [place] [address] [place] [address] PCP - General 08/31/22 documented as of this encounter
--- OUTSIDE RECORDS SUMMARY | 2025-03-26 10:09 | XMS_ITS | Encounter Summary ---
Author Organization [facility] Address [address] [place] [address] Care Team Providers Care Key Carrier Name Role Phone Jorge Enriquez MD Primary Care Provider [phone] Encounter Details Date Type Department Care Team (Late st Contact Info) Description 11/23/2022 Scanned Document [facility] Plastic & Reconstructive Surgery [place] [address] Breast [place], [place] [address] Rosina Mckinney MD 4185 [facility] 201 [place], [place] [address] Social History Tobacco Use Types Packs/Day Years [...] on filedocumented in this encounter Care Teams Key Carrier Relationship Specialty Start Date End Date Jorge Enriquez MD [address] [place] [address] [place] [address] PCP - General 08/31/22 documented as of this encounter
--- OUTSIDE RECORDS SUMMARY | 2025-03-26 10:10 | XMS_ITS | Encounter Summary ---
Author Organization [facility] Address [address] [place] [address] Care Team Providers Care Assistive Technology Trainer Name Role Phone Jorge Enriquez MD Primary Care Provider [phone] Encounter Details Date Type Department Care Team (Late st Contact Info) Description 09/15/2022 Scanned Document [facility] Plastic & Reconstructive Surgery [place] [address] [place] [address] Breast [place], [place] [address] Rosina Mckinney MD [address] [address] Social History Tobacco Use Types Packs/Day Years [...] on filedocumented in this encounter Care Teams Assistive Technology Trainer Relationship Specialty Start Date End Date Jorge Enriquez MD [address] [place] [address] Dr Carl [address] [place] [address] [place] [address] PCP - General 08/31/22 documented as of this encounter
[2025-03-26 14:20] LABS: Hematocrit 40.0 % (37.0-47.0); Hemoglobin 13.2 g/dl (12.0-16.0); Mean Corpuscular HGB Conc 33.0 g/dl (31.0-35.0); Mean Corpuscular Hemoglobin 27.3 pg (27.0-33.0); Mean Corpuscular Volume 82.6 fL (80.0-98.0); NRBC Abs Auto 0.000 X10*3/uL (0.0-0.012); NRBC Pct Auto 0.0 /100WBC (0.0-0.2); Platelet Count 302 X10*3/uL (160-400); Red Blood Count 4.84 X10*6/uL (4.20-5.50); White Blood Count 6.6 X10*3/uL (4.8-10.8)
[2025-03-26 14:43] LABS: Alanine Aminotransferase 10 U/L (0-31); Albumin Level 4.3 g/dL (3.5-5.0); Alkaline Phosphatase 129 U/L (39-117); Anion Gap 11 (12-20); Aspartate Amino Transferase 18 U/L (5-31); Blood Urea Nitrogen 11 mg/dL (9-16); Calcium 8.8 mg/dL (8.4-10.2); Carbon Dioxide 24 mmol/L (22-29); Chloride 112 mmol/L (96-108); Estimated Glomerular Filt Rate > 60; Potassium 3.8 mmol/L (3.3-5.1); Sodium 143 mmol/L (135-145); Total Protein 7.3 g/dL (6.5-8.0)
[2025-03-26 14:45] LABS: Appearance Urine Clear; Glucose Urine UA Negative (Negative); PH 6.0 (5.0-9.0); Specific Gravity - Urine 1.015 (1.005-1.025); UMIC TRIGGER UA YES
== END 2025-03-26 10:02 | disposition home or self-care (01) ==
LOC: HO.WFDLDS 10:01
PROVIDERS: Visit Provider Nurse Practitioner Family
DX: Z01.818 Encounter for other preprocedural examination (principal); I10 Essential (primary) hypertension; M17.12 Unilateral primary osteoarthritis, left knee; Z28.21 Immunization not carried out because of patient refusal; J45.909 Unspecified asthma, uncomplicated; G47.33 Obstructive sleep apnea (adult) (pediatric); K91.2 Postsurgical malabsorption, not elsewhere classified; R31.9 Hematuria, unspecified
CPT/HCPCS: 36415; 80053; 81001; 83036; 85027; 87086; 93005

== ENCOUNTER 2025-03-26 12:32 | Outpatient (AMB) | payer OTHER, SELFPAY ==
--- NOTE | 2025-03-26 12:33 | MHC.PC.OV ---
Vital Signs 03/26/25 12:34 03/26/25 12:59 Height 5 ft 9 in Weight 225 lb 6 oz BMI 33.3 BP 152/80 H 142/90 H Blood Pressure Location Lt brachial Lt brachial Position Sitting Sitting Respiration 12 Pulse 76 Pulse Source Pulse Oximeter Temp 97.2 F Temp Source Oral Pulse Oximetry (%) 99 Oxygen Delivery Method Simple Mask Intake Visit Reasons: undergo a L MARCI w/Dr. Cross 05/22/25. Intake Note: Pre op Animal Keeper Required: No Allergies cat dander Allergy (Severe, Verified 03/26/25 12:35) Loss Voice environmental allergies Allergy (Severe, Verified 03/26/25 12:35) Sneezing Medication List - Last Reconciled 03/26/25 by Umm Cates, AGRICULTURAL EDUCATION PROFESSOR- albuterol sulfate 90 mcg/actuation 1 puff inhalation Q4H PRN cholecalciferol (vitamin D3) 50 mcg PO DAILY cyanocobalamin (vitamin B-12) 1,000 mcg IM QWEEK docusate sodium (Colace) 200 mg (2 x 100 mg) PO BEDTIME fluticasone furoate-vilanterol 200-25 mcg/dose (Breo Ellipta) 1 inh inhalation DAILY ipratropium bromide 2 sprays intranasal BID iron,carbonyl-vitamin C 65 mg iron- 125 mg (Vitron-C) 1 tab PO DAILY 90 days [KNEE SCOOTER As directed] lidocaine 5% 1 patch topical DAILY montelukast (Singulair) 10 mg PO BEDTIME olmesartan 10 mg (2 x 5 mg) PO DAILY 90 days [One Touch Ultra lancets test blood sugar once daily] [One Touch ultra test strips test blood sugar once daily] pantoprazole 40 mg PO QAM Tobacco use date assessed: 08/23/24 Fall risk assessment: 1 Fall in past year Last assessed Fall Risk: 03/26/25 Dental Screening Dental Screen Date: 03/26/25 Did you have a dental visit in the last 12 months?: Yes Did you have a dental problem in the last 6 months where you did not have access to dental care?: No Was dental information given to patient?: Patient has dentist HPI HPI Comments History of Present Illness Details 64 y/o F with atrial tachycardia, GERD, hx of DM, HTN, GERMANIA not on CPAP, sickle cell trait, fatty liver, hx of breast ca, asthma, Iron Def anemia, environmental allergies, osteopenia s/p gastric surgery, mastectomy Health Maintenance Tdap 2017, recommend Shingles and PVC @ pharmacy Mammo s/p bilat mastectomy colon pending reports done need records DEXA 08/2024 Osteopenia Flu declined 03/26/25 Specialists Pulm Heme Cards Here today for preoperative clearance. Surgery Type: L knee TKA Anesthesia Type: general Surgeon: Dr Cross Date: 05/22/25 Any past surgical procedures: Y Any complications from anesthesia or in post-op period: N ASA or NSAID Use: N Current smoker: N Alcohol use: N Drug use: N METs: > 4 climb flight of stairs, golf, walk, yardwork Medical history: Asthma Y COPD N Obesity BMI 33.3 Diabetes TN < 6 weeks, unstable angina, CHF, severe valve disease: N HTN not at goal on Olmesartan 10mg QD Has variable blood glucose w/ hypoglycemia. This is a risk factor for complications as there is no real trigger or pattern for this. She is not using a CGM. Advised to start wt loss shakes to help stabalize sugars. Asthma well controlled IVANIA on iron Did have episode of gross hematuria. Urine cytology pending. Retroperitoneal US completed and WNL. Reports some chronic pressure in abd; Denies fever, chills, dysuria, abd pain, n/v. ROS: - Respiratory: Reports asthma; Denies shortness of breath and chest pain. - Cardiovascular: Denies history of heart disease or significant events. - Neurologic: Denies neurological complications related to surgery. - Musculoskeletal: Reports left knee pain requiring arthroplasty. - Endocrine: Reports variations in blood glucose levels; - Gastrointestinal: Denies frequent heartburn; Controlled on Pantoprazole. - General: Denies significant weight fluctuations beyond glucose management changes. Physical Exam General: Well developed, well nourished, in no acute distress. Appears stated age. Head: Normocephalic, atraumatic. Lungs: Clear to auscultation bilaterally dim throughout Heart: Regular rate and rhythm. Cardiac murmur noted Pulses: Peripheral pulses are equal and palpable bilaterally. Extremities: No clubbing, cyanosis noted. Trace edema ble Psych: Mood and affect appropriate. Neuro : nonfocal Testing EKG today NSR Labs today to include repeat urine. RCRI is Class 0 Risk Stratification: 0.5% During the consultation, we discussed the patient's ongoing issues with hypertension and its management with olmesartan. The patient expressed that her blood pressure might be influenced by situational stress. We emphasized consistency in using her inhaler for asthma to optimize respiratory control, especially ahead of the planned knee replacement surgery. There was a conversation around the variability in blood glucose and the importance of avoiding prolonged fasting to prevent hypoglycemic episodes during the perioperative period. The decision to increase the olmesartan dosage to 20 mg for hypertension control was made, and the patient accepted this adjustment. We placed an emphasis on monitoring blood pressure and requested a repeat measurement at a subsequent visit. The patient expressed concerns about flu vaccination, which we acknowledged. Finally, we reviewed the preoperative requirements including lab tests to assess metabolic status and hematologic parameters. Patient was given time to ask questions. All questions were answered to their satisfaction. 1. Primary Hypertension - Increase olmesartan to 20 mg. - Four-week blood pressure follow-up. 2. Asthma - Use Breo Ellipta inhaler consistently. 3. Blood Glucose Variability - Avoid prolonged fasting. - Make sure anesthesia is aware of this. 4. Planned Left Knee Arthroplasty - Preoperative labs ordered. - she is not cleared today d/t BP being > goal. RTO in 4 weeks for recheck. Addendum to be added as appropriate. Total time spent caring for the patient today was 30 minutes. This includes time spent before the visit reviewing the chart, time spent during the visit, and time spent after the visit on documentation, reviewing laboratory results, diagnostic imaging, medications, performing a medically necessary evaluation, counseling on diagnoses, care coordination, ordering appropriate tests, ordering appropriate medications, review of tests performed by other providers, reporting test results with the patient, communication with other healthcare providers. [facility] Medical History Pleuritic pain De Quervain's tenosynovitis, right Abnormal EKG Obesity (BMI 30.0-34.9) Hypersomnolence Nocturnal hypoxemia Rhinitis Fall Left knee pain Right ankle pain Neck pain Leg pain Back pain Shoulder pain Encounter related to worker's compensation claim Tick bite Encounters for administrative purpose Deflation of breast implant History of breast cancer (~2008) History of diabetes mellitus GERMANIA (obstructive sleep apnea) Palpitations Steatosis, liver History of MRSA infection Arthritis Sickle cell trait History of COVID-19 (~09/2019) Hx of cardiac murmur Post-COVID syndrome (~2019) Pneumonia (~2019) Asthma Hypertension GERD (gastroesophageal reflux disease) Constipation Surgical History S/P gastric bypass (~2020) History of left knee surgery (~2010) History of Cassi-en-Y gastric bypass (~2020) History of bilateral mastectomy (~2008) History of colonoscopy (~2016) History of hysterectomy (~2003) History of laparoscopic cholecystectomy (~2002) History of esophagogastroduodenoscopy (EGD) (~2017) History of sleeve gastrectomy (~2010) Family History Father DM (diabetes mellitus) Stroke Mother DM (diabetes mellitus) Brother No problems noted. Sister No problems noted. Son No problems noted. 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 Leopoldo Carreon, Kari Preciado, Juve Wyatt and colleagues, with an educational tiara from [employer]. Physical exam (Primary Care) Vital Signs: Last Vital Signs Temp 97.2 F 03/26/25 12:34 Pulse 76 03/26/25 12:34 Resp 12 03/26/25 12:34 BP 142/90 H 03/26/25 12:59 Pulse Ox 99 03/26/25 12:34 Oxygen Delivery Method Simple Mask 03/26/25 12:34 BMI result Body Mass Index 33.3 Tobacco/Smoking Status: Tobacco use Status Tobacco use date assessed 08/23/24 03/26/25 12:36 Patient Tobacco Use Status Former Tobacco user 03/26/25 12:36 Tobacco use type Cigarette 03/26/25 12:36 e-Cigarette/Vaping Use Never Used 03/26/25 12:36 Thrive Assessment: Date of Thrive Assessment Date Thrive assessed 08/23/24 03/26/25 12:36 Office Procedures EKG 00178-[id number], Complete Results Reviewed Results Reviewed: Laboratory 03/26/25 Result Units Range Interpretation Provider Comments White Blood Count 6.6 X10*3/uL (4.8-10.8) Red Blood Count 4.84 X10*6/uL (4.20-5.50) Hemoglobin 13.2 g/dl (12.0-16.0) Hematocrit 40.0 % (37.0-47.0) Mean Corpuscular Volume 82.6 fL (80.0-98.0) Mean Corpuscular Hemoglobin 27.3 pg (27.0-33.0) Mean Corpuscular Hemoglobin Concent 33.0 g/dl (31.0-35.0) Red Cell Distribution Width 12.8 % (11.0-16.0) Platelet Count 302 X10*3/uL (160-400) Mean Platelet Volume 10.5 fL (9.4-12.3) Nucleated RBC Absolute Count (auto) 0.000 X10*3/uL (0.0-0.012) Nucleated Red Blood Cells % (auto) 0.0 /100WBC (0.0-0.2) Sodium Level 143 mmol/L (135-145) Potassium Level 3.8 mmol/L (3.3-5.1) Chloride Level 112 mmol/L (96-108) High Carbon Dioxide Level 24 mmol/L (22-29) Anion Gap 11 (12-20) Low Blood Urea Nitrogen 11 mg/dL (9-16) Creatinine 0.69 mg/dL (0.5-1.4) Estimated Creatinine Clearance Calc Not Reportable Estimat Glomerular Filtration Rate > 60 Random Glucose 87 mg/dL (60-115) Estimated Average Glucose 108 mg/dL Hemoglobin A1c Percent 5.4 % (<6.0) Calcium Level 8.8 mg/dL (8.4-10.2) Total Bilirubin 0.4 mg/dL (0.0-1.0) Aspartate Amino Transf (AST/SGOT) 18 U/L (5-31) Alanine Aminotransferase (ALT/SGPT) 10 U/L (0-31) Alkaline Phosphatase 129 U/L (39-117) High Total Protein 7.3 g/dL (6.5-8.0) Albumin 4.3 g/dL (3.5-5.0) Urine Color Yellow Urine Appearance Clear Urine pH 6.0 (5.0-9.0) Urine Specific Warren 1.015 (1.005-1.025) Urine Protein Trace mg/dL (Neg-Trace) Urine Glucose (UA) Negative mg/dL (Negative) Urine Ketones Negative mg/dL (Negative) Urine Blood Small (1+) (Negative) High Urine Nitrite Negative (Negative) Urine Leukocyte Esterase Negative (Negative) Urine RBC 0-2 /HPF (0-2) Urine WBC 0-5 /HPF (0-5) Urine Squamous Epithelial Cells 0-2 /HPF (0-2) Urine Bacteria None Seen (None Seen) Urine Hyaline Casts 0-2 /LPF (0-2) Pathology Provider Comments PTH Non-Centrifugal Screen Tender Cytology Specimen Non-gynecologic Cytology [id number] Name: Sandhya Nuñezline Age/Sex: 64/F Attending: Umm Cates AGRICULTURAL EDUCATION PROFESSOR- : 1960 Submitted by: Umm Cates AGRICULTURAL EDUCATION PROFESSOR-BC Copies to: MR #: [id number] Status: DEP REF Collected: 03/20/25 Location: [facility] Received: 03/21/25 Diagnosis Urine: Negative for high-grade urothelial carcinoma. Comment: Examination of a monolayer preparation slide shows abundant blood, occasional benign urothelial cells, few benign squamous cells, and occasional inflammatory cells. Clinical History Hematuria, unspecified Material Received Urine Gross Description Received is 45 cc of cloudy bloody red fluid from which a ThinPrep slide is prepared. NOTE: Unless otherwise stated, all tissue is formalin-fixed and paraffin-embedded. Some or all of the immunohistochemical tests reported herein may have been developed and their performance characteristics determined by [facility]. They have not been cleared or approved by the U.S. Food and Drug Administration (FDA). However, the FDA has determined that such clearance or approval is not necessary. This laboratory is certified under the Clinical Laboratory Improvement Amendments of 1988 (CLIA) as qualified to perform high complexity clinical laboratory testing. Electronically Signed By: Fátima Lake 03/26/25 1500 Patient: Elma Nuñez Age/Sex: 64/F MR#: [id number] Page 1 of 1 Coding Level of Care Code Est Pt Level 4 (53494) Complex EM visit Add On G2211 Diagnoses Pre-op exam Z01.818 Osteoarthritis of left knee M17.12 Primary hypertension I10 Hypertension type: primary hypertension Influenza vaccination declined Z28.21 Hypoglycemia after GI (gastrointestinal) surgery K91.2 BMI 30.0-30.9,adult Z68.30 Moderate asthma, unspecified whether complicated, unspecified whether persistent J45.909 Asthma complication type: unspecified Asthma persistence: unspecified Asthma severity: moderate GERMANIA (obstructive sleep apnea) G47.33 CPT Codes EKG - CPT: 83529-[id number], Complete ([id number]) Assessment & Plan Assessment & Plan (1) Pre-op exam: Code(s): Z01.818 - Encounter for other preprocedural examination (2) Osteoarthritis of left knee: Code(s): M17.12 - Unilateral primary osteoarthritis, left knee Category: Medical (3) Hypertension: Code(s): I10 - Essential (primary) hypertension Category: Medical Qualifiers: Hypertension type: primary hypertension Qualified Code(s): I10 - Essential (primary) hypertension (4) Influenza vaccination declined: Code(s): Z28.21 - Immunization not carried out because of patient refusal Category: Medical (5) Hypoglycemia after GI (gastrointestinal) surgery: Code(s): K91.2 - Postsurgical malabsorption, not elsewhere classified Category: Medical (6) BMI 30.0-30.9,adult: Code(s): Z68.30 - Body mass index [BMI] 30.0-30.9, adult Category: Medical (7) Asthma: Code(s): J45.909 - Unspecified asthma, uncomplicated Category: Medical Qualifiers: Asthma complication type: unspecified Asthma persistence: unspecified Asthma severity: moderate Qualified Code(s): J45.909 - Unspecified asthma, uncomplicated (8) GERMANIA (obstructive sleep apnea): Comment: (mild GERMANIA in general but moderate to severe when supine - using cpap. Repeat sleep study WNL Code(s): G47.33 - Obstructive sleep apnea (adult) (pediatric) Category: Medical Plan . Orders: Orders Complete Blood Count no Diff Today I10 - Essential (primary) hypertension, Z01.818 - Encounter for other preprocedural examination Comprehensive Met. Panel Today I10 - Essential (primary) hypertension, Z01.818 - Encounter for other preprocedural examination Hemoglobin A1c Today I10 - Essential (primary) hypertension, Z01.818 - Encounter for other preprocedural examination Medications: New olmesartan 20 mg PO DAILY 90 tabs 2RF
[2025-03-26 12:34] VITALS: BP 152/80; PULSE 76; RESP 12; TEMP 36.2; O2SAT 99; BMI 33.3
[2025-03-26 12:59] VITALS: BP 142/90
== END 2025-03-26 13:23 | disposition home or self-care (01) ==
LOC: HO.HMCFM 12:32
PROVIDERS: PCP Nurse Practitioner Family; Visit Provider Nurse Practitioner Family
DX: Z01.818 Encounter for other preprocedural examination (principal); M17.12 Unilateral primary osteoarthritis, left knee; I10 Essential (primary) hypertension; Z28.21 Immunization not carried out because of patient refusal; K91.2 Postsurgical malabsorption, not elsewhere classified; Z68.30 Body mass index [BMI] 30.0-30.9, adult; J45.909 Unspecified asthma, uncomplicated; G47.33 Obstructive sleep apnea (adult) (pediatric)

== ENCOUNTER 2025-04-06 16:18 | Outpatient (REF) | payer OTHER, SELFPAY ==
--- NOTE | ~2025-04-06 | CT_ITS ---
EXAMINATION: CT KNEE WITHOUT CONTRAST, LEFT CLINICAL INFORMATION: M17.12 - Unilateral primary osteoarthritis, left knee Biomet protocol; COMPARISON: None available. TECHNIQUE: Axial CT was performed without contrast through the left hip, knee, and ankle. This CT examination was performed using dose optimization techniques as appropriate, variously including the following: *Automated exposure control *Adjustment of mA and/or kV according to patient size (this includes techniques or standardized protocols for targeted exams where dose is matched to indication/reason for exam; i.e. extremities or head) *Use of iterative reconstruction technique FINDINGS: Left hip: There is vacuum phenomena in the left SI joint. There are surgical clips along the deep surface of the left rectus abdominis muscle and in the superficial subcutaneous soft tissues and left inguinal region. Diverticulosis is present in the sigmoid colon. Left knee: There is mild narrowing of the medial joint space and mild narrowing of the lateral. There is subchondral cystic change and sclerosis in the medial tibial plateau likely related to full-thickness articular cartilage loss.. There is mild subchondral sclerosis in the medial femoral condyle. There are marginal sites along the medial joint line and patella femoral joint. There is no joint effusion. Left ankle: Joint spaces are maintained. No osteochondral lesions are identified. Peroneal, medial, and anterior ankle tendons are intact. Syndesmotic ligaments are intact. Talofibular and calcaneal fibular ligaments are intact. Deltoid ligament complex is grossly intact. Achilles tendon is mildly thickened. CT/CT knee LT wo IV con IMPRESSION: Mild to moderate degenerative changes of the left SI joint. Moderate left knee osteoarthritis. Mild Achilles tendinopathy. Sigmoid diverticulosis. Electronically signed by: Demetrio Rodriguez MD 04/06/2025 05:01 PM EDT
--- OUTSIDE RECORDS SUMMARY | 2025-04-06 17:17 | XMS_ITS | Encounter Summary ---
Author Organization [facility] Address [address] [place] [address] Care Team Providers Care Optical Worker Name Role Phone Jorge Enriquez MD Primary Care Provider [phone] Encounter Details Date Type Department Care Team (Late st Contact Info) Description 10/30/2022 Scanned Document [facility] Plastic & Reconstructive Surgery [place] [address] Breast [place], [place] [address] Rosina Mckinney MD 4[address] [facility] 201 [place], [place] [address] Social History Tobacco Use Types Packs/Day Years [...] on filedocumented in this encounter Care Teams Optical Worker Relationship Specialty Start Date End Date Jorge Enriquez MD [address] [place] [address] [place] [address] PCP - General 08/31/22 documented as of this encounter
--- OUTSIDE RECORDS SUMMARY | 2025-04-06 17:17 | XMS_ITS | Encounter Summary ---
Author Organization [facility] Address [address] [place] [address] Care Team Providers Care Pig Farmer Name Role Phone Jorge Enriquez MD Primary Care Provider [phone] Encounter Details Date Type Department Care Team (Late st Contact Info) Description 11/23/[address] [facility] Plastic & Reconstructive Surgery [place] [address] Breast [place], [place] [address] Rosina Mckinney MD 4185 [facility] 201 [place], [place] [address] Social History Tobacco Use Types Packs/Day Years [...] on filedocumented in this encounter Care Teams Pig Farmer Relationship Specialty Start Date End Date Jorge Enriquez MD [address] [place] [address] [place] [address] PCP - General 08/31/22 documented as of this encounter
--- OUTSIDE RECORDS SUMMARY | 2025-04-06 17:17 | XMS_ITS | Encounter Summary ---
Author Organization [facility] Address [address] [place] [address] Care Team Providers Care Top Lift Cutter Name Role Phone Jorge Enriquez MD Primary Care Provider [phone] Encounter Details Date Type Department Care Team ([facility] st Contact Info) Description 10/22/2022 Telephone [facility] Plastic & Reconstructive Surgery [place] [address] Breast [place], [place] [address] Rosina Mckinney MD 4185 [facility] 201 [place], [place] [address] Social History Tobacco Use Types Packs/Day Years [...] let you know she or Sergey from [employer] will be faxing over forms needed documented in this encounter Plan of Treatment Not on file documented as of this encounter Visit Diagnoses Not on filedocumented in this encounter Care Teams Top Lift Cutter Relationship Specialty Start Date End Date Jorge Enriquez MD [address] [place] [address] [place] [address] PCP - General 08/31/22 documented as of this encounter
--- OUTSIDE RECORDS SUMMARY | 2025-04-06 17:17 | XMS_ITS | Encounter Summary ---
Author Organization [facility] Address [address] [place] [address] Care Team Providers Care Highway Patrol Officer Name Role Phone Jorge Enriquez MD Primary Care Provider [phone] Encounter Details Date Type Department Care Team (Late st Contact Info) Description 10/30/2022 Scanned Document [facility] Plastic & Reconstructive Surgery [place] [address] Breast [place], [place] [address] Rosina Mckinney MD 4185 [facility] 201 [place], [place] [address] Social History Tobacco Use Types Packs/Day Years [...] on filedocumented in this encounter Care Teams Highway Patrol Officer Relationship Specialty Start Date End Date Jorge Enriquez MD [address] [place] [address] [place] [address] PCP - General 08/31/22 documented as of this encounter
--- OUTSIDE RECORDS SUMMARY | 2025-04-06 17:17 | XMS_ITS | Encounter Summary ---
Author Organization [facility] Address [address] [place] [address] Care Team Providers Care Chicken Vaccinator Name Role Phone Jorge Enriquez MD Primary Care Provider [phone] Encounter Details Date Type Department Care Team ([facility] st Contact Info) Description 11/19/2022 Telephone [facility] Plastic & Reconstructive Surgery [place] [address] Breast [place], [place] [address] Rosina Mckinney MD 4185 [facility] 201 [place], [place] [address] Social History Tobacco Use Types Packs/Day Years [...] date best contact number for pt is [phone] documented in this encounter Plan of Treatment Not on file documented as of this encounter Visit Diagnoses Not on filedocumented in this encounter Care Teams Chicken Vaccinator Relationship Specialty Start Date End Date Jorge Enriquez MD [address] [place] [address] [place] [address] PCP - General 08/31/22 documented as of this encounter
--- OUTSIDE RECORDS SUMMARY | 2025-04-06 17:17 | XMS_ITS | Encounter Summary ---
Author Organization [facility] Address [address] [place] [address] Care Team Providers Care Fish Worm Grower Name Role Phone Jorge Enriquez MD Primary Care Provider [phone] Encounter Details Date Type Department Care Team (Late st Contact Info) Description 10/22/2022 Scanned Document [facility] Plastic & Reconstructive Surgery [place] [address] [place] [address] Rosina Mckinney MD 4180 [facility] 201 [place] [address] Social History Tobacco Use Types [...] filedocumented in this encounter Care Teams Fish Worm Grower Relationship Specialty Start Date End Date Jorge Enriquez MD [address] [place] [address] [place] [address] PCP - General 08/31/22 documented as of this encounter
--- OUTSIDE RECORDS SUMMARY | 2025-04-06 17:18 | XMS_ITS | Encounter Summary ---
Author Organization [facility] Address [address] [place] [address] Care Team Providers Care Snow Remover Name Role Phone Jorge Enriquez MD Primary Care Provider [phone] Encounter Details Date Type Department Care Team (Late st Contact Info) Description 09/15/2022 Scanned Document [facility] Plastic & Reconstructive Surgery [place] [address] [place] [address] Breast [place], [place] [address] Rosina Mckinney MD [address] [phone] Social History Tobacco Use Types Packs/Day Years [...] on filedocumented in this encounter Care Teams Snow Remover Relationship Specialty Start Date End Date Jorge Enriquez MD [address] [place] [address] Dr Carl [address] [place] [address] [place] [address] PCP - General 08/31/22 documented as of this encounter
--- OUTSIDE RECORDS SUMMARY | 2025-04-06 17:18 | XMS_ITS | Clinical Summary ---
Author Organization [facility] Address [address] [place] [id number] Care Team Providers Care Seniour Insight Manager Name Role Phone Jorge Enriquez MD Primary Care Provider [phone] Allergies No known active allergies Medications Blood [...] (Ages 21-65) 1981 Mammogram 2000 Colonoscopy 2005 RSV Vaccine 50 years and older and Patients (1 - Risk 50-74 years 1-dose series) 2010 Zoster (Shingles) Vaccine (1 of 2) 2010 Creatinine with GFR 10/01/2023 09/30/2022, 09/29/2022, 09/07/2022, Additional history exists Influenza Vaccine 01/12/2025 COVID-19 Vaccine ( season) 2025 Hepatitis B Vaccines Aged Out No long er eligible based on patient's age to complete this topic Medical Devices Implanted Type Area Manager Community Outreach Device Identifier Shelf Expiration Date Model / Serial / Lot [id number] Worker Anastomosis [employer] Titanium 20mhz Od3 M - [id number] Implanted:Qty: 1 on 09/28/2022 by Jose Rafael Barroso MD at [facility] Graft Right: Breast [employer] [facility] 03/16/2027 [id number] / [id number] / [id number] Kitchen Worker Anastomosis [employer] Titanium 20mhz Od3 M - [id number] Implanted:Qty: 1 on 09/28/2022 by Rosina Mckinney MD at [facility] Graft Left: Breast [employer] [facility] 03/16/2027 [id number] / [id number] / [id number] Procedures Procedure Name Priority Date/Time Associated Diagnosis Comments BASIC METABOLIC PANEL Routine 09/30/2022 8:04 AM EDT from Last 3 Months or Most Recently Relevant to Health Maintenance Results * (ABNORMAL) Basic Metabolic Panel (Early AM) (09/30/2022 8:04 AM EDT) Pathologist [facility] Glucose 91 74 - 106 mg/dL 09/30/2022 [...] ORDERABLES Final Result HOSPITAL LAB See Below [facility] [address] [place] [address] from Last 3 Months or Most Recently Relevant to Health Maintenance Insurance [facility] - PPO Member Subscriber Plan / Payer (Ef fective 2019-Present) Name:Elma Nuñez Relation to Subscriber:Self Name:Elma Nuñez Payer ID:[id number] ([facility]) Type:Not on file Address: [address] [address] Advance Directives * Full Code (Latest Code Status on File) Date Activated Date Inactivated Comments 09/28/2022 6:38 PM 02/10/2023 5:34 AM * Full Code Date Activated Date Inactivated Comments 09/28/2022 5:34 AM 09/28/2022 6:38 PM Care Teams Seniour Insight Manager Relationship Specialty Start Date End Date Jorge Enriquez MD [address] [place] [address] Dr Moura, JORGE L [address] PCP - General 08/31/22
--- OUTSIDE RECORDS SUMMARY | 2025-04-06 17:18 | XMS_ITS | Patient Health Record ---
Author Organization [facility] Address [address] [place] [id number] Care Team Providers Care [facility]astic [facility] Products Assembler Name Role Phone Mansi(inactive) Fer MOCK Primary Care Provider U Dean Katz Jr [phone] Allergies Allergen (clinical drug ingredient) Drug/Non Drug [...] Status Risk Notes Problem Colon cancer screening (153133501) Colon cancer screening (Z12.11) Active confirmed Problem Constipation (83142703) Constipation, unspecified constipation type (K59.00) Active confirmed Plan Of Treatment Future Test Test Name Order Date COLONOSCOPY 09/24/2016 Insurance Providers Payer Name Payer Address Payer Phone Subscriber Number Group Number Insured Name Patient Relationship to Insured Coverage Start Date Coverage End Date [place] [address] JORGE L BERRY [id number] TETE THOMAS Self - patient is the insured Medical (General) History Medical History History ICD Code diabetes mellitus hypertension heart murmur Denies [place],CVA,Lung disease,renal disease Surgical History Surgery Date(Month/Year) hysterectomy 2004 breast cancer bilateral 2010 knee surgery 2010 gastric sleeve 2013
--- OUTSIDE RECORDS SUMMARY | 2025-04-06 17:18 | XMS_ITS | Encounter Summary ---
Author Organization [facility] Address [address] [place] [address] Care Team Providers Care Die Designer Apprentice Name Role Phone Jorge Enriquez MD Primary Care Provider [phone] Encounter Details Date Type Department Care Team (Late st Contact Info) Description 08/31/2022 Scanned Document [facility] [address] [facility] [address] [place] [phone] Provider, Generic Social History Tobacco Use [...] on filedocumented in this encounter Care Teams Die Designer Apprentice Relationship Specialty Start Date End Date Jorge Enriquez MD [address] [place] [address] [place] [address] PCP - General 08/31/22 documented as of this encounter
== END 2025-04-06 16:19 | disposition home or self-care (01) ==
LOC: HO.CT 16:18
PROVIDERS: PCP Nurse Practitioner Family; Visit Provider Physician Assistant
DX: M17.12 Unilateral primary osteoarthritis, left knee (principal)
CPT/HCPCS: 73700

== ENCOUNTER → 2025-04-06 16:21 | Outpatient (BNV) | payer OTHER, SELFPAY | PROVIDERS: PCP Nurse Practitioner Family; Visit Provider Radiology Diagnostic Radiology | DX: M17.12 Unilateral primary osteoarthritis, left knee (principal); M76.62 Achilles tendinitis, left leg | CPT/HCPCS: 73700 ==

== ENCOUNTER → 2025-04-17 12:10 | Outpatient (BNVA) | payer OTHER, SELFPAY | PROVIDERS: PCP Nurse Practitioner Family | DX: Z01.818 Encounter for other preprocedural examination (principal) ==

== ENCOUNTER 2025-04-27 09:35 | Outpatient (AMB) | payer OTHER, SELFPAY ==
[2025-04-27 09:42] VITALS: BP 118/76; PULSE 74; O2SAT 98; BMI 33.1
--- NOTE | 2025-04-27 09:42 | A.OFFVIS_ITS ---
Vital Signs 04/27/25 09:42 Height 5 ft 9 in Weight 224 lb 2 oz BMI 33.1 BP 118/76 Blood Pressure Location Lt brachial Position Sitting Pulse 74 Pulse Source Pulse Oximeter Pulse Oximetry (%) 98 Oxygen Delivery Method Room Air Intake Visit Reasons: Tej COVARRUBIAS w/Dr. Cross Allergies cat dander Allergy (Severe, Verified 04/27/25 09:46) Loss Voice environmental allergies Allergy (Severe, Verified 04/27/25 09:46) Sneezing HPI HPI Tej mayes/Dr. Cross : Details: Elma is a pleasant 64 year old female, former minimal smoker, quit 40 years ago with underlying asthma, IVANIA on oral iron supplements, environmental allergies, Sickle cell trait, DMII, s/p gastric surgery 2020, h/o breast cancer s/p chemo/mastectomy, HTN, and GERD. She has been moderately controlled on Breo 200mcg, Singulair, Zyrtec, using albuterol MDI infrequently. She does continue with dyspnea with moderate exertion such as stairs and intermittent chest tightness. Denies cough or wheezing. She denies any visits to urgent care or hospitalizations related to respiratory distress since the last visit. Today she presents for preoperative pulmonary evaluation for proposed left total knee surgery with Dr. Cross 05/22/2025. [facility] Medical History (Updated 04/27/25 @ 10:00 by Ana Escalante NP) History of chemotherapy Hx of breast cancer GERD (gastroesophageal reflux disease) Seasonal allergies Environmental allergies Murmur Pleuritic pain De Quervain's tenosynovitis, right Abnormal EKG Obesity (BMI 30.0-34.9) Hypersomnolence Nocturnal hypoxemia Rhinitis Fall Left knee pain Right ankle pain Neck pain Leg pain Back pain Shoulder pain Encounter related to worker's compensation claim Tick bite Encounters for administrative purpose Deflation of breast implant History of breast cancer (~2008) History of diabetes mellitus GERMANIA (obstructive sleep apnea) Palpitations Steatosis, liver History of MRSA infection Arthritis Sickle cell trait History of COVID-19 (~09/2019) Hx of cardiac murmur Post-COVID syndrome (~2019) Pneumonia (~2019) Asthma Hypertension GERD (gastroesophageal reflux disease) Constipation Surgical History S/P gastric bypass (~2020) History of left knee surgery (~2010) History of Cassi-en-Y gastric bypass (~2020) History of bilateral mastectomy (~2008) History of colonoscopy (~2016) History of hysterectomy (~2003) History of laparoscopic cholecystectomy (~2002) History of esophagogastroduodenoscopy (EGD) (~2017) History of sleeve gastrectomy (~2010) Family History Father DM (diabetes mellitus) Stroke Mother DM (diabetes mellitus) Brother No problems noted. Sister No problems noted. Son No problems noted. 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 Gender identity: Female Cognitive needs: No Hearing needs: No Vision needs: No Review of Systems Const Denies chills, Denies excessive sweating, Denies fever(s), Denies headache(s) and Denies night sweats Eyes Denies dry eyes ENT Reports Normal hearing present, Denies headache(s), Denies nasal congestion, Denies post nasal drip and Denies sore throat Card Denies chest pain, Denies chest pain at rest, Denies chest pain with activity, Denies claudication, Denies leg edema, Denies orthopnea and Denies paroxysmal nocturnal dyspnea Resp Denies chest congestion, Denies cough, Denies excessive phlegm production, Denies pain on inspiration, Denies pain with cough, Denies stridor and Denies wheezing Musc Denies myalgias Neuro Reports Normal hearing present and Denies headache(s) Endo Denies excessive sweating Roberto/Lymph Denies lymphadenopathy Aller/Immun Denies wheezing Physical Exam Vital Signs: Last Vital Signs Pulse 74 04/27/25 09:42 BP 118/76 04/27/25 09:42 Pulse Ox 98 04/27/25 09:42 Oxygen Delivery Method Room Air 04/27/25 09:42 BMI result Body Mass Index 33.1 Const General: cooperative, healthy appearing, comfortable, no acute distress, well developed and alert Orientation/consciousness: patient oriented x3 Limitations: no limitations HEENT Head: Yes normal to inspection, Yes normocephalic and Yes atraumatic Ears: hearing grossly normal bilaterally and external ears normal Eyes General: appearance normal, both eyes and all related structures Eyelids: Yes eyelids normal Sclerae: sclerae normal EOM: EOMs intact bilaterally Neck Neck: Yes normal visual inspection and Yes no lymphadenopathy Lymphatic: no lymphadenopathy noted Chest Chest palpation & inspection: normal inspection of the chest Resp Effort & Inspection: normal respiratory effort, able to speak in complete sentences, no audible wheezes, no cough, no stridor, not tachypneic, no tripod positioning and no use of accessory muscles Auscultation: clear to auscultation bilaterally Cardio Jugular venous distension: no JVD Rate: regular rate Rhythm: regular rhythm Skin Other: warm, dry General skin exam: no rashes or lesions noted Neuro General: patient oriented x3 Cranial nerves: Yes Normal hearing present Cognition (Neuro): normal cognition Gait exam (Neuro): Normal gait present Extrem General: Yes normal to inspection, Yes capillary refill normal, Yes no clubbing, cyanosis or edema and Yes no pedal edema Psych Appearance: grossly normal and well kempt Speech and movement: Normal speech and movement present and Clear speech present Affect: normal affect Attitude: cooperative Thought process: Normal thought process present Thought content: Normal thought content present Insight: Good insight present (Psych) Judgement: Good judgement present (Psych) Assessment & Plan Assessment & Plan (1) Encounter for preoperative pulmonary examination: Code(s): Z01.811 - Encounter for preprocedural respiratory examination Category: Medical (2) Asthma: Code(s): J45.909 - Unspecified asthma, uncomplicated Category: Medical Qualifiers: Asthma complication type: unspecified Asthma persistence: unspecified Asthma severity: moderate Qualified Code(s): J45.909 - Unspecified asthma, uncomplicated (3) Environmental allergies: Code(s): Z91.09 - Other allergy status, other than to drugs and biological substances Category: Medical (4) Multiple pulmonary nodules: Code(s): R91.8 - Other nonspecific abnormal finding of lung field Category: Medical Plan Elma reports suboptimal control with current regimen, likely related to allergic component. Will switch Breo to Trelegy in addition to daily antihistamine. Continue Singulair and Albuterol MDI PRN. Prior chest CT which revealed a focal cluster of 1 mm pulmonary nodules in the periphery of the right lower lung lobe, smaller on the left lung base, right middle lung lobe and lingula.There is a 2 mm noncalcified pulmonary nodule superior segment right upper lung lobe. 1 mm calcified pulmonary nodule, right middle lung lobe. Suggestive of prior granulatomous disease and will repeat in one year to assess stability of nodules 08/2025. Respiratory exam unremarkable today and VSS. She denies any recent URI or need for abx/steroids. She denies any prior need for supplemental oxygen and last HST negative for GERMANIA. At this time, per the ARISCAT (Canet) preoperative pulmonary risk index patient would be considered low risk for upcoming procedure. All questions were answered and patient is in agreement of plan. Will follow-up in 3 months or sooner if needed. Medications: New dvijqqnvayf-dxhxxtrrs-vejtoyxu 200-62.5-25 mcg (Trelegy Ellipta) 1 inh inhalation DAILY 60 ea 3RF Coding Level of Care Code Est Pt Level 4 (96763) Complex EM visit Add On G2211 Diagnoses Encounter for preoperative pulmonary examination Z01.811 Moderate asthma, unspecified whether complicated, unspecified whether persistent J45.909 Asthma complication type: unspecified Asthma persistence: unspecified Asthma severity: moderate Environmental allergies Z91.09 Multiple pulmonary nodules R91.8
--- OUTSIDE RECORDS SUMMARY | 2025-04-27 10:37 | XMS_ITS | Clinical Summary ---
Author Organization [facility]ly [facility] Address [address] [place] [address] Care Team Providers Care Supervising Film Or Videotape Editor Name Role Phone Jorge Enriquez MD Primary Care Provider [phone] Allergies No known active allergies Medications Blood [...] this topic Medical Devices Implanted Type Area Steel Pourer Helper Device Identifier Shelf Expiration Date Model / Serial / Lot [id number] Hog Worker Anastomosis [place] [employer] Titanium 20mhz Od3 M - [id number] Implanted:Qty: 1 on 09/28/2022 by Jose Rafael Barroso MD at [facility] Graft Right: Breast SYNOVIS Arrively [facility] 03/16/2027 [id number] / [id number] / [id number] Hog Worker Anastomosis [place] [employer] Titanium 20mhz Od3 M - [id number] Implanted:Qty: 1 on 09/28/2022 by Rosina Mckinney MD at [facility] Graft Left: Breast SYNOVIS Arrively [facility] 03/16/2027 [id number] / [id number] / [id number] Procedures Procedure Name Priority Date/Time Associated Diagnosis Comments BASIC METABOLIC PANEL Routine 09/30/2022 8:04 AM EDT from Last 3 Months or Most Recently Relevant to Health Maintenance Results * (ABNORMAL) Basic Metabolic Panel (Early AM) (09/30/2022 8:04 AM EDT) Pathologist [facility] Glucose 91 74 - 106 mg/dL 09/30/2022 8:41 AM EDT [facility] Comment:Fasting: <100 mg/dL, Non-Fasting: <200 mg/dL (ADA 2005) Blood Urea Nitrogen (BUN) 15 9 - 23 mg/dL 09/30/2022 8:41 AM EDT [facility] Creatinine 0.8 0.6 - 1.0 mg/dL 09/30/2022 8:41 AM EDT [facility] eGFR 84 >59 09/30/2022 8:41 AM EDT [facility] Comment: CKD-EPI (2020) in mL/min/1.73 sq meters. Reported eGFR is based on the CKD-EPI equation that does not use a race coefficient as of 08/18/2022 Sodium 145 136 - 145 mmol/L 09/30/2022 8:41 AM EDT [facility] Potassium 3.8 3.4 - 4.5 mmol/L 09/30/2022 8:41 AM EDT [facility] Chloride 112(H) 98 - 107 mmol/L 09/30/2022 8:41 AM EDT [facility] CO2 28 20 - 31 mmol/L 09/30/2022 8:41 AM EDT [facility] Anion Gap 5 5 - 15 09/30/2022 8:41 AM EDT [facility] Calcium 8.3(L) 8.7 - 10.5 mg/dL 09/30/2022 8:41 AM EDT [facility] BUN/Creatinine Ratio 19 10.0 - 25.0 Ratio 09/30/2022 8:41 AM EDT [facility] Blood specimen (specimen) (Plasma/Serum) 09/30/2022 8:04 AM EDT 09/30/2022 8:21 AM EDT Althea Palacio PA-C LAB BLOOD ORDERABLES Final Result HOSPITAL LAB See Below [facility] [address] [place] [address] from Last 3 Months or Most Recently Relevant to Health Maintenance Insurance [facility] - PPO Advance Directives * Full Code (Latest Code Status on File) Date Activated Date Inactivated Comments 09/28/2022 6:38 PM 02/10/2023 5:34 AM * Full Code Date Activated Date Inactivated Comments 09/28/2022 5:34 AM 09/28/2022 6:38 PM Care Teams Supervising Film Or Videotape Editor Relationship Specialty Start Date End Date Jorge Enriquez MD [address] [place] [address] Dr Moura, JORGE L [address] PCP - General 08/31/22
--- OUTSIDE RECORDS SUMMARY | 2025-04-27 10:37 | XMS_ITS | Encounter Summary ---
Author Organization [facility] Address [address] [place] [address] Care Team Providers Care Investor Relations Analyst Name Role Phone Jorge Enriquez MD Primary Care Provider [phone] Encounter Details Date Type Department Care Team (Late st Contact Info) Description 08/31/2022 Scanned Document [facility] [address] [facility] [address] [place] [id number] Provider, Generic Social History Tobacco Use [...] on filedocumented in this encounter Care Teams Investor Relations Analyst Relationship Specialty Start Date End Date Jorge Enriquez MD [address] [place] [address] [place] [id number] PCP - General 08/31/22 documented as of this encounter
--- OUTSIDE RECORDS SUMMARY | 2025-04-27 10:37 | XMS_ITS | Encounter Summary ---
Author Organization [facility] Address [address] [place] [address] Care Team Providers Care Bridge Instructor Name Role Phone Jorge Enriquez MD Primary Care Provider [phone] Encounter Details Date Type Department Care Team (Late st Contact Info) Description 10/30/2022 Scanned Document [facility] Plastic & Reconstructive Surgery [place] [address] Breast [place], [place] [phone] Rosina Mckinney MD [address] [facility] [address] [place], [place] [phone] Social History Tobacco Use Types Packs/Day Years [...] on filedocumented in this encounter Care Teams Bridge Instructor Relationship Specialty Start Date End Date Jorge Enriquez MD [address] [place] [address] [place] [address] PCP - General 08/31/22 documented as of this encounter
--- OUTSIDE RECORDS SUMMARY | 2025-04-27 10:37 | XMS_ITS | Encounter Summary ---
Author Organization [facility] Address [address] [place] [address] Care Team Providers Care Environmental Designer Name Role Phone Jorge Enriquez MD Primary Care Provider Encounter Details Date Type Department Care Team (Late st Contact Info) Description 09/15/2022 Scanned Document [facility] Plastic & Reconstructive Surgery [place] [address] [place] [address] Floor Breast [place], [place] [address] Rosina Mckinney MD [address] [id number] Social History Tobacco Use Types Packs/Day Years [...] on filedocumented in this encounter Care Teams Environmental Designer Relationship Specialty Start Date End Date Jorge Enriquez MD [address] [place] [address] Dr [address] [place] [address] [place] [address] PCP - General 08/31/22 documented as of this encounter
--- OUTSIDE RECORDS SUMMARY | 2025-04-27 10:37 | XMS_ITS | Encounter Summary ---
Author Organization [facility] Address [address] [place] [address] Care Team Providers Care Cafeteria Food Server Name Role Phone Jorge Enriquez MD Primary Care Provider [phone] Encounter Details Date Type Department Care Team (Late st Contact Info) Description 11/23/2022 Scanned Document [facility] Plastic & Reconstructive Surgery [place] [address] Breast [place], [place] [address] Rosina Mckinney MD 4185 [facility] [address] [place], [place] [address] Social History Tobacco Use Types Packs/Day Years [...] on filedocumented in this encounter Care Teams Cafeteria Food Server Relationship Specialty Start Date End Date Jorge Enriquez MD [address] [place] [address] [place] [address] PCP - General 08/31/22 documented as of this encounter
--- OUTSIDE RECORDS SUMMARY | 2025-04-27 10:37 | XMS_ITS | Encounter Summary ---
Author Organization [facility] Address [address] [place] [address] Care Team Providers Care Hotel Or Motel Cleaning Supervisor Name Role Phone Jorge Enriquez MD Primary Care Provider [phone] Encounter Details Date Type Department Care Team (Late st Contact Info) Description 10/30/2022 Scanned Document [facility] Plastic & Reconstructive Surgery [place] [address] Breast [place], [place] [phone] Rosina Mckinney MD 4[address] [facility] [address] [place], [place] [phone] Social History Tobacco Use Types Packs/Day Years [...] filedocumented in this encounter Care Teams Hotel Or Motel Cleaning Supervisor Relationship Specialty Start Date End Date Jorge Enriquez MD [address] [place] [address] [place] [address] PCP - General 08/31/22 documented as of this encounter
--- OUTSIDE RECORDS SUMMARY | 2025-04-27 10:37 | XMS_ITS | Encounter Summary ---
Author Organization [facility] Address [address] [place] [address] Care Team Providers Care Automated Equipment Engineer Technician Name Role Phone Jorge Enriquez MD Primary Care Provider [phone] Encounter Details Date Type Department Care Team (Late st Contact Info) Description 10/22/2022 Scanned Document [facility] Plastic & Reconstructive Surgery [place] [address] [place] [address] Rosina Mckinney MD 4[address] [facility] [address] [place] [address] Social History Tobacco Use Types [...] on filedocumented in this encounter Care Teams Automated Equipment Engineer Technician Relationship Specialty Start Date End Date Jorge Enriquez MD [address] [place] [address] [place] [address] PCP - General 08/31/22 documented as of this encounter
== END 2025-04-27 10:00 | disposition home or self-care (01) ==
LOC: HO.HPSW 09:35
PROVIDERS: PCP Nurse Practitioner Family; Visit Provider Nurse Practitioner Family
DX: Z01.811 Encounter for preprocedural respiratory examination (principal); J45.909 Unspecified asthma, uncomplicated; Z91.09 Other allergy status, other than to drugs and biological substances; R91.8 Other nonspecific abnormal finding of lung field
CPT/HCPCS: 99214

== ENCOUNTER 2025-04-30 13:02 | Outpatient (AMB) | payer OTHER, SELFPAY ==
--- NOTE | 2025-04-30 13:00 | MHC.PC.OV ---
Vital Signs 04/30/25 13:01 04/30/25 13:14 Height 5 ft 9 in Weight 220 lb BMI 32.5 BP 138/78 138/88 Blood Pressure Location Lt brachial Lt brachial Position Sitting Sitting Respiration 13 Pulse 85 Pulse Source Pulse Oximeter Temp 97.6 F Temp Source Oral Pulse Oximetry (%) 99 Oxygen Delivery Method Room Air Intake Visit Reasons: 4 weeks BP recheck Intake Note: Follow up on htn. Psychological Examiner Required: No Allergies cat dander Allergy (Severe, Verified 04/30/25 13:00) Loss Voice environmental allergies Allergy (Severe, Verified 04/30/25 13:00) Sneezing Medication List - Last Reconciled 04/30/25 by Umm Cates, BRAKE LINING FINISHER- albuterol sulfate 90 mcg/actuation 1 puff inhalation Q4H PRN cholecalciferol (vitamin D3) 50 mcg PO DAILY cyanocobalamin (vitamin B-12) 1,000 mcg IM QWEEK docusate sodium (Colace) 200 mg (2 x 100 mg) PO BEDTIME fluticasone furoate-vilanterol 200-25 mcg/dose (Breo Ellipta) 1 inh inhalation DAILY juinsdnbczk-iwpwcoiyh-abyggokd 200-62.5-25 mcg (Trelegy Ellipta) 1 inh inhalation DAILY [Folding Front Wheeled walker Duration: 99 days] ipratropium bromide 2 sprays intranasal BID iron,carbonyl-vitamin C 65 mg iron- 125 mg (Vitron-C) 1 tab PO DAILY 90 days lidocaine 5% 1 patch topical DAILY montelukast (Singulair) 10 mg PO BEDTIME olmesartan 20 mg PO DAILY [One Touch Ultra lancets test blood sugar once daily] [One Touch ultra test strips test blood sugar once daily] pantoprazole 40 mg PO QAM Tobacco use date assessed: 04/30/25 Fall risk assessment: 1 Fall in past year Last assessed Fall Risk: 04/30/25 Dental Screening Dental Screen Date: 04/30/25 Did you have a dental visit in the last 12 months?: Yes Did you have a dental problem in the last 6 months where you did not have access to dental care?: No Was dental information given to patient?: Patient has dentist HPI HPI Comments History of Present Illness Details 64 y/o F with atrial tachycardia, GERD, hx of DM, HTN, GERMANIA not on CPAP, sickle cell trait, fatty liver, hx of breast ca, asthma, Iron Def anemia, environmental allergies, osteopenia s/p gastric surgery, mastectomy Health Maintenance Tdap 2017, recommend Shingles and PVC @ pharmacy Mammo s/p bilat mastectomy colon pending reports done need records DEXA 08/2024 Osteopenia Flu declined 03/26/25 Specialists Pulm Heme Cards Here today for preoperative clearance. Surgery Type: L knee TKA Anesthesia Type: general Surgeon: Dr Cross Date: 05/22/25 Any past surgical procedures: Y Any complications from anesthesia or in post-op period: N ASA or NSAID Use: N Current smoker: N Alcohol use: N Drug use: N METs: > 4 climb flight of stairs, golf, walk, yardwork Medical history: Asthma Y COPD N Obesity BMI 33.3 Diabetes SC < 6 weeks, unstable angina, CHF, severe valve disease: N HTN not at goal on Olmesartan 10mg QD 4 weeks ago, increased to 20mg, taking QD. BP has improved very little. Has variable blood glucose w/ hypoglycemia. This is a risk factor for complications as there is no real trigger or pattern for this. She is not using a CGM. Advised to start wt loss shakes to help stabalize sugars. Asthma well controlled IVANIA on iron Did have episode of gross hematuria. Urine cytology pending. Retroperitoneal US completed and WNL. Reports some chronic pressure in abd; Denies fever, chills, dysuria, abd pain, n/v. ROS: - Respiratory: Reports asthma; Denies shortness of breath and chest pain. - Cardiovascular: Denies history of heart disease or significant events. - Neurologic: Denies neurological complications related to surgery. - Musculoskeletal: Reports left knee pain requiring arthroplasty. - Endocrine: Reports variations in blood glucose levels; - Gastrointestinal: Denies frequent heartburn; Controlled on Pantoprazole. - General: Denies significant weight fluctuations beyond glucose management changes. Physical Exam General: Well developed, well nourished, in no acute distress. Appears stated age. Head: Normocephalic, atraumatic. Lungs: Clear to auscultation bilaterally dim throughout Heart: Regular rate and rhythm. Cardiac murmur noted Pulses: Peripheral pulses are equal and palpable bilaterally. Extremities: No clubbing, cyanosis noted. Trace edema ble Psych: Mood and affect appropriate. Neuro : nonfocal Testing EKG at last visit NSR Labs @ last visit, to include repeat urine. RCRI is Class 0 Risk Stratification: 0.5% During the consultation, we discussed the patient's ongoing issues with hypertension and its management with olmesartan. The patient expressed that her blood pressure might be influenced by situational stress. We emphasized consistency in using her inhaler for asthma to optimize respiratory control, especially ahead of the planned knee replacement surgery. There was a conversation around the variability in blood glucose and the importance of avoiding prolonged fasting to prevent hypoglycemic episodes during the perioperative period. The decision to cont dose of olmesartan & to add norvasc 5mg QHS. We placed an emphasis on monitoring blood pressure and requested a repeat measurement at a subsequent visit in 2 weeks. Patient was given time to ask questions. All questions were answered to their satisfaction. 1. Primary Hypertension - Cont olmesartan to 20 mg. - Start norvasc 5 mg QHS - 2-week blood pressure follow-up. 2. Asthma - Use Breo Ellipta inhaler consistently. 3. Blood Glucose Variability - Avoid prolonged fasting. - Make sure anesthesia is aware of this. 4. Planned Left Knee Arthroplasty - she is not cleared today d/t BP being > goal. RTO in 2 weeks for recheck. Addendum to be added as appropriate. Total time spent caring for the patient today was 30 minutes. This includes time spent before the visit reviewing the chart, time spent during the visit, and time spent after the visit on documentation, reviewing laboratory results, diagnostic imaging, medications, performing a medically necessary evaluation, counseling on diagnoses, care coordination, ordering appropriate tests, ordering appropriate medications, review of tests performed by other providers, reporting test results with the patient, communication with other healthcare providers. [facility] Medical History (Updated 04/27/25 @ 10:00 by Ana Escalante NP) Abnormal EKG Arthritis Asthma Back pain Constipation De Quervain's tenosynovitis, right Deflation of breast implant Encounter related to worker's compensation claim Encounters for administrative purpose Environmental allergies Fall GERD (gastroesophageal reflux disease) GERD (gastroesophageal reflux disease) History of breast cancer (~2008) History of chemotherapy History of COVID-19 (~09/2019) History of diabetes mellitus History of MRSA infection Hx of breast cancer Hx of cardiac murmur Hypersomnolence Hypertension Left knee pain Leg pain Murmur Neck pain Nocturnal hypoxemia Obesity (BMI 30.0-34.9) GERMANIA (obstructive sleep apnea) Palpitations Pleuritic pain Pneumonia (~2019) Post-COVID syndrome (~2019) Rhinitis Right ankle pain Seasonal allergies Shoulder pain Sickle cell trait Steatosis, liver Tick bite Surgical History History of bilateral mastectomy (~2008) History of colonoscopy (~2016) History of esophagogastroduodenoscopy (EGD) (~2017) History of hysterectomy (~2003) History of laparoscopic cholecystectomy (~2002) History of left knee surgery (~2010) History of Cassi-en-Y gastric bypass (~2020) History of sleeve gastrectomy (~2010) S/P gastric bypass (~2020) Family History Father DM (diabetes mellitus) Stroke Mother DM (diabetes mellitus) Brother No problems noted. Sister No problems noted. Son No problems noted. Social History (Reviewed 04/27/25 @ 09:46 by Amanda Weaver [facility]) Household Members: None Both parents involved: No Caregiver staying overnight: No Housing: House Are you a primary care information associate to a significant other at home: No Do you presently have visiting nurse or other home services: No 75 years or older and lives alone: No Alcohol intake: never Patient Tobacco Use Status: Former Tobacco user Tobacco use type: Cigarette e-Cigarette/Vaping Use: Never Used Second Hand Smoke Exposure: No service: No Current occupational status: employed 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 Leopoldo Carreon, Kari Preciado, Juve Wyatt and colleagues, with an educational tiara from [email or web address]. Physical exam (Primary Care) Vital Signs: Last Vital Signs Temp 97.6 F 04/30/25 13:01 Pulse 85 04/30/25 13:01 Resp 13 04/30/25 13:01 BP 138/78 04/30/25 13:01 Pulse Ox 99 04/30/25 13:01 Oxygen Delivery Method Room Air 04/30/25 13:01 BMI result Body Mass Index 32.5 Tobacco/Smoking Status: Tobacco use Status Tobacco use date assessed 04/30/25 04/30/25 13:02 Patient Tobacco Use Status Former Tobacco user 04/30/25 13:02 Tobacco use type Cigarette 04/30/25 13:02 e-Cigarette/Vaping Use Never Used 04/30/25 13:02 Thrive Assessment: Date of Thrive Assessment Date Thrive assessed 08/23/24 04/30/25 13:02 Coding Level of Care Code Est Pt Level 4 (06440) Complex EM visit Add On G2211 Diagnoses Primary hypertension I10 Hypertension type: primary hypertension Assessment & Plan Assessment & Plan (1) Hypertension: Code(s): I10 - Essential (primary) hypertension Category: Medical Qualifiers: Hypertension type: primary hypertension Qualified Code(s): I10 - Essential (primary) hypertension Plan . Medications: New amlodipine 5 mg PO DAILY 90 tabs 0RF
[2025-04-30 13:01] VITALS: BP 138/78; PULSE 85; RESP 13; TEMP 36.4; O2SAT 99; BMI 32.5
[2025-04-30 13:14] VITALS: BP 138/88
== END 2025-04-30 14:15 | disposition home or self-care (01) ==
LOC: HO.HMCFM 13:02
PROVIDERS: PCP Nurse Practitioner Family; Visit Provider Nurse Practitioner Family
DX: I10 Essential (primary) hypertension (principal)

== ENCOUNTER 2025-05-16 13:48 | Outpatient (AMB) | payer OTHER, SELFPAY ==
--- NOTE | 2025-05-16 13:55 | MHC.PC.OV ---
Vital Signs 05/16/25 13:59 Height 5 ft 9 in Weight 223 lb BMI 32.9 BP 114/68 Blood Pressure Location Lt brachial Position Sitting Respiration 12 Pulse 71 Pulse Source Pulse Oximeter Temp 97.7 F Temp Source Oral Pulse Oximetry (%) 100 Oxygen Delivery Method Simple Mask Intake Visit Reasons: bp check Intake Note: Follow up on BP to be cleared for surgery. Linoleum Floor Installer Required: No Allergies cat dander Allergy (Severe, Verified 05/16/25 13:55) Loss Voice environmental allergies Allergy (Severe, Verified 05/16/25 13:55) Sneezing Tobacco use date assessed: 05/16/25 Fall risk assessment: 1 Fall in past year Last assessed Fall Risk: 05/16/25 Dental Screening Dental Screen Date: 05/16/25 Did you have a dental visit in the last 12 months?: Yes Did you have a dental problem in the last 6 months where you did not have access to dental care?: No Was dental information given to patient?: Patient has dentist HPI bp check HPI Details 64 y/o female presents to f/u blood pressure. BP today 114/68, 71p. She is on amlodipine 5mg daily, olmesartan 20mg. Pt also needs PreOp clearance for L TKR. BP has been too high and amlodipine was added. No Cardiac or pulmonary disease. Able to walk 2 city blocks and can climb 2 flights of stairs w/o stopping duse to SOB. [facility] Medical History (Updated 05/16/25 @ 14:11 by Roberth Houston) History of chemotherapy Hx of breast cancer GERD (gastroesophageal reflux disease) Seasonal allergies Environmental allergies Murmur Pleuritic pain De Quervain's tenosynovitis, right Abnormal EKG Obesity (BMI 30.0-34.9) Hypersomnolence Nocturnal hypoxemia Rhinitis Fall Left knee pain Right ankle pain Neck pain Leg pain Back pain Shoulder pain Encounter related to worker's compensation claim Tick bite Encounters for administrative purpose Deflation of breast implant History of breast cancer (~2008) History of diabetes mellitus GERMANIA (obstructive sleep apnea) Palpitations Steatosis, liver History of MRSA infection Arthritis Sickle cell trait History of COVID-19 (~09/2019) Hx of cardiac murmur Post-COVID syndrome (~2019) Pneumonia (~2019) Asthma Hypertension GERD (gastroesophageal reflux disease) Constipation Surgical History S/P gastric bypass (~2020) History of left knee surgery (~2010) History of Cassi-en-Y gastric bypass (~2020) History of bilateral mastectomy (~2008) History of colonoscopy (~2016) History of hysterectomy (~2003) History of laparoscopic cholecystectomy (~2002) History of esophagogastroduodenoscopy (EGD) (~2017) History of sleeve gastrectomy (~2010) Family History Father DM (diabetes mellitus) Stroke Mother DM (diabetes mellitus) Brother No problems noted. Sister No problems noted. Son No problems noted. 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 1. Little interest or pleasure in doing things: not at all 2. Feeling down, depressed, or hopeless: not at all 3. Trouble falling or staying asleep, or sleeping too much: not at all 4. Feeling tired or having little energy: not at all 5. Poor appetite or overeating: not at all 6. Feeling bad about yourself - or that you are a failure or have let yourself or your family down: not at all 7. Trouble concentrating on things, such as reading the newspaper or watching television: not at all 8. Moving or speaking so slowly that other people could have noticed. Or the opposite - being so fidgety or restless that you have been moving around a lot more than usual: not at all 9. Thoughts that you would be better off or of hurting yourself in some way: not at all Total score: 0 Depression Screening Interpretation: Negative Depression Screening Done: Yes 18430 - PHQ-9 Billing: Yes Source: Developed by Drs. Leopoldo Carreon, Kari Preciado, Juve Wyatt and colleagues, with an educational tiara from [employer]. Thrive Questionnaire Date Thrive assessed: 05/16/25 I am a: Patient What is your living situation today?: I choose not to answer this question Within the past 12 months, did the food you bought not last and you didn't have the money to get more?: I choose not to answer this question Within the past 12 months, did you worry whether your food would run out before you got money to buy more?: I choose not to answer this question Do you have trouble paying for medicines?: I choose not to answer this question Do you have trouble getting transportation to medical appointments?: I choose not to answer this question Do you have trouble paying your heating and electricity bill?: I choose not to answer this question Do you have trouble taking care of your child, family member or friend?: I choose not to answer this question Do you have trouble with day-to-day activities such as bathing, preparing meals, shopping, managing finances, etc.?: I choose not to answer this question Are you currently unemployed and looking for a job?: I choose not to answer this question Are you interested in more education?: I choose not to answer this question Please select the resources that you would like help with: Transportation and None Currently or been in a relationship where the following occur: I choose not to answer THRIVE Score: 0 AUDIT C Alcohol Use Questionnaire (AUDIT-C) 1. How often do you have a drink containing alcohol?: Never Total Score: 0 STEVEN-7 AMB Questionnaire STEVEN-7 Date STEVEN - 7 assessed: 05/16/25 Feeling nervous, anxious, or on edge: 0 = Not at all Not being able to stop or control worryin = Not at all Worrying too much about different things: 0 = Not at all Trouble relaxin = Not at all Being so restless that it is hard to sit still: 0 = Not at all Becoming easily annoyed or irritable: 0 = Not at all Feeling afraid as if something awful might happen: 0 = Not at all Total STEVEN-7 score (0-4 normal; 5-9 mild; 10-14 moderate; 15-21 severe): 0 Source: Developed by Drs. Leopoldo Carreon, Kari Preciado, Juve Wyatt and colleagues, with an educational tiara from [employer]. Review of Systems Const Denies chills, Denies fatigue, Denies fever(s), Denies headache(s) and Denies weakness ENT Denies dizziness and Denies headache(s) Card Denies dyspnea Resp Denies cough, Denies dyspnea, Denies wheezing and Denies other (shortness of breath) Musc Denies numbness and Denies tingling Neuro Denies dizziness, Denies headache(s), Denies numbness, Denies tingling and Denies weakness Psych Denies anxiety and Denies depression Endo Denies fatigue Aller/Immun Denies wheezing Physical exam (Primary Care) Vital Signs: Last Vital Signs Temp 97.7 F 05/16/25 13:59 Pulse 71 05/16/25 13:59 Resp 12 05/16/25 13:59 BP 114/68 05/16/25 13:59 Pulse Ox 100 05/16/25 13:59 Oxygen Delivery Method Simple Mask 05/16/25 13:59 BMI result Body Mass Index 32.9 Tobacco/Smoking Status: Tobacco use Status Tobacco use date assessed 05/16/25 05/16/25 13:58 Patient Tobacco Use Status Former Tobacco user 05/16/25 13:58 Tobacco use type Cigarette 05/16/25 13:58 e-Cigarette/Vaping Use Never Used 05/16/25 13:58 PHQ-9: PHQ-9 Score PHQ-9: Total score 0 05/16/25 14:13 Depression Screening Interpretation: Negative Thrive Assessment: Date of Thrive Assessment Date Thrive assessed 05/16/25 05/16/25 13:58 Currently or been in a relationship where the following occur: I choose not to answer Const General: well developed; No acute distress Nutritional Appearance: well nourished Orientation/consciousness: patient oriented x3 HENMT Head: Yes normocephalic and Yes atraumatic Eyes General: appearance normal, both eyes and all related structures Pupils: Equal, round and reactive pupils present EOM: EOMs intact bilaterally Resp Effort & Inspection: normal respiratory effort Neuro General: patient oriented x3 and gait normal Cranial nerves: Yes Equal, round and reactive pupils present Psych Affect: normal affect Coding Level of Care Code Est Pt Level 3 (56606) Diagnoses Primary hypertension I10 Hypertension type: primary hypertension Preop cardiovascular exam Z01.810 Additional Codes PHQ-9 - 19473 - PHQ-9 Billing: Yes ([id number]) Assessment & Plan Assessment & Plan (1) Hypertension: Code(s): I10 - Essential (primary) hypertension Category: Medical Qualifiers: Hypertension type: primary hypertension Qualified Code(s): I10 - Essential (primary) hypertension Plan: Patient's blood pressure is now well controlled. Goal is less than 140/90. Continue olmesartan 20 mg daily Continue amlodipine 5 mg daily (2) Preop cardiovascular exam: Code(s): Z01.810 - Encounter for preprocedural cardiovascular examination Category: Medical Plan: 64-year-old female presents for preoperative clearance prior to left total knee replacement. Surgeon: Dr. Cross Date: 05/22/2025 Cardiac: History of some PACs/PVCs. Echocardiogram in 2021 was essentially normal. EKG in March was normal. Blood pressure now well controlled. Cardiac exam within normal limits No chronic respiratory diseases. Pulmonary exam within normal limits Good functional reserve Low risk patient for intermediate risk procedure. General Anesthesia * no contraindications to proceeding with left total knee replacement
[2025-05-16 13:59] VITALS: BP 114/68; PULSE 71; RESP 12; TEMP 36.5; O2SAT 100; BMI 32.9
--- OUTSIDE RECORDS SUMMARY | 2025-05-16 16:33 | XMS_ITS | Clinical Summary ---
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 Anastomosis [employer] Titanium 20mhz Od3 M - [id number] Implanted:Qty: 1 on 09/28/2022 by Jose Rafael Barroso MD at [facility] Graft Right: Breast [employer] Peak Rx #2 [facility] 03/16/2027 [id number] / [id number] / [id number] Medium Cycle Salesperson Anastomosis [employer] Titanium 20mhz Od3 M - [id number] Implanted:Qty: 1 on 09/28/2022 by Rosina Mckinney MD at [facility] Graft Left: Breast [employer] Rx #2 [facility] 03/16/2027 [id number] / [id number] / [id number] Procedures Procedure Name Priority Date/Time Associated Diagnosis Comments BASIC METABOLIC PANEL Routine 09/30/2022 8:04 AM EDT from Last 3 Months or Most Recently Relevant to Health Maintenance Results * (ABNORMAL) Basic Metabolic Panel (Early AM) (09/30/2022 8:04 AM EDT) Glucose 91 74 - 106 mg/dL 09/30/2022 8:41 AM EDT [facility] Comment:Fasting: <100 mg/dL, Non-Fasting: <200 mg/dL (ADA 2005) Blood Urea Nitrogen (BUN) 15 9 - 23 mg/dL 09/30/2022 8:41 AM EDT [facility] Creatinine 0.8 0.6 - 1.0 mg/dL 09/30/2022 8:41 AM EDT [facility] eGFR 84 >59 09/30/2022 8:41 AM EDT [facility] Comment: CKD-EPI (2020) in mL/min/1.73 sq meters. Reported eGFR is based on the CKD-EPI equation that does not use a race coefficient as of 08/18/2022 Sodium 145 136 - 145 mmol/L 09/30/2022 8:41 AM EDT [facility] Potassium 3.8 3.4 - 4.5 mmol/L 09/30/2022 8:41 AM EDT [facility] Chloride 112(H) 98 - 107 mmol/L 09/30/2022 8:41 AM EDT [facility] CO2 28 20 - 31 mmol/L 09/30/2022 8:41 AM EDT [facility] Anion Gap 5 5 - 15 09/30/2022 8:41 AM EDT [facility] Calcium 8.3(L) 8.7 - 10.5 mg/dL 09/30/2022 8:41 AM EDT [facility] BUN/Creatinine Ratio 19 10.0 - 25.0 Ratio 09/30/2022 8:41 AM EDT [facility] Blood specimen (specimen) (Plasma/Serum) 09/30/2022 8:04 AM EDT 09/30/2022 8:21 AM EDT Althea Palacio PA-C LAB BLOOD ORDERABLES Final Result HOSPITAL LAB See Below [facility] [address] [place] [address] from Last 3 Months or Most Recently Relevant to Health Maintenance Insurance [facility] PPO Advance Directives * Full Code (Latest Code Status on File) Date Activated Date Inactivated Comments 09/28/2022 6:38 PM 02/10/2023 5:34 AM * Full Code Date Activated Date Inactivated Comments 09/28/2022 5:34 AM 09/28/2022 6:38 PM Care Teams Generator Switchboard Operator Relationship Specialty Start Date End Date Jorge Enriquez MD [address] [place] [address] Dr Moura, JORGE L [id number] PCP - General 08/31/22
--- OUTSIDE RECORDS SUMMARY | 2025-05-16 16:33 | XMS_ITS | Encounter Summary ---
Author Organization [facility] Address [address] [place] [address] Care Team Providers Care Quality Assurance Supervisor Body Name Role Phone Jorge Enriquez MD Primary Care Provider [phone] Encounter Details Date Type Department Care Team (Late st Contact Info) Description 10/22/2022 Scanned Document [facility]astic [facility] Re[facility] [place] [address] [place] [address] Rosina Mckinney MD [address] [facility] [address] [place] [address] Social History Tobacco Use Types [...] on filedocumented in this encounter Care Teams Quality Assurance Supervisor Body Relationship Specialty Start Date End Date Jorge Enriquez MD [address] [place] [address] [place] [id number] PCP - General 08/31/22 documented as of this encounter
--- OUTSIDE RECORDS SUMMARY | 2025-05-16 16:33 | XMS_ITS | Encounter Summary ---
Author Organization Formerly [facility] Address [address] [place] [address] Care Team Providers Care Gallery Host Name Role Phone Jorge Enriquez MD Primary Care Provider [phone] Encounter Details Date Type Department Care Team (Late st Contact Info) Description 09/15/2022 Scanned Document [facility] Plastic & Reconstructive Surgery [place] [address] [place] [address] Breast [place], [place] [address] Rosina Mckinney MD [address] [id number] Social History Tobacco Use Types Packs/Day Years [...] on filedocumented in this encounter Care Teams Gallery Host Relationship Specialty Start Date End Date Jorge Enriquez MD [address] [place] [address] Dr Carl [address] [place] [address] [place] [address] PCP - General 08/31/22 documented as of this encounter
--- OUTSIDE RECORDS SUMMARY | 2025-05-16 16:33 | XMS_ITS | Encounter Summary ---
Author Organization [facility] Address [address] [place] [address] Care Team Providers Care Bed Spring Maker Name Role Phone Jorge Enriquez MD Primary Care Provider [phone] Encounter Details Date Type Department Care Team (Late st Contact Info) Description 10/30/2022 Scanned Document [facility] Plastic & Reconstructive Surgery [place] [address] Breast [place], [place] [id number] Rosina Mckinney MD 4185 [facility] [address] [place], [place] [id number] Social History Tobacco Use Types Packs/Day Years [...] on filedocumented in this encounter Care Teams Bed Spring Maker Relationship Specialty Start Date End Date Jorge Enriquez MD [address] [place] [address] [place] [phone] PCP - General 08/31/22 documented as of this encounter
--- OUTSIDE RECORDS SUMMARY | 2025-05-16 16:33 | XMS_ITS | Encounter Summary ---
Author Organization [facility] Address [address] [place] [address] Care Team Providers Care Manager Group Name Role Phone Jorge Enriquez MD Primary Care Provider [phone] Encounter Details Date Type Department Care Team (Late st Contact Info) Description 08/31/2022 Scanned Document [facility] 80 [facility] [address] [place] [id number] Provider, Generic Social History Tobacco Use [...] filedocumented in this encounter Care Teams Manager Group Relationship Specialty Start Date End Date Jorge Enriquez MD [address] [place] [address] [place] [address] PCP - General 08/31/22 documented as of this encounter
--- OUTSIDE RECORDS SUMMARY | 2025-05-16 16:33 | XMS_ITS | Encounter Summary ---
Author Organization [facility] Address [address] [place] [address] Care Team Providers Care Manager Sales Support Name Role Phone Jorge Enriquez MD Primary Care Provider [phone] Encounter Details Date Type Department Care Team (Late st Contact Info) Description 10/30/2022 Scanned Document [facility] Plastic & Reconstructive Surgery [place] [address] Breast [place], [place] [address] Rosina Mckinney MD 4185 [facility] [address] [place], [place] [address] Social History Tobacco Use Types Packs/Day Years [...] filedocumented in this encounter Care Teams Manager Sales Support Relationship Specialty Start Date End Date Jorge Enriquez MD [address] [place] [address] [place] [address] PCP - General 08/31/22 documented as of this encounter
--- OUTSIDE RECORDS SUMMARY | 2025-05-16 16:33 | XMS_ITS | Encounter Summary ---
Author Organization [facility] Address [address] [place] [address] Care Team Providers Care Biotechnician Name Role Phone Jorge Enriquez MD Primary Care Provider [phone] Encounter Details Date Type Department Care Team (Late st Contact Info) Description 11/23/2022 Scanned Document [facility]astic & Re[facility]ive Surgery [place] [address] Breast [place], [place] [address] Rosina Mckinney MD 4185 [facility] 201 [place], [place] [phone] Social History Tobacco Use Types Packs/Day Years [...] on filedocumented in this encounter Care Teams Biotechnician Relationship Specialty Start Date End Date Jorge Enriquez MD [address] [place] [address] [place] [address] PCP - General 08/31/22 documented as of this encounter
== END 2025-05-16 14:14 | disposition home or self-care (01) ==
LOC: HO.HMCFM 13:49
PROVIDERS: PCP Nurse Practitioner Family; Visit Provider Family Medicine
DX: I10 Essential (primary) hypertension (principal); Z01.810 Encounter for preprocedural cardiovascular examination

== ENCOUNTER → 2025-05-16 13:48 | Outpatient (BNVA) | payer OTHER, SELFPAY | PROVIDERS: PCP Nurse Practitioner Family; Visit Provider Family Medicine | DX: Z01.810 Encounter for preprocedural cardiovascular examination (principal); I10 Essential (primary) hypertension; Z79.899 Other long term (current) drug therapy | CPT/HCPCS: 96127 ==

== ENCOUNTER 2025-05-17 14:16 | Outpatient (REF) | payer OTHER, SELFPAY | END 2025-05-17 14:17 | disposition home or self-care (01) | LOC: HO.LAB 14:16 | PROVIDERS: PCP Nurse Practitioner Family; Visit Provider Physician Assistant | DX: Z01.810 Encounter for preprocedural cardiovascular examination (principal); M17.12 Unilateral primary osteoarthritis, left knee; I10 Essential (primary) hypertension; Z87.891 Personal history of nicotine dependence; Z79.899 Other long term (current) drug therapy | CPT/HCPCS: 36415; 80048; 85025; 86850; 86900; 86901; 99212 ==

== ENCOUNTER 2025-05-17 14:16 | Outpatient (AMB) | payer OTHER, SELFPAY ==
--- NOTE | 2025-05-17 14:26 | A.OFFVIS_ITS ---
Intake Visit Reasons: Pre-Op: L TKA w/NE 05/22/25 Intake Note: Elma is a 64 year old female who presents today for a preoperative visit to discuss upcoming left TKA, scheduled with Dr. Cross on 05/22/25. Pain management agreement reviewed and signed. Allergies cat dander Allergy (Severe, Verified 05/17/25 14:33) Loss Voice environmental allergies Allergy (Severe, Verified 05/17/25 14:33) Sneezing Medication List - Last Reconciled 05/18/25 by Acacia Garcia PA-C albuterol sulfate 90 mcg/actuation 1 puff inhalation Q4H PRN amlodipine 5 mg PO DAILY cholecalciferol (vitamin D3) 50 mcg PO DAILY cyanocobalamin (vitamin B-12) 1,000 mcg IM QWEEK docusate sodium (Colace) 200 mg (2 x 100 mg) PO BEDTIME wldodsdybkk-vpultpvfm-exsjxwdg 200-62.5-25 mcg (Trelegy Ellipta) 1 inh inhalation DAILY [Folding Front Wheeled walker Duration: 99 days] ipratropium bromide 2 sprays intranasal BID iron,carbonyl-vitamin C 65 mg iron- 125 mg (Vitron-C) 1 tab PO DAILY 90 days lidocaine 5% 1 patch topical DAILY montelukast (Singulair) 10 mg PO BEDTIME olmesartan 20 mg PO DAILY [One Touch Ultra lancets test blood sugar once daily] [One Touch ultra test strips test blood sugar once daily] pantoprazole 40 mg PO QAM HPI HPI Pre-Op: L TKA w/NE 05/22/25: Details: 64-year-old female presents to the office today for orthopedic clearance. She is scheduled for a left total knee arthroplasty with Dr. Cross on 05/22/2025. She has been experiencing left knee pain for over 5 years. She did have a fall in 2010 which is when the onset of her pain began. She has a history of steroid injections which have not been helpful. She did have 2 knee arthroscopies performed at [facility] which did not entirely alleviate her pain. She has pain with daily activities. She uses a cane for ambulation. Feels the knee is unstable and will give out when ambulating. 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 She slipped on snow in the parking lot at work and twisted her right ankle. She did physical therapy and was given a brace and had some improvement but continued to experience pain and swelling and stiffness in the lower extremity. Patient lives alone in a 1 level home with 4 steps to Enter. PCP clearance obtained on 05/16/2025 by Hira Mcdowell: Assessment & Plan (1) Hypertension: Patient's blood pressure is now well controlled. Goal is less than 140/90. Continue olmesartan 20 mg daily Continue amlodipine 5 mg daily (2) Preop cardiovascular exam: 64-year-old female presents for preoperative clearance prior to left total knee replacement. Surgeon: Dr. Cross Date: 05/22/2025 Cardiac: History of some PACs/PVCs. Echocardiogram in 2021 was essentially normal. EKG in March was normal. Blood pressure now well controlled. Cardiac exam within normal limits No chronic respiratory diseases. Pulmonary exam within normal limits Good functional reserve Low risk patient for intermediate risk procedure. General Anesthesia * no contraindications to proceeding with left total knee replacement Pulmonology clearance on 04/27/2025 with Ana Escalante: HPI L TKA w/Dr. Cross : Details: Elma is a pleasant 64 year old female, former minimal smoker, quit 40 years ago with underlying asthma, IVANIA on oral iron supplements, environmental allergies, Sickle cell trait, DMII, s/p gastric surgery 2020, h/o breast cancer s/p chemo/mastectomy, HTN, and GERD. She has been moderately controlled on Breo 200mcg, Singulair, Zyrtec, using albuterol MDI infrequently. She does continue with dyspnea with moderate exertion such as stairs and intermittent chest tightness. Denies cough or wheezing. She denies any visits to urgent care or hospitalizations related to respiratory distress since the last visit. Today she presents for preoperative pulmonary evaluation for proposed left total knee surgery with Dr. Cross 05/22/2025. Plan Elma reports suboptimal control with current regimen, likely related to allergic component. Will switch Breo to Trelegy in addition to daily antihistamine. Continue Singulair and Albuterol MDI PRN. Prior chest CT which revealed a focal cluster of 1 mm pulmonary nodules in the periphery of the right lower lung lobe, smaller on the left lung base, right middle lung lobe and lingula.There is a 2 mm noncalcified pulmonary nodule superior segment right upper lung lobe. 1 mm calcified pulmonary nodule, right middle lung lobe. Suggestive of prior granulatomous disease and will repeat in one year to assess stability of nodules 08/2025. Respiratory exam unremarkable today and VSS. She denies any recent URI or need for abx/steroids. She denies any prior need for supplemental oxygen and last HST negative for GERMANIA. At this time, per the ARISCAT (Canet) preoperative pulmonary risk index patient would be considered low risk for upcoming procedure. All questions were answered and patient is in agreement of plan. Will follow-up in 3 months or sooner if needed COUNTS INCLUDE 234 BEDS AT THE [facility] Medical History (Updated 05/16/25 @ 14:11 by Roberth Houston) History of chemotherapy Hx of breast cancer GERD (gastroesophageal reflux disease) Seasonal allergies Environmental allergies Murmur Pleuritic pain De Quervain's tenosynovitis, right Abnormal EKG Obesity (BMI 30.0-34.9) Hypersomnolence Nocturnal hypoxemia Rhinitis Fall Left knee pain Right ankle pain Neck pain Leg pain Back pain Shoulder pain Encounter related to worker's compensation claim Tick bite Encounters for administrative purpose Deflation of breast implant History of breast cancer (~2008) History of diabetes mellitus GERMANIA (obstructive sleep apnea) Palpitations Steatosis, liver History of MRSA infection Arthritis Sickle cell trait History of COVID-19 (~09/2019) Hx of cardiac murmur Post-COVID syndrome (~2019) Pneumonia (~2019) Asthma Hypertension GERD (gastroesophageal reflux disease) Constipation Surgical History S/P gastric bypass (~2020) History of left knee surgery (~2010) History of Cassi-en-Y gastric bypass (~2020) History of bilateral mastectomy (~2008) History of colonoscopy (~2016) History of hysterectomy (~2003) History of laparoscopic cholecystectomy (~2002) History of esophagogastroduodenoscopy (EGD) (~2017) History of sleeve gastrectomy (~2010) Family History Father DM (diabetes mellitus) Stroke Mother DM (diabetes mellitus) Brother No problems noted. Sister No problems noted. Son No problems noted. 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 Gender identity: Female Cognitive needs: No Hearing needs: No Vision needs: No Review of Systems Const All systems reviewed & are unremarkable except as noted in HPI and below Physical Exam Const General: cooperative, healthy appearing, comfortable, no acute distress, well developed and alert Orientation/consciousness: patient oriented x3 HEENT Head: Yes normal to inspection, Yes normocephalic and Yes atraumatic Eyes General: appearance normal, both eyes and all related structures Neck Neck: Yes normal visual inspection and Yes no lymphadenopathy Resp Effort & Inspection: normal respiratory effort and able to speak in complete sentences Cardio Rate: regular rate Peripheral pulses: Peripheral pulses 2+ throughout GI Inspection: Yes normal to inspection Palpation (GI): Soft to palpation Skin General skin exam: no rashes or lesions noted Neuro General: patient oriented x3 Extrem Other: Left knee with sharp tenderness over the medial joint line. 5-125 degrees motion with antalgic gait. Psych Appearance: grossly normal Mental Status: mental status grossly normal Assessment & Plan Assessment & Plan (1) Osteoarthritis of left knee: Code(s): M17.12 - Unilateral primary osteoarthritis, left knee Category: Medical Plan: Has exhausted all conservative measures consisting of lifestyle modifications, physical therapy, analgesics, corticosteroid injections and use of assisted devices and continues to have significant limitations in daily activities along with decreased quality of life. Given the patient's desire to improve their quality of life, surgical intervention consisting of joint replacement surgery is recommended at this time.? We discussed the procedure in detail today; which includes pre op preparation with labs and reviewing patients medication regimen prior to surgery. Patient was sent to the lab for type and screen. We discussed stopping any anti- inflammatory type medication. I discussed at length the post op course which includes physical therapy services in the hospital along with the discharge routine and the patients plan upon discharge. The patient's plan is to be discharged home with physical therapy. I explained to the patient, once they are DC home, they will receive VNA services which will include PT 2-3x per week. We also discussed their choice for outpatient PT once they are discharged from home PT. Patient would like to attend [facility] physical therapy. Post op DVT ppx was also discussed and the considering the patient Does not smoke, has not had a history of DVT / PE. She has had a history of breast c ancer in 2008 status post mastectomy with chemotherapy but is not on hormonal replacement therapy. Patient should be a candidate for aspirin 325 mg p.o. b.i.d. for 6 weeks. I reviewed with the patient their post op pain medication regimen along with the detailed wean program. The patient did express understanding of this and agreed to the narcotic policy. Lastly, I discussed with the patient the risks to the procedure. Risks including but not limited to infection, injury to surrounding nerves, tissue , bone, small and large vessels, stiffness, aseptic loosening, fracture, dislocation, amput ation, DVT/PE along with intraoperative complications including but not limited to . The patient does express understanding, all questions were answered and the patient would like to proceed? with Left total knee arthroplasty with Dr. Cross. Consents were signed and dated while in the office today.? Post-Operative Recovery Notes: * DVT ppx : aspirin * Hospital DC plan: home with VNA * Physical Therapy: [facility] * Walker obtained Coding Level of Care Code Est Pt Level 3 (53133) Complex visit Add On G2211 Diagnoses Osteoarthritis of left knee M17.12
== END 2025-05-17 15:19 | disposition home or self-care (01) ==
LOC: HO.HOS 14:17
PROVIDERS: PCP Nurse Practitioner Family; Visit Provider Physician Assistant
DX: M17.12 Unilateral primary osteoarthritis, left knee (principal)
CPT/HCPCS: 99213

== ENCOUNTER 2025-05-22 06:47 | Day surgery (SDC) | payer OTHER, SELFPAY ==
--- OUTSIDE RECORDS SUMMARY | 2025-03-21 07:49 | XMS_ITS | Encounter Summary ---
Author Organization [facility] Address 100 [place] [address] Care Team Providers Care Checking Department Supervisor Name Role Phone Jorge Enriquez MD Primary Care Provider [phone] Encounter Details Date Type Department Care Team (Late st Contact Info) Description 09/15/2022 Scanned Document [facility] Plastic & Reconstructive Surgery [place] [address] [place] [address] Breast [place], [place] [address] Rosina Mckinney MD [address] [address] Social History Tobacco Use Types Packs/Day Years [...] on filedocumented in this encounter Care Teams Checking Department Supervisor Relationship Specialty Start Date End Date Jorge Enriquez MD [address] [place] [address] Dr Carl [address] [place] [address] [place] [address] PCP - General 08/31/22 documented as of this encounter
--- OUTSIDE RECORDS SUMMARY | 2025-03-21 07:49 | XMS_ITS | Encounter Summary ---
Author Organization [facility] Address 100 [place] [address] Care Team Providers Care Stem Processing Machine Operator Name Role Phone Jorge Enriquez MD Primary Care Provider [phone] Encounter Details Date Type Department Care Team (Late st Contact Info) Description 10/30/2022 Scanned Document [facility] Plastic & Reconstructive Surgery [place] [address] Breast [place], [place] [address] Rosina Mckinney MD 4185 [facility] 201 [place], [place] [address] Social History Tobacco Use Types Packs/Day Years [...] on filedocumented in this encounter Care Teams Stem Processing Machine Operator Relationship Specialty Start Date End Date Jorge Enriquez MD [address] [place] [address] [place] [address] PCP - General 08/31/22 documented as of this encounter
--- OUTSIDE RECORDS SUMMARY | 2025-03-21 07:49 | XMS_ITS | Encounter Summary ---
Author Organization [facility] Address [address] [place] [address] Care Team Providers Care Chief Knowledge Officer Name Role Phone Jorge Enriquez MD Primary Care Provider [phone] Encounter Details Date Type Department Care Team (Late st Contact Info) Description 08/31/2022 Scanned Document [facility] 80 [facility] [address] [place] [address] Provider, Generic Social History Tobacco Use [...] filedocumented in this encounter Care Teams Chief Knowledge Officer Relationship Specialty Start Date End Date Jorge Enriquez MD [address] [place] [address] [place] [address] PCP - General 08/31/22 documented as of this encounter
--- OUTSIDE RECORDS SUMMARY | 2025-03-21 07:49 | XMS_ITS | Encounter Summary ---
Author Organization [facility] Address [address] [place] [address] Care Team Providers Care Residential Sales Associate Name Role Phone Jorge Enriquez MD Primary Care Provider Encounter Details Date Type Department Care Team (Late st Contact Info) Description 11/23/2022 Scanned Document [facility] Plastic & Reconstructive Surgery [place] [address] Breast [place], [place] [address] Rosina Mckinney MD 4185 [facility] 201 [place], [place] [address] Social History Tobacco Use Types Packs/Day Years [...] on filedocumented in this encounter Care Teams Residential Sales Associate Relationship Specialty Start Date End Date Jorge Enriquez MD [address] [place] [address] [place] [address] PCP - General 08/31/22 documented as of this encounter
--- OUTSIDE RECORDS SUMMARY | 2025-03-21 07:49 | XMS_ITS | Encounter Summary ---
Author Organization [facility] Address [address] [place] [address] Care Team Providers Care Disabilities Services Officer Name Role Phone Jorge Enriquez MD Primary Care Provider [phone] Encounter Details Date Type Department Care Team (Late st Contact Info) Description 10/22/2022 Scanned Document [facility] Plastic & Reconstructive Surgery [place] 1505 [place] [address] Rosina Mciknney MD 4180 [facility] 201 [place] [address] Social History Tobacco Use Types [...] on filedocumented in this encounter Care Teams Disabilities Services Officer Relationship Specialty Start Date End Date Jorge Enriquez MD [address] [place] [address] [place] [address] PCP - General 08/31/22 documented as of this encounter
--- OUTSIDE RECORDS SUMMARY | 2025-03-21 07:49 | XMS_ITS | Patient Health Record ---
Author Organization [facility] Address [address] [place] [address] Care Team Providers Care Sed High School Teacher Name Role Phone Mansi(inactive) Fer MOCK Primary Care Provider U Dean Katz Jr [phone] Allergies Allergen (clinical drug ingredient) Drug/Non Drug [...] Problem Status W/U Status Risk Notes Problem [id number] Colon cancer screening (Z12.11) Active confirmed Problem [id number] Constipation, unspecified constipation type (K59.00) Active confirmed Plan Of Treatment Future Test Test Name Order Date COLONOSCOPY 09/24/2016 Insurance Providers Payer Name Payer Address Payer Phone Subscriber Number Group Number Insured Name Patient Relationship to Insured Coverage Start Date Coverage End Date [place] [address] [place] [phone] [id number] TETE THOMAS Self - patient is the insured Medical (General) History Medical History History ICD Code diabetes mellitus hypertension heart murmur Denies [place],CVA,Lung disease,renal disease Surgical History Surgery Date(Month/Year) hysterectomy 2004 breast cancer bilateral 2009 knee surgery 2010 gastric sleeve 2014
--- OUTSIDE RECORDS SUMMARY | 2025-03-21 07:49 | XMS_ITS | Encounter Summary ---
Author Organization [facility] Address [address] [place] [address] Care Team Providers Care Poured Wall Foreman Name Role Phone Jorge Enriquez MD Primary Care Provider [phone] Encounter Details Date Type Department Care Team ([facility] st Contact Info) Description 10/22/2022 Telephone [facility] Plastic & Reconstructive Surgery [place] [address] Breast [place], [place] [address] Rosina Mckinney MD 4185 [facility] 201 [place], [place] [address] Social History Tobacco Use Types Packs/Day Years [...] let you know she or Sergey from [employer] will be faxing over forms needed documented in this encounter Plan of Treatment Not on file documented as of this encounter Visit Diagnoses Not on filedocumented in this encounter Care Teams Poured Wall Foreman Relationship Specialty Start Date End Date Jorge Enriquez MD [address] [place] [address] [place] [address] PCP - General 08/31/22 documented as of this encounter
--- OUTSIDE RECORDS SUMMARY | 2025-03-21 07:49 | XMS_ITS | Clinical Summary ---
Author Organization [facility] Address [address] [place] [address] Care Team Providers Care Sales Development Representative Name Role Phone Jorge Enriquez MD Primary Care Provider [phone] Allergies No known active allergies Medications Blood [...] this topic Medical Devices Implanted Type Area Reflesher Device Identifier Shelf Expiration Date Model / Serial / Lot [id number] Entry Level Finance Anastomosis [place] Stainless Steel Titanium 20mhz Od3 M - [id number] Implanted:Qty: 1 on 09/28/2022 by Jose Rafael Barroso MD at [facility] Graft Right: Breast [employer] [place] [facility] 03/16/2027 [id number] / [id number] / [id number] Entry Level Finance Anastomosis [place] Stainless Steel Titanium 20mhz Od3 M - [id number] Implanted:Qty: 1 on 09/28/2022 by Rosina Mckinney MD at [facility] Graft Left: Breast [employer] [place] [facility] 03/16/2027 [id number] / [id number] / [id number] Procedures Procedure Name Priority Date/Time Associated Diagnosis Comments BASIC METABOLIC PANEL Routine 09/30/2022 8:04 AM EDT from Last 3 Months or Most Recently Relevant to Health Maintenance Results * (ABNORMAL) Basic Metabolic Panel (Early AM) (09/30/2022 8:04 AM EDT) Glucose 91 74 - 106 mg/dL 09/30/2022 8:41 AM EDT [facility] Comment:Fasting: <100 mg/dL, Non-Fasting: <200 mg/dL (ADA 2005) Blood Urea Nitrogen (BUN) 15 9 - 23 mg/dL 09/30/2022 8:41 AM EDT [facility] Creatinine 0.8 0.6 - 1.0 mg/dL 09/30/2022 8:41 AM EDT [facility] eGFR 84 >59 09/30/2022 8:41 AM EDT [facility] Comment: CKD-EPI (2020) in mL/min/1.73 sq meters. Reported eGFR is based on the CKD-EPI equation that does not use a race coefficient as of 08/18/2022 Sodium 145 136 - 145 mmol/L 09/30/2022 8:41 AM EDT [facility] Potassium 3.8 3.4 - 4.5 mmol/L 09/30/2022 8:41 AM EDT [facility] Chloride 112(H) 98 - 107 mmol/L 09/30/2022 8:41 AM EDT [facility] CO2 28 20 - 31 mmol/L 09/30/2022 8:41 AM EDT [facility] Anion Gap 5 5 - 15 09/30/2022 8:41 AM EDT [facility] Calcium 8.3(L) 8.7 - 10.5 mg/dL 09/30/2022 8:41 AM EDT [facility] BUN/Creatinine Ratio 19 10.0 - 25.0 Ratio 09/30/2022 8:41 AM EDT [facility] Blood specimen (specimen) (Plasma/Serum) 09/30/2022 8:04 AM EDT 09/30/2022 8:21 AM EDT Althea Palacio PA-C LAB BLOOD ORDERABLES Final Result HOSPITAL LAB See Below [facility] 2800 [place] [address] from Last 3 Months or Most Recently Relevant to Health Maintenance Insurance [facility] - PPO Advance Directives * Full Code (Latest Code Status on File) Date Activated Date Inactivated Comments 09/28/2022 6:38 PM 02/10/2023 5:34 AM * Full Code Date Activated Date Inactivated Comments 09/28/2022 5:34 AM 09/28/2022 6:38 PM Care Teams Sales Development Representative Relationship Specialty Start Date End Date Jorge Enriquez MD [address] [place] [address] Dr Moura, JORGE L [address] PCP - General 08/31/22
--- OUTSIDE RECORDS SUMMARY | 2025-03-21 07:49 | XMS_ITS | Encounter Summary ---
Author Organization [facility] Address [address] [place] [address] Care Team Providers Care Newspaper Correspondent Name Role Phone Jorge Enriquez MD Primary Care Provider [phone] Encounter Details Date Type Department Care Team (Late st Contact Info) Description 10/30/2022 Scanned Document [facility] Plastic & Reconstructive Surgery [place] [address] Breast [place], [place] [address] Rosina Mckinney MD 4185 [facility] 201 [place], [place] [address] Social History Tobacco Use Types Packs/Day Years [...] on filedocumented in this encounter Care Teams Newspaper Correspondent Relationship Specialty Start Date End Date Jorge Enriquez MD [address] [place] [address] [place] [address] PCP - General 08/31/22 documented as of this encounter
--- OUTSIDE RECORDS SUMMARY | 2025-03-21 07:49 | XMS_ITS | Encounter Summary ---
Author Organization [facility] Address 100 [place] [address] Care Team Providers Care Order Entry Specialist Name Role Phone Jorge Enriquez MD Primary Care Provider [phone] Encounter Details Date Type Department Care Team ([facility] st Contact Info) Description 11/19/2022 Telephone [facility] Plastic & Reconstructive Surgery [place] [address] Breast [place], [place] [address] Rosina Mckinney MD 4185 [facility] 201 [place], [place] [address] Social History Tobacco Use Types Packs/Day Years [...] in a correction (including now)? No 09/29/2022 Comments No Sex [...] date best contact number for pt is [phone] documented in this encounter Plan of Treatment Not on file documented as of this encounter Visit Diagnoses Not on filedocumented in this encounter Care Teams Order Entry Specialist Relationship Specialty Start Date End Date Jorge Enriquez MD [address] [place] [address] [place] [address] PCP - General 08/31/22 documented as of this encounter
[2025-04-23 14:08] VITALS: BP 135/77; PULSE 79; RESP 16; O2SAT 98; BMI 33.2
--- NOTE | 2025-04-23 14:34 | P.CONAN_ITS ---
Documented by User: Estefany Beltran NP 05/18/25 08:43 HPI - Anesthesia Eval Consult details Narrative: 64yo F for Left Knee Replacement Total, 05/22/25 Medically optimized. Multiple visits with BP med adjustment, but BP 114/68 at last PCP visit 05/16/25 No recent illness. Allergy symptoms No CP. ARGUETA at baseline since post Covid 2019. 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 Symptoms well controlled on Breo and singulair - has not required albuterol. s/p gastric bypass: 2020 IVANIA: Managed by [facility] heme on venofer infusions Breast CA s/p bilat mastectomy with chemo: last chemo >10 years ago GERMANIA: resolved post gastric sleeve, latest PSG nml Sickle cell trait: no hx of crisis GERD: ppi daily Palpitations: D/T PVCs and short runs of SVT. Follows [facility] Cardiology. Stable and optimized to proceed per last office visit 11/2024. Murmur: nml valves 2021 echo [facility] Active Problems Active Problems: All Active Problems Influenza vaccination declined (Acute) Hematuria (Acute) Preop cardiovascular exam (Acute) Hypoglycemia after GI (gastrointestinal) surgery (Acute) Multiple pulmonary nodules (Acute) Gastric pain (Acute) Osteopenia (Acute ~08/2024) Vitamin D deficiency (Acute) Menopause (Acute) BMI 30.0-30.9,adult (Acute) Interstitial lung disease (Acute) Bilateral hip pain (Acute) Iron deficiency anemia (Chronic) Environmental allergies (Acute) Chronic constipation (Acute) Gastric ulcer (Acute) Osteoarthritis of left knee (Acute) PAC (premature atrial contraction) (Acute) Bilateral hand numbness (Acute) PVCs (premature ventricular contractions) (Acute) Bilateral carpal tunnel syndrome (Acute) Overweight (Acute) Hx of cardiac murmur (Acute) Post-COVID syndrome (Acute ~2019) GERMANIA (obstructive sleep apnea) (Acute) Asthma (Acute) Hypertension (Acute) Palpitations (Acute) Steatosis, liver (Acute) GERD (gastroesophageal reflux disease) (Acute) Past Medical History Medical History History of chemotherapy Hx of breast cancer GERD (gastroesophageal reflux disease) Seasonal allergies Environmental allergies Murmur Pleuritic pain De Quervain's tenosynovitis, right Abnormal EKG Obesity (BMI 30.0-34.9) Hypersomnolence Nocturnal hypoxemia Rhinitis Fall Left knee pain Right ankle pain Neck pain Leg pain Back pain Shoulder pain Encounter related to worker's compensation claim Tick bite Encounters for administrative purpose Deflation of breast implant History of breast cancer (~2008) History of diabetes mellitus GERMANIA (obstructive sleep apnea) Palpitations Steatosis, liver History of MRSA infection Arthritis Sickle cell trait History of COVID-19 (~09/2019) Hx of cardiac murmur Post-COVID syndrome (~2019) Pneumonia (~2019) Asthma Hypertension GERD (gastroesophageal reflux disease) Constipation Family History Family History Father DM (diabetes mellitus) Stroke Mother DM (diabetes mellitus) Brother No problems noted. Sister No problems noted. Son No problems noted. Family history of problems with anesthesia: No (Mom takes long to wake) Surgical History Surgical History S/P gastric bypass (~2020) History of left knee surgery (~2010) History of Cassi-en-Y gastric bypass (~2020) History of bilateral mastectomy (~2008) History of colonoscopy (~2016) History of hysterectomy (~2003) History of laparoscopic cholecystectomy (~2002) History of esophagogastroduodenoscopy (EGD) (~2017) History of sleeve gastrectomy (~2010) History of Problems with Anesthesia: No Social History Social History Household Members: None Housing: House Are you a primary rn wound care to a significant other at home: No Do you presently have visiting nurse or other home services: No Alcohol intake: never Patient Tobacco Use Status: Former Tobacco user Tobacco use type: Cigarette Smoked in Last 30 Days: No e-Cigarette/Vaping Use: Never Used Second Hand Smoke Exposure: No Use of substances other than those prescribed or required for medical reasons: No Have you been hit, kicked, punched, or otherwise hurt by someone within the past year? 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 200 mcg-umeclid 1 inh inhalation BEDT ALEXA 05/18/25 05/18/25 05/18/25 History 62.5 mcg-vilant 25 mcg inhalat.powder (Trelegy Ellipta) Exam Height,Weight and Vital Signs: Height 5 ft 9 in Weight 102.058 kg Last Vital Signs Pulse 79 04/23/25 14:08 Resp 16 04/23/25 14:08 BP 135/77 04/23/25 14:08 Pulse Ox 98 04/23/25 14:08 O2 Del Method Room Air 04/23/25 14:08 Pertinent Lab Results Pertinent Lab Results: Lab Results 04/23/25 Range/Units 14:45 Nasal Screen MRSA (PCR) NEGATIVE (Negative) Nasal S. aureus Screen NEGATIVE (Negative) Nasal MRSA/S.aureus Interp SEE NOTE Laboratory Tests 05/17/25 15:50 WBC 5.4 Hgb 13.7 Hct 42.1 Plt Count 254 Sodium 145 Potassium 3.9 Chloride 111 H Carbon Dioxide 25 BUN 16 Creatinine 0.72 Narrative Narrative: EKG 11/2024 EKG Details: normal sinus rhythm, rate 63, Qtc 405ms ECHO 2021 Conclusions: - 1. Normal LV systolic function and normal diastolic filling pattern 2. Mild mitral annular calcification with normal cardiac valvular Doppler 3. Normal RV systolic pressure 4. No gross pericardial effusion exercise stress test was done on 04/01/2022 with exercise just over 5 minutes with shortness of breath, atrial ectopy noted, no ischemic changes Holter 2021 1. Patient was monitored for total period of 3 days and 1 hour 2. Baseline was normal sinus rhythm with average heart rate of 71 beats per minute 3. No significant pauses or bradycardia noted 4. Occasional ectopy noted 5. 5 short episodes of SVT with longest episode of 4 beats at 173 beats per minute 6. Patient reported 1 event correlated with sinus rhythm Airway Mallampati Class: II TM Dist: >3cm Neck ROM: Full Partial: Lower Heart: RRR Lungs: CTAB Assessment and Plan Assessment Anesthesia Assessment: Anesthesia Plan Discussed and PAT Visit Final Anesthetic Review Family History of Problems with Anesthesia: No (Mom takes long to wake) History of Problems with Anesthesia: No Documented by User: Luz Marina Alcantara MD 05/22/25 07:41 [facility] Past Medical History Medical History History of chemotherapy Hx of breast cancer GERD (gastroesophageal reflux disease) Seasonal allergies Environmental allergies Murmur Pleuritic pain De Quervain's tenosynovitis, right Abnormal EKG Obesity (BMI 30.0-34.9) Hypersomnolence Nocturnal hypoxemia Rhinitis Fall Left knee pain Right ankle pain Neck pain Leg pain Back pain Shoulder pain Encounter related to worker's compensation claim Tick bite Encounters for administrative purpose Deflation of breast implant History of breast cancer (~2008) History of diabetes mellitus GERMANIA (obstructive sleep apnea) Palpitations Steatosis, liver History of MRSA infection Arthritis Sickle cell trait History of COVID-19 (~09/2019) Hx of cardiac murmur Post-COVID syndrome (~2019) Pneumonia (~2019) Asthma Hypertension GERD (gastroesophageal reflux disease) Constipation Family History Family History Father DM (diabetes mellitus) Stroke Mother DM (diabetes mellitus) Brother No problems noted. Sister No problems noted. Son No problems noted. Surgical History Surgical History S/P gastric bypass (~2020) History of left knee surgery (~2010) History of Cassi-en-Y gastric bypass (~2020) History of bilateral mastectomy (~2008) History of colonoscopy (~2016) History of hysterectomy (~2003) History of laparoscopic cholecystectomy (~2002) History of esophagogastroduodenoscopy (EGD) (~2017) History of sleeve gastrectomy (~2010) Social History Social History Household Members: None Housing: House Are you a primary rn wound care to a significant other at home: No Do you presently have visiting nurse or other home services: No Alcohol intake: never Patient Tobacco Use Status: Former Tobacco user Tobacco use type: Cigarette Smoked in Last 30 Days: No e-Cigarette/Vaping Use: Never Used Second Hand Smoke Exposure: No Use of substances other than those prescribed or required for medical reasons: No Have you been hit, kicked, punched, or otherwise hurt by someone within the past year? 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 200 mcg-umeclid 1 inh inhalation BEDT ALEXA 05/18/25 05/18/25 05/18/25 History 62.5 mcg-vilant 25 mcg inhalat.powder (Trelegy Ellipta) Assessment and Plan Assessment Anesthesia Assessment: Chart Reviewed Final Anesthetic Review NPO: Yes ASA Class: III Final Preanesthetic Review: No Changes in Pt Med Stat, Meds/Allgs Chart Reviewed, Consent Obtained/Reviewed and Anes Risks/Benef Reviewed Patient Risk: Intermediate Procedure Risk: Intermediate Anesthetic Plan Anesthetic Plan: GA, MAC:, Neuraxial Block:, Regional Block and Agree w/ Assess. and Plan Disposition: Standard PACU
[2025-04-23 17:33] LABS: MRSA Nasal PCR NEGATIVE (Negative); SA Nasal PCR NEGATIVE (Negative)
[2025-05-17 15:52] LABS: MANUAL DIFF FLAG NO
[2025-05-17 16:28] LABS: Hematocrit 42.1 % (37.0-47.0); Hemoglobin 13.7 g/dl (12.0-16.0); Imm Gran Abs Auto 0.01 X10*3/uL (0.00-0.03); Imm Gran Pct Auto 0.2 % (0.0-0.4); Lymphocytes Absolute Auto 1.9 X10*3/uL (1.2-4.9); Mean Corpuscular HGB Conc 32.5 g/dl (31.0-35.0); Mean Corpuscular Hemoglobin 26.7 pg (27.0-33.0); Mean Corpuscular Volume 81.9 fL (80.0-98.0); NRBC Abs Auto 0.000 X10*3/uL (0.0-0.012); NRBC Pct Auto 0.0 /100WBC (0.0-0.2); Platelet Count 254 X10*3/uL (160-400); Red Blood Count 5.14 X10*6/uL (4.20-5.50); White Blood Count 5.4 X10*3/uL (4.8-10.8)
[2025-05-17 16:46] LABS: Anion Gap 13 (12-20); Blood Urea Nitrogen 16 mg/dL (9-16); Calcium 9.4 mg/dL (8.4-10.2); Carbon Dioxide 25 mmol/L (22-29); Chloride 111 mmol/L (96-108); Estimated Glomerular Filt Rate > 60; Potassium 3.9 mmol/L (3.3-5.1); Sodium 145 mmol/L (135-145)
[2025-05-22] VITALS (12 sets, daily range): BP systolic 109–157; BP diastolic 67–92; PULSE 57–98; RESP 16–20; TEMP 35.8–36.9; O2SAT 93–100; BMI 32.7; BMI 37.6
--- NOTE | ~2025-05-22 | XR_ITS ---
EXAMINATION: XR KNEE, LEFT CLINICAL INFORMATION: lt tka COMPARISON: August 28, 2024 TECHNIQUE: AP and lateral views of the left knee. FINDINGS: Postoperative changes are present related to recent arthroplasty. There is gas and edema in the anterior soft tissues. There is faint lucency through the medial tibial plateau, fracture is not ruled out. Skin paddy are in place anteriorly. XR/XR knee LT 2V IMPRESSION: Possible periprosthetic fracture involving the medial tibial plateau. [facility]use PAC notified via haku Electronically signed by: Demetrio Rodriguez MD 05/22/2025 04:45 PM ORSCOE NOEL
--- NOTE | 2025-05-22 07:40 | MHC.SHP ---
Pre-Procedural Eval Section A - 24 Hr Update-Section A only Date of Service: 05/22/25 The patient is an INPATIENT: No Changes since office visit: No Cold of Flu in the past 2 weeks, No New Medical Problems, No Changes in Medication and No Patient answered all questions The patient has been examined within 24 hours of the surgical procedure. The History & Physical has been completed within 30 days and I have reviewed it.: Yes Section B - Complete if H&P > 30 days Chief Complaint: Unilateral primary osteoarthritis, left knee Allergies: Allergies Allergy/AdvReac Type Severity Reaction Status Date / Time cat dander Allergy Severe Loss Voice Verified 05/17/25 14:33 environmental allergies Allergy Severe Sneezing Verified 05/17/25 14:33 Plan I have reviewed the history and physical and performed a pertinent physical examination on my patient. No changes have occurred unless specified. Time Spent With Patient Time: Total time managing care of this patient today ____ minutes.
[2025-05-22 07:46] LABS: Glucose, Whole Blood 96 mg/dL (60-115)
[2025-05-22] MEDS: Lactated Ringers 1,000 ML 100 ML IVCONT ×2 (07:48→14:29)
[2025-05-22 07:57] LABS: Hematocrit 43.2 % (37.0-47.0); Hemoglobin 14.5 g/dl (12.0-16.0)
--- NOTE | 2025-05-22 12:09 | PM.OP ---
Brief Operative Note Date of Service: 05/22/25 Pre-op diagnosis: Left knee OA Post-op diagnosis: same Procedure: Left TKA Implants: [employer] Triathlon posterio stabilized press fit 09/15/12ps/32a Surgeon: Jack Cross MD Anesthesia: regional and spinal Was an Business Management Intern used for this Procedure?: Yes Business Management Intern: Acacia Garcia Estimated blood loss (mL): 50 Tourniquet time (min): 75 IV fluids (mL): 1,000 Pathology: other Condition: stable Disposition: PACU
--- NOTE | 2025-05-22 12:12 | P.OP_ITS ---
Operative Note Operative Note Date of Service: 05/22/25 Narrative: Date of Service: 05/22/25 Pre-op diagnosis: Left knee OA Post-op diagnosis: same Procedure: Left TKA Implants: [place] Triathlon posterio stabilized press fit 09/15/12ps/32a Surgeon: Jack Cross MD Anesthesia: regional and spinal Was an Director Of Hemophilia used for this Procedure?: Yes Director Of Hemophilia: Acacia Garcia Estimated blood loss (mL): 50 Tourniquet time (min): 75 IV fluids (mL): 1,000 Pathology: other Condition: stable Disposition: PACU Procedure in detail: The patient was brought to the operating room and prepped and draped in standard sterile fashion. A time-out was called to identify proper site proper procedure proper surgeon and IV antibiotics were administered. 1 g of IV tranexamic acid was administered. I began by making a midline incision to the retinaculum and performed a medial parapatellar arthrotomy. The patella was translated laterally and the knee was flexed up.The anterior and medial compartment were eburnated. I performed a small medial peel and resected the infrapatellar fat pad. Ania's line was then used to drill my intramedullary femoral guide and my distal femur cut of 10 mm was made in 5 degrees of valgus while protecting the soft tissues. I then measured a # 4 femur and placed my cutting guide and made my anterior posterior and chamfer cuts protecting the soft tissues at all times. I then made my box but removing the PCL. Once I was satisfied with my cuts I turned my attention to the tibia. I removed the meniscus medially and laterally and , using an external cutting guide to maintain slight varus. I made my distal tibial cut in 0 deg slope of while protecting the posterior soft tissues at all times. An extension block was used to confirm appropriate amount of bony resection and I was satisfied with the balance in extension. I then sized a #4 tibia and once I was satisfied that there was complete tibial coverage I placed my trial and with the trial femur in place took the knee through range of motion. I was satisfied with the extension and flexion as well as the balance at 0, 30 and 90 degrees. I then turned my attention to the patella where I removed 1 cm from the undersurface of the patella and then trialed a 32a patellar button. Again the knee was taken through range of motion I was satisfied with the tracking. I then prepared the tibia with a drill and punch. A femoral bone plug was placed and the knee was irrigated copiously. I then press fit the patella, tibia and femur in standard fashion. I trialed different inserts until I selected a #13ps insert. The final insert was placed and local TXA was administered. A Werewolf cautery wand was used to maintain hemostasis over the capsule and meniscal beds, the gutters and peripatellar soft tissues. The knee was then closed with a running Quill suture, a 3 0 Vicryl and apddy on the skin. Patient was then placed in sterile dressing and brought to recovery room in stable condition there were no known complications.
[2025-05-22] MEDS: oxyCODONE HCl Immed Release 5 MG TABLET PO (14:13)
--- NOTE | 2025-05-22 14:35 | PHA.MEDREC ---
Pharmacy Consult ? Medication Reconciliation Pharmacy has reviewed the medication reconciliation completed by nursing.
--- NOTE | 2025-05-22 16:31 | HO.PM.IMCN ---
History of Present Illness Data of Consult Service Date: 05/22/25 Primary Care Provider: Umm Cates, [facility]- HPI Reason for consult: Medical management 64-year-old female past medical history of interstitial lung disease, asthma, hypertension, GERD here for an elective left total knee replacement today with Dr. Cross. Patient is doing well postoperatively, ambulated to bathroom with walker and voiding without difficulty, pain well-controlled. Dressing to knee clean dry and intact without any strike through drainage. Positive CMS. No nausea or vomiting. Denies any shortness of breath or chest pain. Patient with a history of GERMANIA which resolved after she had gastric bypass surgery in 2020 and lost weight. Patient with pulmonary nodules nodules persistent asthma followed by pulmonology. Patient has been taking clears. Review of Systems Review of Systems: Denies any shortness of breath, chest pain, headaches, dysuria, abdominal pain or discomfort, nausea, vomiting or diarrhea. Denies fever or chills. [facility] Medical History History of chemotherapy Hx of breast cancer GERD (gastroesophageal reflux disease) Seasonal allergies Environmental allergies Murmur Pleuritic pain De Quervain's tenosynovitis, right Abnormal EKG Obesity (BMI 30.0-34.9) Hypersomnolence Nocturnal hypoxemia Rhinitis Fall Left knee pain Right ankle pain Neck pain Leg pain Back pain Shoulder pain Encounter related to worker's compensation claim Tick bite Encounters for administrative purpose Deflation of breast implant History of breast cancer (~2008) History of diabetes mellitus GERMANIA (obstructive sleep apnea) Palpitations Steatosis, liver History of MRSA infection Arthritis Sickle cell trait History of COVID-19 (~09/2019) Hx of cardiac murmur Post-COVID syndrome (~2019) Pneumonia (~2019) Asthma Hypertension GERD (gastroesophageal reflux disease) Constipation Family History Father DM (diabetes mellitus) Stroke Mother DM (diabetes mellitus) Brother No problems noted. Sister No problems noted. Son No problems noted. Surgical History S/P gastric bypass (~2020) History of left knee surgery (~2010) History of Cassi-en-Y gastric bypass (~2020) History of bilateral mastectomy (~2008) History of colonoscopy (~2016) History of hysterectomy (~2003) History of laparoscopic cholecystectomy (~2002) History of esophagogastroduodenoscopy (EGD) (~2017) History of sleeve gastrectomy (~2010) Social History Household Members: None Housing: House Are you a primary patient centered care specialist to a significant other at home: No Do you presently have visiting nurse or other home services: No Alcohol intake: never Patient Tobacco Use Status: Former Tobacco user Tobacco use type: Cigarette Smoked in Last 30 Days: No e-Cigarette/Vaping Use: Never Used Second Hand Smoke Exposure: No Use of substances other than those prescribed or required for medical reasons: No Currently Displaying Signs/Symptoms of Drug Intoxication Withdrawal: No Have you been hit, kicked, punched, or otherwise hurt by someone within the past year? 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 Gender identity: Female Cognitive needs: No Hearing needs: No Vision needs: No Meds Allergies Allergy/AdvReac Type Severity Reaction Status Date / Time cat dander Allergy Severe Loss Voice Verified 05/17/25 14:33 environmental allergies Allergy Severe Sneezing Verified 05/17/25 14:33 Active Medications: Current Medications Acetaminophen (Acetaminophen 325 Mg Tablet) 650 mg PO Q6H PRN PRN Reason: Pain, Mild 1-3,fever,headache Albuterol Sulfate (Albuterol Sulfate 90 Mcg 8 Gm Inhaler) 1 puff INHALE Q4H PRN PRN Reason: Shortness of Breath Aspirin (Aspirin 325 Mg Tablet) 325 mg PO BID CHARLEY Celecoxib (Celecoxib 200 Mg Capsule) 200 mg PO BID CHARLEY Cyanocobalamin (Cyanocobalamin (Vitamin B-12) 1,000 Mcg/Ml Vial) 1,000 mcg IM Tu [facility] Docusate Sodium (Docusate Sodium 100 Mg Capsule) 200 mg PO BEDTIME [facility] Fluticasone/Umeclidinium/Vilanterol (Fluticasone/Umeclidinium/Vilanterol 200/62.5/25 Blst.W.Dev) 1 puff INHALE BEDTIME [facility] Hydromorphone HCl (Hydromorphone Hcl 1 Mg/Ml Syringe) 0.5 mg IVPUSH Q4H PRN; Protocol PRN Reason: Pain, Severe (Pain Scale 7-10) Last Admin: 05/22/25 16:18 Dose: 0.5 mg Lactated Ringer's (Lr) 1,000 mls @ 100 mls/hr IVCONT .Q10H CHARLEY Stop: 05/23/25 07:00 Last Admin: 05/22/25 14:29 Dose: 100 mls/hr Cefazolin Sodium/Dextrose (Ancef) 2 gm in 50 mls @ 100 mls/hr IV POSTOP ONE Stop: 05/22/25 17:29 Last Admin: 05/22/25 16:18 Dose: 100 mls/hr Ipratropium Imogene (Ipratropium Imogene Bill 0.03 % 30 Ml Only) 2 spray NOSTRIL-B RBID [facility] Lidocaine (Lidocaine 4 % Patch Adh..Patch) 1 patch TRANSDERMA DAILY [facility] Magnesium Hydroxide (Milk Of Magnesia 30 Ml Oral.Susp) 30 ml PO DAILY PRN PRN Reason: Constipation Montelukast Sodium (Montelukast Sodium 10 Mg Tablet) 10 mg PO BEDTIME [facility] Omeprazole (Omeprazole 20 Mg Capsule.Dr) 20 mg PO DAILY@0630 [facility] Ondansetron HCl (Ondansetron Hcl 4 Mg/2 Ml Vial) 4 mg IVPUSH Q8H PRN PRN Reason: Nausea and Vomiting Oxycodone HCl (Oxycodone Hcl Immed Release 5 Mg Tablet) 5 mg PO Q4H PRN PRN Reason: Pain, Moderate(Pain Scale 4-6) Last Admin: 05/22/25 14:13 Dose: 5 mg Oxycodone HCl (Oxycodone Hcl Er 10 Mg Tab.Er.12h) 10 mg PO BID [facility] Sodium Chloride (0.9 % Sodium Chloride Flush 3 Ml Syringe) 3 ml IVFLUSH QSHIFT [facility] Home Medications ?Medication ?Instructions ?Recorded ?Confirmed ?Last Taken ?Type cyanocobalamin (vitamin B-12) 1,000 mcg IM QWEEK 04/07/22 05/18/25 04/22/25 History 1,000 mcg/mL injection solution amlodipine 5 mg tablet 5 mg PO BEDTIME 05/18/25 05/18/25 05/21/25 History fluticasone fur. 200 mcg-umeclid 1 inh inhalation BEDTIME 05/18/25 05/18/25 05/18/25 History 62.5 mcg-vilant 25 mcg inhalat.powder (Trelegy Ellipta) Physical Exam Vital Signs and Narrative: Vital Signs: Last Vital Signs Temp 97.6 F 05/22/25 16:00 Pulse 79 05/22/25 16:00 Resp 18 05/22/25 16:00 BP 141/75 H 05/22/25 16:00 Pulse Ox 98 05/22/25 16:00 O2 Del Method Room Air 05/22/25 16:00 O2 Flow Rate 6 05/22/25 12:30 BMI result Body Mass Index 37.6 Alert and oriented X4, pleasant, cooperative. Answers questions. Neuro: CN II-X11 intact, no focal neurodeficits ENT: Hearing intact, MMM Cardiac: S1 S2 RRR, No ectopy Pulmonary: Lungs clear to auscultation, No increased WOB. Abdominal: BS active in all 4 quadrants, no guarding or tenderness. Not passing flatus MSK: Strength 5/5 upper and lower extremities. Positive dorsiplantar flexion. Strong pedal pulse. : Deferred Extremities: No edema in lower extremities Psych: Mood stable, Quiet and cooperative. Skin: Warm and dry, Intact. No strike through drainage to left knee Results Labs 05/22/25 07:51 05/17/25 15:50 Labs: Laboratory Results - last 24 hr 05/22/25 07:43 POC Glucose 96 Assessment and Plan (1) Hypertension: Qualifiers: Hypertension type: primary hypertension Qualified Code(s): I10 - Essential (primary) hypertension Status: Acute Plan 64-year-old female with past medical history listed below presented today for an elective left total knee replacement with Dr. Cross postop day 0. Left total knee replacement Treatment per Orthopedic team DVT prophylaxis with aspirin 325 mg twice daily Pain management per Orthopedic team Hypertension Patient on amlodipine and olmesartan Resume 05/23/2025 GERD Continue omeprazole Asthma/interstitial lung disease/pulmonary nodules Continue Trelegy, albuterol as needed and montelukast No hypoxia noted, not in acute exacerbation Followed by [facility] pulmonology Thank you for allowing me to participate in the care of this patient. Signing off. Please notify medical provider with any changes in condition or concerns.
--- NOTE | 2025-05-22 20:06 | P.DS_ITS ---
DS: Providers Provider Date of Service: 05/22/25 Date of discharge: 05/23/25 Primary care physician: NOEMI Walker-ZOHRA Consults: 05/22/25 13:48 Consult to Case Management Routine Comment: Consult to Hospitalist Routine Comment: Consulting Provider: [facility] [place] Hospitalists Reason For Exam: lt tka home w vna DS: Diagnosis Discharge Diagnosis (1) Status post total left knee replacement: Status: Acute DS: Summary Hospital Course Hospital Course: The patient underwent a successful left total knee arthroplasty on 05/22/[address] Cross, was transferred to PACU and then to the floor to recover. During their stay, their vitals were stable, afebrile at 97.0. Labs were unremarkable, H/H 12.2/35.3 . POD 1 she was started on ASA 325 mg tabs po bid for DVT ppx, they also received Physical Therapy services twice a day. Physical therapy should include gait training, ROM to tolerance and quad strength. She is WBAT. Prior to discharge, her dressing was clean dry and intact. The Aquacel dressing should remain intact and dry at all times. Any concerns with the dressing, please contact orthopedic office. No showering. The plan is to be discharged home with VNA services Time Attestation Discharge Coordination Time (in mins): 30 Quality: Safe Use of Opioids Does Pt have an Active Cancer Diagnosis on the Problem List?: No Quality: Stroke Does the patient have a stroke diagnosis?: No Physical Exam Vital Signs: Vital Signs: Last Vital Signs Temp 96.5 F L 05/22/25 19:35 Pulse 92 05/22/25 19:35 Resp 18 05/22/25 19:35 BP 157/81 H 05/22/25 19:35 Pulse Ox 94 05/22/25 19:35 O2 Del Method Room Air 05/22/25 19:35 O2 Flow Rate 6 05/22/25 12:30 BMI result Body Mass Index 37.6 Const: General: cooperative, healthy appearing and no acute distress Resp: Effort & Inspection: normal respiratory effort and able to speak in complete sentences Cardio: Rate: regular rate Peripheral pulses: Peripheral pulses 2+ throughout GI: Palpation (GI): Soft to palpation Skin: General skin exam: no rashes or lesions noted Extrem: Other: Left knee bandage is clean dry and intact full extension able to activate the quad plantar and dorsiflex the right foot and ankle intact Calf supple and nontender Neurovascularly intact DS: Data Data Completed and Pending Completed studies during hospitalization [Text1]: Procedures Bypass Stomach to Jejunum, Percutaneous Endoscopic Approach (09/26/20) Release Peritoneum, Percutaneous Endoscopic Approach (09/26/20) Repair Diaphragm, Percutaneous Endoscopic Approach (09/26/20) Pending studies at discharge: Pending at discharge 05/22/25 11:02 Surgical [PTH] Routine Labs on day of discharge: Laboratory Results - last 24 hr 05/22/25 05/22/25 07:43 07:51 Hgb 14.5 Hct 43.2 POC Glucose 96 Discharge Plan Discharge Patient Disposition: Home Health Service Referrals: Marianela ESPOSITO [Outside] - 3-5 Days Referral Note: HOME SERVICES FOR PHYSICAL THERAPY- A THERAPIST WILL CALL YOU TO SET UP FIRST VISIT Acacia Garcia PA-C [Physician Electric Switch Tester, Orthopedics] - 2 Weeks Referral Note: 06/12/25 11:00 [facility] [place] Orthopedic Surgeons Acacia Garcia PA-C Discharge Medications: New celecoxib 200 mg Capsule 200 mg PO BID 30 Days Qty: 60 0RF aspirin 325 mg Tablet 325 mg PO BID 42 Days Qty: 84 0RF oxycodone 5 mg Tablet 5 mg PO Q4H PRN (Reason: Pain, Moderate(Pain Scale 4-6)) 7 Days Qty: 42 0RF Rx Instructions: Partial Fill upon patient request. acetaminophen 325 mg Tablet 650 mg PO Q6H PRN (Reason: Pain, Mild 1-3,Fever,Headache) 30 Days Qty: 240 0RF Continued montelukast [Singulair] 10 mg tablet 10 mg PO BEDTIME Qty: 30 2RF ipratropium bromide 21 mcg (0.03 %) spray,non-aerosol 2 spray intranasal BID Qty: 30 3RF lidocaine 5 % adhesive patch,medicated 1 patch topical DAILY Qty: 30 8RF Rx Instructions: leave on most painful area for up to 12 hrs (DME) Folding Front Wheeled walker See Rx Instructions .ROUTE .MEDSUPPLY Qty: 1 0RF Rx Instructions: Duration: 99 days amlodipine 5 mg tablet 5 mg PO BEDTIME Trelegy Ellipta 200-62.5-25 mcg blister with device 1 inh inhalation BEDTIME cyanocobalamin (vitamin B-12) 1,000 mcg/mL solution 1,000 mcg IM QWEEK Vitron-C 65 mg iron- 125 mg tablet,delayed release (DR/EC) 1 tab PO DAILY 90 Days Qty: 90 2RF Rx Instructions: swallow whole; do not chew/break/dissolve/open cholecalciferol (vitamin D3) 50 mcg (2,000 unit) capsule 50 mcg PO DAILY Qty: 90 3RF olmesartan 20 mg tablet 20 mg PO DAILY Qty: 90 2RF albuterol sulfate 90 mcg/actuation HFA aerosol inhaler 1 puff inhalation Q4H PRN (Reason: Shortness Of Breath) Qty: 1 3RF pantoprazole 40 mg tablet,delayed release (DR/EC) 40 mg PO QAM Qty: 90 3RF docusate sodium [Colace] 100 mg capsule 200 mg PO BEDTIME Qty: 60 5RF Discharge Orders: Discharge Order (Routine); Ordered 05/23/25 Ordered By: Acacia Garcia Diet: Regular diet Activity on Discharge: Use cane or walker Activity Restrictions/Additional Instructions: Physical Therapy for ROM 0-120, quad strength, gait training. Use walker for ambulation Limit stair climbing No shower or tub bath No driving for 6 weeks Continue anticoagulant Keep Aquacel dressing clean, dry and intact. Follow up with orthopedics in 2 weeks -Bandage/Incision Site Care: -Ice 20mins at a time -Make sure you use a towel or cloth on your skin as a barrier -DO NOT remove the bandage -Keep Bandage clean, dry and intact -Do not get the bandage wet: -No tub bath, pools or hot tubs -If there are any concerns regarding the bandage please call orthopedics: [phone] -Knee Precautions: -Refrain from putting pillows under the knee -Keep leg straight while resting the knee -Avoid low chairs and deep couches -Use supportive shoes with nonslip soles -Physical Therapy: -Patient is WBAT with the use of a walker -Range of Motion: 0-120 degrees. -Strengthening: Quadriceps and hip muscles -Walking: Gait training and gradually increasing distance with walker -Ankle pumps and incentive spirometry to limit the risk of blood clot -Diet: -Resume regular diet as tolerated. -Drink plenty of fluids and eat a high-fiber foods to avoid constipation -This is a common side effect of pain medication) -Take stool softeners as prescribed -Blood Clot Prevention: -Take the prescribed blood thinner (Aspirin) as directed for 6 weeks -Perform ankle pumps and walk frequently with the walker and assistance if needed -Report calf pain, swelling, or shortness of breath immediately Print Language: Other
--- NOTE | 2025-05-22 20:08 | P.F2F_ITS ---
Service Date Service Date: 05/22/25 Encounter Date of encounter: 05/22/25 Reasons for Services Signs and symptoms assessed: Weakness, poor balance, poor gait mechanics Reason for physical therapy: home safety and mobility, therapeutic exercises, restore joint function, gait/transfer training, ADL training and energy conservation Reason for occupational therapy: home safety and mobility, therapeutic exercises, restore joint function, gait/transfer training, ADL training and energy conservation Overseeing Care: Jack Cross Homebound: Leaving the home is medically contraindicated at this time without the asist of a device and/or another person due th the listed conditions above and below. Reason homebound: unsteady gait / fall risk, pain with ambulation, poor balance / fall risk and unable to drive Homebound supporting statement: Pt. is considered home bound due to recent surgery. Unable to drive, poor balance, poor gait mechanics. Certification: Based on the above findings, I certify that this patient is confined to the home and needs intermittent shelter care, physical therapy and/or speech therapy, or continues to need occupational therapy. The patient is under my care, and I have initiated the establishment of the plan of care. The patient will be followed by a physician who will periodically review the plan of care. Time Spent With Patient Time: Total time managing care of this patient today ____ minutes.
[2025-05-22] MEDS: 0.9 % Sodium Chloride Flush 3 ML SYRINGE IVFLUSH (20:41)
[2025-05-22] MEDS: Ipratropium Bromide Nas 0.03 % 30 ML SPRAY 2 SPRAY NOSTRIL-B (20:41)
[2025-05-22] MEDS: oxyCODONE HCl ER 10 MG TAB.ER.12H PO (20:41)
[2025-05-22] MEDS: Fluticasone/Umeclidinium/Vilanterol 200/62.5/25 BLST.W.DEV 1 PUFF INHALE (20:59)
[2025-05-23] MEDS: Lactated Ringers 1,000 ML 100 ML IVCONT (00:28)
[2025-05-23 03:54] VITALS: BP 151/76; PULSE 66; RESP 16; TEMP 36.6; O2SAT 97
[2025-05-23 07:07] VITALS: BP 157/78; PULSE 85; RESP 16; TEMP 36.1; O2SAT 97
[2025-05-23 07:10] LABS: Hematocrit 35.3 % (37.0-47.0); Hemoglobin 12.2 g/dl (12.0-16.0); Imm Gran Abs Auto 0.05 X10*3/uL (0.00-0.03); Imm Gran Pct Auto 0.4 % (0.0-0.4); Lymphocytes Absolute Auto 1.1 X10*3/uL (1.2-4.9); Mean Corpuscular HGB Conc 34.6 g/dl (31.0-35.0); Mean Corpuscular Hemoglobin 27.1 pg (27.0-33.0); Mean Corpuscular Volume 78.3 fL (80.0-98.0); NRBC Abs Auto 0.020 X10*3/uL (0.0-0.012); NRBC Pct Auto 0.2 /100WBC (0.0-0.2); Platelet Count 254 X10*3/uL (160-400); Red Blood Count 4.51 X10*6/uL (4.20-5.50); White Blood Count 11.4 X10*3/uL (4.8-10.8)
[2025-05-23] MEDS: oxyCODONE HCl Immed Release 5 MG TABLET PO ×2 (07:25→13:04)
[2025-05-23] MEDS: oxyCODONE HCl ER 10 MG TAB.ER.12H PO (07:27)
[2025-05-23] MEDS: Lidocaine 4 % Patch ADH..PATCH 1 PATCH TRANSDERMA (07:27)
[2025-05-23 07:29] LABS: Anion Gap 15 (12-20); Blood Urea Nitrogen 11 mg/dL (9-16); Calcium 9.1 mg/dL (8.4-10.2); Carbon Dioxide 21 mmol/L (22-29); Chloride 107 mmol/L (96-108); Creatinine Clr Calc Pharmacy 120.4; Estimated Glomerular Filt Rate > 60; Potassium 4.5 mmol/L (3.3-5.1); Sodium 138 mmol/L (135-145)
--- NOTE | 2025-05-23 08:21 | HO.POSTANES ---
Post Anesthesia Evaluation Post Anesthesia Evaluation Date of Service: 05/23/25 Vital Signs: Vital Signs Temp Pulse Resp BP Pulse Ox O2 Del Method 05/23/25 07:07 97 F 85 16 157/78 H 97 Room Air 05/23/25 03:54 97.9 F 66 16 151/76 H 97 Room Air 05/22/25 21:02 92 16 Anesthesia: Spinal Mental Status: Awake Pain Control: Satisfactory Nausea/Vomiting: None Hydration: Adequate Anesthesia-Related Issues: No Anes. Related Issues
--- NOTE | 2025-05-23 09:14 | MHC.CM.PN ---
CM MET WITH PT AT BEDSIDE. PT LIVES ALONE AND IS FUNCTIONALLY INDEPENDENT AT BASELINE. NO SERVICES OR DME. PT DECLINES COMPLETING HCP AT THIS TIME. PCP JULI LOPEZ DP: HOME WITH NEW [facility] FOR P.T. IS THE PLAN. PT HAS OWN RIDE HOME. CM WILL CONTINUE TO FOLLOW FOR ANY CHANGE TO DC PLAN/NEEDS.
== END 2025-05-23 13:30 | disposition home health service (06) ==
LOC: HO.SSS 07:18 → HO.S3 12:47
PROVIDERS: Physician Assistant; PCP Nurse Practitioner Family; Visit Provider Orthopaedic Surgery
PROC: (CPT 27447; principal; 2025-05-22 09:50)
DX: M17.12 Unilateral primary osteoarthritis, left knee (principal); M25.562 Pain in left knee; M23.52 Chronic instability of knee, left knee; Z91.81 History of falling; I10 Essential (primary) hypertension; D50.9 Iron deficiency anemia, unspecified; E11.9 Type 2 diabetes mellitus without complications; D57.3 Sickle-cell trait; K21.9 Gastro-esophageal reflux disease without esophagitis; J45.909 Unspecified asthma, uncomplicated; R91.8 Other nonspecific abnormal finding of lung field; J84.9 Interstitial pulmonary disease, unspecified; Z87.01 Personal history of pneumonia (recurrent); G47.33 Obstructive sleep apnea (adult) (pediatric); K76.0 Fatty (change of) liver, not elsewhere classified; Z86.14 Personal history of Methicillin resistant Staphylococcus aureus infection; Z85.3 Personal history of malignant neoplasm of breast; Z92.21 Personal history of antineoplastic chemotherapy; Z90.13 Acquired absence of bilateral breasts and nipples; Z79.51 Long term (current) use of inhaled steroids; Z79.899 Other long term (current) drug therapy; Z99.89 Dependence on other enabling machines and devices; Z98.84 Bariatric surgery status; Z98.890 Other specified postprocedural states; Z87.891 Personal history of nicotine dependence
CPT/HCPCS: 27447; 36415; 73560; 80048; 82947; 85014; 85018; 85025; 86850; 86900; 86901; 87640; 87641; 88304; 88305; 88311; 94640; 97162; C1776; J0131; J0165; J0665; J0690; J1100; J1171; J2003; J2151; J2250; J2371; J2405; J2704; J7120

== ENCOUNTER → 2025-05-22 06:47 | Outpatient (BNV) | payer OTHER, SELFPAY | PROVIDERS: PCP Nurse Practitioner Family; Visit Provider Nurse Practitioner Family | DX: I10 Essential (primary) hypertension (principal) | CPT/HCPCS: 99222 ==

== ENCOUNTER → 2025-05-22 06:47 | Outpatient (BNV) | payer OTHER, SELFPAY | PROVIDERS: PCP Nurse Practitioner Family; Visit Provider Orthopaedic Surgery | DX: Z47.1 Aftercare following joint replacement surgery (principal); Z96.652 Presence of left artificial knee joint | CPT/HCPCS: 27447; 99024; G0180 ==

== ENCOUNTER → 2025-05-22 12:16 | Outpatient (BNV) | payer OTHER, SELFPAY | PROVIDERS: PCP Nurse Practitioner Family; Visit Provider Radiology Diagnostic Radiology | DX: Z96.652 Presence of left artificial knee joint (principal) | CPT/HCPCS: 73560 ==

== ENCOUNTER 2025-06-06 12:53 | Outpatient (REF) | payer OTHER, SELFPAY | END 2025-06-06 12:54 | disposition home or self-care (01) | LOC: HO.LAB 12:53 | PROVIDERS: PCP Nurse Practitioner Family; Visit Provider Nurse Practitioner Family | DX: N28.1 Cyst of kidney, acquired (principal); R31.0 Gross hematuria; R39.15 Urgency of urination | CPT/HCPCS: 51798; 81003; 88112 ==

== ENCOUNTER 2025-06-06 12:53 | Outpatient (AMB) | payer OTHER, SELFPAY ==
--- OUTSIDE RECORDS SUMMARY | 2025-06-06 12:55 | XMS_ITS | Encounter Summary ---
Author Organization [facility] Address [address] [place] [address] Care Team Providers Care Marble Coper Name Role Phone Jorge Enriquez MD Primary Care Provider [phone] Encounter Details Date Type Department Care Team (Late st Contact Info) Description 08/31/2022 Scanned Document [facility] [address] [facility] [address] [place] [id number] Provider, Generic Social History Tobacco Use [...] on filedocumented in this encounter Care Teams Marble Coper Relationship Specialty Start Date End Date Jorge Enriquez MD [address] [place] [address] [place] [address] PCP - General 08/31/22 documented as of this encounter
--- OUTSIDE RECORDS SUMMARY | 2025-06-06 12:55 | XMS_ITS | Encounter Summary ---
Author Organization [facility] Address [address] [place] [address] Care Team Providers Care 3Rd Pressman Name Role Phone Jorge Enriquez MD Primary Care Provider [phone] Encounter Details Date Type Department Care Team (Late st Contact Info) Description 09/15/2022 Scanned Document [facility] Plastic & Reconstructive Surgery [place] [address] [place] [address] Breast [place] [employer], [place] [id number] Rosina Mckinney MD [address] [id number] Social History Tobacco Use Types Packs/Day Years [...] on filedocumented in this encounter Care Teams 3Rd Pressman Relationship Specialty Start Date End Date Jorge Enriquez MD [address] [place] [address] Dr [address] [place] [address] [place] [address] PCP - General 08/31/22 documented as of this encounter
--- OUTSIDE RECORDS SUMMARY | 2025-06-06 12:55 | XMS_ITS | Patient Health Record ---
Author Organization [facility] Address [address] [place] [id number] Care Team Providers Care Owner Oral Surgeon Name Role Phone Mansi(inactive) Fer MOCK Primary Care Provider U Dean Katz Jr [phone] Allergies Allergen (clinical drug ingredient) Drug/Non Drug Allergy documented on EMR Reaction Allergy Type Onset Date Status cats,mold ,grass,gaston es (uncoded) Unknown Allergy Active Reason For Referral No Information Medications Medication SIG (Take, Route, Frequency, Duration) Notes Start Date End Date Status metFORMIN HCl 500 MG Tablet 1 tablet wit h meals Orally Twice a day Active Advil Active Vitamin D 5000 Tablet 1 tablet Orally On ce a day Active Hydrocortisone Activ e Colyte with Flavor Packs 240 GM Solution Reconstituted As directed Orally Over the specified time.; Duration: 1 day(s) 09/24/2016 Active Social History Social History Additional Details Category Social Info Options Details Miscellaneous: Marital status: single 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 Section Notes: former smoker over 30 years Problems Problem Type SNOMED Code ICD Code Onset Dates Problem Status W/U Status Risk Notes Problem Colon cancer screening (805031816) Colon cancer screening (Z12.11) Active confirmed Problem Constipation (99453030) Constipation, unspecified constipation type (K59.00) Active confirmed Plan Of Treatment Future Test Test Name Order Date COLONOSCOPY 09/24/2016 Insurance Providers Payer Name Payer Address Payer Phone Subscriber Number Group Number Insured Name Patient Relationship to Insured Coverage Start Date Coverage End Date [place] [address] [place] [phone] [id number] TETE THOMAS Self - patient is the insured Medical (General) History Medical History History ICD Code diabetes mellitus hypertension heart murmur Denies [place],CVA,Lung disease,renal disease Surgical History Surgery Date(Month/Year) hysterectomy 2003 breast cancer bilateral 2009 knee surgery 2010 gastric sleeve 2013
--- OUTSIDE RECORDS SUMMARY | 2025-06-06 12:55 | XMS_ITS | Encounter Summary ---
Author Organization [facility] Address [address] [place] [address] Care Team Providers Care Manager Web Application Name Role Phone oJrge Enriquez MD Primary Care Provider [phone] Encounter Details Date Type Department Care Team (Late st Contact Info) Description 10/30/2022 Scanned Document [facility] Plastic & Reconstructive Surgery [place] [address] Breast [place], [place] [address] Rosina Mckinney MD [address] [facility] [address] [place], [place] [address] Social History Tobacco Use Types Packs/Day Years [...] filedocumented in this encounter Care Teams Manager Web Application Relationship Specialty Start Date End Date Jorge Enriquez MD [address] [place] [address] [place] [address] PCP - General 08/31/22 documented as of this encounter
--- OUTSIDE RECORDS SUMMARY | 2025-06-06 12:55 | XMS_ITS | Clinical Summary ---
Author Organization [facility] Address [address] [place] [address] Care Team Providers Care Newsroom Intern Name Role Phone Jorge Enriquez MD Primary Care Provider [phone] Allergies No known active allergies Medications Blood [...] history exists Influenza Vaccine 01/12/2025 COVID-19 Vaccine (2024- season) 2025 Hepatitis B Vaccines Aged Out No long er eligible based on patient's age to complete this topic Medical Devices Implanted Type Area Gi Technician Device Identifier Shelf Expiration Date Model / Serial / Lot [id number] Industrial Waste Inspector Anastomosis [place] [employer] Titanium 20mhz Od3 M - [id number] Implanted:Qty: 1 on 09/28/2022 by Jose Rafael Barroso MD at [facility] Graft Right: Breast [employer] [facility] 03/16/2027 [id number] / [id number] / [id number] Industrial Waste Inspector Anastomosis [place] [employer] Titanium 20mhz Od3 M - [id number] Implanted:Qty: 1 on 09/28/2022 by Rosina Mckinney MD at [facility] Graft Left: Breast [employer] [facility] 03/16/2027 [id number] / [id number] / [id number] Procedures Procedure Name Priority Date/Time Associated Diagnosis [...] Below [facility] [address] [place] [address] from Last 3 Months or Most Recently Relevant to Health Maintenance Insurance [facility] - PPO Advance Directives * Full Code (Latest Code Status on File) Date Activated Date Inactivated Comments 09/28/2022 6:38 PM 02/10/2023 5:34 AM * Full Code Date Activated Date Inactivated Comments 09/28/2022 5:34 AM 09/28/2022 6:38 PM Care Teams Newsroom Intern Relationship Specialty Start Date End Date Jorge Enriquez MD [address] [place] [address] Dr Moura, JORGE L [id number] PCP - General 08/31/22
--- OUTSIDE RECORDS SUMMARY | 2025-06-06 12:55 | XMS_ITS | Encounter Summary ---
Author Organization [facility] Address [address] [place] [address] Care Team Providers Care Hand Almond Blancher Name Role Phone Jorge Enriquez MD Primary Care Provider [phone] Encounter Details Date Type Department Care Team (Late st Contact Info) Description 10/30/2022 Scanned Document [facility] Plastic & Reconstructive Surgery [place] [address] Breast [place], [place] [address] Rosina Mckinney MD [address] [facility] [address] [place], [place] [address] Social History Tobacco Use Types Packs/Day Years [...] filedocumented in this encounter Care Teams Hand Almond Blancher Relationship Specialty Start Date End Date Jorge Enriquez MD [address] [place] [address] [place] [address] PCP - General 08/31/22 documented as of this encounter
--- OUTSIDE RECORDS SUMMARY | 2025-06-06 12:55 | XMS_ITS | Clinical Summary ---
Author Organization [facility] Address [address] [place] [address] Care Team Providers Care Scrap Wheeler Name Role Phone Umm Cates NP Primary Care Provider [phone] Allergies No known active allergies Medications acetaminophen (TYLENOL) 325 MG tablet Take 2 tablets (650 mg total) by mouth every 6 hours as needed. 10/03/19 23 Active cholecalciferol, vitamin D3, (VITAMIN D3) 125 mcg (5,000 unit) capsule 03/26/20 22 Active cyanocobalamin (VIT B-12) 1,000 mcg/mL injection INJECT 1 ML INTRAMUSCULARLY ONCE A WEEK 03/09/20 22 Active ipratropium (ATROVENT) 21 mcg (0.03 %) nasal spray 01/18/20 25 Active lidocaine (LIDODERM) 5 % patch 01/16/20 25 Active lisinopril-hydroC HLOROthiazide (PRINZIDE,ZESTORE TIC) 20-12.5 mg per tablet Take 1 tablet by mouth daily. 08/05/19 23 Active montelukast (SINGULAIR) 10 mg tablet Refills 0, Maintenance, 06/13/24 2:16:00 PM EST, Partial fill upon patient request if the prescription is for a schedule II opioid drug. 06/13/20 24 Active olmesartan (BENICAR) 5 MG tablet 11/04/19 25 Active omeprazole (PriLOSEC) [address] Capsule 03/26/20 22 Active pantoprazole (PROTONIX) [address] tablet 11/03/19 25 Active glucose 4 GM chewable tabletIndications :Hypoglycemia Chew 4 tablets (16 g total) as needed for low blood sugar. 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) 1 Device by Miscellaneous route Every 15 Days. 2 each 6 01/27/20 Active CONTOUR NEXT METER kit Use as instructed 1 each 1 01/27/20 Active CONTOUR NEXT TEST STRIPS Strp 1 strip by Skin prick route daily. Use As Directed 100 strip 3 01/27/20 Active lancets 33 gauge Misc 1 Lancet by Miscellaneous route daily. 100 each 3 01/27/20 Active blood-glucose sensor (DEXCOM G7 SENSOR) 1 each by Miscellaneous route every 10 days. Apply sensor. Remove and replace every 10 days. 3 each 01/27/20 Active Active Problems Problem Noted Date Diagnosed Date Hypoglycemia 01/26/2025 Assessment & Plan (02/05/2025 10:28 AM EDT): - 64 yo female with a hx of Sleeve gastrectomy (2010) and Cassi en Y Gastric bypass (2020) confirmed hypoglycemia with Whipple's triad. CGM report from first visit showed both fasting and post prandial hypoglycemia. Additionally, she has had 1 fasting serum glucose level of 46 with an elevated Insulin and Proinsulin level. This was concerning for an Insulinoma. She was brought today for a 24 hour fast. Overnight fasting labs showing insulin secretion appropriately suppressed, no evidence of hypoglycemia. Low suspicion for insulinoma, cortisol normal. Labs collected at 24 hours also showed no hypoglycemia, normal Insulin levels, and elevated Beta hydroxybutyrate levels, which make Insulinoma less likely. - Lucia 3+ data shows improvement. She was having 14% lows, but now with dietary changes has only 6% lows, all post prandial. She also notes that Dexcom G7 is more accurate. Plan: - Continue Dexcom G7 use. - She has glucose tablets and Glucagon - She has an appointment with Chantale Senior on 02/13/25 - Follow up with me in April 2025. Assessment & Plan (01/26/2025 10:50 AM EDT): - 64 yo female with a hx of Sleeve gastrectomy (2010) and Cassi en Y Gastric bypass (2020) confirmed hypoglycemia with Whipple's triad. CGM report showing both fasting and post prandial hypoglycemia. She has had Level II Hypoglycemic events that she is treating with juice/candy. She has not made any dietary changes and is not on pharmacological treatment. Additionally, she has had 1 fasting serum glucose level of 46 with an elevated Insulin and Proinsulin level. Although this could be post bariatric hypoglycemia, there is concern for an Insulinoma Plan: - Will schedule 24 hour Fast. I have provided patent with instructions - Gave instructions for general hypoglycemia and post bariatric hypoglycemia - Sent glucose tablets and Glucagon - Sent FSL3+ and gave sample. She needs to confirm CGM lows with fingerstick glucose - She has an appointment with Chantale Senior on 02/13/25 - Follow up with me in 3 months Encounters Date Type Department Care Team Description 03/19/2025 Telephone [facility] Adult Diabetes at [facility] [address] [place] [address] [place] 03/21 virtual appt (CGM Uploading or Glucose Logs?) from Last 3 Months Family History Medical History Relation Comments Diabetes Father Stroke Father Diabetes Mother Hypertension Mother Relation Status Comments Father Mother Social History Tobacco Use Types Packs/Day Years Used Date Smoking Tobacco: Former Cigarettes Smokeless Tobacco: Never Tobacco Cessation:Counseling Given: Not Answered Comments Unknown Sex and Gender Information Value Date Recorded Sex Assigned at Female 12/13/2024 4:14 PM EDT Legal Sex Female 4:13 PM EDT Gender Identity Female 12/13/2024 4:14 PM EDT Sexual Orientation Not on file Last Filed Vital Signs Vital Sign Reading Time Taken Comments Blood Pressure 142/82 02/02/2025 9:01 AM EDT Pulse 58 02/02/2025 9:01 AM EDT Temperature - - Respiratory Rate - - Oxygen Saturation - - Inhaled Oxygen Concentration - - Weight 103 kg (227 lb) 02/02/2025 7:42 AM EDT Height 177.8 cm (5' 10 ) 02/02/2025 7:42 AM EDT Body Mass Index 32.57 02/02/2025 7:42 AM EDT Plan of Treatment Health Maintenance Due Date Last Done Comments Celiac Disease Screening 1960 Diabetic Eye Exam 1960 Hemoglobin A1c 1960 Lipid Panel 1960 TSH Level 1960 Urine Microalbumin 1960 Depression Screening 1972 Hepatitis C Screening 1978 Pneumococcal Vaccine: 50+ Years (1 of 2 - PCV) 12/16/1979 Pap Smear 1981 Cervical Cancer Screening 1990 HPV/Cotest 1990 Breast Cancer Screening 2000 CT Colonography 2005 Colonoscopy 2005 Colorectal Cancer Screening 2005 FIT 2005 FOBT 2005 Multitarget Stool DNA (Cologuard) 2005 Sigmoidoscopy 2005 Zoster Vaccine (1 of 2) 2010 COVID-19 Vaccine ( season) 2025 06/12/2024, 04/13/2023, 03/06/2022, Additional history exists Influenza Vaccine (#1) 2025 05/06/2020, 2016 Blood Pressure 02/02/2026 02/02/2025 DTaP,Tdap,and Td Vaccines (2 - Td or Tdap) 09/22/2026 09/22/2016 Meningococcal B Vaccines Aged Out No longer eligible based on patient's age to complete this topic Meningococcal Vaccines Aged Out No lo nger eligible based on patient's age to complete this topic Goals Goal Patient Goal Type Associated Problems Recent Progress Patient-Stated? Author HO - Treat low glucose (<70) with 8-10g of fast-acting carbohydrate. Wait 15 minutes and re-check glucose DSME - Hypoglycemia No Chantale Perkins RD Note: Have snack with carb + pro/fat once glucose >70mg/dL to stabilize glucose. NU - Aim to limit carbs at meals to 30g and snacks to 15g. DSME - Nutrition/Healthy Eating No Chantale Perkins RD Note: Pick low glycemic options listed in packet and pair with protein and/or fat. Insurance [place] Care Teams Scrap Wheeler Relationship Specialty Start Date End Date Umm Cates NP [address] [place] [id number] PCP - General Nurse Practitioner 12/13/24
--- OUTSIDE RECORDS SUMMARY | 2025-06-06 12:55 | XMS_ITS | Encounter Summary ---
Author Organization [facility] Address [address] [place] [address] Care Team Providers Care Car Supplier Name Role Phone Jorge Enriquez MD Primary Care Provider [phone] Encounter Details Date Type Department Care Team (Late st Contact Info) Description 11/23/2022 Scanned Document [facility] Plastic & Reconstructive Surgery [place] [address] Breast [place], [place] [id number] Rosina Mckinney MD [address] [facility] [address] [place], [place] [address] Social History Tobacco Use Types Packs/Day Years [...] on filedocumented in this encounter Care Teams Car Supplier Relationship Specialty Start Date End Date Jorge Enriquez MD [address] [place] [address] [place] [address] PCP - General 08/31/22 documented as of this encounter
--- OUTSIDE RECORDS SUMMARY | 2025-06-06 12:55 | XMS_ITS | Encounter Summary ---
Author Organization [facility] Address [address] [place] [address] Care Team Providers Care Pillar Worker Name Role Phone Jorge Enriquez MD Primary Care Provider [phone] Encounter Details Date Type Department Care Team (Late st Contact Info) Description 10/22/2022 Scanned Document [facility] Plastic & Reconstructive Surgery [place] [address] [place] [address] Rosina Mckinney MD [address] [facility] [address] [place] [address] Social History Tobacco Use Types [...] on filedocumented in this encounter Care Teams Pillar Worker Relationship Specialty Start Date End Date Jorge Enriquez MD [address] [place] [address] [place] [address] PCP - General 08/31/22 documented as of this encounter
--- NOTE | 2025-06-06 12:56 | MHC.OFFVIS ---
Intake Visit Reasons: microscopic hematuria/UA/PVR Intake Note: Patient is present for MICROSCOPIC HEMATURIA/PVR/UA Urology Medication:VITAMIN B12 Antibiotic Allergy:NONE Blood Thinner:NONE TODAY'S PVR:0ML'S Hospice Fellow Required: No Allergies cat dander Allergy (Severe, Verified 06/06/25 13:51) Loss Voice environmental allergies Allergy (Severe, Verified 06/06/25 13:51) Sneezing Medication List - Last Reconciled 06/06/25 by HANNA Paul acetaminophen 650 mg (2 x 325 mg) PO Q6H PRN 30 days albuterol sulfate 90 mcg/actuation 1 puff inhalation Q4H PRN amlodipine 5 mg PO BEDTIME aspirin 325 mg PO BID 42 days celecoxib 200 mg PO BID 30 days cholecalciferol (vitamin D3) 50 mcg PO DAILY cyanocobalamin (vitamin B-12) 1,000 mcg IM QWEEK docusate sodium (Colace) 200 mg (2 x 100 mg) PO BEDTIME ruqsuusobem-ihllzecwy-dplqpxce 200-62.5-25 mcg (Trelegy Ellipta) 1 inh inhalation BEDTIME [Folding Front Wheeled walker Duration: 99 days] ipratropium bromide 2 sprays intranasal BID iron,carbonyl-vitamin C 65 mg iron- 125 mg (Vitron-C) 1 tab PO DAILY 90 days lidocaine 5% 1 patch topical DAILY montelukast (Singulair) 10 mg PO BEDTIME olmesartan 20 mg PO DAILY oxycodone 5 mg PO Q4H PRN 7 days pantoprazole 40 mg PO QAM HPI Comments Details: Elma is a very pleasant 64-year-old female patient of Dr. Cates. She has a past medical history of breast cancer, GERD, seasonal allergies, obesity, rhinitis, obstructive sleep apnea, liver steatosis, sickle cell trait, and cardiac murmur, arthritis. In discussion with the patient today she reports noting intermittent episodes of potential gross hematuria since November of this year. She reports having followed up with her PCP at which time recommendations were made for urology referral for further assessment evaluation. She is unsure if bleeding is coming from the vaginal area or the urethra. In office urinalysis results reviewed with the patient today 2+ microscopic hematuria. In review of patient's chart it does appear a retroperitoneal ultrasound was ordered and performed and these results were reviewed and communicated with the patient today. 04/07 bilateral kidneys are normal in size and echotexture there are bilateral Bosniak 1 renal cysts. No collecting system dilatation of either kidney. Normal color Doppler. Urinary bladder is unremarkable. She does report a previous history of smoking however this was in her 20s. She reports she smoked socially for 4 years however quit over 60 years ago. She does recall exposure to asbeosis in the past. She denies any bothersome urinary issues. She denies urinary urgency, urinary frequency, incontinence, nocturia, dysuria, foul smelling urine, changes to urinary stream, flank pain, fever, and or chills. She is happy with her current voiding parameters she discusses her recent left knee replacement here at [facility]. We did review potential causes of gross hematuria as well as further treatment options and risks and benefits of these treatment options. I discussed reasons for blood in the urine may include but are not limited to kidney stones, cancer in the urinary tract, BPH, kidney stone disease or inflammatory conditions of the urinary tract. I have discussed workup to include cystoscopy evaluation. All questions were answered. She otherwise offers no other issues or concerns at this time. [facility], [facility] Medical History History of chemotherapy Hx of breast cancer GERD (gastroesophageal reflux disease) Seasonal allergies Environmental allergies Murmur Pleuritic pain De Quervain's tenosynovitis, right Abnormal EKG Obesity (BMI 30.0-34.9) Hypersomnolence Nocturnal hypoxemia Rhinitis Fall Left knee pain Right ankle pain Neck pain Leg pain Back pain Shoulder pain Encounter related to worker's compensation claim Tick bite Encounters for administrative purpose Deflation of breast implant History of breast cancer (~2008) History of diabetes mellitus GERMANIA (obstructive sleep apnea) Palpitations Steatosis, liver History of MRSA infection Arthritis Sickle cell trait History of COVID-19 (~09/2019) Hx of cardiac murmur Post-COVID syndrome (~2019) Pneumonia (~2019) Asthma Hypertension GERD (gastroesophageal reflux disease) Constipation Surgical History S/P gastric bypass (~2020) History of left knee surgery (~2010) History of Cassi-en-Y gastric bypass (~2020) History of bilateral mastectomy (~2008) History of colonoscopy (~2016) History of hysterectomy (~2003) History of laparoscopic cholecystectomy (~2002) History of esophagogastroduodenoscopy (EGD) (~2017) History of sleeve gastrectomy (~2010) Family History Father DM (diabetes mellitus) Stroke Mother DM (diabetes mellitus) Brother No problems noted. Sister No problems noted. Son No problems noted. 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 Gender identity: Female Cognitive needs: No Hearing needs: No Vision needs: No Review of Systems Const All systems reviewed & are unremarkable except as noted in HPI and below Physical Exam Const General: cooperative, healthy appearing, comfortable, no acute distress, well developed, alert and awake Orientation/consciousness: patient oriented x3 Limitations: ambulation with walker HEENT Head: Yes normal to inspection, Yes normocephalic and Yes atraumatic Ears: hearing grossly normal bilaterally Eyes General: appearance normal, both eyes and all related structures Neck Neck: Yes normal visual inspection and Yes trachea midline Chest Chest palpation & inspection: normal inspection of the chest Resp Effort & Inspection: normal respiratory effort and able to speak in complete sentences Cardio Rate: regular rate GI Inspection: Yes normal to inspection General: Yes no CVA tenderness Back/Spine/Pelvis Back: no CVA tenderness Skin General skin exam: no rashes or lesions noted Neuro General: patient oriented x3 Extrem General: Yes normal to inspection Psych Appearance: grossly normal and well kempt Mental Status: mental status grossly normal Speech and movement: Normal speech and movement present and Clear speech present Affect: normal affect Attitude: cooperative Thought process: Normal thought process present Thought content: Normal thought content present Insight: Fair insight present (Psych) Judgement: Fair judgement present (Psych) Office Procedures Post Void Residual Post Residual Void Post Void Residual (PVR): 0 18720-Fvyg Void Residual by ultrasound Results AMB Urinalysis, Automated UA Leukoctes 15 Stef/uL Last Edit by UNRULY Mason on 06/06/25 13:20 UA Nitrite Negative Last Edit by Jorge Paul [facility] on 06/06/25 13:20 UA Urobilinogen 1 mg/dL Last Edit by Jorge Paul [facility] on 06/06/25 13:20 UA Protein 15 mg/dL Last Edit by Jorge Paul [facility] on 06/06/25 13:20 UA pH 6.0 Last Edit by Jorge Paul [facility] on 06/06/25 13:20 UA Blood 80 Kaleb/uL Last Edit by Jorge Paul [facility] on 06/06/25 13:20 UA Specific [place] 1.015 Last Edit by Jorge Paul [facility] on 06/06/25 13:20 UA Ketone Negative Last Edit by Jorge Paul [facility] on 06/06/25 13:20 UA Bilirubin 0 mg/dL Last Edit by Jorge Paul [facility] on 06/06/25 13:20 UA Glucose 0 mg/dL Last Edit by Jorge Paul [facility] on 06/06/25 13:20 Results Reviewed Results Reviewed: Laboratory Last Values Urine pH (Auto) 6.0 06/06/25 13:01 Specific [place] (Auto) 1.015 06/06/25 13:01 Urine Protein (Auto) 15 mg/dL 06/06/25 13:01 Glucose (UA)(Auto) 0 mg/dL 06/06/25 13:01 Urine Ketones (Auto) Negative 06/06/25 13:01 Urine Blood (Auto) 80 Kaleb/uL 06/06/25 13:01 Urine Nitrite (Auto) Negative 06/06/25 13:01 Urine Bilirubin (Auto) 0 mg/dL 06/06/25 13:01 Urine Urobilinogen (Auto) 1 mg/dL 06/06/25 13:01 Leukocyte Esterase (Auto) 15 Stef/uL 06/06/25 13:01 Date of Service: 03/23/25 Procedure(s): US retroperitoneal comp Findings: Right kidney normal size and echotexture, 11.2 cm length. Left kidney normal size and echotexture, 11.5 cm length. There are bilateral Bosniak 1 renal cysts. No collecting system dilatation of either kidney. Normal color Doppler. Urinary bladder is unremarkable. Prevoid volume 540 mL. Postvoid volume 50 mL. Bilateral ureteral jets are visualized. IMPRESSION: 1. No acute findings Assessment & Plan Assessment & Plan (1) Hematuria: Code(s): R31.9 - Hematuria, unspecified Category: Medical (2) Renal cyst: Code(s): N28.1 - Cyst of kidney, acquired Category: Medical Plan In office urinalysis results with the patient today; as noted above; will send for urine cytology. PVR 0 mL Previous retroperitoneal ultrasound results reviewed with the patient today; as noted above We discussed potential causes of gross hematuria as well as further workup in risks and benefits of these interventions. All questions were answered. We discussed worsening symptoms. Will obtain CT urogram for further assessment evaluation. BUN and creatinine ordered for imaging. Information provided regarding in office cystoscopy. Follow-up next available in office cystoscopy with imaging to be completed prior; or sooner with any issues, concerns, and or questions. Orders: Orders CT urogram 06/06/25 R31.0 - Gross hematuria Creatinine 06/06/25 R39.15 - Urgency of urination AMB Urinalysis Automated 06/06/25 Z13.9 - Encounter for screening, unspecified Urine Cytology 06/06/25 R31.29 - Other microscopic hematuria Blood Urea Nitrogen 06/06/25 R39.15 - Urgency of urination Patient Instructions: The patient had an opportunity to ask questions regarding the treatment plan. All questions were answered. Physical exam, labs, and imaging were discussed and reviewed in detail. As well as risks, benefits, and discussion of treatment choices. No major barriers to understanding were identified. The patient expressed understanding and agreement with the above treatment plan. The patient was made aware they should contact our office by phone for worsening of their current condition, the appearance of new symptoms, or with any questions or concerns. Compliance is encouraged with any medications and follow up testing that is ordered. It is a privilege to be allowed the opportunity to participate in? your urological care.? Again, if you have any questions or concerns If you have any questions or concerns please do not hesitate to contact me. The office is [phone]. This note is constructed using voice recognition software. While every effort has been made to ensure accuracy ship's engineer errors may have been included. Yours sincerely, NOEMI Paul-ZOHRA Coding Level of Care Code New Pt Level 3 (29506) Diagnoses Hematuria R31.9 Renal cyst N28.1 CPT Codes Post Residual Void - PVR CPT Code: 51262-Mvtr Void Residual by ultrasound ([id number])
== END 2025-06-06 13:51 | disposition home or self-care (01) ==
LOC: HO.HUSH 12:53
PROVIDERS: PCP Nurse Practitioner Family; Visit Provider Nurse Practitioner Family
DX: Z13.9 Encounter for screening, unspecified (principal)

== ENCOUNTER 2025-06-11 14:09 | Outpatient (AMB) | payer OTHER, SELFPAY ==
--- NOTE | 2025-06-11 14:36 | A.OFFVIS_ITS ---
Intake Visit Reasons: 2WKPO: L TKA w/NE 05/22/25 Intake Note: Elma is a 64 year old female who presents today for a post operative visit after undergoing a left TKA, performed by Dr. Cross on 05/22/25. Patient reports that she is doing well, states her current pain level is a 6 out of 10. Allergies cat dander Allergy (Severe, Verified 06/11/25 14:38) Loss Voice environmental allergies Allergy (Severe, Verified 06/11/25 14:38) Sneezing HPI Comments Details: History of Present Illness The patient is a 64 year old female presenting for a postoperative follow-up visit s/p LT TKA 05/22/[address] Cross. She reports a new, traveling, nerve- like pain in her thigh that she describes as hypersensitive to touch. Since the surgery, the patient has had difficulty sleeping, with the last good sleep being in the hospital. She reports a history of long COVID, after which she states her body has not been the same, with symptoms including persistent joint pain and burning in her toes. She denies a history of fibromyalgia. The patient has completed her initial prescription of oxycodone. She is currently receiving home physical therapy and anticipates it will be wrapping up soon. For self-care, she has tried using ice on the thigh and found that heat application seemed to make it feel worse. Social History - Functional Status: The patient has been using a cane but is hesitant to use it outdoors due to fear of falling on snow and ice. - Exercise: Currently engaged in home-based physical therapy. [facility]LY [facility] Medical History History of chemotherapy Hx of breast cancer GERD (gastroesophageal reflux disease) Seasonal allergies Environmental allergies Murmur Pleuritic pain De Quervain's tenosynovitis, right Abnormal EKG Obesity (BMI 30.0-34.9) Hypersomnolence Nocturnal hypoxemia Rhinitis Fall Left knee pain Right ankle pain Neck pain Leg pain Back pain Shoulder pain Encounter related to worker's compensation claim Tick bite Encounters for administrative purpose Deflation of breast implant History of breast cancer (~2008) History of diabetes mellitus GERMANIA (obstructive sleep apnea) Palpitations Steatosis, liver History of MRSA infection Arthritis Sickle cell trait History of COVID-19 (~09/2019) Hx of cardiac murmur Post-COVID syndrome (~2019) Pneumonia (~2019) Asthma Hypertension GERD (gastroesophageal reflux disease) Constipation Surgical History S/P gastric bypass (~2020) History of left knee surgery (~2010) History of Cassi-en-Y gastric bypass (~2020) History of bilateral mastectomy (~2008) History of colonoscopy (~2016) History of hysterectomy (~2003) History of laparoscopic cholecystectomy (~2002) History of esophagogastroduodenoscopy (EGD) (~2017) History of sleeve gastrectomy (~2010) Family History Father DM (diabetes mellitus) Stroke Mother DM (diabetes mellitus) Brother No problems noted. Sister No problems noted. Son No problems noted. 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 - Constitutional: Reports poor sleep since her surgery. - Musculoskeletal: Reports generalized joint pain. Physical Exam Exam Exam: Physical Exam - Musculoskeletal: Left knee incision clean dry and intact. Examination of the operative knee reveals full extension with flexion to 90. -calf supple non tender - Quadriceps muscle contracts well on command. Assessment & Plan Assessment & Plan (1) Status post total left knee replacement: Code(s): Z96.652 - Presence of left artificial knee joint Category: Surgical Plan Plan 1. Postoperative Care And Pain Management The patient's thigh pain is likely multifactorial, possibly related to the surgical tourniquet, quadriceps muscle incision, or postoperative inflammation, which may be heightened by her underlying nerve sensitivity from long COVID. Plan is to remove surgical paddy today and advise the patient that she may begin showering. Recommended sticking with ice application for her thigh, as heat may be causing too much vasodilation at this stage. A refill of oxycodone will be sent to her pharmacy for use as needed, up to every 8 hours, to manage pain, especially in relation to outpatient physical therapy. Follow-up is scheduled for July 05. Consent Patient was informed and verbally consented to the use of an ambient scribe for clinic note documentation during this visit. Orders: Orders PT Evaluation and Treatment Today Z96.652 - Presence of left artificial knee joint Coding Level of Care Code Global (25376) Diagnoses Status post total left knee replacement Z96.652
--- OUTSIDE RECORDS SUMMARY | 2025-06-11 16:29 | XMS_ITS | Encounter Summary ---
Author Organization [facility] Address [address] [place] [address] Care Team Providers Care Rim Fire Priming Operator Name Role Phone Jorge Enriquez MD Primary Care Provider [phone] Encounter Details Date Type Department Care Team (Late st Contact Info) Description 10/30/2022 Scanned Document [facility]astic & Reconstructive Surgery [place] [address] Breast [place], [place] [address] Rosina Mckinney MD 4186 [facility] [address] [place], [place] [address] Social History Tobacco Use Types Packs/Day Years [...] on filedocumented in this encounter Care Teams Rim Fire Priming Operator Relationship Specialty Start Date End Date Jorge Enriquez MD [address] [place] [address] [place] [address] PCP - General 08/31/22 documented as of this encounter
--- OUTSIDE RECORDS SUMMARY | 2025-06-11 16:29 | XMS_ITS | Patient Health Record ---
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: former smoker over 30 years Problems Problem Type SNOMED Code ICD Code Onset Dates Problem Status W/U Status Risk Notes Problem Colon cancer screening (332581870) Colon cancer screening (Z12.11) Active confirmed Problem Constipation (09852196) Constipation, unspecified constipation type (K59.00) Active confirmed Plan Of Treatment Future Test Test Name Order Date COLONOSCOPY 09/24/2016 Insurance Providers Payer Name Payer Address Payer Phone Subscriber Number Group Number Insured Name Patient Relationship to Insured Coverage Start Date Coverage End Date [place] [address] [place] [phone] [id number] TETE THOMAS Self - patient is the insured Medical (General) History Medical History History ICD Code diabetes mellitus hypertension heart murmur Denies MT,CVA,Lung disease,renal disease Surgical History Surgery Date(Month/Year) hysterectomy 2003 breast cancer bilateral 2009 knee surgery 2010 gastric sleeve 2013
--- OUTSIDE RECORDS SUMMARY | 2025-06-11 16:29 | XMS_ITS | Encounter Summary ---
Author Organization [facility] Address [address] [place] [address] Care Team Providers Care Traveling Secretary Name Role Phone Jorge Enriquez MD Primary Care Provider [phone] Encounter Details Date Type Department Care Team (Late st Contact Info) Description 10/30/2022 Scanned Document [facility] Plastic & Reconstructive Surgery [place] [address] Breast [place], [place] [address] Rosina Mckinney MD 4181 [facility] [address] [place], [place] [address] Social History Tobacco Use Types Packs/Day Years [...] on filedocumented in this encounter Care Teams Traveling Secretary Relationship Specialty Start Date End Date Jorge Enriquez MD [address] [place] [address] [place] [address] PCP - General 08/31/22 documented as of this encounter
--- OUTSIDE RECORDS SUMMARY | 2025-06-11 16:29 | XMS_ITS | Clinical Summary ---
Author Organization [facility] Address [address] [place] [address] Care Team Providers Care Mechanical Door Repairer Name Role Phone Jorge Enriquez MD Primary Care Provider [phone] Allergies No known active allergies Medications Blood [...] this topic Medical Devices Implanted Type Area Wood Fuel Pelletizer Device Identifier Shelf Expiration Date Model / Serial / Lot [id number] Fan Engine Engineer Anastomosis [place] [employer] Titanium 20mhz Od3 M - [id number] Implanted:Qty: 1 on 09/28/2022 by Jose Rafael Barroso MD at [facility] Graft Right: Breast [employer]IS Thrive Solo [facility] 03/16/2027 [id number] / [id number] / [id number] Fan Engine Engineer Anastomosis [place] [employer] Titanium 20mhz Od3 M - [id number] Implanted:Qty: 1 on 09/28/2022 by Rosina Mckinney MD at [facility] Graft Left: Breast [employer] Solo [facility] 03/16/2027 [id number] / [id number] / [id number] Procedures Procedure Name Priority Date/Time Associated Diagnosis Comments BASIC METABOLIC PANEL Routine 09/30/2022 8:04 AM EDT from Last 3 Months or Most Recently Relevant to Health Maintenance Results * (ABNORMAL) Basic Metabolic Panel (Early AM) (09/30/2022 8:04 AM EDT) Glucose 91 74 - 106 mg/dL 09/30/2022 8:41 AM EDT [facility] Comment:Fasting: <100 mg/dL, Non-Fasting: <200 mg/dL (ADA 2005) Blood Urea Nitrogen (BUN) 15 9 - 23 mg/dL 09/30/2022 8:41 AM EDT [facility] Creatinine 0.8 0.6 - 1.0 mg/dL 09/30/2022 8:41 AM EDT [facility] eGFR 84 >59 09/30/2022 8:41 AM EDT [facility] Comment: CKD-EPI (2020) in mL/min/1.73 sq meters. Reported eGFR is based on the CKD-EPI equation that does not use a race coefficient as of 08/18/2022 Sodium 145 136 - 145 mmol/L 09/30/2022 8:41 AM EDT [facility] Potassium 3.8 3.4 - 4.5 mmol/L 09/30/2022 8:41 AM EDT [facility] Chloride 112(H) 98 - 107 mmol/L 09/30/2022 8:41 AM EDT [facility] CO2 28 20 - 31 mmol/L 09/30/2022 8:41 AM EDT [facility] Anion Gap 5 5 - 15 09/30/2022 8:41 AM EDT [facility] Calcium 8.3(L) 8.7 - 10.5 mg/dL 09/30/2022 8:41 AM EDT [facility] BUN/Creatinine Ratio 19 10.0 - 25.0 Ratio 09/30/2022 8:41 AM EDT [facility] Blood specimen (specimen) (Plasma/Serum) 09/30/2022 8:04 AM EDT 09/30/2022 8:21 AM EDT Althea Palacio PA-C LAB BLOOD ORDERABLES Final Result HOSPITAL LAB See Below [facility] [address] [place] [address] from Last 3 Months or Most Recently Relevant to Health Maintenance Insurance [facility] - PPO Advance Directives * Full Code (Latest Code Status on File) Date Activated Date Inactivated Comments 09/28/2022 6:38 PM 02/10/2023 5:34 AM * Full Code Date Activated Date Inactivated Comments 09/28/2022 5:34 AM 09/28/2022 6:38 PM Care Teams Mechanical Door Repairer Relationship Specialty Start Date End Date Jorge Enriquez MD [address] [place] [address] Dr Moura, JORGE L [address] PCP - General 08/31/22
--- OUTSIDE RECORDS SUMMARY | 2025-06-11 16:29 | XMS_ITS | Encounter Summary ---
Author Organization [facility] Address [address] [place] [address] Care Team Providers Care Spring Forger Name Role Phone Jorge Enriquez MD Primary Care Provider [phone] Encounter Details Date Type Department Care Team (Late st Contact Info) Description 10/22/2022 Scanned Document [facility] Plastic & Reconstructive Surgery [place] [address] [place] [address] Rosina Mckinney MD 4[address] [facility] [address] [place] [address] Social History Tobacco Use Types [...] on filedocumented in this encounter Care Teams Spring Forger Relationship Specialty Start Date End Date Jorge Enriquez MD [address] [place] [address] [place] [address] PCP - General 08/31/22 documented as of this encounter
--- OUTSIDE RECORDS SUMMARY | 2025-06-11 16:29 | XMS_ITS | Clinical Summary ---
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 [place] Care Teams Field Training Agent Relationship Specialty Start Date End Date Umm Cates NP [address] [place] [phone] PCP - General Nurse Practitioner 12/13/24
--- OUTSIDE RECORDS SUMMARY | 2025-06-11 16:29 | XMS_ITS | Encounter Summary ---
Author Organization [facility] Address [address] [place] [address] Care Team Providers Care Maltster Name Role Phone Jorge Enriquez MD Primary Care Provider [phone] Encounter Details Date Type Department Care Team (Late st Contact Info) Description 11/23/2022 Scanned Document [facility] Plastic & Reconstructive Surgery [place] [address] Breast [place], [place] [address] Rosina Mckinney MD 4185 [facility] 201 [place], [place] [address] Social History Tobacco Use Types Packs/Day Years [...] on filedocumented in this encounter Care Teams Maltster Relationship Specialty Start Date End Date Jorge Enriquez MD [address] [place] [address] [place] [address] PCP - General 08/31/22 documented as of this encounter
--- OUTSIDE RECORDS SUMMARY | 2025-06-11 16:29 | XMS_ITS | Encounter Summary ---
Author Organization [facility] Address [address] [place] [address] Care Team Providers Care Family Medicine Physician Assistant Name Role Phone Jorge Enriquez MD Primary Care Provider Encounter Details Date Type Department Care Team (Late st Contact Info) Description 09/15/2022 Scanned Document [facility] Plastic & Reconstructive Surgery [place] [address] [place] [address] Breast [place], [place] [address] Rosina Mckinney MD [address] [phone] Social History Tobacco Use Types Packs/Day Years [...] on filedocumented in this encounter Care Teams Family Medicine Physician Assistant Relationship Specialty Start Date End Date Jorge Enriquez MD [address] [place] [address] Dr [address] [place] [address] [place] [address] PCP - General 08/31/22 documented as of this encounter
== END 2025-06-11 15:15 | disposition home or self-care (01) ==
PROVIDERS: PCP Nurse Practitioner Family; Visit Provider Physician Assistant
DX: Z96.652 Presence of left artificial knee joint (principal)
CPT/HCPCS: 99024

== ENCOUNTER → 2025-06-11 14:09 | Outpatient (BNVA) | payer OTHER, SELFPAY | PROVIDERS: PCP Nurse Practitioner Family; Visit Provider Physician Assistant | DX: Z47.1 Aftercare following joint replacement surgery (principal); Z96.652 Presence of left artificial knee joint | CPT/HCPCS: 99212 ==